=== PATIENT | male | born 1955 | race American Indian/Alaskan Native ===

== ENCOUNTER 2018-03-26 11:12 | Outpatient (REF) | payer MEDICAID, SELFPAY ==
[2018-03-26 11:34] LABS: Abs Immature Grans 0.06 k/cumm (0.0-0.09); Absolute Basophil Count 0.04 k/cumm (0.0-0.2); Absolute Eosinophil Count 0.28 k/cumm (0.0-0.7); Absolute Lymphocyte Count 4.02 k/cumm (1.2-3.4); Absolute Monocyte Count 0.78 k/cumm (0.11-0.7); Absolute Neutrophil Count 3.79 k/cumm (1.2-6.7); Basophils % 0.4; Eosinophils % 3.1; HCT 37.8 % (40.0-50.0); HGB 12.5 g/dL (13.5-17.5); Immature Grans % 0.7; Lymphocytes % 44.8; Mean Corp. HGB Concentration 33.1 g/dL (32.0-36.0); Mean Corpuscular Hemoglobin 31.5 pg (27.0-33.0); Mean Corpuscular Volume 95.2 fL (80-95); Mean Platelet Volume 9.9 fL (8.0-11.0); Monocytes % 8.7; Neutrophils % 42.3; Platelet Count 225 x1000/uL (130-400); RBC 3.97 m/cumm (4.50-6.00); RBC Distribution Width 14.5 % (11.8-14.1); White Blood Cell Count 8.97 k/cumm (4.4-10.8)
[2018-03-26 12:01] LABS: ALT 29 U/L (12-78); AST 29 U/L (15-37); Albumin 2.6 g/dL (3.4-5.0); Alkaline Phosphatase 73 U/L (46-116); Anion Gap 4.7 mmol/L (3-11); BUN 12 mg/dL (7-18); Bilirubin, Total 0.3 mg/dL (0.2-1.0); CO2 29.3 mmol/L (21.0-32.0); CREATININE 0.73 mg/dL (0.70-1.30); Calcium 8.2 mg/dL (8.5-10.1); Chloride 101 mmol/L (98-107); Glucose 120 mg/dL (70-100); Potassium 4.3 mmol/L (3.5-5.1); Sodium 135 mmol/L (136-145); TSH (W/Ref FT4) 0.01 uIU/mL (0.358-3.74); Total Protein 5.4 g/dL (6.4-8.2); Uric Acid 6.3 mg/dL (3.5-7.2)
[2018-03-26 12:19] LABS: FREE T4 1.05 ng/dL (0.76-1.46)
== END 2018-03-26 11:13 ==
LOC: LBN 11:12
PROVIDERS: PCP Family Medicine; Visit Provider Family Medicine
DX: I10 Essential (primary) hypertension (principal); R53.83 Other fatigue; R63.5 Abnormal weight gain; E66.9 Obesity, unspecified
CPT/HCPCS: 80053; 83036; 84439; 84443; 84550; 85025

== ENCOUNTER 2018-06-09 12:10 | Outpatient (REF) | payer MEDICAID, SELFPAY | END 2018-06-09 12:30 | LOC: LBN 12:10 | PROVIDERS: PCP Family Medicine; Visit Provider Family Medicine | DX: R25.2 Cramp and spasm (principal); M79.601 Pain in right arm; M79.602 Pain in left arm; M79.604 Pain in right leg; M79.605 Pain in left leg | CPT/HCPCS: 82550; 85652 ==

== ENCOUNTER 2018-09-04 08:07 | Outpatient (REF) | payer MEDICAID, SELFPAY | END 2018-09-04 08:27 | LOC: LBN 08:07 | PROVIDERS: PCP Family Medicine; Visit Provider Family Medicine | DX: R19.7 Diarrhea, unspecified (principal) | CPT/HCPCS: 87505; 87177; 87230 ==

== ENCOUNTER 2018-09-16 16:21 | Outpatient (REF) | payer MEDICAID, SELFPAY ==
[2018-09-18 11:10] LABS: Campylobacter PCR SEE COMMENTS; Salmonella PCR SEE COMMENTS; Shiga Toxin PCR SEE COMMENTS; Shigella/Enteroinvasive Ecoli SEE COMMENTS
== END 2018-09-16 16:41 ==
LOC: LBN 16:21
PROVIDERS: PCP Family Medicine; Visit Provider Family Medicine
DX: R19.7 Diarrhea, unspecified (principal)
CPT/HCPCS: 87329; 87505; 87324

== ENCOUNTER 2018-10-22 15:28 | Outpatient (REF) | payer MEDICAID, SELFPAY | END 2018-10-22 15:48 | LOC: LBN 15:28 | PROVIDERS: PCP Family Medicine; Visit Provider Emergency Medicine | DX: L08.9 Local infection of the skin and subcutaneous tissue, unspecified (principal) | CPT/HCPCS: 87077; 87070; 87186; 87205 ==

== ENCOUNTER 2018-10-31 11:37 | Inpatient (IN) | payer MEDICAID, SELFPAY ==
[2018-10-31] VITALS (150 sets, daily range): BP systolic 48–167; BP diastolic 31–118; PULSE 88–173; RESP 9–41; TEMP 36.8–37.6; O2SAT 83–99
--- NOTE | 2018-10-31 12:09 | ED.GENADUL_ITS ---
Discharge Plan Disposition Patient Disposition: 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 for constipation times 5 days and decreased urine output and decreased p.o. intake for the past 2 days. Unable to obtain IV access. Patient verbally and physically aggressive, attempting to punch and hit staff. 2 mg of IM Ativan ordered. 1320 -- still unable to obtain access. Pt was briefly sedated and attempted to place IV twice but unsuccessful and now pt threatening to hurt me if I continue to attempt IV. Still unable to obtain labs. Heart rate 130s. Systolic blood pressure 100s. Patient will need an IV for fluids and need to obtain labs. We will give Haldol IM and reattempt. 1740 --significant delay in obtaining results due to inability to obtain IV for several hours. Anesthesia called and able to obtain IV and chest. Unable to obtain labs at that time so laboratory was able to. Patient was able to urinate and have a bowel movement while here. Labs and imaging reviewed. Normal white blood cell count. Sodium 132. Glucose 281. Normal bicarb. Urinalysis negative for infection. Chest x-ray notes increased gas in the left lower lobe, may be atelectasis or pneumonia. Due to persistent tachycardia as well as decreased p.o. intake for the past few days, will treat for pneumonia. Abdominal x-ray negative. Will give another 500 cc IV fluids and reassess. 1830 --temp 99.6. Attempted to give patient Tylenol but he is refusing. He is snoring and arousable but refusing to take Tylenol. Heart rate still 120s. His tachycardia may be due to pneumonia in conjunction with dehydration but he has not responded to 2 L of IV fluids and heart rate still in the 120s. At this point in time, we will plan for admission for observation, fluids and IV antibiotics. 1845 -- Discussed with hospitalist - accepts patient for admission. Medical Records Medical records reviewed: Yes I reviewed the patient's medical records. Imaging Data Radiologic Study: Radiologist's impression: XR Chest, 1 View EXAM DATE/TIME: 10/31/2018 12:44 PM FINDINGS: Increased density in the lateral left lower lobe. Differential diagnosis includes atelectasis, pneumonia, as well as other lesions including neoplasm. Followup imaging assessment is recommended. There is a rounded density in the right lung apex, new since the prior study. No renee pulmonary consolidation is seen. No pneumothorax is identified. The heart is within normal limits of size given this AP technique. IMPRESSION: 1. Increased density in the left lateral lower lobe, indeterminate. Differential diagnosis includes atelectasis, pneumonia, as well as neoplasm. Followup imaging is recommended as clinically indicated. 2. Small nodular density in the right lung apex. Followup imaging is suggested. XR Abdomen, 1 View EXAM DATE/TIME: 10/31/2018 12:45 PM FINDINGS: Gastrointestinal tract: Air and fecal matter is present within the colon extending from cecum to the rectum. There are multiple loops of air-filled, nondistended, small bowel in the mid abdomen. No radiographic evidence of obstruction is seen. Bones/joints: There are degenerative changes within the lumbar spine. IMPRESSION: No bowel obstruction identified. Lab Data Lab results reviewed: Yes I reviewed the patient's lab results. Laboratory Tests Range/Units 10/31/18 10/31/18 10/31/18 14:25 16:25 16:25 WBC (4.4-10.8) k/cumm 7.69 RBC (4.50-6.00) m/cumm 4.33 L Hgb (13.5-17.5) g/dL 13.6 Hct (40.0-50.0) % 41.1 MCV (80-95) fL 94.9 MCH (27.0-33.0) pg 31.4 MCHC (32.0-36.0) g/dL 33.1 RDW (11.8-14.1) % 15.9 H Plt Count (130-400) x1000/uL 230 MPV (8.0-11.0) fL 9.0 Immature Gran % 0.0 Neutrophils % 76.0 Band Neutrophils % % 0.0 Lymphocytes % 7.0 Atypical Lymphs % 9 Monocytes % 7.0 Eosinophils % 0.0 Basophils % 1.0 Absolute Neutrophils (1.2-6.7) k/cumm 5.84 Absolute Lymphocytes (1.2-3.4) k/cumm 1.23 Absolute Monocytes (0.11-0.7) k/cumm 0.54 Absolute Eosinophils (0.0-0.7) k/cumm 0.00 Absolute Basophils (0.0-0.2) k/cumm 0.08 Differential Comment Manual differential RBC Morphology See below Polychromasia Present Sodium (136-145) mmol/L 132 L Potassium (3.5-5.1) mmol/L 4.7 Chloride (98-107) mmol/L 95 L Carbon Dioxide (21.0-32.0) mmol/L 25.3 Anion Gap (3-11) mmol/L 11.7 H BUN (7-18) mg/dL 15 Creatinine (0.70-1.30) mg/dL 1.76 H Estimated GFR/1.73 m2 (mL/min/1.73m2) 39.56 Glucose (70-100) mg/dL 281 H Calcium (8.5-10.1) mg/dL 8.7 Total Bilirubin (0.2-1.0) mg/dL 1.0 AST (15-37) U/L 44 H ALT (12-78) U/L 37 Alkaline Phosphatase (46-116) U/L 64 Total Protein (6.4-8.2) g/dL 6.0 L Albumin (3.4-5.0) g/dL 2.5 L Urine Color (Yellow) Brown Urine Clarity Clear Urine pH (5-8) 5.0 Ur Specific [employer] (1.005-1.025) 1.025 Urine Protein (Negative) mg/dL Trace H Urine Ketones (Negative) mg/dL Trace H Urine Blood (Negative) Negative Urine Nitrite (Negative) Negative Urine Bilirubin (Negative) Moderate H Urine Urobilinogen (Up TO 0.2) EU/dL 1.0 H Ur Leukocyte Esterase (Negative) Negative Urine RBC (0-2) Negative Urine WBC (0-5) HPF Negative Ur Epithelial Cells (Negative) HPF Few Urine Crystals (Negative) HPF Few amorphous Urine Bacteria (Negative) HPF Few Urine Casts (Negative) LPF Negative Urine Mucus (Negative) Trace Ur Culture Indicated? No Urine Glucose (Negative) mg/dL Negative ECG Data Attestation: I personally reviewed and interpreted this ECG (s) as follows: Interpretation: Rate of 131, sinus, no acute ST elevation or depression. QTc 466. QRS 100. HPI General Mode of arrival: ambulatory . Date/Time Provider Initiated Documentation: 10/31/18 12:05 . Limitations to Documentation: no limitations . Information obtained by: patient . HPI Narrative: Patient is a 62-year-old male with a history of morbid obesity, brain cancer, lung cancer, GERD, gout, hy pothyroidism, and panhypopituitary is him who presents from the [facility] for constipation for 5 days, decreased p.o. intake and urinary output for the past 2 days. Patient states he has not felt well for several months and has not been eating much for the past few days. It is difficult to obtain a full history as patient is unclear about why he does not feel well. He is also verbally and physically aggressive and yelling throughout exam. Related Data Home Medications Medication Instructions Recorded Confirmed allopurinol 100 mg PO DAILY 04/07/17 10/31/18 aspirin 81 mg PO DAILY 04/07/17 10/31/18 [id number] [Certa 1 tab PO DAILY 04/07/17 10/31/18 Plus Tablet] trazodone 25 mg PO BID 04/07/17 10/31/18 tramadol 50 mg PO BID #90 tab-cap 11/20/17 10/31/18 acetaminophen [Acetaminophen Extra 1,000 mg PO TID 10/31/18 10/31/18 Strength] cholecalciferol (vitamin D3) 1,000 unit PO DAILY 10/31/18 10/31/18 [Vitamin D3] desmopressin 0.1 mg PO .QEVE 10/31/18 10/31/18 diphenoxylate-atropine [Lomotil] 1 tab PO TID 10/31/18 10/31/18 hydrocortisone 20 mg PO BID 10/31/18 10/31/18 levothyroxine 175 mcg PO DAILY 10/31/18 10/31/18 lisinopril 2.5 mg PO DAILY 10/31/18 10/31/18 metoprolol succinate 25 mg PO DAILY 10/31/18 10/31/18 pantoprazole 20 mg PO DAILY 10/31/18 10/31/18 potassium, sodium phosphates 1 packet PO BID 10/31/18 10/31/18 [Phos-NaK] trazodone 100 mg PO QHS 10/31/18 10/31/18 Allergies Allergy/AdvReac Type Severity Reaction Status Date / Time Influenza Virus Vaccines AdvReac Unknown Unverified 10/31/18 11:58 NSAIDS (Non-Steroidal AdvReac Unknown Unverified 10/31/18 11:58 Anti-Inflamma risedronate sodium AdvReac Unknown Unverified 10/31/18 11:58 rosuvastatin AdvReac Unknown Unverified 10/31/18 11:58 Mpqkvjb-Uey-Rsa Reductase AdvReac Unknown Unverified 10/31/18 11:58 Inhibitor General Stated Complaint: GenMedical BANDAR: 2 Review of Systems Review of Systems All systems reviewed & are unremarkable except as noted in HPI and below Constitutional Reports as per HPI, Denies chills, Reports fatigue, Denies fever(s), Reports malaise and Reports poor appetite Eyes Denies blurry vision ENT Denies dizziness, Denies sore throat and Denies throat swelling Cardiovascular Denies chest pain and Denies dyspnea Respiratory Denies cough and Denies dyspnea Gastrointestinal Denies abdominal pain, Reports constipation, Denies diarrhea and Denies vomiting Genitourinary Denies hematuria, Reports oliguria and Denies dysuria Musculoskeletal Denies back pain and Denies numbness Integumentary/Breasts Denies lesions and Denies rash Neurologic Denies dizziness, Denies focal weakness and Denies numbness Endocrine Reports fatigue Allergic/Immunologic Denies throat swelling [facility] Medical History Morbid obesity (Acute) Panhypopituitarism (Acute) Brain cancer (Chronic) GERD (gastroesophageal reflux disease) (Chronic) Lung cancer (Chronic) Surgical History History of craniotomy (Acute) Social History Smoking/Tobacco Use Status: Former Tobacco Use Alcohol Intake: former Substance use type: does not use Details: per pt I Drank like a fish Do you feel safe in your relationship?: Yes Additional Social history: pt at the [facility] Exam Const General: uncooperative HENMT Head: normal to inspection Ears: external ears normal Mouth: mucous membranes dry Eyes General: appearance normal, both eyes and all related structures Pupils: PERRL EOM: EOM intact bilaterally Neck Neck: normal visual inspection and No submandibular swelling Lymphatic: no lymphadenopathy noted Chest Chest: normal inspection of the chest and no tenderness Resp Effort & Inspection: normal respiratory effort and able to speak in complete sentences Auscultation: clear to auscultation bilaterally Cardio Rate: regular rate Rhythm: regular rhythm GI Inspection: normal to inspection and obesity Palpation: soft, not firm, not rigid and nontender Auscultation: normal bowel sounds Male General Exam: Yes normal external exam Skin Other: Scaling dry skin throughout. Healing dry wound to right anterior leg. No signs of acute infection Neuro General: alert, awake and oriented x3 Cognition: normal cognition Speech: speech normal Motor: muscle tone normal throughout Sensory Exam: no sensory deficits noted Extrem General: normal to inspection, full ROM and edema (Nonpitting, indurated, bilateral lower extremities) Psych Appearance: grossly normal Mental Status: mental status grossly normal Speech and Movement: speech and movement normal Affect: normal affect Course Vital Signs Temperature 99.5 F 10/31/18 11:40 Pulse 127 H 10/31/18 11:40 Respiratory Rate 21 10/31/18 11:40 Blood Pressure 100/46 L 10/31/18 11:40 Pulse Oximetry 97 10/31/18 11:40 Temperature 99.5 F 10/31/18 11:40 Temperature Source Oral 10/31/18 11:40 Pulse 127 H 10/31/18 11:40 Respiratory Rate 21 10/31/18 11:40 Respiratory Effort Non-Labored 10/31/18 11:48 Blood Pressure 100/46 L 10/31/18 11:40 Blood Pressure Position Supine 10/31/18 11:40 Pulse Oximetry 97 10/31/18 11:40 Oxygen Delivery Method Room Air 10/31/18 11:40 Oxygen Flow Rate 0 10/31/18 11:40 Pain Level 10 10/31/18 11:40
--- NOTE | 2018-10-31 12:42 | DI.RAD_ITS ---
SYMPTOM/DIAGNOSIS: DECREASED PO INTAKE, WEAKNESS, ? PNEUMONIA, CONSTIPATION,? SMALL BOWEL OBSTRUCTION AP CHEST: Comparison is made with 04/10/17. The study is limited due to poor inspiration and patient positioning. The cardiac silhouette appears within normal limits given the AP technique. Pulmonary vasculature is within normal limits. There do appear to be increased lung opacity in the left lung base. This may represent atelectasis or pneumonia. Mass cannot be entirely excluded. There is a nodular density in the lateral aspect of the right upper lobe. This was not apparent on the prior examination. IMPRESSION: 1. Limited examination due to patient positioning and body habitus. 2. Left basilar opacity. Differential considerations include atelectasis or pneumonia. Neoplasm cannot be entirely excluded. 3. Small nodular density in the right upper lobe. A follow up CT scan of the chest should be considered for further evaluation. FPA: Multiple images were obtained. The bowel gas pattern is nonspecific without evidence of obstruction. Degenerative changes are seen in the spine. IMPRESSION: No evidence of bowel obstruction.
[2018-10-31] MEDS: LORazepam 2 MG/ML VIAL IM (12:46)
[2018-10-31] MEDS: Haloperidol 5 MG/ML VIAL IM (13:40)
[2018-10-31 14:50] LABS: Bilirubin Moderate (Negative); Blood Negative (Negative); Clarity Clear; Glucose Negative (Negative); Ketones Trace mg/dL (Negative); Leukocyte Esterase Negative (Negative); Nitrite Negative (Negative); Specific Gravity 1.025 (1.005-1.025)
[2018-10-31 14:51] LABS: Bacteria Few HPF (Negative); C & S Indicated? No; Casts Negative LPF (Negative); Crystals Few Amorphous HPF (Negative); Epithelial Cells Few HPF (Negative); Mucus Trace (Negative); RBC Negative (0-2); WBC Negative HPF (0-5)
[2018-10-31] MEDS: Midazolam/Ketamine/Ondansetron (3/25/2MG) 1 TAB 1 EACH SL (15:00)
[2018-10-31] MEDS: Normal Saline 1,000 ML 1000 ML IV (16:00)
[2018-10-31 16:35] LABS: Abs Immature Grans 0.15 k/cumm (0.0-0.09); Absolute Monocyte Count 0.54 k/cumm (0.11-0.7); HCT 41.1 % (40.0-50.0); HGB 13.6 g/dL (13.5-17.5); Mean Corp. HGB Concentration 33.1 g/dL (32.0-36.0); Mean Corpuscular Hemoglobin 31.4 pg (27.0-33.0); Mean Corpuscular Volume 94.9 fL (80-95); Platelet Count 230 x1000/uL (130-400); RBC 4.33 m/cumm (4.50-6.00); RBC Distribution Width 15.9 % (11.8-14.1); White Blood Cell Count 7.69 k/cumm (4.4-10.8)
[2018-10-31 16:46] LABS: Absolute Basophil Count 0.08 k/cumm (0.0-0.2); Absolute Lymphocyte Count 1.23 k/cumm (1.2-3.4); Absolute Neutrophil Count 5.84 k/cumm (1.2-6.7); Atypical Lymphocytes % 9; Diff Comment Manual Differential; Polychromasia Present
[2018-10-31 16:49] LABS: ALT 37 U/L (12-78); AST 44 U/L (15-37); Albumin 2.5 g/dL (3.4-5.0); Alkaline Phosphatase 64 U/L (46-116); Anion Gap 11.7 mmol/L (3-11); BUN 15 mg/dL (7-18); CO2 25.3 mmol/L (21.0-32.0); CREATININE 1.76 mg/dL (0.70-1.30); Calcium 8.7 mg/dL (8.5-10.1); Chloride 95 mmol/L (98-107); Estimated GFR 39.56 (mL/min/1.73m2); Glucose 281 mg/dL (70-100); Potassium 4.7 mmol/L (3.5-5.1); Sodium 132 mmol/L (136-145)
--- NOTE | 2018-10-31 17:41 | DI.VRAD_ITS ---
EXAM: XR Chest, 1 View EXAM DATE/TIME: 10/31/2018 12:44 PM CLINICAL HISTORY: 62 years old, male; Signs and symptoms; Other: Decreased po intake, weakness, R/O pneumonia TECHNIQUE: Imaging protocol: XR of the chest, 1 view. COMPARISON: CR PORTABLE CHEST ONE VIEW 04/10/2017 12:59 PM FINDINGS: Increased density in the lateral left lower lobe. Differential diagnosis includes atelectasis, pneumonia, as well as other lesions including neoplasm. Followup imaging assessment is recommended. There is a rounded density in the right lung apex, new since the prior study. No renee pulmonary consolidation is seen. No pneumothorax is identified. The heart is within normal limits of size given this AP technique. IMPRESSION: 1. Increased density in the left lateral lower lobe, indeterminate. Differential diagnosis includes atelectasis, pneumonia, as well as neoplasm. Followup imaging is recommended as clinically indicated. 2. Small nodular density in the right lung apex. Followup imaging is suggested. Dictated and Authenticated by: Darrell Coleman MD. Ordering:BRANNON Justin MD
--- NOTE | 2018-10-31 17:43 | DI.VRAD_ITS ---
EXAM: XR Abdomen, 1 View EXAM DATE/TIME: 10/31/2018 12:45 PM CLINICAL HISTORY: 62 years old, male; Signs and symptoms; Other: Constipation, R/O air fluid levels, sbo TECHNIQUE: Imaging protocol: Frontal supine view of the abdomen/pelvis. COMPARISON: US RENAL ULTRASOUND(P) 04/08/2017 3:25 PM FINDINGS: Gastrointestinal tract: Air and fecal matter is present within the colon extending from cecum to the rectum. There are multiple loops of air-filled, nondistended, small bowel in the mid abdomen. No radiographic evidence of obstruction is seen. Bones/joints: There are degenerative changes within the lumbar spine. IMPRESSION: No bowel obstruction identified. Dictated and Authenticated by: Darrell Coleman MD. Ordering:BRANNON Justin MD
[2018-10-31] MEDS: Normal Saline 500 ML 1000 ML IV ×2 (17:45→18:13)
[2018-10-31] MEDS: cefTRIAXone 1 GM/50 ML BAG IVPB (18:02)
[2018-10-31] MEDS: DOXYCYCLINE 100 MG in Normal Saline 100 ML IVPB (18:34)
--- NOTE | 2018-10-31 19:19 | W.PM.HP.N ---
Date of service: 10/31/18 Time of Service: 19:19 Assessment and Plan (1) HCAP (healthcare-associated pneumonia): Start date: 10/31/18 Current visit: Yes Status: Acute This is a 62-year-old gentleman who is morbidly obese and appears that he does not ambulate at the local nursing facility. He presented with altered mental status and has a left lower lobe pneumonia which will be treated as a healthcare associated pneumonia. This may be causing some of his obtundation and change mental status recently. He does not have a high fever but is tachycardic and is being IV fluid resuscitated. His creatinine was slightly up compared to his baseline. He also has had poor intake recently. He is a DNR/DNI this will be respected. We will treat him with his CPAP at night which is his usual treatment for obstructive sleep apnea. His magnesium is low and we will give him a gram of magnesium IV. 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 Continue supplements otherwise. His free T4 slightly elevated and will decrease his daily dose of Synthroid. His TSH is low but this is expected with his panhypopituitarism. (3) Constipation: Start date: 10/31/18 Current visit: Yes Status: Acute Obstipation without obstruction therefore the patient will be treated with IV hydration because of his increased creatinine from last baseline and oral cathartics will be used as the patient allows. (4) Lung cancer: Current visit: Yes Status: Chronic Patient is a DNR/DNI and there is a mass over the right upper lobe by chest x-ray with this not being pursued during this hospital stay. If this is advancing may contribute to his respiratory symptoms. Consider CT scan with patient may not fit in the CT scanner locally secondary to his weight being over 350 pounds. He is a DNR/DNI. History of Present Illness Chief Complaint: Constipation with altered mental status and decreased intake and output Narrative: This is a 62-year-old gentleman who had a craniotomy for brain tumor 1988 with resulting panhypopituitarism, on supplements for adrenal insufficiency and hypothyroidism as well as diabetes insipidus. He also has a history of lung cancer the chest x-ray in the ED revealing a nodule in the right upper lobe. He presented with a 5-day history of constipation with decreased intake and output for the last couple of days. There are no other reported symptoms and the patient was very combative in the ER prolonging his stay because of delayed lab evaluation and IV access for IV fluid resuscitation. Patient was tachycardic at this did respond to fluid resuscitation. Chest x-ray did reveal also possible left lower lobe infiltrate which would be healthcare associated pneumonia. He was started on vancomycin and Zosyn. He was admitted with telemetry because of his tachycardia and was less combative and very sedated at the time I saw him with no ability to give further history. Nurses in the ICU also had no further history given by the patient. He has not been combative since brought to the floor. Review of Systems Review of Systems Review of systems obtained in the ER, patient was not able to give further review of systems to this interviewer. All systems reviewed & are unremarkable except as noted in HPI and below Constitutional Reports as per HPI, Denies chills, Reports fatigue, Denies fever(s), Reports malaise and Reports poor appetite Eyes Denies blurry vision ENT Denies dizziness, Denies sore throat and Denies throat swelling Cardiovascular Denies chest pain and Denies dyspnea Respiratory Denies cough and Denies dyspnea Gastrointestinal Denies abdominal pain, Reports constipation, Denies diarrhea and Denies vomiting Genitourinary Denies hematuria, Reports oliguria and Denies dysuria Musculoskeletal Denies back pain and Denies numbness Integumentary/Breasts Denies lesions and Denies rash Neurologic Denies dizziness, Denies focal weakness and Denies numbness Endocrine Reports fatigue Allergic/Immunologic Denies throat swelling [facility] Medical History Morbid obesity (Acute) Panhypopituitarism (Acute) Brain cancer (Chronic) GERD (gastroesophageal reflux disease) (Chronic) Lung cancer (Chronic) Surgical History History of craniotomy (Acute) Social History Smoking/Tobacco Use Status: Former Tobacco Use Alcohol Intake: former Substance use type: does not use Details: per pt I Drank like a fish Do you feel safe in your relationship?: Yes Additional Social history: pt at the [facility] Medications Medication Instructions Recorded Confirmed Type allopurinol 100 mg PO DAILY 04/07/17 10/31/18 History aspirin 81 mg PO DAILY 04/07/17 10/31/18 History [id number] [Certa 1 tab PO DAILY 04/07/17 10/31/18 History Plus Tablet] trazodone 25 mg PO BID 04/07/17 10/31/18 History tramadol 50 mg PO BID #90 tab-cap 11/20/17 10/31/18 History acetaminophen [Acetaminophen Extra 1,000 mg PO TID 10/31/18 10/31/18 History Strength] cholecalciferol (vitamin D3) 1,000 unit PO DAILY 10/31/18 10/31/18 History [Vitamin D3] desmopressin 0.1 mg PO .QEVE 10/31/18 10/31/18 History diphenoxylate-atropine [Lomotil] 1 tab PO TID 10/31/18 10/31/18 History hydrocortisone 20 mg PO BID 10/31/18 10/31/18 History levothyroxine 175 mcg PO DAILY 10/31/18 10/31/18 History lisinopril 2.5 mg PO DAILY 10/31/18 10/31/18 History metoprolol succinate 25 mg PO DAILY 10/31/18 10/31/18 History pantoprazole 20 mg PO DAILY 10/31/18 10/31/18 History potassium, sodium phosphates 1 packet PO BID 10/31/18 10/31/18 History [Phos-NaK] trazodone 100 mg PO QHS 10/31/18 10/31/18 History Allergies Allergy/AdvReac Type Severity Reaction Status Date / Time Influenza Virus Vaccines AdvReac Unknown Unverified 10/31/18 11:58 NSAIDS (Non-Steroidal AdvReac Unknown Unverified 10/31/18 11:58 Anti-Inflamma risedronate sodium AdvReac Unknown Unverified 10/31/18 11:58 rosuvastatin AdvReac Unknown Unverified 10/31/18 11:58 Gjtzufx-Xxg-Izx Reductase AdvReac Unknown Unverified 10/31/18 11:58 Inhibitor Exam Narrative Exam Narrative: General: Patient is morbidly obese and obtunded at the time I examined him with no verbal response to questions. He did not open his eyes but was responsive to painful stimuli. He appears comfortable with his head elevated at 45 degrees and legs also elevated because of edema. HEENT: Normocephalic, eyes when opened manually looking no had conjugate movement with pupils equal and reactive to light symmetrically, sclera anicteric and cornea with dense arcus senilis bilaterally. Oropharynx with moist pink mucosa. Neck: Shortened with no palpable masses and supple. Lungs: Poor aeration diffusely but no focalizing rales or rhonchi and no increased expiratory phase or expiratory wheeze. Patient breathing comfortably. Heart: Tachycardic rate with regular rhythm and distant heart sounds with no appreciable murmur gallop. Chest: Breast enlarged and symmetric with no palpable masses. No tenderness to palpation over the sternum. Abdomen: Morbidly obese contour with large pannus, soft and nontender to palpation with bowel sounds positive in all quadrants. No palpable hepatomegaly but exam made more difficult with his obesity. Genitalia and rectal exam: Deferred with patient and adult diaper. Extremities: Without clubbing or cyanosis and gross edema over lower extremities which is nonpitting with scaly, atrophic erythematous patch over the right more than left atkinson with some pigment change. Capillary refill is fair. Thickened opaque nails with feet having slight extension at rest. Erythematous, blanching patches of the right sole appearing to be residuals of a hemangioma. Skin: Pale, warm and dry with diffuse scaliness and intertriginous linear skin breakdown over his skin folds. Neuro: When patient is awake no focalizing motor deficits reported by nurses, cranial nerves II through XII grossly intact as testing allowed. No Babinski's. Psych: Obtunded and normal snoring during the exam with altered mental status. Results Imaging Imaging Studies: XR Chest, 1 View EXAM DATE/TIME: 10/31/2018 12:44 PM CLINICAL HISTORY: 62 years old, male; Signs and symptoms; Other: Decreased po intake, weakness, R/O pneumonia TECHNIQUE: Imaging protocol: XR of the chest, 1 view. COMPARISON: CR PORTABLE CHEST ONE VIEW 04/10/2017 12:59 PM FINDINGS: Increased density in the lateral left lower lobe. Differential diagnosis includes atelectasis, pneumonia, as well as other lesions including neoplasm. Followup imaging assessment is recommended. There is a rounded density in the right lung apex, new since the prior study. No renee pulmonary consolidation is seen. No pneumothorax is identified. The heart is within normal limits of size given this AP technique. IMPRESSION: 1. Increased density in the left lateral lower lobe, indeterminate. Differential diagnosis includes atelectasis, pneumonia, as well as neoplasm. Followup imaging is recommended as clinically indicated. 2. Small nodular density in the right lung apex. Followup imaging is suggested. Dictated and Authenticated by: Darrell Coleman MD. XR Abdomen, 1 View EXAM DATE/TIME: 10/31/2018 12:45 PM CLINICAL HISTORY: 62 years old, male; Signs and symptoms; Other: Constipation, R/O air fluid levels, sbo TECHNIQUE: Imaging protocol: Frontal supine view of the abdomen/pelvis. COMPARISON: US RENAL ULTRASOUND(P) 04/08/2017 3:25 PM FINDINGS: Gastrointestinal tract: Air and fecal matter is present within the colon extending from cecum to the rectum. There are multiple loops of air-filled, nondistended, small bowel in the mid abdomen. No radiographic evidence of obstruction is seen. Bones/joints: There are degenerative changes within the lumbar spine. IMPRESSION: No bowel obstruction identified. Dictated and Authenticated by: Darrell Coleman MD. Labs : 10/31/18 16:25 10/31/18 16:25 Laboratory Results - last 24 hr 10/31/18 10/31/18 10/31/18 14:25 16:25 16:25 WBC 7.69 RBC 4.33 L Hgb 13.6 Hct 41.1 MCV 94.9 MCH 31.4 MCHC 33.1 RDW 15.9 H Plt Count 230 MPV 9.0 Immature Gran % 0.0 Neutrophils % 76.0 Band Neutrophils % 0.0 Lymphocytes % 7.0 Atypical Lymphs % 9 Monocytes % 7.0 Eosinophils % 0.0 Basophils % 1.0 Absolute Neutrophils 5.84 Absolute Lymphocytes 1.23 Absolute Monocytes 0.54 Absolute Eosinophils 0.00 Absolute Basophils 0.08 Differential Comment Manual differential RBC Morphology See below Polychromasia Present Sodium 132 L Potassium 4.7 Chloride 95 L Carbon Dioxide 25.3 Anion Gap 11.7 H BUN 15 Creatinine 1.76 H Estimated GFR/1.73 m2 39.56 Glucose 281 H Calcium 8.7 Total Bilirubin 1.0 AST 44 H ALT 37 Alkaline Phosphatase 64 Total Protein 6.0 L Albumin 2.5 L Urine Color Brown Urine Clarity Clear Urine pH 5.0 Ur Specific [place] 1.025 Urine Protein Trace H Urine Ketones Trace H Urine Blood Negative Urine Nitrite Negative Urine Bilirubin Moderate H Urine Urobilinogen 1.0 H Ur Leukocyte Esterase Negative Urine RBC Negative Urine WBC Negative Ur Epithelial Cells Few Urine Crystals Few amorphous Urine Bacteria Few Urine Casts Negative Urine Mucus Trace Ur Culture Indicated? No Urine Glucose Negative Last Vital Signs Temp 37.6 C 10/31/18 18:08 Pulse 127 H 10/31/18 18:46 Resp 14 10/31/18 18:50 BP 111/66 10/31/18 18:46 Pulse Ox 96 10/31/18 18:50
[2018-10-31] MEDS: VANCOMYCIN 1,250 MG in Normal Saline 250 ML 166.6666 MG IVPB (19:45)
[2018-10-31] MEDS: Normal Saline 1,000 ML 150 ML IV (19:45)
[2018-10-31] MEDS: Metoprolol 12.5 MG TAB PO (21:54)
[2018-10-31] MEDS: traZODone 50 MG TAB 100 MG PO (21:54)
[2018-10-31] MEDS: traMADol 50 MG TAB PO (21:55)
[2018-10-31] MEDS: Normal Saline Flush 10 ML SYR IVP (21:57)
[2018-10-31] MEDS: Heparin 5,000 UNITS/ML VIAL 5000 UNITS SC (21:57)
[2018-10-31] MEDS: Hydrocortisone SOD SUC. 100 MG VIAL IVP (21:57)
[2018-10-31 22:48] LABS: Magnesium 1.6 mg/dL (1.8-2.4); TSH (W/Ref FT4) 0.01 uIU/mL (0.358-3.74)
[2018-10-31 23:18] LABS: FREE T4 1.75 ng/dL (0.76-1.46)
[2018-11-01] VITALS (48 sets, daily range): BP systolic 97–196; BP diastolic 53–139; PULSE 99–148; RESP 9–113; TEMP 36.5–37.3; O2SAT 86–98
[2018-11-01] MEDS: Desmopressin 0.2 MG TAB 0.1 MG PO (00:09)
[2018-11-01] MEDS: MAGNESIUM SULFATE 1 GM/100 ML BAG IVPB (00:13)
[2018-11-01] MEDS: PIPERACILLIN/TAZO 3.375 GM in Normal Saline 50 ML IVPB ×5 (01:39→23:11)
[2018-11-01] MEDS: LORazepam 2 MG/ML VIAL IVP (03:01)
[2018-11-01] MEDS: Normal Saline 1,000 ML 150 ML IV ×3 (03:56→20:13)
[2018-11-01] MEDS: Haloperidol 5 MG/ML VIAL IM (04:30)
[2018-11-01] MEDS: Levothyroxine 25 MCG TAB PO (05:11)
[2018-11-01] MEDS: Hydrocortisone SOD SUC. 100 MG VIAL IVP (05:11)
[2018-11-01] MEDS: Levothyroxine 100 MCG TAB PO (05:11)
[2018-11-01] MEDS: Heparin 5,000 UNITS/ML VIAL 5000 UNITS SC ×3 (05:13→22:11)
[2018-11-01 06:46] LABS: ALT 35 U/L (12-78); AST 45 U/L (15-37); Albumin 2.2 g/dL (3.4-5.0); Alkaline Phosphatase 55 U/L (46-116); Anion Gap 8.7 mmol/L (3-11); BUN 15 mg/dL (7-18); Bilirubin, Total 0.7 mg/dL (0.2-1.0); CO2 23.3 mmol/L (21.0-32.0); CREATININE 1.18 mg/dL (0.70-1.30); Calcium 8.1 mg/dL (8.5-10.1); Chloride 99 mmol/L (98-107); Glucose 320 mg/dL (70-100); Sodium 131 mmol/L (136-145); Total Protein 5.4 g/dL (6.4-8.2)
[2018-11-01 07:24] LABS: HCT 37.9 % (40.0-50.0); HGB 12.6 g/dL (13.5-17.5); Mean Corp. HGB Concentration 33.2 g/dL (32.0-36.0); Mean Corpuscular Hemoglobin 31.3 pg (27.0-33.0); Mean Corpuscular Volume 94.3 fL (80-95); RBC 4.02 m/cumm (4.50-6.00); RBC Distribution Width 15.9 % (11.8-14.1); White Blood Cell Count 7.39 k/cumm (4.4-10.8)
--- NOTE | 2018-11-01 09:38 | PDOC.CMIN ---
- If Service Date Differs Date of service: 11/01/18 Time of Service: 09:38 Care Management Initial Assess REASON FOR HOSPITALIZATION:: HCAP PAST MEDICAL HISTORY/PAST SURGICAL HISTORY:: Medical & Surgical: H/O of brain tumor status post craniotomy in 1988, Hypothroidism, Gout, GERD, Chronic Pain, A Flutter, Panhypopituritarism, H/O of obstructive sleep apnea but no recent records of any CPAP, H/O of vision loss, not sure specifics, H/O of lung nodule, H/O Hyponatremia PREVIOUS FUNCTIONAL STATUS/SOCIAL/FAMILY SUPPORTS:: Prakash lives at the [facility] and has for the last three years. Per his daughters he does not ambulate and stays in bed most of the time. CM attempted contact with the [facility] to confirm baseline awaiting a return call. Prakash has three daughters that live [place], [place]. He worked in [employer] for years and raised his three girls on their own. CURRENT FUNCTIONAL STATUS:: Sammies eyes are closed when CM is in the room. He acknowledges CM and states he would like referrals to other facilities closer to his children. He also states he is okay to return to the [facility] if no other facility is identified. CM met with both his daughters whom are concerend that he has not been doing well at the [facility]. They report that he has gained weight since being at the [facility] and feel this is related to oral steroids. CM contacted the [facility] and reviewed Prakash's care and they report he refuses to work with PT. They did obtain a wheelchair for him and a bariatric bed to assist with mobilization. Per report he often refuses to get out of bed or particpate in any activities. Per nursing at the [facility] he can get aggitated however does not lash out and can be redirected. Prakash does make his own decisions he does not have a DPOA. ADVANCE DIRECTIVES:: None on file at [facility] Pt is unable to complete today due to mentation. Has patient been provided with information about the portal?: No Did the patient sign up for the portal?: No CODE STATUS:: DNR/DNI INSURANCE COVERAGE / FINANCIAL ISSUES:: Medicaid CURRENT HOME/COMMUNITY SERVICES/EQUIPMENT:: Lives at the [facility], he has a wheelchair, and bariatric bed at the facility. PRIMARY CARE PHYSICIAN:: POTENTIAL DISCHARGE NEEDS:: Return to the [facility] when medically ready and follow up with . PATIENT/FAMILY EDUCATION NEEDS:: Discharge education, limitations and follow up plan of care. Discharge instructions will be shared with receiving facility. Patient will need ambulance transfer to the [facility]. ANTICIPATED BARRIERS TO DISCHARGE:: Family would like transfer to facility closer to their home. CM contacted facilities in the [facility] there are currently no beds available. TRANSPORTATION:: Via ambulance at time of discharge to be coordinated by [facility]. PLAN:: Prakash is currently receiving care in the ICU including IV antibiotics and steroids. He is having an EEG today. Plan will be for Prakash to return to the [facility] when he is medically ready. CM contact [facility] there is currently not a nursing home bed available. CM to continue to provide support to Prakash and his family discharge planning and disposition. CM provided Prakash and his daughters with contact information for the local obrustan.
[2018-11-01 09:39] LABS: BE 0.7 mmol/L (-3-3); HCO3 26 mmol/L (22-28); pCO2 44 mmHg (34-47); pH 7.37 (7.35-7.45); pO2 71 mmHg (83-108); sO2 96 % (94-98); tCO2 24 mmol/L (22-29)
[2018-11-01 09:42] LABS: Site Right Radial
[2018-11-01] MEDS: Pantoprazole 40 MG VIAL IVP (09:57)
[2018-11-01] MEDS: Normal Saline Flush 10 ML SYR IVP ×2 (09:57→16:10)
[2018-11-01 11:04] LABS: Creatine Kinase 289 U/L (39-308); Magnesium 1.8 mg/dL (1.8-2.4)
[2018-11-01 11:09] LABS: Hemoglobin A1C 7.2 % (4.5-6.2)
--- NOTE | 2018-11-01 11:18 | PGE_ITS ---
Date of Service Date of service: 11/01/18 Time of Service: 08:20 Assessment and Plan (1) HCAP (healthcare-associated pneumonia): Current visit: Yes Status: Acute I am not entirely certain this is a straight forward HCAP. It could be aspiration pneumonia. Speech therapy consulted. 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 Taper stress dose steroids. Continue desmopressin (3) Toxic metabolic encephalopathy: Current visit: Yes Status: Acute Possibly due to PNA - however, seizures need to be ruled out. As below. (4) History of brain tumor: Current visit: Yes Status: Acute Patient is a high risk for seizures due to his history of craniotomy, which could result in his altered mental status postictally. EEG ordered. Presently, not on anticonvulsant therapy. Consider Neurology consult. (5) Hyperglycemia: Current visit: Yes Status: Acute Check A1c. Cover with SSI. (6) Morbid obesity with BMI of 70 and over, adult: Current visit: Yes Status: Acute Patient is getting a specialized bed. I am reading in the custodial not es that the patient was not willing to decrease his food intake. PT/OT consult. (7) Obesity hypoventilation syndrome: Current visit: Yes Status: Chronic ABG done this morning demonstrates only mild CO2 retention. Unfortunately, I do not think that Mr Rowland would tolerate BiPAP. If hypoxic, will use nasal O2. He is DNR/DNi. (8) DOUG (obstructive sleep apnea): Current visit: Yes Status: Chronic As above (9) Discharge planning issues: Current visit: Yes Status: Acute Palliative care consulted. DNR/DNI Planned to return back to the [facility] once medically stable (10) DVT prophylaxis: Current visit: Yes Status: Acute Sc heparin Subjective Interval history since last seen: Mr Rowland has been mostly somnolent during my exam with him. He does wake up when I ask him questions, but falls right back asleep. Evidently, overnight he has been pulling on IV's and chewed off his O2 sat probe. He states he is not in pain. Denies shortness of breath. I am unable to get any other answers out of him. His BP did improve (100/57 this am). Exam Narrative Exam Narrative: General: very obese male, lethargic, arousable to voice, appears comfortable in bed HEENT: EOMI, MMM Heart: RRR, tachycardic, no murmurs Lungs: Diminished breath sounds B GI: abdomen is soft, nontender, nondistended Extremities: BLE's with plaque lesions (?psoriasis); R foot with erythematous discoloration on plantar surface. Edema BLE's Objective Objective Clinical Data: Abnormal lab results 10/31/18 10/31/18 10/31/18 Range/Units 14:25 16:25 16:25 RBC 4.33 L (4.50-6.00) m/cumm Hgb (13.5-17.5) g/dL Hct (40.0-50.0) % RDW 15.9 H (11.8-14.1) % pO2 (83-108) mmHg Sodium 132 L (136-145) mmol/L Chloride 95 L (98-107) mmol/L Anion Gap 11.7 H (3-11) mmol/L Creatinine 1.76 H (0.70-1.30) mg/dL Glucose 281 H (70-100) mg/dL Calcium (8.5-10.1) mg/dL Magnesium (1.8-2.4) mg/dL AST 44 H (15-37) U/L Total Protein 6.0 L (6.4-8.2) g/dL Albumin 2.5 L (3.4-5.0) g/dL TSH (0.358-3.74) uIU/mL Free T4 (0.76-1.46) ng/dL Urine Protein Trace H (Negative) mg/dL Urine Ketones Trace H (Negative) mg/dL Urine Bilirubin Moderate H (Negative) Urine Urobilinogen 1.0 H (Up TO 0.2) EU/dL 10/31/18 11/01/18 11/01/18 Range/Units 16:25 06:00 06:00 RBC 4.02 L (4.50-6.00) m/cumm Hgb 12.6 L (13.5-17.5) g/dL Hct 37.9 L (40.0-50.0) % RDW 15.9 H (11.8-14.1) % pO2 (83-108) mmHg Sodium 131 L (136-145) mmol/L Chloride (98-107) mmol/L Anion Gap (3-11) mmol/L Creatinine (0.70-1.30) mg/dL Glucose 320 H (70-100) mg/dL Calcium 8.1 L (8.5-10.1) mg/dL Magnesium 1.6 L (1.8-2.4) mg/dL AST 45 H (15-37) U/L Total Protein 5.4 L (6.4-8.2) g/dL Albumin 2.2 L (3.4-5.0) g/dL TSH 0.01 L (0.358-3.74) uIU/mL Free T4 1.75 H (0.76-1.46) ng/dL Urine Protein (Negative) mg/dL Urine Ketones (Negative) mg/dL Urine Bilirubin (Negative) Urine Urobilinogen (Up TO 0.2) EU/dL 11/01/18 Range/Units 09:33 RBC (4.50-6.00) m/cumm Hgb (13.5-17.5) g/dL Hct (40.0-50.0) % RDW (11.8-14.1) % pO2 71 L (83-108) mmHg Sodium (136-145) mmol/L Chloride (98-107) mmol/L Anion Gap (3-11) mmol/L Creatinine (0.70-1.30) mg/dL Glucose (70-100) mg/dL Calcium (8.5-10.1) mg/dL Magnesium (1.8-2.4) mg/dL AST (15-37) U/L Total Protein (6.4-8.2) g/dL Albumin (3.4-5.0) g/dL TSH (0.358-3.74) uIU/mL Free T4 (0.76-1.46) ng/dL Urine Protein (Negative) mg/dL Urine Ketones (Negative) mg/dL Urine Bilirubin (Negative) Urine Urobilinogen (Up TO 0.2) EU/dL Vital Signs Temperature 37.3 C 11/01/18 08:24 Temperature Source Temporal Artery Scan 11/01/18 08:24 Pulse 118 H 11/01/18 08:32 Pulse 116 H 11/01/18 10:00 Respiratory Rate 10 L 11/01/18 10:00 Respiratory Effort 11/01/18 00:05 Respiratory Depth Shallow 11/01/18 00:05 Respiratory Pattern Normal 11/01/18 00:05 Blood Pressure 124/55 L 11/01/18 08:32 Blood Pressure Mean 73 11/01/18 08:32 Blood Pressure Position Supine 10/31/18 21:00 Pulse Oximetry 93 L 11/01/18 10:00 Oxygen Delivery Method Nasal Cannula 11/01/18 08:24 Oxygen Flow Rate 2 11/01/18 08:24 Pain Level 0 11/01/18 08:24 Comment 11/01/18 08:24 Intake & Output 10/31/18 10/31/18 11/01/18 11:59 23:59 11:59 Intake Total 2402.5 / 2402.5 2157.5 / 2157.5 Output Total 200 / 200 600 / 600 Balance 2202.5 / 2202.5 1557.5 / 1557.5 Weight 204.6 kg 204.6 kg 210.7 kg Intake: IV 2402.5 / 2402.5 2137.5 / 2137.5 Oral 20 / 20 Output: Urine 200 / 200 600 / 600 Other: Urine Color Light Yassine Urine Appearance Clear Urine Odor Strong Comment Patient arrived from [facility] to [facility] Patient is confused, unable to give history or answer questions. Patient is confused, unable to give history or answer questions. #16 Fr shen cath placed in sterile fashion ,w/o incident,no bleeding or trauma. 400cc dark yassine urine out after placement of catheter. Voiding Methods Indwelling Catheter Laboratory Results WBC 7.39 k/cumm (4.4-10.8) 11/01/18 06:00 RBC 4.02 m/cumm (4.50-6.00) L 11/01/18 06:00 Hgb 12.6 g/dL (13.5-17.5) L 11/01/18 06:00 Hct 37.9 % (40.0-50.0) L 11/01/18 06:00 MCV 94.3 fL (80-95) 11/01/18 06:00 MCH 31.3 pg (27.0-33.0) 11/01/18 06:00 MCHC 33.2 g/dL (32.0-36.0) 11/01/18 06:00 RDW 15.9 % (11.8-14.1) H 11/01/18 06:00 Plt Count x1000/uL (130-400) 11/01/18 06:00 MPV 10.0 fL (8.0-11.0) 11/01/18 06:00 Immature Gran % 0.0 10/31/18 16:25 Neutrophils % 76.0 10/31/18 16:25 Band Neutrophils % 0.0 % 10/31/18 16:25 Lymphocytes % 7.0 10/31/18 16:25 Atypical Lymphs % 9 10/31/18 16:25 Monocytes % 7.0 10/31/18 16:25 Eosinophils % 0.0 10/31/18 16:25 Basophils % 1.0 10/31/18 16:25 Absolute Neutrophils 5.84 k/cumm (1.2-6.7) 10/31/18 16:25 Absolute Lymphocytes 1.23 k/cumm (1.2-3.4) 10/31/18 16:25 Absolute Monocytes 0.54 k/cumm (0.11-0.7) 10/31/18 16:25 Absolute Eosinophils 0.00 k/cumm (0.0-0.7) 10/31/18 16:25 Absolute Basophils 0.08 k/cumm (0.0-0.2) 10/31/18 16:25 Differential Comment Manual differential 10/31/18 16:25 RBC Morphology See below 10/31/18 16:25 Polychromasia Present 10/31/18 16:25 Sample Site Right radial 11/01/18 09:33 pCO2 44 mmHg (34-47) 11/01/18 09:33 pO2 71 mmHg (83-108) L 11/01/18 09:33 O2 Saturation 96 % (94-98) 11/01/18 09:33 ABG pH 7.37 (7.35-7.45) 11/01/18 09:33 ABG HCO3 26 mmol/L (22-28) 11/01/18 09:33 ABG Total CO2 24 mmol/L (22-29) 11/01/18 09:33 ABG Base Excess 0.7 mmol/L (-3-3) 11/01/18 09:33 Oxygen Liter Flow 2 nc L 11/01/18 09:33 Sodium 131 mmol/L (136-145) L 11/01/18 06:00 Potassium 5.0 mmol/L (3.5-5.1) 11/01/18 06:00 Chloride 99 mmol/L (98-107) 11/01/18 06:00 Carbon Dioxide 23.3 mmol/L (21.0-32.0) 11/01/18 06:00 Anion Gap 8.7 mmol/L (3-11) 11/01/18 06:00 BUN 15 mg/dL (7-18) 11/01/18 06:00 Creatinine 1.18 mg/dL (0.70-1.30) D 11/01/18 06:00 Estimated GFR/1.73 m2 >= 60.00 (mL/min/1.73m2) 11/01/18 06:00 Glucose 320 mg/dL (70-100) H 11/01/18 06:00 Calcium 8.1 mg/dL (8.5-10.1) L 11/01/18 06:00 Magnesium 1.6 mg/dL (1.8-2.4) L 10/31/18 16:25 Total Bilirubin 0.7 mg/dL (0.2-1.0) 11/01/18 06:00 AST 45 U/L (15-37) H 11/01/18 06:00 ALT 35 U/L (12-78) 11/01/18 06:00 Alkaline Phosphatase 55 U/L (46-116) 11/01/18 06:00 Total Protein 5.4 g/dL (6.4-8.2) L 11/01/18 06:00 Albumin 2.2 g/dL (3.4-5.0) L 11/01/18 06:00 TSH 0.01 uIU/mL (0.358-3.74) L 10/31/18 16:25 Free T4 1.75 ng/dL (0.76-1.46) H 10/31/18 16:25 Urine Color Brown (Yellow) 10/31/18 14:25 Urine Clarity Clear 10/31/18 14:25 Urine pH 5.0 (5-8) 10/31/18 14:25 Ur Specific Urich 1.025 (1.005-1.025) 10/31/18 14:25 Urine Protein Trace mg/dL (Negative) H 10/31/18 14:25 Urine Ketones Trace mg/dL (Negative) H 10/31/18 14:25 Urine Blood Negative (Negative) 10/31/18 14:25 Urine Nitrite Negative (Negative) 10/31/18 14:25 Urine Bilirubin Moderate (Negative) H 10/31/18 14:25 Urine Urobilinogen 1.0 EU/dL (Up TO 0.2) H 10/31/18 14:25 Ur Leukocyte Esterase Negative (Negative) 10/31/18 14:25 Urine RBC Negative (0-2) 10/31/18 14:25 Urine WBC Negative HPF (0-5) 10/31/18 14:25 Ur Epithelial Cells Few HPF (Negative) 10/31/18 14:25 Urine Crystals Few amorphous HPF (Negative) 10/31/18 14:25 Urine Bacteria Few HPF (Negative) 10/31/18 14:25 Urine Casts Negative LPF (Negative) 10/31/18 14:25 Urine Mucus Trace (Negative) 10/31/18 14:25 Ur Culture Indicated? No 10/31/18 14:25 Urine Glucose Negative mg/dL (Negative) 10/31/18 14:25
--- NOTE | 2018-11-01 12:06 | PDOC.EEG ---
EEG: [facility] Department of Neurology INPATIENT EEG REPORT Date of Recording: Interpreting Physician: Dr. Kasey Patricio Reason for study: Mr. Rowland is a 62 year-old man with a history of craniotomy/panhypopituitarisim and lung cancer who was admitted with altered mental status and pneumonia. Current Medications: Active Medications Generic Name Dose Route Start Last Admin Trade Name Freq PRN Reason Stop Dose Admin Acetaminophen 1,000 mg 11/01/18 09:53 Tylenol PO Q6H PRN PRN Al Hydrox/Mg Hydrox/Simethicone 30 ml 10/31/18 19:09 Mylanta Liquid PO Q2H PRN PRN Albuterol Sulfate 2.5 mg 10/31/18 19:09 Proventil Updraft UPD Q2H PRN PRN Allopurinol 100 mg 11/01/18 08:30 Zyloprim PO DAILY GEOVANNY Aspirin 81 mg 11/01/18 08:30 PO DAILY GEOVANNY Cholecalciferol 1,000 units 11/01/18 08:30 Vitamin D PO DAILY GEOVANNY Desmopressin Acetate 0.1 mg 10/31/18 22:00 11/01/18 00:09 PO 0.1 mg HS GEOVANNY Administration Dextrose 0 gm 11/01/18 09:48 Insta-Glucose PO DIRECTED PRN Dextrose/Water 0 gm 11/01/18 09:48 IVP DIRECTED PRN Dimethicone/Zinc Oxide 0 gm 10/31/18 19:09 Alexy Protect Cream TP PRN PRN Docusate Sodium 100 mg 10/31/18 19:09 Colace PO TID PRN PRN Heparin Sodium (Porcine) 5,000 units 10/31/18 22:00 11/01/18 05:13 SC 5,000 units Q8H GEOVANNY Administration Hydrocortisone 50 mg 11/01/18 14:00 Solu-Cortef IVP Q8H GEOVANNY Sodium Chloride 1,000 mls @ 150 mls/hr 10/31/18 19:15 11/01/18 10:42 Saline 1000ml Bag IV 150 mls/hr INFUSION GEOVANNY Administration Piperacillin Sod/Tazobactam 50 mls @ 100 mls/hr 11/01/18 00:00 11/01/18 06:22 Sod 3.375 gm/ Sodium Chloride IVPB Infused Q6H GEOVANNY Infusion Vancomycin/Sodium Chloride 1.5 gm in 250 mls @ 166.667 mls/hr 11/01/18 12:00 Vancocin Injection IVPB Q12H [facility] Protocol IV Miscellaneous Supplies 1 each 10/31/18 12:45 IV DIRECTED [facility] Insulin Aspart 0 units 11/01/18 11:30 Novolog Flexpen SC AC & HS [facility] Protocol Iron/Minerals/Multivitamins 1 tab 11/01/18 08:30 Theragran-M PO DAILY [facility] Levothyroxine Sodium 150 mcg 11/02/18 06:00 Levothroid PO 0600 [facility] Magnesium Hydroxide 30 ml 10/31/18 19:09 Milk Of Magnesia PO DAILY PRN PRN Metoprolol Tartrate 12.5 mg 10/31/18 20:00 10/31/18 21:54 Lopressor PO 12.5 mg BID [facility] Administration Miscellaneous Medication Confirm 10/31/18 14:56 10/31/18 15:00 Mko Melt Administered 1 tab Dose Administration 1 each SL .DM PRN Nystatin 60 gm 11/01/18 14:00 Mycostatin Powder TP TID [facility] Pantoprazole Sodium 40 mg 11/01/18 08:00 11/01/18 09:57 Protonix Injection IVP 40 mg Q24H [facility] Administration Phosphorus 250 mg 11/01/18 08:30 Phospha 250 Neutral Tablet PO BID [facility] Polyethylene Glycol 17 gm 10/31/18 19:09 Miralax PO DAILY PRN PRN Constipation Sodium Chloride 0 ml 10/31/18 12:42 11/01/18 09:57 Saline Flush 10 Ml Syringe IVP 20 ml PRN PRN Administration Tramadol HCl 50 mg 10/31/18 20:00 10/31/18 21:55 Ultram PO 50 mg BID [facility] Administration Trazodone HCl 100 mg 10/31/18 22:00 10/31/18 21:54 Desyrel PO 100 mg HS [facility] Administration Trazodone HCl 25 mg 11/01/18 08:30 Desyrel PO 0830,1600 [facility] allopurinol 100 mg PO DAILY 04/07/17 aspirin 81 mg PO DAILY 04/07/17 [id number] [Certa Plus Tablet] 1 tab PO DAILY 04/07/17 trazodone 25 mg PO BID 04/07/17 tramadol 50 mg PO BID #90 tab-cap 11/20/17 acetaminophen [Acetaminophen Extra Strength] 1,000 mg PO TID 10/31/18 cholecalciferol (vitamin D3) [Vitamin D3] 1,000 unit PO DAILY 10/31/18 desmopressin 0.1 mg PO .QEVE 10/31/18 diphenoxylate-atropine [Lomotil] 1 tab PO TID 10/31/18 hydrocortisone 20 mg PO BID 10/31/18 levothyroxine 175 mcg PO DAILY 10/31/18 lisinopril 2.5 mg PO DAILY 10/31/18 metoprolol succinate 25 mg PO DAILY 10/31/18 pantoprazole 20 mg PO DAILY 10/31/18 potassium, sodium phosphates [Phos-NaK] 1 packet PO BID 10/31/18 trazodone 100 mg PO QHS 10/31/18 METHODS: A 21 channel digitized electroencephalogram was performed in the [facility] Med/Surg Floor or ICU. The 10/20 international system of electrode placement was used and bipolar and referential electrode montages were recorded. In addition to EEG the patient was monitored for EKG and lateral/vertical eye movements. Activation procedures of photic stimulation and hyperventilation were performed if applicable. Video was used during activation procedures and during events where applicable. The duration of the recording was 30 minutes. DESCRIPTION OF EEG: This recording was significantly limited by technical difficulties including patient intolerance and very high impedances with significant artifact. When activity was seen, was consistent with a low to moderate amplitude, polymorphic severe delta slowing without any change to stimulus. There was no discernible awake or sleep activity. There was no posterior background rhythm. There was significant more artifact in the left temporal lobe which may be secondary to his previous craniotomy, but I do not know which side that occurred on. Activating Procedures: Photic stimulation was performed which produced no posterior driving response. Hyperventilation was not performed. EKG: EKG revealed normal sinus rhythm. INTERPRETATION: This EEG was very limited due to technical issues. There appears to be generalized slowing, but a definitive interpretation cannot be make. PRIOR EEG: none CLINICAL CORRELATION: Technically limited study. The background slowing is suggestive of a moderate to severe diffuse cerebral encephalopathy of broad differential including toxic-metabolic etiology. No focal regions of cerebral dysfunction or epileptiform activity was present. Clinical correlation is advised. Kasey Patricio MD
--- NOTE | 2018-11-01 12:12 | PDOC.EEG_ITS ---
EEG: [facility] Department of Neurology INPATIENT EEG REPORT Date of Recording: Interpreting Physician: Dr. Kasey Patricio Reason for study: Mr. Rowland is a 62 year-old man with a history of craniotomy/panhypopituitarisim and lung cancer who was admitted with altered mental status and pneumonia. Current Medications: Active Medications Generic Name Dose Route Start Last Admin Trade Name Freq PRN Reason Stop Dose Admin Acetaminophen 1,000 mg 11/01/18 09:53 Tylenol PO Q6H PRN PRN Al Hydrox/Mg Hydrox/Simethicone 30 ml 10/31/18 19:09 Mylanta Liquid PO Q2H PRN PRN Albuterol Sulfate 2.5 mg 10/31/18 19:09 Proventil Updraft UPD Q2H PRN PRN Allopurinol 100 mg 11/01/18 08:30 Zyloprim PO DAILY GEOVANNY Aspirin 81 mg 11/01/18 08:30 PO DAILY GEOVANNY Cholecalciferol 1,000 units 11/01/18 08:30 Vitamin D PO DAILY GEOVANNY Desmopressin Acetate 0.1 mg 10/31/18 22:00 11/01/18 00:09 PO 0.1 mg HS GEOVANNY Administration Dextrose 0 gm 11/01/18 09:48 Insta-Glucose PO DIRECTED PRN Dextrose/Water 0 gm 11/01/18 09:48 IVP DIRECTED PRN Dimethicone/Zinc Oxide 0 gm 10/31/18 19:09 Alexy Protect Cream TP PRN PRN Docusate Sodium 100 mg 10/31/18 19:09 Colace PO TID PRN PRN Heparin Sodium (Porcine) 5,000 units 10/31/18 22:00 11/01/18 05:13 SC 5,000 units Q8H GEOVANNY Administration Hydrocortisone 50 mg 11/01/18 14:00 Solu-Cortef IVP Q8H GEOVANNY Sodium Chloride 1,000 mls @ 150 mls/hr 10/31/18 19:15 11/01/18 10:42 Saline 1000ml Bag IV 150 mls/hr INFUSION GEOVANNY Administration Piperacillin Sod/Tazobactam 50 mls @ 100 mls/hr 11/01/18 00:00 11/01/18 06:22 Sod 3.375 gm/ Sodium Chloride IVPB Infused Q6H [facility] Infusion Vancomycin/Sodium Chloride 1.5 gm in 250 mls @ 166.667 mls/hr 11/01/18 12:00 Vancocin Injection IVPB Q12H [facility] Protocol IV Miscellaneous Supplies 1 each 10/31/18 12:45 IV DIRECTED [facility] Insulin Aspart 0 units 11/01/18 11:30 Novolog Flexpen SC AC & HS [facility] Protocol Iron/Minerals/Multivitamins 1 tab 11/01/18 08:30 Theragran-M PO DAILY [facility] Levothyroxine Sodium 150 mcg 11/02/18 06:00 Levothroid PO 0600 [facility] Magnesium Hydroxide 30 ml 10/31/18 19:09 Milk Of Magnesia PO DAILY PRN PRN Metoprolol Tartrate 12.5 mg 10/31/18 20:00 10/31/18 21:54 Lopressor PO 12.5 mg BID [facility] Administration Miscellaneous Medication Confirm 10/31/18 14:56 10/31/18 15:00 Mko Melt Administered 1 tab Dose Administration 1 each SL .DM PRN Nystatin 60 gm 11/01/18 14:00 Mycostatin Powder TP TID [facility] Pantoprazole Sodium 40 mg 11/01/18 08:00 11/01/18 09:57 Protonix Injection IVP 40 mg Q24H [facility] Administration Phosphorus 250 mg 11/01/18 08:30 Phospha 250 Neutral Tablet PO BID [facility] Polyethylene Glycol 17 gm 10/31/18 19:09 Miralax PO DAILY PRN PRN Constipation Sodium Chloride 0 ml 10/31/18 12:42 11/01/18 09:57 Saline Flush 10 Ml Syringe IVP 20 ml PRN PRN Administration Tramadol HCl 50 mg 10/31/18 20:00 10/31/18 21:55 Ultram PO 50 mg BID [facility] Administration Trazodone HCl 100 mg 10/31/18 22:00 10/31/18 21:54 Desyrel PO 100 mg HS [facility] Administration Trazodone HCl 25 mg 11/01/18 08:30 Desyrel PO 0830,1600 [facility] allopurinol 100 mg PO DAILY 04/07/17 aspirin 81 mg PO DAILY 04/07/17 [id number] [Certa Plus Tablet] 1 tab PO DAILY 04/07/17 trazodone 25 mg PO BID 04/07/17 tramadol 50 mg PO BID #90 tab-cap 11/20/17 acetaminophen [Acetaminophen Extra Strength] 1,000 mg PO TID 10/31/18 cholecalciferol (vitamin D3) [Vitamin D3] 1,000 unit PO DAILY 10/31/18 desmopressin 0.1 mg PO .QEVE 10/31/18 diphenoxylate-atropine [Lomotil] 1 tab PO TID 10/31/18 hydrocortisone 20 mg PO BID 10/31/18 levothyroxine 175 mcg PO DAILY 10/31/18 lisinopril 2.5 mg PO DAILY 10/31/18 metoprolol succinate 25 mg PO DAILY 10/31/18 pantoprazole 20 mg PO DAILY 10/31/18 potassium, sodium phosphates [Phos-NaK] 1 packet PO BID 10/31/18 trazodone 100 mg PO QHS 10/31/18 METHODS: A 21 channel digitized electroencephalogram was performed in the [facility] Med/Surg Floor or ICU. The 10/20 international system of electrode placement was used and bipolar and referential electrode montages were recorded. In addition to EEG the patient was monitored for EKG and lateral/vertical eye movements. Activation procedures of photic stimulation and hyperventilation were performed if applicable. Video was used during activation procedures and during events where applicable. The duration of the recording was 30 minutes. DESCRIPTION OF EEG: This recording was significantly limited by technical difficulties including patient intolerance and very high impedances with significant artifact. When activity was seen, was consistent with a low to moderate amplitude, polymorphic severe delta slowing without any change to stimulus. There was no discernible awake or sleep activity. There was no posterior background rhythm. There was significant more artifact in the left temporal lobe which may be secondary to his previous craniotomy, but I do not know which side that occurred on. Activating Procedures: Photic stimulation was performed which produced no posterior driving response. Hyperventilation was not performed. EKG: EKG revealed normal sinus rhythm. INTERPRETATION: This EEG was very limited due to technical issues. There appears to be generalized slowing, but a definitive interpretation cannot be make. PRIOR EEG: none CLINICAL CORRELATION: Technically limited study. The background slowing is suggestive of a moderate to severe diffuse cerebral encephalopathy of broad differential including toxic- metabolic etiology. No focal regions of cerebral dysfunction or epileptiform activity was present. Clinical correlation is advised. Kasey Patricio MD
--- NOTE | 2018-11-01 12:17 | INITIAL_ITS ---
- If Service Date Differs Date of service: 11/01/18 Time of Service: 09:38 Care Management Initial Assess REASON FOR HOSPITALIZATION:: HCAP PAST MEDICAL HISTORY/PAST SURGICAL HISTORY:: Medical & Surgical: H/O of brain tumor status post craniotomy in 1988, Hypothroidism, Gout, GERD, Chronic Pain, A Flutter, Panhypopituritarism, H/O of obstructive sleep apnea but no recent records of any CPAP, H/O of vision loss, not sure specifics, H/O of lung nodule, H/O Hyponatremia PREVIOUS FUNCTIONAL STATUS/SOCIAL/FAMILY SUPPORTS:: Prakash [place] [facility] and has for the last three years. Per his daughters he does not ambulate and stays i n bed most of the time. CM attempted contact with the [facility] [place] to confirm baseline awaiting a return call. Prakash has three daughters that live [place], [place]. He worked in [employer] for years and raised his three girls on their own. CURRENT FUNCTIONAL STATUS:: Sammies eyes are closed when CM is in the room. He acknowledges CM and states he would like referrals to other facilities closer to his children. He also states he is okay to return to the [facility] [place] if no other facility is identified. CM met with both his daughters whom are concerend that he has not been doing well at the [facility] [place]. They report that he has gained weight since being [place] the [facility] [place] and feel this is related to oral steroids. CM contacted the [facility] [place] and reviewed Prakash's care and they report he refuses to work with PT. They did obtain a wheelchair for him and a bariatric bed to assist with mobilization. Per report he often refuses to get out of bed or particpate in any activities. Per nursing at the [facility] [place] he can get aggitated however does not lash out and can be redirected. Prakash does make his own decisions he does not have a DPOA. ADVANCE DIRECTIVES:: None on file at [facility] Pt is unable to complete today due to mentation. Has patient been provided with information about the portal?: No Did the patient sign up for the portal?: No CODE STATUS:: DNR/DNI INSURANCE COVERAGE / FINANCIAL ISSUES:: Medicaid CURRENT HOME/COMMUNITY SERVICES/EQUIPMENT:: Lives at the [facility], he has a wheelchair, and bariatric bed at the facility. PRIMARY CARE PHYSICIAN:: POTENTIAL DISCHARGE NEEDS:: Return to the [facility] [place] when medically ready and follow up with . PATIENT/FAMILY EDUCATION NEEDS:: Discharge education, limitations and follow up plan of care. Discharge instructions will be shared with receiving facility. Patient will need ambulance transfer to the [facility] [place]. ANTICIPATED BARRIERS TO DISCHARGE:: Family would like transfer to facility closer to their home. CM contacted facilities in the [facility] there are currently no beds available. TRANSPORTATION:: Via ambulance at time of discharge to be coordinated by [facility]. PLAN:: Prakash is currently receiving care in the ICU including IV antibiotics and steroids. He is having an EEG today. Plan will be for Prakash to return to the [facility] when he is medically ready. CM contact [facility] there is currently not a lobsterman bed available. CM to continue to provide support to Prakash and his family discharge planning and disposition. CM provided [facility]rak[facility] and his daughters [facility]
--- NOTE | 2018-11-01 12:17 | W.SPEECHNOTE ---
Date of service: 11/01/18 Time of Service: 12:05 Speech Therapy Visit Note Note: Attempted to do a swallow evaluation as ordered by Dr. Ang today. Patient was alternately somnolent and wakeful. When wakeful, he made very brief direct eye contact on request only once. He showed perseverative pulling with both hands on his pulse oxymetry tubing despite cueing to stop. He was unable to follow basic 1-step directions or answer orientation questions, but instead appeared to make off-topic utterances. He was unable to participate in a swallow evaluation due to AMS. With this lack of alertness/awareness/self-monitoring, it is felt that he should be n.p.o. at this time. Will check with nursing tomorrow to see what his mental status/alertness is like. Once he shows sustained alertness, the swallow evaluation can be reattempted.
--- NOTE | 2018-11-01 12:31 | STVN_ITS ---
Date of service: 11/01/18 Time of Service: 12:05 Speech Therapy Visit Note Note: Attempted to do a swallow evaluation as ordered by Dr. Ang today. Patient was alternately somnolent and wakeful. When wakeful, he made very brief direct eye contact on request only once. He showed perseverative pulling with both hands on his pulse oxymetry tubing despite cueing to stop. He was unable to follow basic 1-step directions or answer orientation questions, but instead appeared to make off-topic utterances. He was unable to participate in a swallow evaluation due to AMS. With this lack of alertness/awareness/self- monitoring, it is felt that he should be n.p.o. at this time. Will check with nursing tomorrow to see what his mental status/alertness is like. Once he shows sustained alertness, the swallow evaluation can be reattempted.
--- NOTE | 2018-11-01 13:15 | PHARADMIT ---
Addendum entered by Marcelle Driscoll 11/09/18 15:48: Pharmacy Note Subjective at baseline per morning report Objective VS-okay Na-135 mag-1.6 Assessment pantoprazole changed from IV to PO, IV APAP discontinued, PO K+ replacement given Plan waiting for [facility] to accept pt [facility] (unable to accept him back until per CM) Addendum entered by Marcelle Driscoll 11/08/18 15:09: Pharmacy Note Subjective at baseline per morning report Objective BP-157/98 other VS okay K+3.6 mag-1.5 Assessment K+ and mag replacement given furosemide dose given Plan waiting for [facility] to accept pt [facility] (unable to accept him back until per CM) Addendum entered by Maria Alejandra Blancas 11/07/18 13:24: plan to meet with daughters and the [facility] and may return there tomorrow Addendum entered by Jose Miguel Weeks III 11/05/18 11:49: Pharmacy Note Subjective Toxic metabolic encephalopathy with behavioral disturbances, inappropriate.History of brain cancer. Has Panhyopituitarism, Diabetes, Morbid obesity MRSA-positive: continue Vancomycin, Zosn for HCAP Objective BP-153/54 HR-87 K+3.3 Mag-1.8 H&H,Plts-OK BG- 190, Wgt-215.3 kg Assessment Vancomycin trough 11/06 @9am Steroid taper, DVT proph with Hepain SC, on Aspart & Lantus Plan MD notes improved behavior but not at baseline. To return to [facility] when back to baseline. Addendum entered by Jose Miguel Weeks III 11/05/18 11:45: Pharmacy Note Subjective MRSA-positive- continue Vancomycin Objective BP-153/54 HR-87 K+3.3 Mag-1.8 H&H,Plts-OK Wgt-215.3 kg Assessment Plan Addendum entered by Jose Miguel Weeks III 11/03/18 14:47: Pharmacy Note Subjective MD concerned for aspiration pneumonia yesterday Objective BP-157/11 HR-95 Lytes-OK SCr-0.86 H&H,WBC,Plts-OK Wgt-incorrect Assessment Vancomycin trough 21.9, frequency increased to 16hours, restarted at 1800. Zosyn continues. Lopressor increased to 25mg po BID Plan Continue PT & OT No new MD note yet today. Original Note: Admission Pharmacy Clinical Review Code Status DNR/DNI Current Weight 210.7 kg Renally Cleared and Narrow Therapeutic Index Meds Crcl ~112.7 mL/min using adjusted body weight (77.7 using LBW) current meds okay QTc Value / Action Taken QTc 466 has trazodone ordered BP Control, Fever BP 124/55 afebrile Electrolytes reviewed Na 131 DVT Prophylaxis heparin Opiate Usage / Scheduled Bowel Regimen Ordered tramadol/prn Plt/SCr for Heparin / Enoxaparin plt 230 SCr 1.18 INR for Warfarin n/a H/H stable, WBC/Bands h/h 12.6/37.9 WBC 7.39 Antibiotic appropriateness vanco and zosyn to cover for HCAP Cultures and Sensitivities MRSA and blood cultures pending Surgical ABX d/c within 24 hr n/a DM control / Insulin Dosing BG 320 sliding scale aspart ordered Heart Failure (Check EF%) (TRISTEN's, B-Block, Diuretics) metoprolol IV to PO Switch n/a Home Meds Reviewed -multiple forms of vitamin D increase risk of adverse/toxic effects -lisinopril may enhance the potential for allergic or hypersensitivity reactions to allopurinol, monitor following initiation -separate admin of multivitamin from levothyroxine and potassium/sodium phosphate -multiple [employer] depressants: tramadol, trazodone, diphenoxylate and atropine Home Meds Not Ordered diphenoxylate/atropine, lisinopril Comments change pantoprazole to po once pt available to take po meds due to drug shortage
[2018-11-01] MEDS: Insulin Aspart 300 UNITS/3 ML PEN SC ×3 (13:58→22:33)
[2018-11-01] MEDS: Hydrocortisone SOD SUC. 100 MG VIAL 50 MG IVP ×2 (14:02→22:08)
[2018-11-01] MEDS: Nystatin POWDER 60 GM JAR TP ×2 (14:20→21:18)
[2018-11-01] MEDS: ACETAMINOPHEN 1,000 MG/100 ML BTL 400 MG IVPB (17:36)
--- NOTE | 2018-11-01 17:43 | PT.INNT ---
PT Notes Physical therapy evaluation has been withheld today per conversations with ICU nurses who state that patient has been lethargic and not alert. Will attempt to see patient again tomorrow and will pursue initial evaluation as appropriate. Thank you very much for this referral. Bianca Sepulveda, PT, DPT, CLT
--- NOTE | 2018-11-01 18:22 | NUR.NOTE ---
Patient's daughter, Marti Abebe called checking on her father. Marti reports that her dad has not been out of his bed for about one year now. She states that he will normally call her regularly and carry on a conversation with her such as asking about her kids. She states that he is forgetful and he repeats himself but he will have normal conversations with people. She states that her dad has been depressed lately and that her and her sisters just want him to get better.
[2018-11-01] MEDS: Haloperidol 5 MG/ML VIAL 3 MG IM/IV (20:46)
[2018-11-01] MEDS: LORazepam 2 MG/ML VIAL 1 MG IVP ×2 (20:54→22:32)
[2018-11-01] MEDS: Haloperidol 5 MG/ML VIAL 2 MG IM/IV (22:30)
[2018-11-01] MEDS: Metoprolol 5 MG/5 ML VIAL IVP (22:43)
[2018-11-02] VITALS (41 sets, daily range): BP systolic 99–200; BP diastolic 44–151; PULSE 88–211; RESP 0–27; TEMP 37.2; O2SAT 88–98
[2018-11-02] MEDS: ACETAMINOPHEN 1,000 MG/100 ML BTL 400 MG IVPB (00:14)
[2018-11-02] MEDS: Haloperidol 5 MG/ML VIAL IM (03:38)
[2018-11-02] MEDS: Metoprolol 5 MG/5 ML VIAL IVP ×2 (03:57→10:06)
[2018-11-02] MEDS: Normal Saline 1,000 ML 150 ML IV (04:50)
[2018-11-02] MEDS: PIPERACILLIN/TAZO 3.375 GM in Normal Saline 50 ML IVPB ×4 (05:17→23:31)
[2018-11-02] MEDS: Hydrocortisone SOD SUC. 100 MG VIAL 50 MG IVP ×2 (05:26→19:37)
[2018-11-02] MEDS: Heparin 5,000 UNITS/ML VIAL 5000 UNITS SC ×3 (05:28→21:14)
[2018-11-02] MEDS: Insulin Aspart 300 UNITS/3 ML PEN SC ×4 (06:30→21:20)
[2018-11-02 06:36] LABS: Abs Immature Grans 0.04 k/cumm (0.0-0.09); Absolute Basophil Count 0.01 k/cumm (0.0-0.2); Absolute Eosinophil Count 0.01 k/cumm (0.0-0.7); Absolute Lymphocyte Count 1.57 k/cumm (1.2-3.4); Absolute Monocyte Count 0.53 k/cumm (0.11-0.7); Absolute Neutrophil Count 4.96 k/cumm (1.2-6.7); Basophils % 0.1; Eosinophils % 0.1; HCT 36.1 % (40.0-50.0); HGB 11.6 g/dL (13.5-17.5); Immature Grans % 0.6; Lymphocytes % 22.1; Mean Corp. HGB Concentration 32.1 g/dL (32.0-36.0); Mean Corpuscular Hemoglobin 31.6 pg (27.0-33.0); Mean Corpuscular Volume 98.4 fL (80-95); Mean Platelet Volume 8.9 fL (8.0-11.0); Monocytes % 7.4; Neutrophils % 69.7; Platelet Count 229 x1000/uL (130-400); RBC 3.67 m/cumm (4.50-6.00); RBC Distribution Width 16.2 % (11.8-14.1); White Blood Cell Count 7.12 k/cumm (4.4-10.8)
[2018-11-02 06:43] LABS: BUN 13 mg/dL (7-18); CREATININE 0.96 mg/dL (0.70-1.30); Chloride 102 mmol/L (98-107); Glucose 315 mg/dL (70-100); Magnesium 1.8 mg/dL (1.8-2.4); Potassium 4.5 mmol/L (3.5-5.1); Sodium 135 mmol/L (136-145)
[2018-11-02] MEDS: Normal Saline Flush 10 ML SYR IVP ×2 (07:36→19:36)
[2018-11-02] MEDS: Pantoprazole 40 MG VIAL IVP (07:36)
[2018-11-02] MEDS: Nystatin POWDER 60 GM JAR TP ×3 (08:45→21:08)
[2018-11-02] MEDS: traMADol 50 MG TAB PO ×2 (09:53→19:37)
[2018-11-02] MEDS: Aspirin 81 MG CHEW PO (09:54)
[2018-11-02] MEDS: Multivitamin w/Minerals TAB 1 TAB PO (09:54)
[2018-11-02] MEDS: Allopurinol 100 MG TAB PO (09:56)
[2018-11-02] MEDS: traZODone 50 MG TAB 25 MG PO ×2 (10:02→16:41)
[2018-11-02] MEDS: Insulin Glargine 300 UNITS/3 ML PEN 10 UNITS SC (10:03)
--- NOTE | 2018-11-02 10:17 | W.SPEECHEVAL ---
Date of service: 11/02/18 Time of Service: 09:00 Speech Therapy Evaluation Note: REFERRING PROVIDER: Dr. Ang BACKGROUND This is a 62 year old right-handed male who was transferred from [facility] to the ED on10/31/18 with a 5-day h/o constipation, decreased intake/output and now AMS. A CXR of that date showed a left basilar opacity, possibly indicating atelectasis or pneumonia, as well as a small RUL nodular density. He was admitted for tx of HCAP and toxic metabolic encephalopathy. A swallow evaluation was requested to assess for aspiration risk. PMH: brain and lung CA, GERD, obstructive sleep apnea, morbid obesity, panhypopituitarism, diabetes insipidus, h/o tobacco use. This is a second attempt at the swallow evaluation. The initial attempt yesterday was unsuccessful secondary to decreased alertness. OBJECTIVE Nursing reports: - T: 36.3 - O2 sat: 91% on RA - No lung sounds this morning. - Patient (pt) is on ABX. - Pt has had nothing by mouth this morning. The pt is more awake/alert than yesterday. He makes delayed direct eye contact and verbally responds to most, but not all, questions. Most, but not all, utterances are relevant. He follows basic 1-step contextual directions inconsistently. His behavior is petulant at times and he becomes emotionally labial at one point during the visit. He is A&O x 1 (person). He shows some confusion during the first part of the visit but this seems to improve as the visit goes on. Oral Sensorimotor Exam The pt is unable to participate in some of this exam due to decreased following of directions, however, the following is noted. He is partially edentulous in all 4 quadrants, with his remaining teeth severely broken down. He denies any dental discomfort. Smile is symmetrical. No lingual deviation on protrusion in a setting of limited excursion. Lingual lateralization is WNL bilaterally (B) as are lingual rapid alternating movements. Volitional cough is mildly-moderately decreased. Estimated speech intelligibility to this unfamiliar listener in a setting of mild background noise is 70% due to imprecise consonants production. Swallowing - Honey-thick liquid: Good bolus control; mildly delayed posterior oral transit (POT); no renee signs/symptoms (s/s) of aspiration/penetration (A/P); oral clearance 100%; no oral escape. These results are true for single swallows by tsp & cup. - [place]-thick liquid: Decreased bolus control & POT; renee s/s A/P; oral clearance 90% increasing to 100%; no oral escape. These results are true for a single swallow by cup. - Puree food: Good bolus control & linguopalatal bolus compression; POT WNL; no renee s/s A/P; oral clearance 100%; no oral escape. - Crushed pills in puree: Results are the same as for Puree food. The pt is not allowed to self-feed during this visit because I am not confident in his decision-making and self-monitoring skills for bolus size and feeding rate at this time. INTERPRETATION The pt shows a moderate oropharyngeal dysphagia in a setting of significant partial edentulousness, compromised mental status and generalized weakness. RECOMMENDATIONS 1. Change to p.o. status with: - Honey-thick liquids - Puree diet - Pills either crushed in puree or dissolved in Honey-thick liquid 2. Biotene Antibacterial Mouthwash (15mls) before each meal. Green star pt's menu. 3. Aided feeding 4. Small sips/bites 5. No straws 6. Speech therapy to monitor pt's toleration of above p.o. consistencies. Thank you for referring this pt.
--- NOTE | 2018-11-02 10:38 | PDOC.CMPRO ---
Care Management Progress Note S-I'm in the [facility]. O-Met with Prakash today. He was very sleepy and difficult to arouse, but when he did, he said he was at the [facility]. He then dozed off again. He does have a COLST on file, which he completed with Dr Pacheco last year at the [facility]. He does not have a DPOA/HC agent. His daughters were apparently here yesterday and spoke with Reyna. They want him closer to them, but there are no beds in [facility] currently, so he will return to the [facility] when medically appropriate, and family can pursue other options from there. A-62 yo man admitted with L HCAP. P-Prakash will return to the [facility] as per MD via ambulance when medically stable.
--- NOTE | 2018-11-02 10:44 | PGE_ITS ---
Date of Service Date of service: 11/02/18 Time of Service: 10:32 Assessment and Plan (1) HCAP (healthcare-associated pneumonia): Current visit: No Status: Acute I am not entirely certain this is a straight forward HCAP. It could be aspiration pneumonia. Seems to be clinically improving. O2 requirements are 2 L today on face mask. Blood cultures are pending. Swallow eval to be reattempted this morning. Continue empiric vancomycin and zosyn. Hypotension in the initial setting was likely a component of acute on chronic adrenal insufficiency. (2) Adrenal insufficiency: Current visit: Yes Status: Acute As above - tapering stress dose steroids. Hypotention on presentation was due to this. (3) Panhypopituitarism: Current visit: No Status: Chronic Continue synthroid @ 150 mcg PO daily. Taper stress dose steroids. Continue desmopressin (4) Toxic metabolic encephalopathy: Current visit: No Status: Acute With behavioral disturbance. Possibly due to PNA - EEG was of poor quality (patient would not cooperate). He is at a high risk of seizures. At this time, no tonic clonic events have been witnessed. I feel he would benefit from a repeat EEG once his mental status is better. May benefit from addition of seroquel if agitation returns. (5) History of brain tumor: Current visit: No Status: Acute Patient is a high risk for seizures due to his history of craniotomy, which could result in his altered mental status postictally. As above. (6) Hyperglycemia: Current visit: No Status: Acute Does have diabetes per A1C (7.2). Continue SSI. Add long acting insulin. Reviewing the records from the [facility], it does appear that interventions were attempted to switch the patient's dietary habits, but he was not interested. Once allowed to have a diet, will ensure that it is carb consistent. I am not certain how useful nutrition/diabetic education consults would be in his case with this mental status - will consider at a later date. (7) Morbid obesity with BMI of 70 and over, adult: Current visit: No Status: Acute Providing a specialized bed. Patient not interested in weight loss, per outpatient notes. (8) Obesity hypoventilation syndrome: Current visit: No Status: Chronic patient is unlikely to be compliant with BiPAP. No evidence of CO2 retention - ok to use supplemental O2 via face mask or cannula. He is DNR/DNi. He will have outpatient palliative care consult (9) DOUG (obstructive sleep apnea): Current visit: No Status: Chronic As above (10) Constipation: Current visit: Yes Status: Acute Provide a bowel regimen (11) Discharge planning issues: Current visit: No Status: Acute Palliative care as outpatient DNR/DNI Planned to return back to the [facility] once medically stable (12) DVT prophylaxis: Current visit: No Status: Acute Sc heparin Subjective Interval history since last seen: Mr Rowland required several doses of haldol and ativan overnight for agitation. He is awake this morning. He can answer his name and states he is not in pain, but jumps every time someone touches his R foot. He does not answer my other questions (such as re breathing, etc). He was thirsty and was awaiting a swallowing eval. Nursing reported that the patient had been constipated for 6 days. Exam Narrative Exam Narrative: General: very obese male, still somnolent but much more arousable today, A&Ox1, following commands, appears comfortable in bed HEENT: EOMI, MMM Heart: RRR, tachycardic, no murmurs Lungs: Diminished breath sounds B GI: abdomen is soft, nontender, nondistended Extremities: BLE's with plaque lesions (?psoriasis); B feet with soft cushioning. I have a hard time palpating his pulses. 2+ edema BLE's Objective Objective Clinical Data: Abnormal lab results 11/01/18 11/01/18 11/02/18 Range/Units 06:00 06:00 06:20 RBC (4.50-6.00) m/cumm Hgb (13.5-17.5) g/dL Hct (40.0-50.0) % MCV (80-95) fL RDW (11.8-14.1) % Sodium 131 L 135 L (136-145) mmol/L Glucose 320 H 315 H (70-100) mg/dL Hemoglobin A1c 7.2 H (4.5-6.2) % Calcium 8.1 L 8.0 L (8.5-10.1) mg/dL AST 45 H (15-37) U/L Total Protein 5.4 L (6.4-8.2) g/dL Albumin 2.2 L (3.4-5.0) g/dL 11/02/18 Range/Units 06:20 RBC 3.67 L (4.50-6.00) m/cumm Hgb 11.6 L (13.5-17.5) g/dL Hct 36.1 L (40.0-50.0) % MCV 98.4 H (80-95) fL RDW 16.2 H (11.8-14.1) % Sodium (136-145) mmol/L Glucose (70-100) mg/dL Hemoglobin A1c (4.5-6.2) % Calcium (8.5-10.1) mg/dL AST (15-37) U/L Total Protein (6.4-8.2) g/dL Albumin (3.4-5.0) g/dL Vital Signs Temperature 37.2 C 11/02/18 00:14 Temperature Source Temporal Artery Scan 11/01/18 17:00 Pulse 110 H 11/02/18 10:06 Pulse Rhythm Regular 11/02/18 00:05 Pulse 109 H 11/02/18 10:02 Respiratory Rate 13 11/02/18 10:02 Respiratory Effort 11/02/18 07:55 Respiratory Depth Shallow 11/02/18 07:55 Respiratory Pattern Apnea 11/01/18 17:58 Blood Pressure 161/72 H 11/02/18 10:06 Blood Pressure Mean 95 11/02/18 10:02 Blood Pressure Position Supine 10/31/18 21:00 Pulse Oximetry 92 L 11/02/18 10:02 Oxygen Delivery Method Room Air 11/02/18 09:03 Oxygen Flow Rate 0 11/02/18 09:03 Pain Level 0 11/01/18 08:24 Comment 11/01/18 08:24 Intake & Output 11/01/18 11/01/18 11/02/18 11:59 23:59 11:59 Intake Total 2157.5 / 3557.5 1400 / 3557.5 1400 / 1400 Output Total 600 / 1300 700 / 1300 1280 / 1280 Balance 1557.5 / 2257.5 700 / 2257.5 120 / 120 Weight 210.7 kg 210.7 kg Intake: IV 2137.5 / 3537.5 1400 / 3537.5 1400 / 1400 Oral 20 / 20 0 / 20 Output: Urine 600 / 1300 700 / 1300 1280 / 1280 Other: Urine Color Light Yassine Dark Yassine Light Yassine Urine Appearance Clear Clear Clear Urine Odor Strong Strong Strong Comment Patient is confused, unable to give history or answer questions. #16 Fr shen cath placed in sterile fashion ,w/o incident,no bleeding or trauma. 400cc dark yassine urine out after placement of catheter. Voiding Methods Indwelling Catheter Indwelling Catheter Indwelling Catheter Laboratory Results WBC 7.12 k/cumm (4.4-10.8) 11/02/18 06:20 RBC 3.67 m/cumm (4.50-6.00) L 11/02/18 06:20 Hgb 11.6 g/dL (13.5-17.5) L 11/02/18 06:20 Hct 36.1 % (40.0-50.0) L 11/02/18 06:20 MCV 98.4 fL (80-95) H 11/02/18 06:20 MCH 31.6 pg (27.0-33.0) 11/02/18 06:20 MCHC 32.1 g/dL (32.0-36.0) 11/02/18 06:20 RDW 16.2 % (11.8-14.1) H 11/02/18 06:20 Plt Count 229 x1000/uL (130-400) 11/02/18 06:20 MPV 8.9 fL (8.0-11.0) 11/02/18 06:20 Immature Gran % 0.6 11/02/18 06:20 Neutrophils % 69.7 11/02/18 06:20 Band Neutrophils % 0.0 % 10/31/18 16:25 Lymphocytes % 22.1 11/02/18 06:20 Atypical Lymphs % 9 10/31/18 16:25 Monocytes % 7.4 11/02/18 06:20 Eosinophils % 0.1 11/02/18 06:20 Basophils % 0.1 11/02/18 06:20 Absolute Neutrophils 4.96 k/cumm (1.2-6.7) 11/02/18 06:20 Absolute Lymphocytes 1.57 k/cumm (1.2-3.4) 11/02/18 06:20 Absolute Monocytes 0.53 k/cumm (0.11-0.7) 11/02/18 06:20 Absolute Eosinophils 0.01 k/cumm (0.0-0.7) 11/02/18 06:20 Absolute Basophils 0.01 k/cumm (0.0-0.2) 11/02/18 06:20 Differential Comment Manual differential 10/31/18 16:25 RBC Morphology See below 10/31/18 16:25 Polychromasia Present 10/31/18 16:25 Sample Site Right radial 11/01/18 09:33 pCO2 44 mmHg (34-47) 11/01/18 09:33 pO2 71 mmHg (83-108) L 11/01/18 09:33 O2 Saturation 96 % (94-98) 11/01/18 09:33 ABG pH 7.37 (7.35-7.45) 11/01/18 09:33 ABG HCO3 26 mmol/L (22-28) 11/01/18 09:33 ABG Total CO2 24 mmol/L (22-29) 11/01/18 09:33 ABG Base Excess 0.7 mmol/L (-3-3) 11/01/18 09:33 Oxygen Liter Flow 2 nc L 11/01/18 09:33 Sodium 135 mmol/L (136-145) L 11/02/18 06:20 Potassium 4.5 mmol/L (3.5-5.1) 11/02/18 06:20 Chloride 102 mmol/L (98-107) 11/02/18 06:20 Carbon Dioxide 27.0 mmol/L (21.0-32.0) 11/02/18 06:20 Anion Gap 6.0 mmol/L (3-11) 11/02/18 06:20 BUN 13 mg/dL (7-18) 11/02/18 06:20 Creatinine 0.96 mg/dL (0.70-1.30) 11/02/18 06:20 Estimated GFR/1.73 m2 >= 60.00 (mL/min/1.73m2) 11/02/18 06:20 Glucose 315 mg/dL (70-100) H 11/02/18 06:20 Hemoglobin A1c 7.2 % (4.5-6.2) H 11/01/18 06:00 Calcium 8.0 mg/dL (8.5-10.1) L 11/02/18 06:20 Magnesium 1.8 mg/dL (1.8-2.4) 11/02/18 06:20 Total Bilirubin 0.7 mg/dL (0.2-1.0) 11/01/18 06:00 AST 45 U/L (15-37) H 11/01/18 06:00 ALT 35 U/L (12-78) 11/01/18 06:00 Alkaline Phosphatase 55 U/L (46-116) 11/01/18 06:00 Creatine Kinase 289 U/L (39-308) 11/01/18 06:00 Total Protein 5.4 g/dL (6.4-8.2) L 11/01/18 06:00 Albumin 2.2 g/dL (3.4-5.0) L 11/01/18 06:00 TSH 0.01 uIU/mL (0.358-3.74) L 10/31/18 16:25 Free T4 1.75 ng/dL (0.76-1.46) H 10/31/18 16:25 Urine Color Brown (Yellow) 10/31/18 14:25 Urine Clarity Clear 10/31/18 14:25 Urine pH 5.0 (5-8) 10/31/18 14:25 Ur Specific [place] 1.025 (1.005-1.025) 10/31/18 14:25 Urine Protein Trace mg/dL (Negative) H 10/31/18 14:25 Urine Ketones Trace mg/dL (Negative) H 10/31/18 14:25 Urine Blood Negative (Negative) 10/31/18 14:25 Urine Nitrite Negative (Negative) 10/31/18 14:25 Urine Bilirubin Moderate (Negative) H 10/31/18 14:25 Urine Urobilinogen 1.0 EU/dL (Up TO 0.2) H 10/31/18 14:25 Ur Leukocyte Esterase Negative (Negative) 10/31/18 14:25 Urine RBC Negative (0-2) 10/31/18 14:25 Urine WBC Negative HPF (0-5) 10/31/18 14:25 Ur Epithelial Cells Few HPF (Negative) 10/31/18 14:25 Urine Crystals Few amorphous HPF (Negative) 10/31/18 14:25 Urine Bacteria Few HPF (Negative) 10/31/18 14:25 Urine Casts Negative LPF (Negative) 10/31/18 14:25 Urine Mucus Trace (Negative) 10/31/18 14:25 Ur Culture Indicated? No 10/31/18 14:25 Urine Glucose Negative mg/dL (Negative) 10/31/18 14:25
[2018-11-02] MEDS: Biotene Mouthwash 237 ML BTL 15 ML MM ×2 (11:30→16:40)
[2018-11-02] MEDS: Milk of Magnesia 30 ML CUP PO ×2 (11:51→12:26)
--- NOTE | 2018-11-02 12:12 | CMPROGNOTE_ITS ---
Care Management Progress Note S-I'm in the [facility]. O-Met with Prakash today. He was very sleepy and difficult to arouse, but when he did, he said he was at the [facility]. He then dozed off again. He does have a COLST on file, which he completed with Dr Pacheco last year at the [facility]. He does not have a DPOA/HC agent. His daughters were apparently here yesterday and spoke with Reyna. They want him closer to them, but there are no beds in [facility] currently, so he will return to the [facility] when medically appropriate, and family can pursue other options from there. A-62 yo man admitted with L HCAP. P-Prakash will return to the [facility] as per MD via ambulance when medically stable.
[2018-11-02] MEDS: Senna TAB 1 TAB PO ×2 (12:25→19:37)
--- NOTE | 2018-11-02 13:48 | DI.RAD_ITS ---
SYMPTOMS/DIAGNOSIS: S/P PICC LINE INSERTION PORTABLE CHEST X-RAY: Comparison is with the prior examinations. There has been interval placement of a right PICC line. The tip of the catheter is in good position in the superior vena cava. The heart and lungs appear stable compared to the prior examination. IMPRESSION: Interval placement of the right PICC line. The tip of the catheter is in good position in the superior vena cava.
--- NOTE | 2018-11-02 14:19 | OTIE_ITS ---
Occupational Therapy Notes Inpatient Occupational Therapy Evaluation Date: 11/02/18 Referring Doctor:Kandice Ang MD OT Orders: Eval and Treat Precautions: Fall, Contact PATIENT PROFILE/ADMITTING DIAGNOSIS: Pt is a 62 year old male who was admitted through the ER from [facility] for penumonia, dehydration, tachycardia, morbid obesity. He has a hx of a brain tumor post craniotomy in 1980. Past Medical History: Medical History Morbid obesity (Acute) Panhypopituitarism (Acute) Brain cancer (Chronic) GERD (gastroesophageal reflux disease) (Chronic) Lung cancer (Chronic) Surgical History History of craniotomy (Acute) Social History/Home Situation: Pt was currently at [facility] per pts EMR. Pt told OT he lives with Jasson Pappasrandyroderick who saw pt in the ER per pts EMR. Pt reports that he needs help with dressing and bathing. He was a poor historian but also reported that he is able to go to the bathroom (I) but they wont let him. When OT asks pt who he replies, no, I want a drink, get me a drink. Equipment owned/DME: Pt resided at [facility] with all DME needs. SUBJECTIVE: Pt was lying in bed when OT arrived. He made good eye contact. He had delayed response interaction and was able to respond to simple commands. OBJECTIVE: General Observation: BP (L) UE, telemetry, O2 monitor, morbid obese male. Mental Status: Alert to name. Pain: no c/o pain. ROM: RUE AROM WFL L UE Pt was unable to perform AROM, PROM he was able to achieve 130* shoulder flexion, Full elbow and full hand. STRENGTH: RUE 4/5 throughout globally with mod vc as to what OT was performing. LUE Unable to test shoulder and elbow, dental assisting instructor was strong. FUNCTIONAL MOBILITY/ADLS: Transfers- bed mobility max (A)x4 for moving up in bed. Functionally pt was able to reach face (R) hand, cross midline with increased vc, pt did not respond when touching opposite shoulder. BALANCE: Unable to test as pt was in bed fully supported with slight sway to (L) side requiring (A) for bed mobility. SPECIAL TESTS: Daily Activity Limitations Standardized Measure [facility] AM -PAC ?6 clicks? Daily Activity Inpatient Short Form: Raw score: 8 INFORMED CONSENT/EDUCATION: Pt instructed in purpose of OT Consult and plan of care. ASSESSMENT: Patient is a 62-year-old male referred to occupational therapy services with diagnosis of pneumonia, dehydration, tachycardia, morbid obesity, hx of brain tumor post craniotomy 1980. Patient presents with clinical signs and symptoms consistent with dx, as demonstrated by the following impairment level findings: decreased (L) UE ROM, decreased functional mobility, bed mobility requiring max (A) x4, decreased functional activity tolerance, decreased ability and use of (B) hands, confused and poor historian at this time, OT is unsure as to whether this is pts baseline, decreased strength (L) UE, decreased dental assisting instructor strength (R) UE. Impairments are contributing to the following functional limitations: Inability to sit on side of bed, morbid obesity, unable to perform functional mobility without max (A), decreased functional hand use, inability to wash face (I) at this time, decreased functional activity tolerance, unable to perform ADLs at baseline level of function. Patient is assessed as a high 54619 complexity based on the following: History: See Above Examination: See Above Presentation: Evolving Decision Making: High complexity based on evaluation and examination GOALS Goals x1 week 1. Transfers mod (A) bed mobility 2. Dressing Sitting in bed (I) with UE/mod (A) LE 3. Bathing Sitting in bed (I) face, UE and abdomen, mod (A) LE 4. Toileting with urinal (I) 5. Eating (I) 6. Sitting in bed (I) with brushing hair. PLAN OF CARE/TREATMENT PLAN: 1x/day, 5 days/ week x 1week Initiate Occupational Therapy Services for bathing, dressing, grooming, toileting, eating, transfer training. DISCHARGE RECOMMENDATIONS Based on pts current level of function OT recommends that pt go to SNF, preference of pt would be to not return to [facility]. TREATMENT TIME/MINUTES/CODES 35928, 20 minutes (09:00) MAYE Antunez/[facility]
--- NOTE | 2018-11-02 15:34 | WOUNDCARE ---
Wound Care Report 11/02/18 1300- Pt is a 62 year old male/female seen for pneumonia. Chart reviewed, including H&P, recent labs, and vital signs, and other providers? reports. Labs pertinent to wound healing: WBC 7.12, glucose 315, albumin 2.2, TSH 0.01 Wound Assessment Findings Right lower extremity irregularly defined wound measuring 8 cm x 5 cm x less than 0.1 cm. [place] skin around periphery. scattered open areas measuring less than 0.3 cm. which have dried serous drainage. areas of adherent drainage measuring about 10 percent of wound bed. Pt also has reddish/ purplish blancheable discolorations on bottom of r foot 10 cm x 7 cm, 1 cm x 1.3 cm and 3.4 x 5.5 cm all areas with a depth of less than 0.1 cm. Pt states they have been there since I was born. Also has areas of redness on the posterior side of the right lower leg, just above ankle measuring 1.5 cm x 2.3 cm, 1.5 cm x 2.1 cm, 1.4 cm x 3 cm, 1 cm x 1.2 cm, all areas with depth less than 0.1 cm. Wound Edges undefined, attatched edges Surrounding tissue [place] periphery , scant serous and sanguinous drainage. Odor none Indicators of infection present? No increased pain at the site. Redness/ pink is present bilat shins in approximately the same place. There is a wbc of 7.12 on 11/02. Patients Mobility status pt bed bound at this time Nutritional Status- nutrition consult recommended Continence- Pt has Kimball catheter in place Circulatory status Pt has faint pedal pules bilat, but has 3 plus pitting edema bilat feet Pain Pt has no pain at site at this time Medications altering healing Repositioning schedule Pt should be repositioned q 2 Referrals Recommend Podiatry Consult for bilat feet Recommendations: r anterior lower leg- Cleanse area with wound cleanser, pat dry, apply mepilex with border, change q 3 days and PRN. Recommend follow up with podiatry for bilat feet, including toenails. Monitor areas on r posterior lower leg, notify MD with any significant changes. Thank you for the consult.
--- NOTE | 2018-11-02 16:52 | PT.INIE ---
Date of service: 11/02/18 Time of Service: 10:36 PT Notes Inpatient Physical Therapy Evaluation Date: 11/02/2018 Referring Doctor: Kandice Ang MD PT Orders: PT CONSULT: Eval and treat Precautions: Fall. Contact precautions. Droplet precautions. Non-ambulatory. Morbidly obese. Patient Profile/Admitting Diagnosis: Referral for conservative management of this 62-year-old male was received yesterday 11/01/2018 but due to poor level of alertness and lethargy, therapy evaluation was deferred. Another physical therapy evaluation was reattempted today for this morbidly obese patient who was initially sent to the ED from the [facility] on 10/31/2018 with chief complaints of constipation, decrease intake/output, and altered mental status. Patient was diagnosed with Healthcare-Associated pneumonia with infiltrates found on the left lower lobe, Panhypopituitarism, Constipation, and Right upper lobe mass previously diagnosed with Lung CA. A physical therapy referral was made to assess for safe bed mobility techniques and for appropriate mobilization program in order to maximize mobility performance while preventing further functional decline. PMHX: Medical History Morbid obesity (Acute) Panhypopituitarism (Acute) Brain cancer (Chronic) GERD (gastroesophageal reflux disease) (Chronic) Lung cancer (Chronic) Surgical History History of craniotomy (Chronic) Social History/Home Situation: [facility] and has been non-ambulatory and bed-bound. Per case management note review, patient has not been fully compliant withphysical therapy and occupational therapy services at the SNF. Current Functional Limitations: Morbidly obese patient requiring total assistance for all bed mobility skills and transfers. Subjective: For this initial evaluation, patient responded appropriately to most of the questions and instructions given by this PT. He demanded that he be given a drink as he was very thirsty. He states that nothing is hurting when asked how he is doing pain-de leon. Objective: General Observation: Patient is seen lying in bariatric bed with telemetry on. Oxygen nasal cannula on. IV in the right UE. Swelling noted to BUE/LE. Mental Status: Alert, responses mostly appropriate. No agitation noted except for a time when he demanded for a drink as he was thirsty. He is able to follow one-step instructions when repeated 2-3 times, considerable tactile cueing provided. Pain: 0/10 ROM: Right Upper Extremity: Patient is able to raise right upper extremity to about 90-95 degrees to reach for his overhead trapeze without undue discomfort. He is able to grab onto the trapeze and grasp with good effort. Able to functionally open hand on command. Left Upper Extremity: Patient is able to elevate left upper extremity with assistance of this PT to grab onto overhead trapeze, was able to grasp but was unable to sustain the grasp due to discomfort and fatigue. Right Lower Extremity: Patient is able to slide whole extremity sideways outward 5 times to about 10 degrees but was unable to bring it to adduct at the hip. Patient is unable to bend at the hip nor at the knee due to limp girth and fatigue. Left Lower Extremity: Patient was unable to do hip abduction nor hip and knee flexion but was able to push against this PTs hand downward with minimal resistance provided on sole of the left foot. Strength: Right Upper Extremity: Shoulder flexors 3-/5. shoulder abductors 3-/5. Elbow flexors 3-/5. Elbow extensors 2-/5. Toll Ticket Clerk strong and functional. Left Upper Extremity: Shoulder flexors 2-/5. Shoulder abductors 2-/5. Elbow flexors 3-/5. Elbow extensors 2-/5. Toll Ticket Clerk weak but functionai. Right Lower Extremity: Hip flexors 1/5. Knee flexors 1/5. Hip abductors 2-/5. Ankle plantar flexors 2-/5. Left Lower Extremity: Hip flexors 1/5. Knee flexors 1/5. Hip abductors 1/5. Ankle plantar flexors 2-/5. Sensation: Intact as to pain on both LE. Bed Mobility/Transfers: Rolling independent Supine to sit dependent Sit to supine dependent Sit to stand unable to test Stand to sit unable to test Bed to chair unable to test Chair to bed unable to test Gait: Non-ambulatory. Balance: Static Sitting: Unable to test Dynamic Sitting: Unable to test Static Standing: Unable to test Dynamic Standing: Unable to test Special Tests: Mobility Limitations Standardized Measure [facility]-PAC 6 clicks Basic Mobility Inpatient Short Form: Raw Score: 0 CMS Score: 100% deficit Informed Consent/Education: Patient instructed in purpose of PT consult and plan of care. Assessment: Patient is a 62 year old male referred to physical therapy services with the diagnosis healthcare acquired pneumonia, and hypopituitarism, constipation, Lung CA,. Patient presents with clinical signs and symptoms consistent with current/admitting diagnoses that have resulted to mobility limitations, generalized weakness, and lack of motor control as demonstrated by the following impairment level findings: 1. Decreased strength to B UE/LE major muscle groups 2. Impaired balance 3. Impaired activity tolerance 4. Limitation of joint range of motion in BUE/LE Impairments are contributing to the following functional limitations: 1. Dependent bed mobility skills 2. Dependent transfers 3. Increase completion time for bed mobility task performance 5. Increased fall risk Patient is assessed as a High 15455 complexity based on the following: History: 62-year-old male with diagnosis of healthcare acquired pneumonia, hypopituitary syndrome, constipation, and lung cancer with past medical history as indicated above Examination: Underlying impairments and functional limitations have resulted to an AMPAC score of 0 signifying 100% deficit and the CMS score Presentation: Evolving Decision Makin moderate complexity Goals: Goals X1 week 1. Moderate assist for rolling in either sides using bed rails 2. Patient will be able to partially lift head and both shoulders up with B UE pulling from overhead trapeze 3. Patient will be able to tolerate sitting on recliner/wheelchair for up to 2 hours 4. Patient will demonstrate ability to follow bed level exercises with minimal cueing from PT Plan of Care/Treatment Plan: 1-2x/day, 7 days/week x 1 week. Plan of care has been reviewed with the CRUDE OIL DRIVER providing the service under Physical Therapy direction. Initiate Physical Therapy intervention for strengthening, bed mobility, transfers, gait, stairs, balance training, use of assistive device. DISCHARGE RECOMMENDATIONS: Patient will benefit from returning to group home facility once medically stable with previous services in place. TREATMENT CODE/TIME: 46996 26 minutes beginning at 10:36 AM. Thank you for this referral. Bianca Sepulveda, PT, DPT, CLT [facility]
--- NOTE | 2018-11-02 17:02 | IN_ITS ---
Date of service: 11/02/18 Time of Service: 10:36 PT Notes Inpatient Physical Therapy Evaluation Date: 11/02/2018 Referring Doctor: Kandice Ang MD PT Orders: PT CONSULT: Eval and treat Precautions: Fall. Contact precautions. Droplet precautions. Non-ambulatory. Morbidly obese. Patient Profile/Admitting Diagnosis: Referral for conservative management of this 62-year-old male was received yesterday 11/01/2018 but due to poor level of alertness and lethargy, therapy evaluation was deferred. Another physical therapy evaluation was reattempted today for this morbidly obese patient who was initially sent to the ED from the [facility] on 10/31/2018 with chief complaints of constipation, decrease intake/output, and altered mental status. Patient was diagnosed with Healthcare-Associated pneumonia with infiltrates found on the left lower lobe, Panhypopituitarism, Constipation, and Right upper lobe mass previously diagnosed with Lung CA. A physical therapy referral was made to assess for safe bed mobility techniques and for appropriate mobilization program in order to maximize mobility performance while preventing further functional decline. PMHX: Medical History Morbid obesity (Acute) Panhypopituitarism (Acute) Brain cancer (Chronic) GERD (gastroesophageal reflux disease) (Chronic) Lung cancer (Chronic) Surgical History History of craniotomy (Chronic) Social History/Home Situation: Patient has been a resident of the [facility] for the past 2 years and has been non-ambulatory and bed-bound. Per case management note review, patient has not been fully compliant withphysical therapy and occupational therapy services at the SNF. Current Functional Limitations: Morbidly obese patient requiring total assistance for all bed mobility skills and transfers. Subjective: For this initial evaluation, patient responded appropriately to most of the questions and instructions given by this PT. He demanded that he be given a drink as he was very thirsty. He states that nothing is hurting when asked how he is doing pain-de leon. Objective: General Observation: Patient is seen lying in bariatric bed with telemetry on. Oxygen nasal cannula on. IV in the right UE. Swelling noted to BUE/LE. Mental Status: Alert, responses mostly appropriate. No agitation noted except for a time when he demanded for a drink as he was thirsty. He is able to follow one-step instructions when repeated 2-3 times, considerable tactile cueing provided. Pain: 0/10 ROM: Right Upper Extremity: Patient is able to raise right upper extremity to about 90-95 degrees to reach for his overhead trapeze without undue discomfort. He is able to grab onto the trapeze and grasp with good effort. Able to functionally open hand on command. Left Upper Extremity: Patient is able to elevate left upper extremity with assistance of this PT to grab onto overhead trapeze, was able to grasp but was unable to sustain the grasp due to discomfort and fatigue. Right Lower Extremity: Patient is able to slide whole extremity sideways outward 5 times to about 10 degrees but was unable to bring it to adduct at the hip. Patient is unable to bend at the hip nor at the knee due to limp girth and fatigue. Left Lower Extremity: Patient was unable to do hip abduction nor hip and knee flexion but was able to push against this PTs hand downward with minimal resistance provided on sole of the left foot. Strength: Right Upper Extremity: Shoulder flexors 3-/5. shoulder abductors 3-/5. Elbow flexors 3-/5. Elbow extensors 2-/5. Document Control Supervisor strong and functional. Left Upper Extremity: Shoulder flexors 2-/5. Shoulder abductors 2-/5. Elbow flexors 3-/5. Elbow extensors 2-/5. Document Control Supervisor weak but functionai. Right Lower Extremity: Hip flexors 1/5. Knee flexors 1/5. Hip abductors 2-/5. Ankle plantar flexors 2-/5. Left Lower Extremity: Hip flexors 1/5. Knee flexors 1/5. Hip abductors 1/5. Ankle plantar flexors 2-/5. Sensation: Intact as to pain on both LE. Bed Mobility/Transfers: Rolling independent Supine to sit dependent Sit to supine dependent Sit to stand unable to test Stand to sit unable to test Bed to chair unable to test Chair to bed unable to test Gait: Non-ambulatory. Balance: Static Sitting: Unable to test Dynamic Sitting: Unable to test Static Standing: Unable to test Dynamic Standing: Unable to test Special Tests: Mobility Limitations Standardized Measure [facility]-PAC 6 clicks Basic Mobility Inpatient Short Form: Raw Score: 0 CMS Score: 100% deficit Informed Consent/Education: Patient instructed in purpose of PT consult and plan of care. Assessment: Patient is a 62 year old male referred to physical therapy services with the diagnosis healthcare acquired pneumonia, and hypopituitarism, constipation, Lung CA,. Patient presents with clinical signs and symptoms consistent with current/admitting diagnoses that have resulted to mobility limitations, generalized weakness, and lack of motor control as demonstrated by the following impairment level findings: 1. Decreased strength to B UE/LE major muscle groups 2. Impaired balance 3. Impaired activity tolerance 4. Limitation of joint range of motion in BUE/LE Impairments are contributing to the following functional limitations: 1. Dependent bed mobility skills 2. Dependent transfers 3. Increase completion time for bed mobility task performance 5. Increased fall risk Patient is assessed as a High 68040 complexity based on the following: History: 62-year-old male with diagnosis of healthcare acquired pneumonia, hypopituitary syndrome, constipation, and lung cancer with past medical history as indicated above Examination: Underlying impairments and functional limitations have resulted to an AMPAC score of 0 signifying 100% deficit and the CMS score Presentation: Evolving Decision Makin moderate complexity Goals: Goals X1 week 1. Moderate assist for rolling in either sides using bed rails 2. Patient will be able to partially lift head and both shoulders up with B UE pulling from overhead trapeze 3. Patient will be able to tolerate sitting on recliner/wheelchair for up to 2 hours 4. Patient will demonstrate ability to follow bed level exercises with minimal cueing from PT Plan of Care/Treatment Plan: 1-2x/day, 7 days/week x 1 week. Plan of care has been reviewed with the FINAL CLEANER providing the service under Physical Therapy direction. Initiate Physical Therapy intervention for strengthening, bed mobility, transfers, gait, stairs, balance training, use of assistive device. DISCHARGE RECOMMENDATIONS: Patient will benefit from returning to longterm facility once medically stable with previous services in place. TREATMENT CODE/TIME: 33955 26 minutes beginning at 10:36 AM. Thank you for this referral. Bianca Sepulveda, PT, DPT, CLT [facility]
--- NOTE | 2018-11-02 17:50 | PTTR_ITS ---
Date of service: 11/02/18 Time of Service: 15:20 PT Notes Inpatient Physical Therapy Treatment Note [facility] Date: 11/02/2018 Precautions: Fall. Contact precautions. Droplet precautions. Non-ambulatory. Morbidly obese. Subjective: Patient continues to be able to responded appropriately to most of the questions and instructions given by this PT. He he can demanded that he be given a drink as he was very thirsty. Objective: General Observation: Patient is seen lying in bariatric bed with telemetry on. Oxygen nasal cannula on. IV in the right UE. Swelling noted to BUE/LE. Mental Status: Alert, responses mostly appropriate. No agitation noted except for a time when he demanded for a drink as he was thirsty. He is able to follow one-step instructions when repeated 2-3 times, considerable tactile cueing provided. Pain: Patient groaned in pain when this PT attempted to move his right lower extremity Bed Mobility/Transfers: Rolling dependent Supine to sit dependent Sit to supine dependent Sit to stand unable to test Stand to sit unable to test Bed to chair unable to test Chair to bed unable to test Gait: Non-ambulatory. THERA EX: Patient was able to reach overhead trapeze twice with with right upper extremity but required assistance with left upper extremity. He was able to hold on to grab bar but was only able to sustain hold for about 15 seconds. Patient tolerated gravity eliminated hip abduction on the right x5 and was able to push against this PT's hand downwards 5 times with manual contact on the left sole of his foot. Assessment: Patient will continue to require skilled PT services in order to maximize bed mobility skills, prevent further functional decline, and to allow for patient/caregiver training for bed level exercises in order to minimize deleterious effects of prolonged immobilization and pneumonia. Plan of Care/Treatment Plan: 1-2x/day, 7 days/week x 1 week. Plan of care has been reviewed with the FINANCIAL REPORTING ANALYST providing the service under Physical Therapy direction. Initiate Physical Therapy intervention for strengthening, bed mobility, transfers, gait, stairs, balance training, use of assistive device. TREATMENT CODE/TIME: 20942 15 minutes beginning at 15:20 p.m. Bianca Sepulveda, Pt, DPT CLT
[2018-11-02] MEDS: Metoprolol 12.5 MG TAB PO ×2 (19:38→21:08)
--- NOTE | 2018-11-02 20:23 | W.PALLCONSUL ---
Date of service: 11/02/18 Time of Service: 18:24 History of Present Illness Chief Complaint: Mental status changes, end-of-life discussion. 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 He has been a resident at the [facility] for several years. He has gained a considerable amount of weight over these years. He declines/refuses to get out of bed, exercise, or curb his appetite. At times while at the [facility], it is been difficult to care for him due to his attitude. Last week he became increasingly uncomfortable. I had seen him on 2 occasions. He states that his right lower abdomen was tender. He has stopped eating and drinking. He refused his medication. Due to his askew hypo-pituitary exam he needed his medications to live. He was convinced to go to the emergency room. He was found to have pneumonia and was treated. He also had an EEG which showed encephalopathy. There was concern about adrenal insufficiency given his hypo-pituitary exam. He is also diabetic. Over the last 24 hours he has been doing better. He still requires some Haldol due to confusion and combativeness. He continues with hallucinations with cigarettes and alcohol. I was asked to discuss goals of care and help with the management of his behavioral problems Consults Consult date: 11/02/18 Requesting physician: Kandice Ang Assessment and Plan (1) Constipation: Current visit: Yes Status: Acute He has had a bowel movement today for the first time and for 5 days (2) Adrenal insufficiency: Current visit: Yes Status: Acute He is on replacement for adrenal insufficiency. 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 Baseline he has been a difficult patient at the [facility]. He is agreeable to most interventions. He is not interested in lifestyle management of some of his problems etc. I see that he has been receiving some Haldol and Ativan. I would appreciate it if he is not started on any antipsychotic that would be expected to continue at the [facility]. It is likely that I would take him off once he returned to the [facility] and I would rather not start it. For agitation may want to try adding Lexapro 10 mg daily as well as trazodone 25 mg 3 times daily. Doing this scheduled may help to better help. To be more even throughout the day. Diabetes?A1c was 7.2. Continue supportive care regarding his diabetes. CODE STATUS he was very clear with me when he was in his right mind that he is a DNR/DNI He continues to have hallucinations and often talked about the woman in the room with the cigarettes. I look forward to prakash returning to his home at the [facility]. I do know that the social and political studies professor at the [facility] is looking to help him to transfer back to [place] so he will be closer to his daughters This document was created by [employer] recognition and may contain grammatical and translation errors. Review of Systems Review of Systems Prakash is unable to give me a review of systems. He is lying in bed. He does not remember me from the [facility]. He keeps talking about the woman with a cigarette in the corner. There is clearly no woman with a cigarette in the corner. I am unable to obtain a review of systems at this time [facility] Medical History Morbid obesity (Acute) Panhypopituitarism (Acute) Brain cancer (Chronic) GERD (gastroesophageal reflux disease) (Chronic) Lung cancer (Chronic) Surgical History History of craniotomy (Acute) Social History Smoking/Tobacco Use Status: Former Tobacco Use Alcohol Intake: former Substance use type: does not use Details: per pt I Drank like a fish Do you feel safe in your relationship?: Yes Additional Social history: pt at the [facility] Exam Narrative Exam Narrative: Prakash is lying in bed. He is polite and kind to me but clearly does not know who I am. Const General: cooperative and disheveled Nutritional Appearance: obese Eyes Pupils: PERRL Neck Lymphatic: no lymphadenopathy noted Resp Effort & Inspection: abnormal respiratory pattern Auscultation: abnormal I/E ratio Percussion: dullness Cardio Rhythm: regular rhythm and other (Difficult to auscultate due to his size) GI Palpation: soft General: deferred Skin Other: Multiple ecchymosis from blood draws etc. Psych Appearance: disheveled (he had thrown off all of his blankets and was naked. A nurse covered him ) Mental Status: other Speech and Movement: agitated and delayed speech Mood: anxious mood, dysthymic mood, labile mood and other Affect: labile affect and anxious affect Attitude: other Thought Process: confabulating Thought Content: hallucinations Insight: poor Judgment: poor Results Last Vital Signs Temp 99.0 F 11/02/18 00:14 Pulse 100 H 11/02/18 18:01 Resp 14 11/02/18 18:01 BP 100/81 11/02/18 18:01 Pulse Ox 95 11/02/18 18:01 Labs : 11/02/18 06:20 11/02/18 06:20 Laboratory Results - last 24 hr 11/02/18 11/02/18 06:20 06:20 WBC 7.12 RBC 3.67 L Hgb 11.6 L Hct 36.1 L MCV 98.4 H MCH 31.6 MCHC 32.1 RDW 16.2 H Plt Count 229 MPV 8.9 Immature Gran % 0.6 Neutrophils % 69.7 Lymphocytes % 22.1 Monocytes % 7.4 Eosinophils % 0.1 Basophils % 0.1 Absolute Neutrophils 4.96 Absolute Lymphocytes 1.57 Absolute Monocytes 0.53 Absolute Eosinophils 0.01 Absolute Basophils 0.01 Sodium 135 L Potassium 4.5 Chloride 102 Carbon Dioxide 27.0 Anion Gap 6.0 BUN 13 Creatinine 0.96 Estimated GFR/1.73 m2 >= 60.00 Glucose 315 H Calcium 8.0 L Magnesium 1.8 Laboratory Tests 10/31/18 11/01/18 11/02/18 16:25 06:00 06:20 Hgb Glucose 315 H Hemoglobin A1c 7.2 H Free T4 1.75 H 11/02/18 06:20 Hgb 11.6 L Glucose Hemoglobin A1c Free T4 INTERPRETATION The pt shows a moderate oropharyngeal dysphagia in a setting of significant partial edentulousness, compromised mental status and generalized weakness. RECOMMENDATIONS 1. Change to p.o. status with: - Honey-thick liquids - Puree diet - Pills either crushed in puree or dissolved in Honey-thick liquid 2. Biotene Antibacterial Mouthwash (15mls) before each meal. Green star pt's menu. 3. Aided feeding 4. Small sips/bites 5. No straws 6. Speech therapy to monitor pt's toleration of above p.o. consistencies. Thank you for referring this pt.
--- NOTE | 2018-11-02 20:32 | PCNE_ITS ---
Date of service: 11/02/18 Time of Service: 18:24 History of Present Illness Chief Complaint: Mental status changes, end-of-life discussion. 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 He has been a resident at the [facility] for several years. He has gained a considerable amount of weight over these years. He decli cesia/refuses to get out of bed, exercise, or curb his appetite. At times while at the [facility], it is been difficult to care for him due to his attitude. Last week he became increasingly uncomfortable. I had seen him on 2 occasions. He states that his right lower abdomen was tender. He has stopped eating and drinking. He refused his medication. Due to his askew hypo-pituitary exam he needed his medications to live. He was convinced to go to the emergency room. He was found to have pneumonia and was treated. He also had an EEG which showed encephalopathy. There was concern about adrenal insufficiency given his hypo- pituitary exam. He is also diabetic. Over the last 24 hours he has been doing better. He still requires some Haldol due to confusion and combativeness. He continues with hallucinations with cigarettes and alcohol. I was asked to discuss goals of care and help with the management of his behavioral problems Consults Consult date: 11/02/18 Requesting physician: Kandice Ang Assessment and Plan (1) Constipation: Current visit: Yes Status: Acute He has had a bowel movement today for the first time and for 5 days (2) Adrenal insufficiency: Current visit: Yes Status: Acute He is on replacement for adrenal insufficiency. 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 Baseline he has been a difficult patient at the [facility]. He is agreeable to most interventions. He is not interested in lifestyle management of some of his problems etc. I see that he has been receiving some Haldol and Ativan. I would appreciate it if he is not started on any antipsychotic that would be expected to continue at the [facility]. It is likely that I would take him off once he returned to the [facility] and I would rather not start it. For agitation may want to try adding Lexapro 10 mg daily as well as trazodone 25 mg 3 times daily. Doing this scheduled may help to better help. To be more even throughout the day. Diabetes?A1c was 7.2. Continue supportive care regarding his diabetes. CODE STATUS he was very clear with me when he was in his right mind that he is a DNR/DNI He continues to have hallucinations and often talked about the woman in the room with the cigarettes. I look forward to prakash returning to his home at the [facility]. I do know that the social media director at the [facility] is looking to help him to transfer back to [place] so he will be closer to his daughters This document was created by [employer] and may contain grammatical and translation errors. Review of Systems Review of Systems Prakash is unable to give me a review of systems. He is lying in bed. He does not remember me from the [facility]. He keeps talking about the woman with a cigarette in the corner. There is clearly no woman with a cigarette in the corner. I am unable to obtain a review of systems at this time [facility] Medical History Morbid obesity (Acute) Panhypopituitarism (Acute) Brain cancer (Chronic) GERD (gastroesophageal reflux disease) (Chronic) Lung cancer (Chronic) Surgical History History of craniotomy (Acute) Social History Smoking/Tobacco Use Status: Former Tobacco Use Alcohol Intake: former Substance use type: does not use Details: per pt I Drank like a fish Do you feel safe in your relationship?: Yes Additional [facility] Exam Narrative Exam Narrative: Prakash is lying in bed. He is polite and kind to me but clearly does not know who I am. Const General: cooperative and disheveled Nutritional Appearance: obese Eyes Pupils: PERRL Neck Lymphatic: no lymphadenopathy noted Resp Effort & Inspection: abnormal respiratory pattern Auscultation: abnormal I/E ratio Percussion: dullness Cardio Rhythm: regular rhythm and other (Difficult to auscultate due to his size) GI Palpation: soft General: deferred Skin Other: Multiple ecchymosis from blood draws etc. Psych Appearance: disheveled (he had thrown off all of his blankets and was naked. A nurse covered him ) Mental Status: other Speech and Movement: agitated and delayed speech Mood: anxious mood, dysthymic mood, labile mood and other Affect: labile affect and anxious affect Attitude: other Thought Process: confabulating Thought Content: hallucinations Insight: poor Judgment: poor Results Last Vital Signs Temp 99.0 F 11/02/18 00:14 Pulse 100 H 11/02/18 18:01 Resp 14 11/02/18 18:01 BP 100/81 11/02/18 18:01 Pulse Ox 95 11/02/18 18:01 Labs : 11/02/18 06:20 11/02/18 06:20 Laboratory Results - last 24 hr 11/02/18 11/02/18 06:20 06:20 WBC 7.12 RBC 3.67 L Hgb 11.6 L Hct 36.1 L MCV 98.4 H MCH 31.6 MCHC 32.1 RDW 16.2 H Plt Count 229 MPV 8.9 Immature Gran % 0.6 Neutrophils % 69.7 Lymphocytes % 22.1 Monocytes % 7.4 Eosinophils % 0.1 Basophils % 0.1 Absolute Neutrophils 4.96 Absolute Lymphocytes 1.57 Absolute Monocytes 0.53 Absolute Eosinophils 0.01 Absolute Basophils 0.01 Sodium 135 L Potassium 4.5 Chloride 102 Carbon Dioxide 27.0 Anion Gap 6.0 BUN 13 Creatinine 0.96 Estimated GFR/1.73 m2 >= 60.00 Glucose 315 H Calcium 8.0 L Magnesium 1.8 Laboratory Tests 10/31/18 11/01/18 11/02/18 16:25 06:00 06:20 Hgb Glucose 315 H Hemoglobin A1c 7.2 H Free T4 1.75 H 11/02/18 06:20 Hgb 11.6 L Glucose Hemoglobin A1c Free T4 INTERPRETATION The pt shows a moderate oropharyngeal dysphagia in a setting of significant partial edentulousness, compromised mental status and generalized weakness. RECOMMENDATIONS 1. Change to p.o. status with: - Honey-thick liquids - Puree diet - Pills either crushed in puree or dissolved in Honey-thick liquid 2. Biotene Antibacterial Mouthwash (15mls) before each meal. Green star pt's menu. 3. Aided feeding 4. Small sips/bites 5. No straws 6. Speech therapy to monitor pt's toleration of above p.o. consistencies. Thank you for referring this pt.
[2018-11-02] MEDS: traZODone 50 MG TAB 100 MG PO (21:14)
[2018-11-02] MEDS: Desmopressin 0.2 MG TAB 0.1 MG PO (21:14)
[2018-11-03] VITALS (23 sets, daily range): BP systolic 126–185; BP diastolic 56–104; PULSE 89–200; RESP 12–21; TEMP 36.2–36.5; O2SAT 88–97
[2018-11-03] MEDS: Normal Saline Flush 10 ML SYR IVP ×5 (00:47→20:33)
[2018-11-03] MEDS: PIPERACILLIN/TAZO 3.375 GM in Normal Saline 50 ML IVPB ×3 (05:49→17:38)
[2018-11-03] MEDS: Heparin 5,000 UNITS/ML VIAL 5000 UNITS SC ×3 (05:52→22:25)
[2018-11-03] MEDS: Levothyroxine 150 MCG TAB PO (05:52)
[2018-11-03 06:56] LABS: Abs Immature Grans 0.04 k/cumm (0.0-0.09); Absolute Basophil Count 0.02 k/cumm (0.0-0.2); Absolute Eosinophil Count 0.12 k/cumm (0.0-0.7); Absolute Lymphocyte Count 2.52 k/cumm (1.2-3.4); Absolute Monocyte Count 0.69 k/cumm (0.11-0.7); Absolute Neutrophil Count 4.79 k/cumm (1.2-6.7); Basophils % 0.2; Eosinophils % 1.5; HCT 37.3 % (40.0-50.0); HGB 11.9 g/dL (13.5-17.5); Immature Grans % 0.5; Lymphocytes % 30.8; Mean Corp. HGB Concentration 31.9 g/dL (32.0-36.0); Mean Corpuscular Hemoglobin 31.5 pg (27.0-33.0); Mean Corpuscular Volume 98.7 fL (80-95); Mean Platelet Volume 9.1 fL (8.0-11.0); Monocytes % 8.4; Neutrophils % 58.6; Platelet Count 247 x1000/uL (130-400); RBC 3.78 m/cumm (4.50-6.00); RBC Distribution Width 16.2 % (11.8-14.1); White Blood Cell Count 8.18 k/cumm (4.4-10.8)
[2018-11-03 07:11] LABS: Anion Gap 8.9 mmol/L (3-11); BUN 10 mg/dL (7-18); CO2 27.1 mmol/L (21.0-32.0); CREATININE 0.86 mg/dL (0.70-1.30); Calcium 8.3 mg/dL (8.5-10.1); Chloride 104 mmol/L (98-107); Glucose 249 mg/dL (70-100); Magnesium 1.9 mg/dL (1.8-2.4); Potassium 3.8 mmol/L (3.5-5.1); Sodium 140 mmol/L (136-145)
[2018-11-03] MEDS: Insulin Aspart 300 UNITS/3 ML PEN SC ×7 (07:55→22:27)
[2018-11-03 08:07] LABS: NT-proBNP 4898 pg/mL; Troponin I 0.04 ng/mL (0.00-0.06)
[2018-11-03] MEDS: Biotene Mouthwash 237 ML BTL 15 ML MM ×3 (08:16→17:26)
--- NOTE | 2018-11-03 08:59 | PDOC.CMPRO ---
Care Management Progress Note S/O: Prakash continues to require medication adjustments to manage his hallucinations and behavioral disturbance, CM spoke with his social insurance adviser at the [facility], Reyna Sinha who reported she is actively working on transferring him to a SNF closer to his family without success. He was seen by Dr. Pacheco last evening who provided medication recommendations as she reports antipsychotics will not be utilized after he returns to the [facility]. CM met with Prakash's daughter, Janet at length to review options for advocating including Reyna Cruz at [facility], [facility] CM, [facility] home coordinators and agreed to follow up with the Reyna Sinha again to review recommendations. Janet shared concerns about her father's ongoing physical and mental decline since moving away from his family and reports a 180 lb weight increase in the last two years. CM provided patient/family education and supportive listening. CM faxed updated clinicals to the [facility] for review and will continue to follow his hospital course. No change to discharge plan. A: 62 year old male admitted to [facility] 10/31/18 for LLL HCAP P: Prakash will return to his residence at the [facility] when ready per MD, he will transport via EMS.
--- NOTE | 2018-11-03 09:02 | CMPROGNOTE_ITS ---
Care Management Progress Note S/O: Prakash continues to require medication adjustments to manage his hallucinations and behavioral disturbance, CM spoke with his nursing home social worker at the [facility], Reyna Sinha who reported she is actively working on transferring him to a SNF closer to his family without success. He was seen by Dr. Pacheco last evening who provided medication recommendations as she reports antipsychotics will not be utilized after he returns to the [facility]. CM met with Prakash's daughter, Janet at length to review options for advocating including Reyna Ricardo at [facility], [facility] CM, [facility] home coordinators and agreed to follow up with the Reyna Sawyermauromadeline again to review recommendations. Janet shared concerns about her father's ongoing physical and mental decline since moving away from his family and reports a 180 lb weight increase in the last two years. CM provided patient/family education and supportive listening. CM faxed updated clinicals to the [facility] for review and will continue to follow his hospital course. No change to discharge plan. A: 62 year old male admitted to [facility] 10/31/18 for LLL HCAP P: Prakash will return to his residence at the [facility] when ready per MD, he will transport via EMS.
[2018-11-03] MEDS: traMADol 50 MG TAB PO ×2 (09:15→20:34)
[2018-11-03] MEDS: Hydrocortisone SOD SUC. 100 MG VIAL 50 MG IVP (09:15)
[2018-11-03] MEDS: Pantoprazole 40 MG VIAL IVP (09:16)
[2018-11-03] MEDS: Aspirin 81 MG CHEW PO (09:16)
[2018-11-03] MEDS: Docusate Sodium 100 MG CAP PO ×3 (09:16→20:34)
[2018-11-03] MEDS: Allopurinol 100 MG TAB PO (09:16)
[2018-11-03] MEDS: Nystatin POWDER 60 GM JAR TP ×3 (09:17→20:35)
[2018-11-03] MEDS: Insulin Glargine 300 UNITS/3 ML PEN 20 UNITS SC (09:17)
[2018-11-03] MEDS: Multivitamin w/Minerals TAB 1 TAB PO (09:17)
[2018-11-03] MEDS: Metoprolol 12.5 MG TAB 25 MG PO ×2 (09:17→20:35)
[2018-11-03] MEDS: Senna TAB 1 TAB PO ×2 (09:18→20:35)
[2018-11-03] MEDS: traZODone 50 MG TAB 25 MG PO ×2 (09:18→15:45)
--- NOTE | 2018-11-03 11:19 | DI.RAD_ITS ---
SYMPTOMS/DIAGNOSIS: F/U PNEUMONIA PORTABLE AP CHEST: Comparison 10/31/18. The cardiac silhouette appears stable. There has been improved visualization of the left lung base suggesting improving infiltrate. The right lung remains stable and clear. No gross effusions or pneumothoraces are identified. There is a right PICC line in good position. The tip is seen in the superior vena cava. IMPRESSION: There does appear to be some improvement in the appearance of the left basilar infiltrate.
--- NOTE | 2018-11-03 11:26 | OT.INTREAT ---
Date of service: 11/03/18 Time of Service: 10:40 Occupational Therapy Notes Occupational Therapy Inpatient Treatment Note Date: 11/03/18 PRECAUTIONS: Fall, Contact SUBJECTIVE: Pt was lying in bed getting washed up with nursing (A) x3. He was agreeable to OT session and states that he wants a drink. OBJECTIVE: PAIN:Pt did not complain of pain during OT session. FUNCTIONAL MOBILITY - bed mobility pt is able to (A) however he requires max (A) for movement in the bed. GROOMING: Sitting in bed, with max (A) set up pt was able to (I) brush his teeth with min vc. TOILETING: [place] ASSESSMENT/PLAN: Pt was receptive to performing brushing teeth. He requires max (A) set up due to mobility deficits. Pt was able to perform brushing teeth with ideal technique. OT will continue to work with pt to progress (I) in ADLs. TREATMENT CODES/TIME: [id number], 25 minutes (10:40) Saar Maldonado OTR/[facility]
--- NOTE | 2018-11-03 11:31 | OTTR_ITS ---
Date of service: 11/03/18 Time of Service: 10:40 Occupational Therapy Notes Occupational Therapy Inpatient Treatment Note Date: 11/03/18 PRECAUTIONS: Fall, Contact SUBJECTIVE: Pt was lying in bed getting washed up with nursing (A) x3. He was agreeable to OT session and states that he wants a drink. OBJECTIVE: PAIN:Pt did not complain of pain during OT session. FUNCTIONAL MOBILITY - bed mobility pt is able to (A) however he requires max (A) for movement in the bed. GROOMING: Sitting in bed, with max (A) set up pt was able to (I) brush his teeth with min vc. TOILETING: [place] ASSESSMENT/PLAN: Pt was receptive to performing brushing teeth. He requires max (A) set up due to mobility deficits. Pt was able to perform brushing teeth with ideal technique. OT will continue to work with pt to progress (I) in ADLs. TREATMENT CODES/TIME: [id number], 25 minutes (10:40) Sara Maldonado OTR/[facility]
--- NOTE | 2018-11-03 12:25 | MERGE_ITS ---
*[facility]* *[facility]* [address] [place] [address] Date of study: 11/03/2018 Transthoracic Echocardiography M-mode, complete 2D, complete spectral Doppler, and color Doppler *STUDY CONCLUSIONS* Summary: 1. Left ventricle: The cavity size was normal. Wall thickness was normal. Systolic function was normal. The estimated ejection fraction was 60-65%. Wall motion was normal; there were no regional wall motion abnormalities. 2. Right ventricle: The cavity size was markedly dilated. Wall thickness was normal. Systolic function was normal. Minor axis dimension, ED (basilar, A4C): 5.8cm. 3. Right atrium: The atrium was severely dilated. Area ES (A4C): 27.1cm^2. 4. Pulmonary arteries: Pulmonary systolic pressure was increased, in the range of 55mm Hg to 60mm Hg. *PATIENT PRESENTATION* Height: 165.1cm ((65in) ) S/D Pressure: 126 / 104 Weight: 272.6kg ((599.7lb) ) BSA: 3.75m^2 Test start time: 12:30 PM. Test stop time: 01:30 PM. CONSULTING Tram Pacheco PERFORMING Unknown PERFORMING [facility] PALEONTOLOGICAL HELPER RT Valentino (R)(CT), RUST ORDERING Kandice Ang REFERRING Kandice Ang *PROCEDURE DATA* Procedure information: The patient was identified by two identifiers. This study was interpreted by [facility]. Pertinent images and digital data are archived for permanent storage and are available for subsequent review. Comparison was made to the study of 04/08/2017. Study status: Routine. Transthoracic echocardiography. M-mode, complete 2D, complete spectral Doppler, and color Doppler. A Transthoracic Echocardiogram was performed. Scanning was performed from the parasternal, apical, subcostal, and suprasternal notch acoustic windows. Images were obtained using an [id number]. cardiac ultrasound machine. Image quality was fair. Study completion: The patient tolerated the procedure well. There were no complications. History: PMH: SVT nSVt assess EF. *CARDIAC ANATOMY* Left ventricle: The cavity size was normal. Wall thickness was normal. Systolic function was normal. The estimated ejection fraction was 60-65%. Wall motion was normal; there were no regional wall motion abnormalities. Aortic valve: Trileaflet; normal thickness leaflets. Mobility was not restricted. Doppler: Transvalvular velocity was within the normal range. There was no stenosis. There was no significant regurgitation. VTI ratio of LVOT to aortic valve: 0.56. Valve area (VTI): 1.9cm^2. Indexed valve area (VTI): 0.5cm^2/m^2. Peak velocity ratio of LVOT to aortic valve: 0.56. Valve area (Vmax): 1.9cm^2. Indexed valve area (Vmax): 0.5cm^2/m^2. Mean velocity ratio of LVOT to aortic valve: 0.66. Valve area (Vmean): 2.2cm^2. Indexed valve area (Vmean): 0.6cm^2/m^2. Mean gradient (S): 8.9mm Hg. Peak gradient (S): 17.3mm Hg. Aorta: Aortic root: The aortic root was normal in size. Mitral valve: Structurally normal valve. Mobility was not restricted. Doppler: Transvalvular velocity was within the normal range. There was no evidence for stenosis. There was no significant regurgitation. Valve area by pressure half-time: 5.5cm^2. Indexed valve area by pressure half-time: 1.5cm^2/m^2. Peak gradient (D): 7mm Hg. Left atrium: The atrium was normal in size. Right ventricle: The cavity size was markedly dilated. Wall thickness was normal. Systolic function was normal. Pulmonic valve: Doppler: Transvalvular velocity was within the normal range. There was no evidence for stenosis. There was no significant regurgitation. Tricuspid valve: Structurally normal valve. Doppler: Transvalvular velocity was within the normal range. There was no evidence for stenosis. There was no significant regurgitation. Pulmonary artery: Pulmonary systolic pressure was increased, in the range of 55mm Hg to 60mm Hg. Right atrium: The atrium was severely dilated. Pericardium: There was no pericardial effusion. Systemic veins: Inferior vena cava: Well visualized. The vessel was patent and normal in size. The respirophasic diameter changes were blunted (less than 50%). Baseline ECG: Tachycardia. Measurements Left ventricle Value 04/08/2017 Reference LV ID, ED, PLAX 5.1 cm 5.5 3.5 - 6.0 LV ID, ES, PLAX 3.5 cm 3.8 2.1 - 4.0 LV PW thickness, ED, PLAX 1.4 cm LV end-diastolic volume, 88 ml 1-p A2C LV ejection fraction, 1-p 56 % A2C LV end-diastolic volume, 53 ml 64 1-p A4C LV ejection fraction, 1-p 55 % 59 A4C LV e', lateral 0.146 m/sec LV E/e', lateral 9 Ventricular septum Value 04/08/2017 Reference IVS thickness, ED, PLAX 1.1 cm 1.1 LVOT Value 04/08/2017 Reference LVOT ID, A-P 2.1 cm 2.1 LVOT area 3.4 cm^2 3.5 LVOT peak velocity, S 1.17 m/sec 1.1 LVOT mean velocity, S 0.92 m/sec LVOT VTI, S 21.1 cm 23.0 LVOT peak gradient, S 5.5 mm Hg LVOT mean gradient, S 3.6 mm Hg 2 Stroke volume (SV), LVOT 71 ml 80 DP Stroke index (SV/bsa), 19 ml/m^2 LVOT DP Aortic valve Value 04/08/2017 Reference Aortic valve peak 2.1 m/sec velocity, S Aortic valve mean 1.4 m/sec velocity, S Aortic valve VTI, S 38.0 cm Aortic mean gradient, S 8.9 mm Hg 7.6 Aortic peak gradient, S 17.3 mm Hg 13 VTI ratio, LVOT/AV 0.56 Aortic valve area, VTI 1.9 cm^2 2.8 Velocity ratio, peak, 0.56 0.83 LVOT/AV Aortic valve area, peak 1.9 cm^2 2.1 velocity Velocity ratio, mean, 0.66 LVOT/AV Aortic valve area, mean 2.2 cm^2 velocity Aortic valve area/bsa, 0.6 cm^2/m^2 mean velocity Aorta Value 04/08/2017 Reference Aortic root ID, ED 2.9 cm 3.0 Left atrium Value 04/08/2017 Reference LA ID, A-P, ES 4.6 cm LA ID/bsa, A-P 1.2 cm/m^2 <=2.2 LA area, ES, A4C (H) 28.1 cm^2 19.7 8.8 - 23.4 LA area, ES, A2C 32 cm^2 LA volume/bsa, ES, 1-p A4C 34 ml/m^2 26 LA volume, ES, 2-p 116 ml LA volume/bsa, ES, 2-p 31 ml/m^2 LA/aortic root ratio 1.59 1.22 Mitral valve Value 04/08/2017 Reference Mitral E-wave peak 1.32 m/sec 0.8 velocity Mitral A-wave peak 1.04 m/sec 0.74 velocity Mitral deceleration time (L) 137 ms 150 - 230 Mitral pressure half-time 40 ms 63 Mitral peak gradient, D 7 mm Hg 2.5 Mitral E/A ratio, peak 1.27 1.07 Mitral valve area, PHT, DP 5.5 cm^2 3.5 Tricuspid valve Value 04/08/2017 Reference Tricuspid regurg peak 3.5 m/sec 3 velocity Tricuspid peak RV-RA 49.1 mm Hg 36 gradient Right atrium Value 04/08/2017 Reference RA area, ES, A4C (H) 27.1 cm^2 16.6 8.3 - 19.5 Right ventricle Value 04/08/2017 Reference RV ID, minor axis, ED, A4C 5.8 cm base Legend: (L) and (H) nia values outside specified reference range. I have personally reviewed the images and have reviewed and edited the reported findings. Electronically signed by Andi Rios 11/03/2018 15:12
[2018-11-03 14:14] LABS: Vancomycin, Trough 21.9 ug/mL (10.0-20.0)
--- NOTE | 2018-11-03 15:25 | PT.INTREAT ---
Date of service: 11/03/18 Time of Service: 15:25 PT Notes Inpatient Physical Therapy Treatment Note [facility] Date: 11/03/18 PRECAUTIONS: Morbid obesity, contact SUBJECTIVE: Prakash is agreeable to participating in PT in the morning. In the afternoon, patient is unwilling to participate in exercises, however is willing to perform bed mobility in order to be cleaned up. OBJECTIVE: Patient appears to be intermittently confused, and is easily agitated. PAIN: Patient complained of sensitivity all over. BED MOBILITY/TRANSFERS Rolling L/R: Max A with automatic bed-roll assist and moderate patient participation to L/R, including reaching and opposite direction and pulling with upper extremities Supine-sit: Unable Sit-supine: Unable Sit-stand: Unable Stand-sit: Unable GAIT: Patient is unable as he is non-ambulatory THEREX: Patient completed several lower extremity strengthening exercises, as well as several upper extremity strengthening exercises, as per flow sheet. Patient requires consistent cueing, both verbal and tactile, for exercise completion and participation. ASSESSMENT: Patient tolerated session with increased participation with bed mobility, although continues to require Max A for rolling to L/R. Patient would benefit from continued global strengthening for improved bed mobility and strength. PLAN: Continue with PTs POC TREATMENT CODE/TIME: Session 1: 15 minutes; [id number] Session 2: 30 minutes; [id number] x2
--- NOTE | 2018-11-03 16:09 | PGE_ITS ---
Date of Service Date of service: 11/03/18 Time of Service: 11:00 Assessment and Plan (1) HCAP (healthcare-associated pneumonia): Current visit: No Status: Acute HCAP vs aspiration pneumonia. Improved clinically and CXR. O2 requirements are now RA to 1L. Blood cultures with NGTD. Passed swallow eval for a modified diet. Continue empiric vancomycin and zosyn. S/p PICC - could theoretically finish his abx at the nursing facility if they were able to accomodate his abx. Hypotension in the initial setting was likely a component of acute on chronic adrenal insufficiency. (2) Nonsustained paroxysmal supraventricular tachycardia: Current visit: Yes Status: Acute In setting of likely fluid overload overload. BB increased overnight. Diuresing. (3) Adrenal insufficiency: Current visit: No Status: Acute As above - tapering stress dose steroids. Hypotention on presentation was due to this. (4) Acute diastolic CHF (congestive heart failure): Current visit: Yes Status: Acute IV diuresis; monitor I/O's and daily weights. (5) Pulmonary hypertension: Current visit: Yes Status: Acute I have no doubt that Mr Rowland has DOUG and OHS, which could be responsible for a component of this, but he is quite fluid overloaded at this time. Will need follow up as outpatient. Monitor volume status - at this time, diurese. 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 Taper stress dose steroids. Continue desmopressin - does have a lot of thirst. (7) Toxic metabolic encephalopathy: Current visit: No Status: Acute With behavioral disturbance. Improved significantly. Patient's daughter is inquiring about patient's capacity to make decisions. She requests a psychiatry consult. Encephalopathy was likely due to PNA - but seizures could not be ruled out. EEG was of poor quality (patient would not cooperate). He is at a high risk of seizures. At this time, no tonic clonic events have been witnessed. I feel he would benefit from a repeat EEG once his mental status is better. (8) History of brain tumor: Current visit: No Status: Acute Patient is a high risk for seizures due to his history of craniotomy, which could result in his altered mental status postictally. As above. (9) Hyperglycemia: Current visit: No Status: Acute Does have diabetes per A1C (7.2). Continue SSI. Increase long acting insulin. Continue carb consistent diet. I am not certain how useful nutrition/diabetic education consults would be in his case with this mental status - will consider at a later date. (10) Morbid obesity with BMI of 70 and over, adult: Current visit: No Status: Acute Providing a specialized bed. Patient not interested in weight loss, per outpatient notes. (11) Obesity hypoventilation syndrome: Current visit: No Status: Chronic patient is unlikely to be compliant with BiPAP. No evidence of CO2 retention - ok to use supplemental O2 via face mask or cannula. He is DNR/DNi. He will have outpatient palliative care consult (12) DOUG (obstructive sleep apnea): Current visit: No Status: Chronic As above (13) Constipation: Current visit: No Status: Acute Provide a bowel regimen. Did have a BM yesterday. (14) Discharge planning issues: Current visit: No Status: Acute Palliative care as outpatient DNR/DNI Planned to return back to the [facility] once medically stable (15) DVT prophylaxis: Current visit: No Status: Acute Sc heparin Subjective Interval history since last seen: Mr Rowland states he is feeling better today. He can't quite tell me what feels better. Per nursing, he has been a lot more appropriate and following commands. He has been yelling out a lot for liquids. He denies dizziness, chest pain, complains of a little shortness of breath, denies nausea/vomiting. 2 episodes of SVT (one lasting 1 min, 1 lasting 30 seconds). Exam Narrative Exam Narrative: General: very obese male, A&Ox1, very alert, recognizes his daughter, able to carry out a conversation HEENT: EOMI, MMM Heart: RRR, tachycardic, no murmurs Lungs: Diminished breath sounds B GI: abdomen is soft, nontender, nondistended Extremities: BLE's with plaque lesions (?psoriasis); B feet with soft cushioning. I have a hard time palpating his pulses. 2+ edema BLE's Objective Objective Clinical Data: Abnormal lab results 11/03/18 11/03/18 11/03/18 Range/Units 06:15 06:15 13:35 RBC 3.78 L (4.50-6.00) m/cumm Hgb 11.9 L (13.5-17.5) g/dL Hct 37.3 L (40.0-50.0) % MCV 98.7 H (80-95) fL MCHC 31.9 L (32.0-36.0) g/dL RDW 16.2 H (11.8-14.1) % Glucose 249 H (70-100) mg/dL Calcium 8.3 L (8.5-10.1) mg/dL NT-Pro-B Natriuret Pep 4898 H ( - 299) pg/mL Vancomycin Trough 21.9 H* (10.0-20.0) ug/mL Vital Signs Temperature 36.5 C 11/03/18 14:30 Temperature Source Temporal Artery Scan 11/03/18 14:30 Pulse 108 H 11/03/18 15:15 Pulse Rhythm Regular 11/03/18 14:30 Pulse 108 H 11/03/18 09:00 Respiratory Rate 19 11/03/18 14:30 Respiratory Effort 11/03/18 14:30 Respiratory Depth Normal 11/03/18 14:30 Respiratory Pattern Normal 11/03/18 14:30 Blood Pressure 185/89 H 11/03/18 14:30 Blood Pressure Mean 109 11/03/18 07:40 Blood Pressure Position Supine 10/31/18 21:00 Pulse Oximetry 93 L 11/03/18 14:30 Oxygen Delivery Method Room Air 11/03/18 14:30 Oxygen Flow Rate 0 11/03/18 14:30 Pain Level 0 11/03/18 14:30 Comment 11/03/18 07:35 Intake & Output 11/02/18 11/03/18 11/03/18 23:59 11:59 23:59 Intake Total 2670 / 4070 2440 / 3360 920 / 3360 Output Total 1750 / 3030 550 / 1300 750 / 1300 Balance 920 / 1040 1890 / 2060 170 / 2060 Intake: IV 1350 / 2750 360 / 440 80 / 440 Oral 1320 / 1320 2080 / 2920 840 / 2920 Output: Urine 1750 / 3030 550 / 1300 750 / 1300 Other: Urine Color Yellow Dark Miranda Dark Miranda Urine Appearance Clear Clear Clear Comment Bag not emptied at this time Stool Occult Blood Negative Negative Negative Stool Size Large Large Large Stool Characteristics Brown Brown Brown Laboratory Results WBC 8.18 k/cumm (4.4-10.8) 11/03/18 06:15 RBC 3.78 m/cumm (4.50-6.00) L 11/03/18 06:15 Hgb 11.9 g/dL (13.5-17.5) L 11/03/18 06:15 Hct 37.3 % (40.0-50.0) L 11/03/18 06:15 MCV 98.7 fL (80-95) H 11/03/18 06:15 MCH 31.5 pg (27.0-33.0) 11/03/18 06:15 MCHC 31.9 g/dL (32.0-36.0) L 11/03/18 06:15 RDW 16.2 % (11.8-14.1) H 11/03/18 06:15 Plt Count 247 x1000/uL (130-400) 11/03/18 06:15 MPV 9.1 fL (8.0-11.0) 11/03/18 06:15 Immature Gran % 0.5 11/03/18 06:15 Neutrophils % 58.6 11/03/18 06:15 Band Neutrophils % 0.0 % 10/31/18 16:25 Lymphocytes % 30.8 11/03/18 06:15 Atypical Lymphs % 9 10/31/18 16:25 Monocytes % 8.4 11/03/18 06:15 Eosinophils % 1.5 11/03/18 06:15 Basophils % 0.2 11/03/18 06:15 Absolute Neutrophils 4.79 k/cumm (1.2-6.7) 11/03/18 06:15 Absolute Lymphocytes 2.52 k/cumm (1.2-3.4) 11/03/18 06:15 Absolute Monocytes 0.69 k/cumm (0.11-0.7) 11/03/18 06:15 Absolute Eosinophils 0.12 k/cumm (0.0-0.7) 11/03/18 06:15 Absolute Basophils 0.02 k/cumm (0.0-0.2) 11/03/18 06:15 Differential Comment Manual differential 10/31/18 16:25 RBC Morphology See below 10/31/18 16:25 Polychromasia Present 10/31/18 16:25 Sample Site Right radial 11/01/18 09:33 pCO2 44 mmHg (34-47) 11/01/18 09:33 pO2 71 mmHg (83-108) L 11/01/18 09:33 O2 Saturation 96 % (94-98) 11/01/18 09:33 ABG pH 7.37 (7.35-7.45) 11/01/18 09:33 ABG HCO3 26 mmol/L (22-28) 11/01/18 09:33 ABG Total CO2 24 mmol/L (22-29) 11/01/18 09:33 ABG Base Excess 0.7 mmol/L (-3-3) 11/01/18 09:33 Oxygen Liter Flow 2 nc L 11/01/18 09:33 Sodium 140 mmol/L (136-145) 11/03/18 06:15 Potassium 3.8 mmol/L (3.5-5.1) 11/03/18 06:15 Chloride 104 mmol/L (98-107) 11/03/18 06:15 Carbon Dioxide 27.1 mmol/L (21.0-32.0) 11/03/18 06:15 Anion Gap 8.9 mmol/L (3-11) 11/03/18 06:15 BUN 10 mg/dL (7-18) 11/03/18 06:15 Creatinine 0.86 mg/dL (0.70-1.30) 11/03/18 06:15 Estimated GFR/1.73 m2 >= 60.00 (mL/min/1.73m2) 11/03/18 06:15 Glucose 249 mg/dL (70-100) H 11/03/18 06:15 Hemoglobin A1c 7.2 % (4.5-6.2) H 11/01/18 06:00 Calcium 8.3 mg/dL (8.5-10.1) L 11/03/18 06:15 Magnesium 1.9 mg/dL (1.8-2.4) 11/03/18 06:15 Total Bilirubin 0.7 mg/dL (0.2-1.0) 11/01/18 06:00 AST 45 U/L (15-37) H 11/01/18 06:00 ALT 35 U/L (12-78) 11/01/18 06:00 Alkaline Phosphatase 55 U/L (46-116) 11/01/18 06:00 Creatine Kinase 289 U/L (39-308) 11/01/18 06:00 Troponin I 0.04 ng/mL (0.00-0.06) 11/03/18 06:15 NT-Pro-B Natriuret Pep 4898 pg/mL (-299) H 11/03/18 06:15 Total Protein 5.4 g/dL (6.4-8.2) L 11/01/18 06:00 Albumin 2.2 g/dL (3.4-5.0) L 11/01/18 06:00 TSH 0.01 uIU/mL (0.358-3.74) L 10/31/18 16:25 Free T4 1.75 ng/dL (0.76-1.46) H 10/31/18 16:25 Urine Color Brown (Yellow) 10/31/18 14:25 Urine Clarity Clear 10/31/18 14:25 Urine pH 5.0 (5-8) 10/31/18 14:25 Ur Specific [place] 1.025 (1.005-1.025) 10/31/18 14:25 Urine Protein Trace mg/dL (Negative) H 10/31/18 14:25 Urine Ketones Trace mg/dL (Negative) H 10/31/18 14:25 Urine Blood Negative (Negative) 10/31/18 14:25 Urine Nitrite Negative (Negative) 10/31/18 14:25 Urine Bilirubin Moderate (Negative) H 10/31/18 14:25 Urine Urobilinogen 1.0 EU/dL (Up TO 0.2) H 10/31/18 14:25 Ur Leukocyte Esterase Negative (Negative) 10/31/18 14:25 Urine RBC Negative (0-2) 10/31/18 14:25 Urine WBC Negative HPF (0-5) 10/31/18 14:25 Ur Epithelial Cells Few HPF (Negative) 10/31/18 14:25 Urine Crystals Few amorphous HPF (Negative) 10/31/18 14:25 Urine Bacteria Few HPF (Negative) 10/31/18 14:25 Urine Casts Negative LPF (Negative) 10/31/18 14:25 Urine Mucus Trace (Negative) 10/31/18 14:25 Ur Culture Indicated? No 10/31/18 14:25 Urine Glucose Negative mg/dL (Negative) 10/31/18 14:25 Vancomycin Trough 21.9 ug/mL (10.0-20.0) H* 11/03/18 13:35 CXR: There does appear to be some improvement in the appearance of the left basilar infiltrate. Echo: 1. Left ventricle: The cavity size was normal. Wall thickness was normal. Systolic function was normal. The estimated ejection fraction was 60-65%. Wall motion was normal; there were no regional wall motion abnormalities. 2. Right ventricle: The cavity size was markedly dilated. Wall thickness was normal. Systolic function was normal. Minor axis dimension, ED (basilar, A4C): 5.8cm. 3. Right atrium: The atrium was severely dilated. Area ES (A4C): 27.1cm^2. 4. Pulmonary arteries: Pulmonary systolic pressure was increased, in the range of 55mm Hg to 60mm Hg.
[2018-11-03] MEDS: Furosemide 20 MG/2 ML VIAL IVP (16:20)
[2018-11-03] MEDS: Normal Saline 500 ML 30 ML IV (18:34)
[2018-11-03] MEDS: Hydrocortisone SOD SUC. 100 MG VIAL 25 MG IVP (20:34)
[2018-11-03] MEDS: traZODone 50 MG TAB 100 MG PO (22:25)
[2018-11-03] MEDS: Desmopressin 0.2 MG TAB 0.1 MG PO (22:25)
[2018-11-04] VITALS (51 sets, daily range): BP systolic 142–193; BP diastolic 70–112; PULSE 69–97; RESP 9–23; TEMP 36.3–36.7; O2SAT 88–97
[2018-11-04] MEDS: PIPERACILLIN/TAZO 3.375 GM in Normal Saline 50 ML IVPB ×5 (00:13→23:44)
[2018-11-04] MEDS: Heparin 5,000 UNITS/ML VIAL 5000 UNITS SC ×3 (06:37→21:12)
[2018-11-04] MEDS: Levothyroxine 150 MCG TAB PO (06:39)
[2018-11-04 07:26] LABS: Anion Gap 7.1 mmol/L (3-11); BUN 9 mg/dL (7-18); CO2 30.9 mmol/L (21.0-32.0); CREATININE 0.84 mg/dL (0.70-1.30); Calcium 8.5 mg/dL (8.5-10.1); Chloride 103 mmol/L (98-107); Glucose 138 mg/dL (70-100); Magnesium 1.6 mg/dL (1.8-2.4); Potassium 3.2 mmol/L (3.5-5.1); Sodium 141 mmol/L (136-145)
[2018-11-04] MEDS: Normal Saline Flush 10 ML SYR IVP ×5 (07:47→23:45)
[2018-11-04] MEDS: Pantoprazole 40 MG VIAL IVP (07:48)
[2018-11-04] MEDS: Hydrocortisone SOD SUC. 100 MG VIAL 25 MG IVP ×2 (07:48→20:03)
[2018-11-04] MEDS: Furosemide 20 MG/2 ML VIAL IVP ×2 (07:48→16:12)
[2018-11-04] MEDS: Allopurinol 100 MG TAB PO (08:09)
[2018-11-04] MEDS: Docusate Sodium 100 MG CAP PO ×3 (08:09→20:03)
[2018-11-04 08:11] LABS: Abs Immature Grans 0.04 k/cumm (0.0-0.09); Absolute Basophil Count 0.02 k/cumm (0.0-0.2); Absolute Eosinophil Count 0.34 k/cumm (0.0-0.7); Absolute Lymphocyte Count 3.14 k/cumm (1.2-3.4); Absolute Monocyte Count 0.62 k/cumm (0.11-0.7); Absolute Neutrophil Count 3.53 k/cumm (1.2-6.7); Basophils % 0.3; Eosinophils % 4.4; HCT 35.5 % (40.0-50.0); HGB 11.3 g/dL (13.5-17.5); Immature Grans % 0.5; Lymphocytes % 40.8; Mean Corp. HGB Concentration 31.8 g/dL (32.0-36.0); Mean Corpuscular Hemoglobin 31.2 pg (27.0-33.0); Mean Corpuscular Volume 98.1 fL (80-95); Monocytes % 8.1; Neutrophils % 45.9; Platelet Count 206 x1000/uL (130-400); RBC 3.62 m/cumm (4.50-6.00); RBC Distribution Width 16.1 % (11.8-14.1); White Blood Cell Count 7.69 k/cumm (4.4-10.8)
[2018-11-04] MEDS: traZODone 50 MG TAB 25 MG PO ×2 (08:18→16:12)
[2018-11-04] MEDS: Metoprolol 12.5 MG TAB 25 MG PO ×3 (08:18→20:03)
[2018-11-04] MEDS: Aspirin 81 MG CHEW PO (08:19)
[2018-11-04] MEDS: Multivitamin w/Minerals TAB 1 TAB PO (08:19)
[2018-11-04] MEDS: Senna TAB 1 TAB PO ×2 (08:19→20:03)
[2018-11-04] MEDS: traMADol 50 MG TAB PO ×2 (08:20→20:03)
[2018-11-04] MEDS: Nystatin POWDER 60 GM JAR TP ×3 (08:20→20:04)
[2018-11-04] MEDS: Biotene Mouthwash 237 ML BTL 15 ML MM ×3 (08:20→17:20)
--- NOTE | 2018-11-04 09:11 | PDOC.CMPRO ---
Care Management Progress Note S/O: Prakash continues to require medication adjustments to manage his hallucinations and behavioral disturbance, CM spoke with his forensic social worker at the [facility], Reyna Sinha to provide overview of family meeting discussion yesterday and to provide contact information for [place] [facility]; Karyna Oropeza in hopes of supporting out of area AFC placement for Prakash. Reyna reported speaking with Janet yesterday, as well and validated ongoing plan for working towards transferring Prakash closer to his family. CM faxed updated clinicals to the [facility] for review and will continue to follow his hospital course. No change to discharge plan. A: 62 year old male admitted to [facility] 10/31/18 for LLL HCAP P: Prakash will return to his residence at the [facility] when ready per MD, he will transport via EMS
--- NOTE | 2018-11-04 09:41 | W.SPEECHPG ---
Date of service: 11/04/18 Time of Service: 07:30 Speech Therpy Note Note: SUBJECTIVE Patient (pt) is fully awake, verbal, making immediate good direct eye contact. OBJECTIVE Nursing reports: - T:36.7 - O2 sat: 96% on RA - LS: diminished bilaterally (B) in the presence of ABX - Good use of swish and spit protocol with Biotene Antibacterial Mouthwash prior to this mornings breakfast. - Meal intake for 11/03/18: 100% for all 3 meals Swallowing - Honey-thick liquid: Good bolus control & posterior oral transit (POT); no renee signs/symptoms (s/s) of aspiration/penetration (A/P); oral clearance 100%; no oral escape. Results are true for single swallows by cup. - Trial [place]-thick liquid: Results are the same as for Honey-thick liquid. - Puree food: Good bolus control & linguopalatal bolus compression; POT WNL; no renee s/s A/P; oral clearance 100%; no oral escape. - Trial Mechanically Altered food: Good bolus control, mastication quality & POT; no renee s/s A/P; oral clearance 100%; no oral escape. - Trial Dysphagia Advanced food: Decreased mastication quality despite increased mastication time; pt expectorated bolus on my request. - Trial whole pill in puree food: Good bolus control, linguopalatal bolus compression & POT; no renee s/s A/P; oral clearance 100%; no oral escape. ASSESSMENTY Pt shows improved alertness/participation/self-awareness which is resulting in improved tolerance of more advanced p.o. consistencies as above. Doubt that pt will be able to safely tolerate a diet advancement to Dysphagia Advanced due to limited dentition. Advancement to Thin liquids and whole pills with a liquid wash may be possible. PLAN 1. Change to: [place]-thick liquids, a Mechanically Altered diet with pureed meats; whole pills in puree. 2. Continue speech therapy plan of care.
--- NOTE | 2018-11-04 10:45 | OT.INTREAT ---
Date of service: 11/04/18 Time of Service: 09:40 Occupational Therapy Notes Occupational Therapy Inpatient Treatment Note Date: 11/04/18 PRECAUTIONS: Contact Precautions SUBJECTIVE: Pt was lying in bed when OT arrived. OT was present in the room with nursing x3. OBJECTIVE: PAIN:c/o pain due to skin breakdown under excess skin FUNCTIONAL MOBILITY Rolling L/R: Mod (A)x3 BATHING: Lying in bed max (A) x3 as pt denies washing his own face or abdomen. He requires max vc for hand placement and tactile touch for bed mobility. TOILETING: [place] ASSESSMENT/PLAN: Pt functionally has ROM to be able to wash face (I), (B) UE and abdomen. He was aggressive during todays session stating that he was going to punch someone. Yelling loudly and pretending to punch staff and then laughing. Pt was not willing to perform ADLs by himself or attempt at this time. He requires multiple vc for use of (B) UE as well as talking him down from his aggressive behavior. OT did discuss with pt his baseline which he reports that he is able to wash himself. He then yells that he wants everyone to get the hell out of his room. His mood alters multiple times throughout session towards different staff members throughout session and his emotional temperament is not consistent throughout. TREATMENT CODES/TIME: [id number], 30 minutes (09:40) MAYE Antunez[facility]
[2018-11-04] MEDS: Normal Saline 500 ML 10 ML IV (12:03)
[2018-11-04] MEDS: MAGNESIUM SULFATE 2 GM/50 ML BAG IVPB (12:03)
[2018-11-04] MEDS: Potassium Chloride 20 MEQ TABCR 40 MEQ PO (12:04)
[2018-11-04] MEDS: Insulin Aspart 300 UNITS/3 ML PEN SC ×5 (12:09→21:13)
--- NOTE | 2018-11-04 13:56 | CHAPLAIN ---
I introduced myself to Prakash and explained my role. Prakash was pleasant adn engaged in a conversation telling me about his daughters who live in [facility]. Prakash said he was interested in knowing real estate sales associate is available here and he may request a visit at some point.
--- NOTE | 2018-11-04 15:48 | PT.INTREAT ---
Date of service: 11/04/18 Time of Service: 15:49 PT Notes Inpatient Physical Therapy Treatment Note [facility] Date: 11/04/18 PRECAUTIONS: Morbid obesity, contact SUBJECTIVE: Prakash states physical therapy better not come in here, because I'm not doing that today. With some encouragement, patient is agreeable to participating in PT. OBJECTIVE: Patient appears to be intermittently confused, and is easily agitated. PAIN: Patient complained of sensitivity all over. BED MOBILITY/TRANSFERS Rolling L/R: Refused Supine-sit: Unable Sit-supine: Unable Sit-stand: Unable Stand-sit: Unable GAIT: Patient is unable as he is non-ambulatory THEREX: Patient completed several lower extremity strengthening exercises, as well as several upper extremity strengthening exercises, as per flow sheet. Patient was able to tolerate a slight progression in her ther ex program today, modifications made to repetitions are noted on flow sheet. Patient continues to require verbal cueing for exercise completion and participation. ASSESSMENT: Patient tolerated a progression in her ther ex program today. Patient would benefit from continued global strengthening for improved bed mobility and strength. PLAN: Continue with PTs POC TREATMENT CODE/TIME: Session 1: 20 minutes; [id number] Session 2: 25 minutes; [id number] x2
[2018-11-04] MEDS: Normal Saline 500 ML IV (18:00)
--- NOTE | 2018-11-04 19:26 | PGE_ITS ---
Date of Service Date of service: 11/04/18 Time of Service: 08:00 Assessment and Plan (1) HCAP (healthcare-associated pneumonia): Current visit: No Status: Acute HCAP vs aspiration pneumonia. Improved clinically and CXR. O2 requirements are now RA to 1L. Blood cultures with NGTD. MRSA screen is positive, so I am obligated to keep the patient on vancomycin and zosyn (now Day 4). I feel the patient needs to stay on abx until his mental status normalizes. Passed swallow eval for a modified diet. S/p PICC Hypotension in the initial setting was likely a component of acute on chronic adrenal insufficiency. (2) Nonsustained paroxysmal supraventricular tachycardia: Current visit: Yes Status: Acute In setting of likely fluid overload overload. No recurrences. BB are being uptitrated. Diuresing. (3) Adrenal insufficiency: Current visit: No Status: Acute As above - tapering stress dose steroids. Hypotention on presentation was due to this. (4) Acute diastolic CHF (congestive heart failure): Current visit: Yes Status: Acute IV diuresis; monitor I/O's and daily weights. (5) Pulmonary hypertension: Current visit: Yes Status: Acute I have no doubt that Mr Rowland has DOUG and OHS, which could be responsible for a component of this, but he is quite fluid overloaded at this time. Continue diuresis. 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 Taper stress dose steroids. Continue desmopressin - does have a lot of thirst - will speak with endocrine. (7) Toxic metabolic encephalopathy: Current visit: No Status: Acute With behavioral disturbance. Improved significantly, but not yet at baseline Patient's daughter is inquiring about patient's capacity to make decisions. She requests a psychiatry consult. This was placed for 11/08 as the patient is likely to be at his neurologic baseline by then and the capacity eval may have the most value/weight. Encephalopathy was likely due to PNA - but seizures could not be ruled out. EEG was of poor quality (patient would not cooperate). He is at a high risk of seizures. At this time, no tonic clonic events have been witnessed. I feel he would benefit from a repeat EEG once his mental status is at baseline and he can be cooperative. (8) History of brain tumor: Current visit: No Status: Acute Patient is a high risk for seizures due to his history of craniotomy, which could result in his altered mental status postictally. As above. (9) Hyperglycemia: Current visit: No Status: Acute Does have diabetes per A1C (7.2). Continue SSI. Decrease lantus. Continue carb consistent diet. I am not certain how useful nutrition/diabetic education consults would be in his case with this mental status - will consider at a later date. (10) Morbid obesity with BMI of 70 and over, adult: Current visit: No Status: Acute Providing a specialized bed. Patient not interested in weight loss, per outpatient notes. (11) Obesity hypoventilation syndrome: Current visit: No Status: Chronic patient is unlikely to be compliant with BiPAP. No evidence of CO2 retention - ok to use supplemental O2 via face mask or cannula. He is DNR/DNi. He will have outpatient palliative care consult (12) DOUG (obstructive sleep apnea): Current visit: No Status: Chronic As above (13) Constipation: Current visit: No Status: Acute Provide a bowel regimen. s/p BM on this admission. (14) Discharge planning issues: Current visit: No Status: Acute Palliative care as outpatient DNR/DNI Planned [place] [facility] once medically stable (15) DVT prophylaxis: Current visit: No Status: Acute Sc heparin Subjective Interval history since last seen: The patient is more alert and cooperative today. He is A&Ox2, demanding. Per custodial, his baseline is A&Ox3. He denies dizziness, chest pain, shortness of breath, nausea, vomiting. Exam Narrative Exam Narrative: General: very obese male, A&Ox2, able to have a more fluent conversation, pays attention better. HEENT: EOMI, MMM Heart: RRR, tachycardic, no murmurs Lungs: Diminished breath sounds B GI: abdomen is soft, nontender, nondistended Extremities: BLE's with plaque lesions (?psoriasis); B feet with soft cushioning. I have a hard time palpating his pulses. 2+ edema BLE's Objective Objective Clinical Data: Abnormal lab results 11/04/18 11/04/18 Range/Units 06:35 07:50 RBC 3.62 L (4.50-6.00) m/cumm Hgb 11.3 L (13.5-17.5) g/dL Hct 35.5 L (40.0-50.0) % MCV 98.1 H (80-95) fL MCHC 31.8 L (32.0-36.0) g/dL RDW 16.1 H (11.8-14.1) % Potassium 3.2 L (3.5-5.1) mmol/L Glucose 138 H D (70-100) mg/dL Magnesium 1.6 L (1.8-2.4) mg/dL Vital Signs Temperature 36.7 C 11/04/18 03:34 Temperature Source Temporal Artery Scan 11/04/18 03:34 Pulse 88 11/04/18 18:10 Pulse Rhythm Regular 11/04/18 15:40 Pulse 89 11/04/18 18:10 Respiratory Rate 17 11/04/18 18:10 Respiratory Effort 11/04/18 15:40 Respiratory Depth Shallow 11/04/18 15:40 Respiratory Pattern Normal 11/04/18 15:40 Blood Pressure 158/79 H 11/04/18 18:10 Blood Pressure Mean 98 11/04/18 18:10 Blood Pressure Position Supine 10/31/18 21:00 Pulse Oximetry 92 L 11/04/18 12:30 Oxygen Delivery Method Room Air 11/04/18 12:30 Oxygen Flow Rate 0 11/04/18 12:30 Pain Level 0 11/04/18 08:20 Comment 11/03/18 07:35 Intake & Output 11/03/18 11/04/18 11/04/18 23:59 11:59 23:59 Intake Total 1986.333 / 4426.333 1898 / 4350.674 2452.674 / 4350.674 Output Total 4500 / 5050 2800 / 6970 4170 / 6970 Balance -2513.667 / -623.667 -902 / -2619.326 -1717.326 / -2619.326 Intake: IV 426.333 / 786.333 130 / 345.674 215.674 / 345.674 Oral 1560 / 3640 1768 / 4005 2237 / 4005 Output: Urine 4500 / 5050 2800 / 6970 4170 / 6970 Other: Urine Color Pale Pale Pale Yellow Urine Appearance Clear Clear Clear Stool Occult Blood Negative Negative Negative Stool Size Large Small Moderate Stool Characteristics Soft Liquid Brown Brown Laboratory Results WBC 7.69 k/cumm (4.4-10.8) 11/04/18 07:50 RBC 3.62 m/cumm (4.50-6.00) L 11/04/18 07:50 Hgb 11.3 g/dL (13.5-17.5) L 11/04/18 07:50 Hct 35.5 % (40.0-50.0) L 11/04/18 07:50 MCV 98.1 fL (80-95) H 11/04/18 07:50 MCH 31.2 pg (27.0-33.0) 11/04/18 07:50 MCHC 31.8 g/dL (32.0-36.0) L 11/04/18 07:50 RDW 16.1 % (11.8-14.1) H 11/04/18 07:50 Plt Count 206 x1000/uL (130-400) 11/04/18 07:50 MPV 9.0 fL (8.0-11.0) 11/04/18 07:50 Immature Gran % 0.5 11/04/18 07:50 Neutrophils % 45.9 11/04/18 07:50 Band Neutrophils % 0.0 % 10/31/18 16:25 Lymphocytes % 40.8 11/04/18 07:50 Atypical Lymphs % 9 10/31/18 16:25 Monocytes % 8.1 11/04/18 07:50 Eosinophils % 4.4 11/04/18 07:50 Basophils % 0.3 11/04/18 07:50 Absolute Neutrophils 3.53 k/cumm (1.2-6.7) 11/04/18 07:50 Absolute Lymphocytes 3.14 k/cumm (1.2-3.4) 11/04/18 07:50 Absolute Monocytes 0.62 k/cumm (0.11-0.7) 11/04/18 07:50 Absolute Eosinophils 0.34 k/cumm (0.0-0.7) 11/04/18 07:50 Absolute Basophils 0.02 k/cumm (0.0-0.2) 11/04/18 07:50 Differential Comment Manual differential 10/31/18 16:25 RBC Morphology See below 10/31/18 16:25 Polychromasia Present 10/31/18 16:25 Sample Site Right radial 11/01/18 09:33 pCO2 44 mmHg (34-47) 11/01/18 09:33 pO2 71 mmHg (83-108) L 11/01/18 09:33 O2 Saturation 96 % (94-98) 11/01/18 09:33 ABG pH 7.37 (7.35-7.45) 11/01/18 09:33 ABG HCO3 26 mmol/L (22-28) 11/01/18 09:33 ABG Total CO2 24 mmol/L (22-29) 11/01/18 09:33 ABG Base Excess 0.7 mmol/L (-3-3) 11/01/18 09:33 Oxygen Liter Flow 2 nc L 11/01/18 09:33 Sodium 141 mmol/L (136-145) 11/04/18 06:35 Potassium 3.2 mmol/L (3.5-5.1) L 11/04/18 06:35 Chloride 103 mmol/L (98-107) 11/04/18 06:35 Carbon Dioxide 30.9 mmol/L (21.0-32.0) 11/04/18 06:35 Anion Gap 7.1 mmol/L (3-11) 11/04/18 06:35 BUN 9 mg/dL (7-18) 11/04/18 06:35 Creatinine 0.84 mg/dL (0.70-1.30) 11/04/18 06:35 Estimated GFR/1.73 m2 >= 60.00 (mL/min/1.73m2) 11/04/18 06:35 Glucose 138 mg/dL (70-100) H D 11/04/18 06:35 Hemoglobin A1c 7.2 % (4.5-6.2) H 11/01/18 06:00 Calcium 8.5 mg/dL (8.5-10.1) 11/04/18 06:35 Magnesium 1.6 mg/dL (1.8-2.4) L 11/04/18 06:35 Total Bilirubin 0.7 mg/dL (0.2-1.0) 11/01/18 06:00 AST 45 U/L (15-37) H 11/01/18 06:00 ALT 35 U/L (12-78) 11/01/18 06:00 Alkaline Phosphatase 55 U/L (46-116) 11/01/18 06:00 Creatine Kinase 289 U/L (39-308) 11/01/18 06:00 Troponin I 0.04 ng/mL (0.00-0.06) 11/03/18 06:15 NT-Pro-B Natriuret Pep 4898 pg/mL (-299) H 11/03/18 06:15 Total Protein 5.4 g/dL (6.4-8.2) L 11/01/18 06:00 Albumin 2.2 g/dL (3.4-5.0) L 11/01/18 06:00 TSH 0.01 uIU/mL (0.358-3.74) L 10/31/18 16:25 Free T4 1.75 ng/dL (0.76-1.46) H 10/31/18 16:25 Urine Color Brown (Yellow) 10/31/18 14:25 Urine Clarity Clear 10/31/18 14:25 Urine pH 5.0 (5-8) 10/31/18 14:25 Ur Specific [place] 1.025 (1.005-1.025) 10/31/18 14:25 Urine Protein Trace mg/dL (Negative) H 10/31/18 14:25 Urine Ketones Trace mg/dL (Negative) H 10/31/18 14:25 Urine Blood Negative (Negative) 10/31/18 14:25 Urine Nitrite Negative (Negative) 10/31/18 14:25 Urine Bilirubin Moderate (Negative) H 10/31/18 14:25 Urine Urobilinogen 1.0 EU/dL (Up TO 0.2) H 10/31/18 14:25 Ur Leukocyte Esterase Negative (Negative) 10/31/18 14:25 Urine RBC Negative (0-2) 10/31/18 14:25 Urine WBC Negative HPF (0-5) 10/31/18 14:25 Ur Epithelial Cells Few HPF (Negative) 10/31/18 14:25 Urine Crystals Few amorphous HPF (Negative) 10/31/18 14:25 Urine Bacteria Few HPF (Negative) 10/31/18 14:25 Urine Casts Negative LPF (Negative) 10/31/18 14:25 Urine Mucus Trace (Negative) 10/31/18 14:25 Ur Culture Indicated? No 10/31/18 14:25 Urine Glucose Negative mg/dL (Negative) 10/31/18 14:25 Vancomycin Trough 21.9 ug/mL (10.0-20.0) H* 11/03/18 13:35
[2018-11-04] MEDS: traZODone 50 MG TAB 100 MG PO (21:12)
[2018-11-04] MEDS: Desmopressin 0.2 MG TAB 0.1 MG PO (21:12)
[2018-11-04] MEDS: Insulin Glargine 300 UNITS/3 ML PEN 10 UNITS SC (21:15)
[2018-11-05] VITALS (18 sets, daily range): BP systolic 74–157; BP diastolic 53–79; PULSE 75–125; RESP 9–24; TEMP 36.3–36.7; O2SAT 87–96
[2018-11-05] MEDS: Normal Saline Flush 10 ML SYR IVP ×2 (02:05→08:48)
[2018-11-05] MEDS: Metoprolol 12.5 MG TAB 25 MG PO ×4 (02:05→19:25)
[2018-11-05] MEDS: Heparin 5,000 UNITS/ML VIAL 5000 UNITS SC ×3 (05:35→21:58)
[2018-11-05] MEDS: Levothyroxine 150 MCG TAB PO (05:35)
[2018-11-05] MEDS: PIPERACILLIN/TAZO 3.375 GM in Normal Saline 50 ML IVPB ×3 (05:35→17:33)
[2018-11-05 07:00] LABS: Abs Immature Grans 0.04 k/cumm (0.0-0.09); Absolute Basophil Count 0.01 k/cumm (0.0-0.2); Absolute Eosinophil Count 0.12 k/cumm (0.0-0.7); Absolute Lymphocyte Count 2.37 k/cumm (1.2-3.4); Absolute Monocyte Count 0.48 k/cumm (0.11-0.7); Basophils % 0.2; Eosinophils % 1.9; HCT 36.8 % (40.0-50.0); Immature Grans % 0.6; Lymphocytes % 37.5; Mean Corp. HGB Concentration 32.6 g/dL (32.0-36.0); Mean Corpuscular Hemoglobin 31.5 pg (27.0-33.0); Mean Corpuscular Volume 96.6 fL (80-95); Mean Platelet Volume 9.3 fL (8.0-11.0); Monocytes % 7.6; Neutrophils % 52.2; Platelet Count 216 x1000/uL (130-400); RBC 3.81 m/cumm (4.50-6.00); White Blood Cell Count 6.32 k/cumm (4.4-10.8)
[2018-11-05 07:05] LABS: Anion Gap 7.7 mmol/L (3-11); BUN 8 mg/dL (7-18); CO2 29.3 mmol/L (21.0-32.0); Calcium 8.1 mg/dL (8.5-10.1); Chloride 100 mmol/L (98-107); Glucose 190 mg/dL (70-100); Magnesium 1.8 mg/dL (1.8-2.4); Potassium 3.3 mmol/L (3.5-5.1); Sodium 137 mmol/L (136-145)
[2018-11-05] MEDS: Hydrocortisone SOD SUC. 100 MG VIAL 25 MG IVP (08:47)
[2018-11-05] MEDS: Multivitamin w/Minerals TAB 1 TAB PO (08:48)
[2018-11-05] MEDS: Pantoprazole 40 MG VIAL IVP (08:48)
[2018-11-05] MEDS: Senna TAB 1 TAB PO (08:49)
[2018-11-05] MEDS: Allopurinol 100 MG TAB PO (08:49)
[2018-11-05] MEDS: Aspirin 81 MG CHEW PO (08:49)
[2018-11-05] MEDS: traZODone 50 MG TAB 25 MG PO ×2 (08:49→17:33)
[2018-11-05] MEDS: traMADol 50 MG TAB PO ×2 (08:49→19:25)
[2018-11-05] MEDS: Docusate Sodium 100 MG CAP PO (08:51)
[2018-11-05] MEDS: Insulin Aspart 300 UNITS/3 ML PEN SC ×4 (08:59→18:06)
[2018-11-05] MEDS: Biotene Mouthwash 237 ML BTL 15 ML MM ×3 (09:00→17:42)
[2018-11-05] MEDS: Nystatin POWDER 60 GM JAR TP ×3 (09:02→19:38)
[2018-11-05] MEDS: Potassium Chloride 20 MEQ TABCR 40 MEQ PO ×2 (12:14→12:33)
--- NOTE | 2018-11-05 13:22 | W.SPEECHPG ---
Date of service: 11/05/18 Time of Service: 12:45 Speech Therpy Note Note: SUBJECTIVE Patient (pt) is consistently awake and fully alert. He is quite conversant. He complains about multiple things and makes statements that I know to be false (e.g., nurses laugh while dumping whole packets of thickener into his drinks). OBJECTIVE Nursing reports: - T: 36.7 - O2 sat: 96% on RA - No lung sounds heard on auscultation - Pt continues to be on ABX - Pt has shown: - willingness to swish & spit Biotene mouthwash prior to meals. - toleration of whole pills in puree, [place]-thick liquids and Mechanically Altered diet with pureed meats Pt trialed on Thin liquids. He shows good bolus control & posterior oral transit; no renee signs/symptoms of aspiration/penetration; oral clearance 100%; no oral escape. These results are true for both single and consecutive swallows by both cup and straw. Unable to assess whole pills with a liquid wash since he is not due for any p.o. meds. ASSESSMENT Pt is now alert enough to safely tolerate Thin liquids. It is felt that he will be able to tolerate whole pills with a liquid wash as well. He is not appropriate for a diet consistency advancement due to significant partial edentulousness. PLAN 1. Change to Thin liquids. 2. Change to whole pills with a liquid wash. 3. d/c speech therapy at this time.
--- NOTE | 2018-11-05 14:43 | PT.INTREAT ---
Date of service: 11/05/18 Time of Service: 14:45 PT Notes Inpatient Physical Therapy Treatment Note [facility] Date: 11/05/18 PRECAUTIONS: Morbid obesity, contact SUBJECTIVE: With some encouragement, patient is agreeable to participating in PT in the afternoon. OBJECTIVE: Patient appears to be intermittently confused, and is easily agitated, although is easily redirected. PAIN:No c/o pain BED MOBILITY/TRANSFERS Rolling L/R: Max A x3 with automatic bed-roll assist and moderate patient participation with cueing for technique Supine-sit: Unable Sit-supine: Unable Sit-stand: Unable Stand-sit: Unable GAIT: Patient is unable as he is non-ambulatory THEREX: Patient completed pull-up exercise with trapeze, as per flow sheet. Patient continues to require verbal cueing for exercise completion and participation. ASSESSMENT: Patient would benefit from continued global strengthening for improved bed mobility and strength. PLAN: Continue with PTs POC TREATMENT CODE/TIME: Session 1: 30 minutes; [id number] x2
--- NOTE | 2018-11-05 14:49 | PTTR_ITS ---
Date of service: 11/05/18 Time of Service: 14:45 PT Notes Inpatient Physical Therapy Treatment Note [facility] Date: 11/05/18 PRECAUTIONS: Morbid obesity, contact SUBJECTIVE: With some encouragement, patient is agreeable to participating in PT in the afternoon. OBJECTIVE: Patient appears to be intermittently confused, and is easily agitated, although is easily redirected. PAIN:No c/o pain BED MOBILITY/TRANSFERS Rolling L/R: Max A x3 with automatic bed-roll assist and moderate patient par ticipation with cueing for technique Supine-sit: Unable Sit-supine: Unable Sit-stand: Unable Stand-sit: Unable GAIT: Patient is unable as he is non-ambulatory THEREX: Patient completed pull-up exercise with trapeze, as per flow sheet. Patient continues to require verbal cueing for exercise completion and participation. ASSESSMENT: Patient would benefit from continued global strengthening for improved bed mobility and strength. PLAN: Continue with PTs POC TREATMENT CODE/TIME: Session 1: 30 minutes; [id number] x2
--- NOTE | 2018-11-05 15:10 | PT.INNT ---
Date of service: 11/05/18 Time of Service: 09:00 PT Notes 11/05/18 Patient refused PT services x2 this morning. Will attempt to resume PT services this afternoon.
--- NOTE | 2018-11-05 15:17 | PDOC.CMPRO ---
Care Management Progress Note S/O: Prakash is bed bound, and appeared comfortable when CM met with him. He discussed his family and wishes to move closer to home. He made good eye contact and was friendly in interaction. He met with speech who cleared him from further ST but recommended he not advance consistency further than thin liquids due to significant partial edentulousness. CM spoke with Dr. Ang regarding ongoing inpatient stay; Dr. Ang reported Prakash had not returned to his mental status baseline and would require capacity eval with Dr. Pond (who she reports is agreeable to consult) on Thursday. Prakash also requires completion of round of IV ABX for MRSA per MD; anticipate at least two more days. No change to discharge plan. A: 62 year old male admitted to [facility] 10/31/18 for LLL HCAP P: Prakash will return to his residence at the [facility] when ready per MD, anticipate he will discharge on 11/08/18 after capacity evaluation with Psychiatry and further IV ABX per MD. Prakash will transport via EMS; likely [place]; dependent on availability.
--- NOTE | 2018-11-05 16:04 | PGE_ITS ---
Date of Service Date of service: 11/05/18 Time of Service: 16:02 Assessment and Plan (1) HCAP (healthcare-associated pneumonia): Current visit: No Status: Acute HCAP vs aspiration pneumonia. Improved clinically and CXR. O2 requirements are now RA - 2 L (hypoxia at night likely due to DOUG). Blood cultures with NGTD. MRSA screen is positive. Finished 5 days of vanco/zosyn - but as the mental status is still not at baseline, I feel he could use 2 more days of abx. Passed swallow eval for a modified diet. Pulled out PICC. Hypotension in the initial setting was likely a component of acute on chronic adrenal insufficiency. (2) Nonsustained paroxysmal supraventricular tachycardia: Current visit: Yes Status: Acute In setting of likely fluid overload overload. No recurrences. BB are being uptitrated. Diuresing. (3) Adrenal insufficiency: Current visit: No Status: Acute As above - tapering stress dose steroids. Hypotension on presentation was due to this. (4) Acute diastolic CHF (congestive heart failure): Current visit: Yes Status: Acute IV diuresis; monitor I/O's and daily weights. Given the fact that the patient has Diabetes Insipidus, I spoke with endocrinology at [facility] about the balance of desmopressin vs lasix. At this time, because the patient is clinically fluid overloaded, he does continue to require IV lasix. We were advised to monitor sodium carefully for rising - because that would indicate potential need to adjust desmopressin doses. (5) Pulmonary hypertension: Current visit: Yes Status: Acute I have no doubt that Mr Rowland has DOUG and OHS, which could be responsible for a component of this, but he is quite fluid overloaded at this time. Continue diuresis. 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 Taper stress dose steroids. Continue desmopressin (7) Toxic metabolic encephalopathy: Current visit: No Status: Acute With behavioral disturbance. Improved significantly, but not yet at baseline Patient's daughter is inquiring about patient's capacity to make decisions. Psychiatry consult for capacity is to happen on 11/08 as the patient is likely to be at his neurologic baseline by then and the capacity eval may have the most va lue/weight. Encephalopathy is likely due to PNA - but seizures could not be ruled out. EEG was of poor quality (patient would not cooperate). He is at a high risk of seizures. At this time, no tonic clonic events have been witnessed. I feel he would benefit from a repeat EEG once his mental status is at baseline and he can be cooperative. (8) History of brain tumor: Current visit: No Status: Acute Patient is a high risk for seizures due to his history of craniotomy, which could result in his altered mental status postictally. As above. (9) Hyperglycemia: Current visit: No Status: Acute Does have diabetes per A1C (7.2). Continue SSI. Decrease lantus. Continue carb consistent diet. I am not certain how useful nutrition/diabetic education consults would be in his case with this mental status - will consider at a later date. (10) Morbid obesity with BMI of 70 and over, adult: Current visit: No Status: Acute Providing a specialized bed. Patient not interested in weight loss, per outpatient notes. (11) Obesity hypoventilation syndrome: Current visit: No Status: Chronic patient is unlikely to be compliant with BiPAP. No evidence of CO2 retention - ok to use supplemental O2 via face mask or cannula. He is DNR/DNI He will have outpatient palliative care consult (12) DOUG (obstructive sleep apnea): Current visit: No Status: Chronic As above (13) Constipation: Current visit: No Status: Acute Provide a bowel regimen. s/p BM on this admission. (14) Discharge planning issues: Current visit: No Status: Acute Palliative care as outpatient DNR/DNI Planned to return back to the [facility] once medically stable - hopefully on Thursday - after the capacity evaluation by psychiatry (15) DVT prophylaxis: Current visit: No Status: Acute Sc heparin Subjective Interval history since last seen: Mr Rowland states he is feeling better today. He denies dizziness, chest pain, shortness of breath, n/v. No arrhythmic events on tele. RA O2 sat was 86-87% while asleep, required 2L. During the day, not required O2. Pulled out his PICC today. Has been very demanding with nursing and asking for a lot of fluids to drink, all the time. Exam Narrative Exam Narrative: General: very obese male, A&Ox2, more alert than yesterday, even. Screaming out and cursing at the nurses. HEENT: EOMI, MMM Heart: RRR, no murmurs Lungs: Diminished breath sounds B GI: abdomen is soft, nontender, nondistended Extremities: BLE's with plaque lesions (?psoriasis); I have a hard time palpating his pulses. 2+ edema BLE's Objective Objective Clinical Data: Abnormal lab results 11/05/18 11/05/18 Range/Units 06:29 06:29 RBC 3.81 L (4.50-6.00) m/cumm Hgb 12.0 L (13.5-17.5) g/dL Hct 36.8 L (40.0-50.0) % MCV 96.6 H (80-95) fL RDW 16.0 H (11.8-14.1) % Potassium 3.3 L (3.5-5.1) mmol/L Glucose 190 H (70-100) mg/dL Calcium 8.1 L (8.5-10.1) mg/dL Vital Signs Temperature 36.3 C L 11/05/18 15:23 Temperature Source Temporal Artery Scan 11/05/18 15:23 Pulse 75 11/05/18 15:01 Pulse Rhythm Regular 11/05/18 08:00 Pulse 79 11/05/18 07:00 Respiratory Rate 14 11/05/18 07:00 Respiratory Effort 11/05/18 08:00 Respiratory Depth Normal 11/05/18 08:00 Respiratory Pattern Normal 11/05/18 08:00 Blood Pressure 157/79 H 11/05/18 15:01 Blood Pressure Mean 57 11/05/18 12:02 Blood Pressure Position Supine 10/31/18 21:00 Pulse Oximetry 96 11/05/18 03:48 Oxygen Delivery Method Room Air 11/05/18 08:00 Oxygen Flow Rate 0 11/05/18 08:00 Pain Level 0 11/04/18 19:49 Comment 11/03/18 07:35 Intake & Output 11/04/18 11/05/18 11/05/18 23:59 11:59 23:59 Intake Total 2812.674 / 4960.674 1100 / 1150 50 / 1150 Output Total 5070 / 7870 850 / 850 Balance -2257.326 / -2909.326 250 / 300 50 / 300 Weight 215.3 kg Intake: IV 215.674 / 595.674 350 / 400 50 / 400 Oral 2597 / 4365 750 / 750 Output: Urine 5070 / 7870 850 / 850 Other: Urine Color Pale Light Miranda Urine Appearance Clear Clear Stool Occult Blood Negative Stool Size Moderate Small Stool Characteristics Brown Soft Laboratory Results WBC 6.32 k/cumm (4.4-10.8) 11/05/18 06:29 RBC 3.81 m/cumm (4.50-6.00) L 11/05/18 06:29 Hgb 12.0 g/dL (13.5-17.5) L 11/05/18 06:29 Hct 36.8 % (40.0-50.0) L 11/05/18 06:29 MCV 96.6 fL (80-95) H 11/05/18 06:29 MCH 31.5 pg (27.0-33.0) 11/05/18 06:29 MCHC 32.6 g/dL (32.0-36.0) 11/05/18 06:29 RDW 16.0 % (11.8-14.1) H 11/05/18 06:29 Plt Count 216 x1000/uL (130-400) 11/05/18 06:29 MPV 9.3 fL (8.0-11.0) 11/05/18 06:29 Immature Gran % 0.6 11/05/18 06:29 Neutrophils % 52.2 11/05/18 06:29 Band Neutrophils % 0.0 % 10/31/18 16:25 Lymphocytes % 37.5 11/05/18 06:29 Atypical Lymphs % 9 10/31/18 16:25 Monocytes % 7.6 11/05/18 06:29 Eosinophils % 1.9 11/05/18 06:29 Basophils % 0.2 11/05/18 06:29 Absolute Neutrophils 3.30 k/cumm (1.2-6.7) 11/05/18 06:29 Absolute Lymphocytes 2.37 k/cumm (1.2-3.4) 11/05/18 06:29 Absolute Monocytes 0.48 k/cumm (0.11-0.7) 11/05/18 06:29 Absolute Eosinophils 0.12 k/cumm (0.0-0.7) 11/05/18 06:29 Absolute Basophils 0.01 k/cumm (0.0-0.2) 11/05/18 06:29 Differential Comment Manual differential 10/31/18 16:25 RBC Morphology See below 10/31/18 16:25 Polychromasia Present 10/31/18 16:25 Sample Site Right radial 11/01/18 09:33 pCO2 44 mmHg (34-47) 11/01/18 09:33 pO2 71 mmHg (83-108) L 11/01/18 09:33 O2 Saturation 96 % (94-98) 11/01/18 09:33 ABG pH 7.37 (7.35-7.45) 11/01/18 09:33 ABG HCO3 26 mmol/L (22-28) 11/01/18 09:33 ABG Total CO2 24 mmol/L (22-29) 11/01/18 09:33 ABG Base Excess 0.7 mmol/L (-3-3) 11/01/18 09:33 Oxygen Liter Flow 2 nc L 11/01/18 09:33 Sodium 137 mmol/L (136-145) 11/05/18 06:29 Potassium 3.3 mmol/L (3.5-5.1) L 11/05/18 06:29 Chloride 100 mmol/L (98-107) 11/05/18 06:29 Carbon Dioxide 29.3 mmol/L (21.0-32.0) 11/05/18 06:29 Anion Gap 7.7 mmol/L (3-11) 11/05/18 06:29 BUN 8 mg/dL (7-18) 11/05/18 06:29 Creatinine 0.80 mg/dL (0.70-1.30) 11/05/18 06:29 Estimated GFR/1.73 m2 >= 60.00 (mL/min/1.73m2) 11/05/18 06:29 Glucose 190 mg/dL (70-100) H 11/05/18 06:29 Hemoglobin A1c 7.2 % (4.5-6.2) H 11/01/18 06:00 Calcium 8.1 mg/dL (8.5-10.1) L 11/05/18 06:29 Magnesium 1.8 mg/dL (1.8-2.4) 11/05/18 06:29 Total Bilirubin 0.7 mg/dL (0.2-1.0) 11/01/18 06:00 AST 45 U/L (15-37) H 11/01/18 06:00 ALT 35 U/L (12-78) 11/01/18 06:00 Alkaline Phosphatase 55 U/L (46-116) 11/01/18 06:00 Creatine Kinase 289 U/L (39-308) 11/01/18 06:00 Troponin I 0.04 ng/mL (0.00-0.06) 11/03/18 06:15 NT-Pro-B Natriuret Pep 4898 pg/mL (-299) H 11/03/18 06:15 Total Protein 5.4 g/dL (6.4-8.2) L 11/01/18 06:00 Albumin 2.2 g/dL (3.4-5.0) L 11/01/18 06:00 TSH 0.01 uIU/mL (0.358-3.74) L 10/31/18 16:25 Free T4 1.75 ng/dL (0.76-1.46) H 10/31/18 16:25 Urine Color Brown (Yellow) 10/31/18 14:25 Urine Clarity Clear 10/31/18 14:25 Urine pH 5.0 (5-8) 10/31/18 14:25 Ur Specific [place] 1.025 (1.005-1.025) 10/31/18 14:25 Urine Protein Trace mg/dL (Negative) H 10/31/18 14:25 Urine Ketones Trace mg/dL (Negative) H 10/31/18 14:25 Urine Blood Negative (Negative) 10/31/18 14:25 Urine Nitrite Negative (Negative) 10/31/18 14:25 Urine Bilirubin Moderate (Negative) H 10/31/18 14:25 Urine Urobilinogen 1.0 EU/dL (Up TO 0.2) H 10/31/18 14:25 Ur Leukocyte Esterase Negative (Negative) 10/31/18 14:25 Urine RBC Negative (0-2) 10/31/18 14:25 Urine WBC Negative HPF (0-5) 10/31/18 14:25 Ur Epithelial Cells Few HPF (Negative) 10/31/18 14:25 Urine Crystals Few amorphous HPF (Negative) 10/31/18 14:25 Urine Bacteria Few HPF (Negative) 10/31/18 14:25 Urine Casts Negative LPF (Negative) 10/31/18 14:25 Urine Mucus Trace (Negative) 10/31/18 14:25 Ur Culture Indicated? No 10/31/18 14:25 Urine Glucose Negative mg/dL (Negative) 10/31/18 14:25 Vancomycin Trough 21.9 ug/mL (10.0-20.0) H* 11/03/18 13:35
[2018-11-05] MEDS: Furosemide 20 MG/2 ML VIAL IVP (17:33)
--- NOTE | 2018-11-05 18:26 | CMPROGNOTE_ITS ---
Care Management Progress Note S/O: Prakash is bed bound, and appeared comfortable when CM met with him. He discussed his family and wishes to move closer to home. He made good eye contact and was friendly in interaction. He met with speech who cleared him from further ST but recommended he not advance consistency further than thin liquids due to significant partial edentulousness. CM spoke with Dr. Ang regarding ongoing inpatient stay; Dr. Ang reported Prakash had not returned to his mental status baseline and would require capacity eval with Dr. Pond (who she reports is agreeable to consult) on Thursday. Prakash also requires completion of round of IV ABX for MRSA per MD; anticipate at least two more days. No change to discharge plan. A: 62 year old male admitted to [facility] 10/31/18 for LLL HCAP P: Prakash will return to his residence at the [facility] when ready per MD, anticipate he will discharge on 11/08/18 after capacity evaluation with Psychiatry and further IV ABX per MD. Prakash will transport via EMS; likely [facility]; dependent on availability.
[2018-11-05] MEDS: traZODone 50 MG TAB 100 MG PO (21:57)
[2018-11-05] MEDS: Desmopressin 0.2 MG TAB 0.1 MG PO (21:58)
[2018-11-06] MEDS: Metoprolol 12.5 MG TAB 25 MG PO ×2 (01:00→08:59)
[2018-11-06] MEDS: cefTRIAXone 1 GM VIAL IM (01:01)
[2018-11-06 04:42] VITALS: BP 183/76; PULSE 79
[2018-11-06] MEDS: Levothyroxine 150 MCG TAB PO (05:27)
[2018-11-06] MEDS: Heparin 5,000 UNITS/ML VIAL 5000 UNITS SC ×3 (05:28→22:05)
[2018-11-06 06:45] LABS: Anion Gap 12.2 mmol/L (3-11); BUN 6 mg/dL (7-18); CO2 26.8 mmol/L (21.0-32.0); CREATININE 0.86 mg/dL (0.70-1.30); Calcium 8.5 mg/dL (8.5-10.1); Chloride 106 mmol/L (98-107); Glucose 124 mg/dL (70-100); Magnesium 1.7 mg/dL (1.8-2.4); Potassium 3.7 mmol/L (3.5-5.1); Sodium 145 mmol/L (136-145)
--- NOTE | 2018-11-06 06:54 | NUR.NOTE ---
Patient has been particularly unruly this morning. Has told me I've got a body bag for you, come in here so I can slap you, Wait til ten o'clock when all my friends show up, they'll have your ass torn up. He has called me a bitch, slut whore and he is continually screaming profanity, threats and total nonsense noises. At one point during cleaning him up he was particularly rude to Lisy Zarate RN, afterwards he asked me to apologize to her and thank her for helping clean him. Nursing Note:
--- NOTE | 2018-11-06 07:08 | NUR.NOTE ---
Pt got ahold of a temporal thermometer that was being kept in the room due to his precaution status and started banging it against his bed side table.I went in to the room and got it away from him. It appears very loose and perhaps broken now. Nursing Note:
[2018-11-06] MEDS: Biotene Mouthwash 237 ML BTL 15 ML MM ×3 (08:54→17:20)
[2018-11-06] MEDS: Allopurinol 100 MG TAB PO (08:57)
[2018-11-06] MEDS: Aspirin 81 MG CHEW PO (08:58)
[2018-11-06] MEDS: traMADol 50 MG TAB PO ×2 (08:58→20:50)
[2018-11-06] MEDS: Senna TAB 1 TAB PO (08:58)
[2018-11-06] MEDS: traZODone 50 MG TAB 25 MG PO ×2 (08:58→15:19)
[2018-11-06] MEDS: Multivitamin w/Minerals TAB 1 TAB PO (08:58)
[2018-11-06] MEDS: Hydrocortisone 10 MG TAB 20 MG PO ×2 (08:59→20:50)
[2018-11-06] MEDS: Insulin Aspart 300 UNITS/3 ML PEN SC ×5 (09:00→17:19)
[2018-11-06] MEDS: Furosemide 40 MG TAB PO (09:02)
[2018-11-06] MEDS: Nystatin POWDER 60 GM JAR TP ×3 (09:13→20:30)
[2018-11-06 11:26] VITALS: BP 161/97; PULSE 83
[2018-11-06] MEDS: POTASSIUM CHLORIDE 20 MEQ, POTASSIUM CHLORIDE 10 MEQ 30 MEQ PO (11:48)
[2018-11-06] MEDS: Magnesium Oxide 400 MG TAB PO (11:48)
--- NOTE | 2018-11-06 11:51 | PT.INTREAT ---
Date of service: 11/06/18 Time of Service: 11:00 PT Notes Inpatient Physical Therapy Treatment Note [facility] Date: 11/06/18 SUBJECTIVE: Prakash states that he would do a few ex, but wants a fransisco rom for every rep he performs. OBJECTIVE: [] BED MOBILITY/TRANSFERS Rolling L/R: ref THEREX: performed a global strengthening routine of U/LE. See flowsheet for details. ASSESSMENT: tolerated session well. He seemed to be in a good mood and was willing to participate in PT this am, until he got thirsty. at that point he was done. PLAN: will continue to progress his overall strength and bed mobility following PT POC. Nsg would like him to try sit ups at next visit. TREATMENT CODE/TIME: 20 min. TAx1.
[2018-11-06 13:18] VITALS: BP 170/84; PULSE 75
--- NOTE | 2018-11-06 13:19 | PGE_ITS ---
Date of Service Date of service: 11/06/18 Time of Service: 13:12 Assessment and Plan (1) HCAP (healthcare-associated pneumonia): Current visit: No Status: Acute S/p 5 day course of antibiotic therapy with Vancomycin and Pip-Tazo, and clinicaly appearing improved. Current nocturnal hypoxia likely related to untreated DOUG. As patient has pulled out his PICC line and 2 peripheral lines, and appears improved will discontinue antibiotic therapy after completion of a 5 day course. 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 Currently with treatment for Adrenal Insufficiency, DI, and Hypothyroidism. Continue Hydrocortisone at home dose, reduced dose Levothyroxine given profoundly low TSH, as well as Desmopressin. Of note, patient is volume overloaded, currently being diuresed with close monitoring of sodium. (3) DOUG (obstructive sleep apnea): Current visit: Yes Status: Chronic With concurrent dilated RV and RA, with PHTN by ECHO. Not utilizing BiPAP with evidence of both CO2 retention as well as nocturnal hypoxia. Continue Supplemental O2 as needed. (4) Altered mental status: Current visit: Yes Status: Acute Reported intermittent agitation and behavioral disturbances, reported improved but not yet at baseline. Patient with potential baseline issues, worsened acutely in the setting of acute illness and hospitalization. EEG limited due to patient cooperation, with evidence of moderate to severe diffuse encephalopathy, without epileptiform activity - overall clinical picture is atypical for seizure activity. If this is acute delirium may take weeks to resolve. Very unlikely that Mr. Rowland will be at baseline mental status in 2 days to undergo an appropriate capacity evaluation. Plan is for discharge back to [facility] when medically stable, with appropriate follow-up testing as outpatient. (5) Diabetes mellitus: Current visit: Yes Status: Chronic Diagnosis of DM based on HgA1C of 7.2%. Blood sugars now 90-100's with tapering of stress dosed steroids. Discontinue Glargine and continue on sliding scale coverage. (6) Constipation: Current visit: Yes Status: Acute Near daily bowel movements since hospitalization. (7) DVT prophylaxis: Current visit: No Status: Acute Heparin SC. Also on PPI therapy for GI Prophylaxis. (8) Advance directive on file: Current visit: Yes Status: Acute DNR/DNI. Subjective Interval history since last seen: 62 year old man with a prior history of Panhypopituitarism, admitted from [facility] Emergency Department on 10/31 with a diagnosis of Pneumonia and Altered Mental Status. Mr. Rowland has a history of a Brain Tumor, s/p resection in the , with subsequent development of panhypopituitarism - Currently with Adrenal Insufficiency, Hypothyroidism, and Diabetes Insipidus. He suffers from morbid obesity, DOUG, PHTN, and Obesity Hypoventilation syndrome. He also suffers from constipation. Mr. Rowland is a resident of the [facility], and was sent to the ED with reported constipation and decreased oral intake. He was noted to be combative, with tachycardia and evidence of pneumonia by CXR. He was however afebrile and without a leukocytosis. Following admission Mr. Rowland has been maintained on Vancomycin and Pip-Tazo, with improvement in his symptoms overall, but with continued combative behavior and confusion. In review of Dr. Pacheco's note from earlier this hospitalization it appears that the patient has a history of baseline agitation and difficulty with his management. Overnight he has remained agitated, but this morning appears vastly improved. No other events reported. Remains afebrile. Exam Narrative Exam Narrative: General: Patient appears comfortable, Awake and alert, oriented to person only, NAD. Morbidly obese. Neck: Supple CV: Regular, nontachycardic, S1S2. Distant heart sounds. Pulmonary: Clear to auscultation bilaterally, no crackles, wheezing, or rhonchi on exam limited by body habitus Abdomen: + Bowel Sounds, soft, nontender, nondistended but obese in contour Vascular: B/l nonpitting lower extremity edema Objective Objective Clinical Data: Abnormal lab results 11/06/18 Range/Units 05:50 Anion Gap 12.2 H (3-11) mmol/L BUN 6 L (7-18) mg/dL Glucose 124 H (70-100) mg/dL Magnesium 1.7 L (1.8-2.4) mg/dL Vital Signs Temperature 36.3 C L 11/05/18 15:23 Temperature Source Temporal Artery Scan 11/05/18 15:23 Pulse 79 11/06/18 04:42 Pulse Rhythm Regular 11/06/18 09:00 Pulse 79 11/05/18 07:00 Respiratory Rate 14 11/05/18 07:00 Respiratory Effort 11/06/18 09:00 Respiratory Depth Normal 11/06/18 09:00 Respiratory Pattern Normal 11/06/18 09:00 Blood Pressure 183/76 H 11/06/18 04:42 Blood Pressure Mean 101 11/06/18 04:42 Blood Pressure Position Supine 10/31/18 21:00 Pulse Oximetry 96 11/05/18 03:48 Oxygen Delivery Method Room Air 11/05/18 08:00 Oxygen Flow Rate 0 11/05/18 08:00 Pain Level 0 11/04/18 19:49 Comment 11/03/18 07:35 Intake & Output 11/05/18 11/06/18 11/06/18 23:59 11:59 23:59 Intake Total 959.683 / 2059.683 1350 / 1350 Output Total 7900 / 8750 7100 / 8700 1600 / 8700 Balance -6940.317 / -6690.317 -5750 / -7350 -1600 / -7350 Intake: IV 219.683 / 569.683 Oral 740 / 1490 1350 / 1350 Output: Urine 7900 / 8750 7100 / 8700 1600 / 8700 Other: Urine Color Pale Pale Pale Yellow Yellow Yellow Urine Appearance Clear Clear Clear Urine Odor None Comment Pt had good response to lasix given by previous RN around 1730. Urine starting to turn more yellow now than the previous pale color of earlier in the night. Stool Occult Blood Negative Negative Stool Size Moderate Large Stool Characteristics Soft Soft Brown Voiding Methods Indwelling Catheter Indwelling Catheter Laboratory Results WBC 6.32 k/cumm (4.4-10.8) 11/05/18 06:29 RBC 3.81 m/cumm (4.50-6.00) L 11/05/18 06:29 Hgb 12.0 g/dL (13.5-17.5) L 11/05/18 06:29 Hct 36.8 % (40.0-50.0) L 11/05/18 06:29 MCV 96.6 fL (80-95) H 11/05/18 06:29 MCH 31.5 pg (27.0-33.0) 11/05/18 06:29 MCHC 32.6 g/dL (32.0-36.0) 11/05/18 06:29 RDW 16.0 % (11.8-14.1) H 11/05/18 06:29 Plt Count 216 x1000/uL (130-400) 11/05/18 06:29 MPV 9.3 fL (8.0-11.0) 11/05/18 06:29 Immature Gran % 0.6 11/05/18 06:29 Neutrophils % 52.2 11/05/18 06:29 Band Neutrophils % 0.0 % 10/31/18 16:25 Lymphocytes % 37.5 11/05/18 06:29 Atypical Lymphs % 9 10/31/18 16:25 Monocytes % 7.6 11/05/18 06:29 Eosinophils % 1.9 11/05/18 06:29 Basophils % 0.2 11/05/18 06:29 Absolute Neutrophils 3.30 k/cumm (1.2-6.7) 11/05/18 06:29 Absolute Lymphocytes 2.37 k/cumm (1.2-3.4) 11/05/18 06:29 Absolute Monocytes 0.48 k/cumm (0.11-0.7) 11/05/18 06:29 Absolute Eosinophils 0.12 k/cumm (0.0-0.7) 11/05/18 06:29 Absolute Basophils 0.01 k/cumm (0.0-0.2) 11/05/18 06:29 Differential Comment Manual differential 10/31/18 16:25 RBC Morphology See below 10/31/18 16:25 Polychromasia Present 10/31/18 16:25 Sample Site Right radial 11/01/18 09:33 pCO2 44 mmHg (34-47) 11/01/18 09:33 pO2 71 mmHg (83-108) L 11/01/18 09:33 O2 Saturation 96 % (94-98) 11/01/18 09:33 ABG pH 7.37 (7.35-7.45) 11/01/18 09:33 ABG HCO3 26 mmol/L (22-28) 11/01/18 09:33 ABG Total CO2 24 mmol/L (22-29) 11/01/18 09:33 ABG Base Excess 0.7 mmol/L (-3-3) 11/01/18 09:33 Oxygen Liter Flow 2 nc L 11/01/18 09:33 Sodium 145 mmol/L (136-145) 11/06/18 05:50 Potassium 3.7 mmol/L (3.5-5.1) 11/06/18 05:50 Chloride 106 mmol/L (98-107) 11/06/18 05:50 Carbon Dioxide 26.8 mmol/L (21.0-32.0) 11/06/18 05:50 Anion Gap 12.2 mmol/L (3-11) H 11/06/18 05:50 BUN 6 mg/dL (7-18) L 11/06/18 05:50 Creatinine 0.86 mg/dL (0.70-1.30) 11/06/18 05:50 Estimated GFR/1.73 m2 >= 60.00 (mL/min/1.73m2) 11/06/18 05:50 Glucose 124 mg/dL (70-100) H 11/06/18 05:50 Hemoglobin A1c 7.2 % (4.5-6.2) H 11/01/18 06:00 Calcium 8.5 mg/dL (8.5-10.1) 11/06/18 05:50 Magnesium 1.7 mg/dL (1.8-2.4) L 11/06/18 05:50 Total Bilirubin 0.7 mg/dL (0.2-1.0) 11/01/18 06:00 AST 45 U/L (15-37) H 11/01/18 06:00 ALT 35 U/L (12-78) 11/01/18 06:00 Alkaline Phosphatase 55 U/L (46-116) 11/01/18 06:00 Creatine Kinase 289 U/L (39-308) 11/01/18 06:00 Troponin I 0.04 ng/mL (0.00-0.06) 11/03/18 06:15 NT-Pro-B Natriuret Pep 4898 pg/mL (-299) H 11/03/18 06:15 Total Protein 5.4 g/dL (6.4-8.2) L 11/01/18 06:00 Albumin 2.2 g/dL (3.4-5.0) L 11/01/18 06:00 TSH 0.01 uIU/mL (0.358-3.74) L 10/31/18 16:25 Free T4 1.75 ng/dL (0.76-1.46) H 10/31/18 16:25 Urine Color Brown (Yellow) 10/31/18 14:25 Urine Clarity Clear 10/31/18 14:25 Urine pH 5.0 (5-8) 10/31/18 14:25 Ur Specific [place] 1.025 (1.005-1.025) 10/31/18 14:25 Urine Protein Trace mg/dL (Negative) H 10/31/18 14:25 Urine Ketones Trace mg/dL (Negative) H 10/31/18 14:25 Urine Blood Negative (Negative) 10/31/18 14:25 Urine Nitrite Negative (Negative) 10/31/18 14:25 Urine Bilirubin Moderate (Negative) H 10/31/18 14:25 Urine Urobilinogen 1.0 EU/dL (Up TO 0.2) H 10/31/18 14:25 Ur Leukocyte Esterase Negative (Negative) 10/31/18 14:25 Urine RBC Negative (0-2) 10/31/18 14:25 Urine WBC Negative HPF (0-5) 10/31/18 14:25 Ur Epithelial Cells Few HPF (Negative) 10/31/18 14:25 Urine Crystals Few amorphous HPF (Negative) 10/31/18 14:25 Urine Bacteria Few HPF (Negative) 10/31/18 14:25 Urine Casts Negative LPF (Negative) 10/31/18 14:25 Urine Mucus Trace (Negative) 10/31/18 14:25 Ur Culture Indicated? No 10/31/18 14:25 Urine Glucose Negative mg/dL (Negative) 10/31/18 14:25 Vancomycin Trough 21.9 ug/mL (10.0-20.0) H* 11/03/18 13:35
[2018-11-06] MEDS: Metoprolol 25 MG TAB PO (15:48)
--- NOTE | 2018-11-06 18:59 | PDOC.CMPRO ---
Care Management Progress Note S/O: Prakash is bed bound, and appeared comfortable when CM met with him. Remains in ICU as M/S patient. A: 62 year old male admitted to [facility] 10/31/18 for LLL HCAP P: Prakash will return to his residence at the [facility] when ready per MD, anticipate he will discharge on 11/08/18 after capacity evaluation with Psychiatry and further IV ABX per MD. Prakash will transport via EMS; likely [facility]; dependent on availability.
[2018-11-06] MEDS: Melatonin 3 MG TAB 6 MG PO (22:04)
[2018-11-06] MEDS: traZODone 50 MG TAB 100 MG PO (22:04)
[2018-11-06] MEDS: Desmopressin 0.2 MG TAB 0.1 MG PO (22:05)
[2018-11-07] VITALS (7 sets, daily range): BP systolic 126–167; BP diastolic 52–110; PULSE 85–90; RESP 20; TEMP 36.9; O2SAT 92–98
[2018-11-07] MEDS: Levothyroxine 150 MCG TAB PO (06:48)
[2018-11-07] MEDS: Heparin 5,000 UNITS/ML VIAL 5000 UNITS SC ×3 (06:48→21:39)
[2018-11-07] MEDS: Lisinopril 5 MG TAB 2.5 MG PO (08:37)
[2018-11-07] MEDS: traZODone 50 MG TAB 25 MG PO ×2 (08:37→17:00)
[2018-11-07] MEDS: Multivitamin w/Minerals TAB 1 TAB PO (08:37)
[2018-11-07] MEDS: Aspirin 81 MG CHEW PO (08:37)
[2018-11-07] MEDS: Hydrocortisone 10 MG TAB 20 MG PO ×2 (08:37→20:03)
[2018-11-07] MEDS: Metoprolol CR 25 MG TABCR PO (08:38)
[2018-11-07] MEDS: traMADol 50 MG TAB PO ×2 (08:38→20:07)
[2018-11-07] MEDS: Allopurinol 100 MG TAB PO (08:38)
[2018-11-07] MEDS: Insulin Aspart 300 UNITS/3 ML PEN SC ×5 (08:40→17:05)
[2018-11-07] MEDS: Biotene Mouthwash 237 ML BTL 15 ML MM ×3 (08:41→17:21)
[2018-11-07] MEDS: Nystatin POWDER 60 GM JAR TP ×3 (08:52→20:04)
--- NOTE | 2018-11-07 11:11 | PT.INTREAT ---
Date of service: 11/07/18 Time of Service: 10:35 PT Notes Inpatient Physical Therapy Treatment Note [facility] Date: 11/07/18 SUBJECTIVE: Pt c/o not sleeping last night. He would like to be left alone. OBJECTIVE: [] THEREX: performed a limited ther ex routine of LE, see flowsheet for specific ex details. Held on UE ex due to being prepped for blood draw (warm clothes and warm blankets.) ASSESSMENT: very little participation this am. No motivation, regardless how much encouragement was given to him. PLAN: will continue to work on his global strength and functional mobility. TREATMENT CODE/TIME: 10 min TAx1.
[2018-11-07 11:51] LABS: Abs Immature Grans 0.07 k/cumm (0.0-0.09); Absolute Basophil Count 0.05 k/cumm (0.0-0.2); Absolute Eosinophil Count 0.58 k/cumm (0.0-0.7); Absolute Lymphocyte Count 3.51 k/cumm (1.2-3.4); Absolute Monocyte Count 0.75 k/cumm (0.11-0.7); Absolute Neutrophil Count 4.25 k/cumm (1.2-6.7); Basophils % 0.5; Eosinophils % 6.3; HCT 36.9 % (40.0-50.0); HGB 11.8 g/dL (13.5-17.5); Immature Grans % 0.8; Lymphocytes % 38.1; Mean Corpuscular Hemoglobin 31.7 pg (27.0-33.0); Mean Corpuscular Volume 99.2 fL (80-95); Mean Platelet Volume 9.4 fL (8.0-11.0); Monocytes % 8.1; Neutrophils % 46.2; Platelet Count 271 x1000/uL (130-400); RBC 3.72 m/cumm (4.50-6.00); RBC Distribution Width 16.6 % (11.8-14.1); White Blood Cell Count 9.21 k/cumm (4.4-10.8)
[2018-11-07 12:02] LABS: BUN 5 mg/dL (7-18); CREATININE 0.91 mg/dL (0.70-1.30); Calcium 8.5 mg/dL (8.5-10.1); Chloride 107 mmol/L (98-107); Glucose 158 mg/dL (70-100); Magnesium 1.6 mg/dL (1.8-2.4); Potassium 3.2 mmol/L (3.5-5.1); Sodium 146 mmol/L (136-145)
--- NOTE | 2018-11-07 13:24 | PDOC.CMPRO ---
Care Management Progress Note S/O: Prakash was ling in bed and continuously calling out for the nurse to bring him things to eat and drink. His daughter Terri and the grandchildren were in to visit earlier. The family would like him to be placed in a facility closer to [place] where most of them live so visiting would be easier. This information will be communicated to the SS department at the [facility] so they can act on it when he returns home tomorrow. A: 62 year old male admitted to [facility] 10/31/18 for LLL HCAP. Treatment in the acute setting has been completed and he is ready to return to the [facility]. P: Prakash will return to the [facility] and resume services there in the morning. Will require ambulance transport. Call to confirm transportation.
--- NOTE | 2018-11-07 13:37 | PGE_ITS ---
Date of Service Date of service: 11/07/18 Time of Service: 13:29 Assessment and Plan (1) HCAP (healthcare-associated pneumonia): Current visit: No Status: Acute S/p 5 day course of antibiotic therapy with Vancomycin and Pip-Tazo, and clinicaly appearing improved. Current nocturnal hypoxia likely related to untreated DOUG. As patient has pulled out his PICC line and 2 peripheral lines, and appears improved will discontinue antibiotic therapy after completion of a 5 day course. Remains afebrile and without a leukocytosis. 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 Currently with treatment for Adrenal Insufficiency, DI, and Hypothyroidism. Continue Hydrocortisone at home dose, reduced dose Levothyroxine given profoundly low TSH, as well as Desmopressin. Of note, patient is volume overlo aded, currently with attempts at diuresis with close monitoring of sodium - as Na level is mildly elevated and increasing will hold Furosemide today, continue with home dose of Desmopressin, and monitor weight. (3) DOUG (obstructive sleep apnea): Current visit: Yes Status: Chronic With concurrent dilated RV and RA, with PHTN by ECHO. Not utilizing BiPAP with evidence of both CO2 retention as well as nocturnal hypoxia. Continue Supplemental O2 as needed. (4) Altered mental status: Current visit: Yes Status: Acute Reported intermittent agitation and behavioral disturbances. Patient with evidence of baseline behavioral issues, worsened acutely in the setting of acute illness and hospitalization. EEG limited due to patient cooperation, with evidence of moderate to severe diffuse encephalopathy, without epileptiform activity - overall clinical picture is atypical for seizure activity. If this is acute delirium may take weeks to resolve. Per discussion with [facility] it appears that patient's behavior is at baseline. (5) Diabetes mellitus: Current visit: Yes Status: Chronic Diagnosis of DM based on HgA1C of 7.2%. Blood sugars now 90-100's with tapering of stress dosed steroids. Discontinue Glargine and continue on sliding scale coverage. (6) Constipation: Current visit: Yes Status: Acute Near daily bowel movements since hospitalization. (7) DVT prophylaxis: Current visit: No Status: Acute Heparin SC. Also on PPI therapy for GI Prophylaxis. (8) Advance directive on file: Current visit: Yes Status: Acute DNR/DNI. Subjective Interval history since last seen: 62 year old man with a prior history of Panhypopituitarism, admitted from [facility] Emergency Department on 10/31 with a diagnosis of Pneumonia and Altered Mental Status. Mr. Rowland has a history of a Brain Tumor, s/p resection in the , with subsequent development of panhypopituitarism - Currently with Adrenal Insufficiency, Hypothyroidism, and Diabetes Insipidus. He suffers from morbid obesity, DOUG, PHTN, and Obesity Hypoventilation syndrome. He also suffers from constipation. Mr. Rowland is a resident of the [facility], and was sent to the ED with reported constipation and decreased oral intake. He was noted to be combative, with tachycardia and evidence of pneumonia by CXR. He was however afebrile and without a leukocytosis. Following admission Mr. Rowland has been maintained on Vancomycin and Pip-Tazo, with improvement in his symptoms overall, but with continued combative behavior and confusion. In review of Dr. Pacheco's note from earlier this hospitalization it appears that the patient has a history of baseline agitation and difficulty with his management. 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 No overnight events reported. No other events reported. Remains afebrile. Exam Narrative Exam Narrative: General: Patient appears comfortable, Awake and alert, oriented to person only, NAD. Morbidly obese. Neck: Supple CV: Regular, nontachycardic, S1S2. Distant heart sounds. Pulmonary: Clear to auscultation bilaterally, no crackles, wheezing, or rhonchi on exam limited by body habitus Abdomen: + Bowel Sounds, soft, nontender, nondistended but obese in contour Vascular: B/l nonpitting lower extremity edema Objective Objective Clinical Data: Abnormal lab results 11/07/18 11/07/18 Range/Units 11:35 11:35 RBC 3.72 L (4.50-6.00) m/cumm Hgb 11.8 L (13.5-17.5) g/dL Hct 36.9 L (40.0-50.0) % MCV 99.2 H (80-95) fL RDW 16.6 H (11.8-14.1) % Absolute Lymphocytes 3.51 H (1.2-3.4) k/cumm Absolute Monocytes 0.75 H (0.11-0.7) k/cumm Sodium 146 H (136-145) mmol/L Potassium 3.2 L (3.5-5.1) mmol/L BUN 5 L (7-18) mg/dL Glucose 158 H (70-100) mg/dL Magnesium 1.6 L (1.8-2.4) mg/dL Vital Signs Temperature 36.3 C L 11/05/18 15:23 Temperature Source Temporal Artery Scan 11/05/18 15:23 Pulse 89 11/07/18 06:49 Pulse Rhythm Regular 11/06/18 09:00 Pulse 79 11/05/18 07:00 Respiratory Rate 14 11/05/18 07:00 Respiratory Effort Non-Labored 11/07/18 09:54 Respiratory Depth Normal 11/07/18 09:54 Respiratory Pattern Normal 11/07/18 09:54 Blood Pressure 167/80 H 11/07/18 06:49 Blood Pressure Mean 100 11/07/18 06:49 Blood Pressure Position Supine 10/31/18 21:00 Pulse Oximetry 96 11/05/18 03:48 Oxygen Delivery Method Room Air 11/05/18 08:00 Oxygen Flow Rate 0 11/05/18 08:00 Pain Level 0 11/04/18 19:49 Comment 11/03/18 07:35 Intake & Output 11/06/18 11/07/18 11/07/18 23:59 11:59 23:59 Intake Total 3000 / 4350 2720 / 2720 Output Total 6500 / 35287 4375 / 4375 Balance -3500 / -9250 -1655 / -1655 Intake: Oral 3000 / 4350 2720 / 2720 Output: Urine 6500 / 30242 4375 / 4375 Other: Urine Color Yellow Yellow Urine Appearance Clear Clear Stool Occult Blood Negative Stool Size Small Small Stool Characteristics Soft Formed Liquid Voiding Methods Indwelling Catheter Laboratory Results WBC 9.21 k/cumm (4.4-10.8) 11/07/18 11:35 RBC 3.72 m/cumm (4.50-6.00) L 11/07/18 11:35 Hgb 11.8 g/dL (13.5-17.5) L 11/07/18 11:35 Hct 36.9 % (40.0-50.0) L 11/07/18 11:35 MCV 99.2 fL (80-95) H 11/07/18 11:35 MCH 31.7 pg (27.0-33.0) 11/07/18 11:35 MCHC 32.0 g/dL (32.0-36.0) 11/07/18 11:35 RDW 16.6 % (11.8-14.1) H 11/07/18 11:35 Plt Count 271 x1000/uL (130-400) 11/07/18 11:35 MPV 9.4 fL (8.0-11.0) 11/07/18 11:35 Immature Gran % 0.8 11/07/18 11:35 Neutrophils % 46.2 11/07/18 11:35 Band Neutrophils % 0.0 % 10/31/18 16:25 Lymphocytes % 38.1 11/07/18 11:35 Atypical Lymphs % 9 10/31/18 16:25 Monocytes % 8.1 11/07/18 11:35 Eosinophils % 6.3 11/07/18 11:35 Basophils % 0.5 11/07/18 11:35 Absolute Neutrophils 4.25 k/cumm (1.2-6.7) 11/07/18 11:35 Absolute Lymphocytes 3.51 k/cumm (1.2-3.4) H 11/07/18 11:35 Absolute Monocytes 0.75 k/cumm (0.11-0.7) H 11/07/18 11:35 Absolute Eosinophils 0.58 k/cumm (0.0-0.7) 11/07/18 11:35 Absolute Basophils 0.05 k/cumm (0.0-0.2) 11/07/18 11:35 Differential Comment Manual differential 10/31/18 16:25 RBC Morphology See below 10/31/18 16:25 Polychromasia Present 10/31/18 16:25 APTT Cancelled 11/06/18 23:00 Sample Site Right radial 11/01/18 09:33 pCO2 44 mmHg (34-47) 11/01/18 09:33 pO2 71 mmHg (83-108) L 11/01/18 09:33 O2 Saturation 96 % (94-98) 11/01/18 09:33 ABG pH 7.37 (7.35-7.45) 11/01/18 09:33 ABG HCO3 26 mmol/L (22-28) 11/01/18 09:33 ABG Total CO2 24 mmol/L (22-29) 11/01/18 09:33 ABG Base Excess 0.7 mmol/L (-3-3) 11/01/18 09:33 Oxygen Liter Flow 2 nc L 11/01/18 09:33 Sodium 146 mmol/L (136-145) H 11/07/18 11:35 Potassium 3.2 mmol/L (3.5-5.1) L 11/07/18 11:35 Chloride 107 mmol/L (98-107) 11/07/18 11:35 Carbon Dioxide 32.0 mmol/L (21.0-32.0) 11/07/18 11:35 Anion Gap 7.0 mmol/L (3-11) 11/07/18 11:35 BUN 5 mg/dL (7-18) L 11/07/18 11:35 Creatinine 0.91 mg/dL (0.70-1.30) 11/07/18 11:35 Estimated GFR/1.73 m2 >= 60.00 (mL/min/1.73m2) 11/07/18 11:35 Glucose 158 mg/dL (70-100) H 11/07/18 11:35 Hemoglobin A1c 7.2 % (4.5-6.2) H 11/01/18 06:00 Calcium 8.5 mg/dL (8.5-10.1) 11/07/18 11:35 Magnesium 1.6 mg/dL (1.8-2.4) L 11/07/18 11:35 Total Bilirubin 0.7 mg/dL (0.2-1.0) 11/01/18 06:00 AST 45 U/L (15-37) H 11/01/18 06:00 ALT 35 U/L (12-78) 11/01/18 06:00 Alkaline Phosphatase 55 U/L (46-116) 11/01/18 06:00 Creatine Kinase 289 U/L (39-308) 11/01/18 06:00 Troponin I 0.04 ng/mL (0.00-0.06) 11/03/18 06:15 NT-Pro-B Natriuret Pep 4898 pg/mL (-299) H 11/03/18 06:15 Total Protein 5.4 g/dL (6.4-8.2) L 11/01/18 06:00 Albumin 2.2 g/dL (3.4-5.0) L 11/01/18 06:00 TSH 0.01 uIU/mL (0.358-3.74) L 10/31/18 16:25 Free T4 1.75 ng/dL (0.76-1.46) H 10/31/18 16:25 Urine Color Brown (Yellow) 10/31/18 14:25 Urine Clarity Clear 10/31/18 14:25 Urine pH 5.0 (5-8) 10/31/18 14:25 Ur Specific [place] 1.025 (1.005-1.025) 10/31/18 14:25 Urine Protein Trace mg/dL (Negative) H 10/31/18 14:25 Urine Ketones Trace mg/dL (Negative) H 10/31/18 14:25 Urine Blood Negative (Negative) 10/31/18 14:25 Urine Nitrite Negative (Negative) 10/31/18 14:25 Urine Bilirubin Moderate (Negative) H 10/31/18 14:25 Urine Urobilinogen 1.0 EU/dL (Up TO 0.2) H 10/31/18 14:25 Ur Leukocyte Esterase Negative (Negative) 10/31/18 14:25 Urine RBC Negative (0-2) 10/31/18 14:25 Urine WBC Negative HPF (0-5) 10/31/18 14:25 Ur Epithelial Cells Few HPF (Negative) 10/31/18 14:25 Urine Crystals Few amorphous HPF (Negative) 10/31/18 14:25 Urine Bacteria Few HPF (Negative) 10/31/18 14:25 Urine Casts Negative LPF (Negative) 10/31/18 14:25 Urine Mucus Trace (Negative) 10/31/18 14:25 Ur Culture Indicated? No 10/31/18 14:25 Urine Glucose Negative mg/dL (Negative) 10/31/18 14:25 Vancomycin Trough 21.9 ug/mL (10.0-20.0) H* 11/03/18 13:35
--- NOTE | 2018-11-07 14:42 | CMPROGNOTE_ITS ---
Care Management Progress Note S/O: Prakash was ling in bed and continuously calling out for the nurse to bring him things to eat and drink. His daughter Terri and the grandchildren were in to visit earlier. The family would like him to be placed in a facility closer to [place] where most of them live so visiting would be easier. This information will be communicated to the SS department at the [facility] so they can act on it when he returns home tomorrow. A: 62 year old male admitted to [facility] 10/31/18 for LLL HCAP. Treatment in the acute setting has been completed and he is ready to return to the [facility]. P: Prakash will return to the [facility] and resume services there in the morning. Will require ambulance transport. Call to confirm transportation.
[2018-11-07] MEDS: Potassium Chloride 20 MEQ TABCR 40 MEQ PO ×2 (16:22→20:06)
[2018-11-07] MEDS: Magnesium Oxide 400 MG TAB 800 MG PO ×2 (16:22→20:04)
[2018-11-07] MEDS: traZODone 50 MG TAB 100 MG PO (21:37)
[2018-11-07] MEDS: Desmopressin 0.2 MG TAB 0.1 MG PO (21:38)
[2018-11-07] MEDS: Melatonin 3 MG TAB 6 MG PO (21:38)
[2018-11-08] VITALS (8 sets, daily range): BP systolic 149–157; BP diastolic 75–98; PULSE 69–90; RESP 22; TEMP 36.6; O2SAT 90–98
[2018-11-08] MEDS: Levothyroxine 150 MCG TAB PO (06:28)
[2018-11-08] MEDS: Heparin 5,000 UNITS/ML VIAL 5000 UNITS SC ×3 (06:29→22:23)
--- NOTE | 2018-11-08 07:57 | PDOC.CMDIS ---
LACE Index Scoring Tool - Questions: Length of Stay (in days): 7 - 13 Acuity (Admit via E.D.?): Yes Comorbidities: Any Tumor E.D. Visits: 1 - Answers: Total Score: 11 Risk of Readmission: High Risk Care Management Discharge Reason for Hospitalization: HCAP Discharge Plan: Prakash will return to his residence at the [facility] when ready per MD. He will transport via EMS coordinated by this publicity writer. Patient/Family Education Needs: Review discharge instructions, omar Ask Me Three. Services Needed at Discharge: [facility] ([facility], return. )
[2018-11-08] MEDS: Biotene Mouthwash 237 ML BTL 15 ML MM ×3 (08:10→17:50)
[2018-11-08] MEDS: Insulin Aspart 300 UNITS/3 ML PEN SC ×3 (08:12→18:23)
[2018-11-08] MEDS: Nystatin POWDER 60 GM JAR TP ×3 (08:12→22:21)
[2018-11-08] MEDS: traMADol 50 MG TAB PO ×2 (08:20→22:20)
[2018-11-08] MEDS: Aspirin 81 MG CHEW PO (08:20)
[2018-11-08] MEDS: traZODone 50 MG TAB 25 MG PO ×2 (08:20→18:22)
[2018-11-08] MEDS: Allopurinol 100 MG TAB PO (08:20)
[2018-11-08] MEDS: Hydrocortisone 10 MG TAB 20 MG PO ×2 (08:20→22:19)
[2018-11-08] MEDS: Multivitamin w/Minerals TAB 1 TAB PO (08:20)
[2018-11-08] MEDS: Metoprolol CR 25 MG TABCR PO (08:21)
[2018-11-08] MEDS: Lisinopril 5 MG TAB 2.5 MG PO (08:21)
--- NOTE | 2018-11-08 09:28 | PDOC.CMPRO ---
Care Management Progress Note S/O: Per MD, Prakash has returned to his functional baseline. Nina of the [facility] called to report the facility is unable to accept Prakash back until . KIRSTIE spoke with [facility] [employer] who advised the plan should be for Prakash to remain at [facility] until the [facility] is able to accept him back. KIRSTIE spoke with Dr. Guzman who was agreeable to this plan and reported he would determine level of care and patient location. CM will continue to follow. A: 62 year old male admitted to [facility] 10/31/18 for LLL HCAP. P: Prakash will return to the [facility] when able. He will transport via EMS coordinated by this advertising copy writer.
[2018-11-08 09:45] LABS: Absolute Basophil Count 0.04 k/cumm (0.0-0.2); Absolute Eosinophil Count 0.53 k/cumm (0.0-0.7); Absolute Monocyte Count 0.69 k/cumm (0.11-0.7); Absolute Neutrophil Count 3.79 k/cumm (1.2-6.7); Basophils % 0.4; Eosinophils % 5.3; HGB 11.9 g/dL (13.5-17.5); Lymphocytes % 48.2; Mean Corp. HGB Concentration 31.3 g/dL (32.0-36.0); Mean Corpuscular Hemoglobin 31.2 pg (27.0-33.0); Mean Corpuscular Volume 99.7 fL (80-95); Mean Platelet Volume 9.2 fL (8.0-11.0); Monocytes % 6.9; Neutrophils % 38.2; Platelet Count 298 x1000/uL (130-400); RBC 3.81 m/cumm (4.50-6.00); RBC Distribution Width 16.3 % (11.8-14.1); White Blood Cell Count 9.95 k/cumm (4.4-10.8)
--- NOTE | 2018-11-08 09:45 | CMPROGNOTE_ITS ---
Care Management Progress Note S/O: Per MD, Prakash has returned to his functional baseline. Nina of the [facility] called to report the facility is unable to accept Prakash back until . KIRSTIE spoke with [facility] [employer] who advised the plan should be for Prakash to remain at [facility] until the [facility] is able to accept him back. KIRSTIE spoke with Dr. Guzman who was agreeable to this plan and reported he would determine level of care and patient location. CM will continue to follow. A: 62 year old male admitted to [facility] 10/31/18 for LLL HCAP. P: Prakash will return to the [facility] when able. He will transport via EMS coordinated by this senior writer.
[2018-11-08 10:09] LABS: Anion Gap 9.3 mmol/L (3-11); BUN 5 mg/dL (7-18); CO2 27.7 mmol/L (21.0-32.0); Calcium 8.2 mg/dL (8.5-10.1); Chloride 103 mmol/L (98-107); Glucose 158 mg/dL (70-100); Magnesium 1.5 mg/dL (1.8-2.4); Potassium 3.6 mmol/L (3.5-5.1); Sodium 140 mmol/L (136-145)
--- NOTE | 2018-11-08 11:39 | PGE_ITS ---
Date of Service Date of service: 11/08/18 Time of Service: 11:35 Assessment and Plan (1) HCAP (healthcare-associated pneumonia): Current visit: No Status: Acute S/p 5 day course of antibiotic therapy with Vancomycin and Pip-Tazo, and clinicaly appearing improved. Current nocturnal hypoxia likely related to untreated DOUG. As patient pulled out his PICC line and 2 peripheral lines, and appeared improved discontinued antibiotic therapy after completion of a 5 day course. Remains afebrile and without a leukocytosis. 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 Currently with treatment for Adrenal Insufficiency, DI, and Hypothyroidism. Continue Hydrocortisone at home dose, reduced dose Levothyroxine given profoundly low TSH, as well as Desmopressin. Of note, patient is volume overloaded, currently with attempts at diuresis with close monitoring of sodium - as Na level has normalized will attempt a dose of Furosemide today. Continue with home dose of Desmopressin, and monitor weight. (3) DOUG (obstructive sleep apnea): Current visit: Yes Status: Chronic With concurrent dilated RV and RA, with PHTN by ECHO. Not utilizing BiPAP with evidence of both CO2 retention as well as nocturnal hypoxia. Continue Supplemental O2 as needed. (4) Altered mental status: Current visit: Yes Status: Acute Reported intermittent agitation and behavioral disturbances. Patient with evidence of baseline behavioral issues, worsened acutely in the setting of acute illness and hospitalization, but now appears at baseline. EEG limited due to patient cooperation, with evidence of moderate to severe diffuse encephalopathy, without epileptiform activity - overall clinical picture is atypical for seizure activity. If this is acute delirium may take weeks to resolve. Per discussion with [facility] it appears that patient's behavior is at baseline. (5) Diabetes mellitus: Current visit: Yes Status: Chronic Diagnosis of DM based on HgA1C of 7.2%. Blood sugars now 90-100's with tapering of stress dosed steroids. Discontinued Glargine. Will continue on sliding scale coverage. (6) Constipation: Current visit: Yes Status: Acute Near daily bowel movements since hospitalization. (7) DVT prophylaxis: Current visit: No Status: Acute Heparin SC. Also on PPI therapy for GI Prophylaxis. (8) Advance directive on file: Current visit: Yes Status: Acute DNR/DNI. Subjective Interval history since last seen: 62 year old man with a prior history of Panhypopituitarism, admitted from [facility] Emergency Department on 10/31 with a diagnosis of Pneumonia and Altered Mental Status. Mr. Rowland has a history of a Brain Tumor, s/p resection in the , with subsequent development of panhypopituitarism - Currently with Adrenal Insufficiency, Hypothyroidism, and Diabetes Insipidus. He suffers from morbid obesity, DOUG, PHTN, and Obesity Hypoventilation syndrome. He also suffers from constipation. Mr. Rowland is a resident of the [facility], and was sent to the ED with reported constipation and decreased oral intake. He was noted to be combative, with tachycardia and evidence of pneumonia by CXR. He was however afebrile and without a leukocytosis. Following admission Mr. Rowland has been maintained on Vancomycin and Pip-Tazo, with improvement in his symptoms overall, but with continued combative behavior and confusion. In review of Dr. Pacheco's note from earlier this hospitalization it appears that the patient has a history of baseline agitation and difficulty with his management. His daughter reports overall slight confusion and combative behavior that dates [facility] In discussion with [facility] it appears that the patient's behavior is a chronic finding. Continues to have nocturnal hypoxia, likely on the basis of untreated DOUG. Remains afebrile. Exam Narrative Exam Narrative: General: Patient appears comfortable, Awake and alert, oriented to person only, NAD. Morbidly obese. Neck: Supple CV: Regular, nontachycardic, S1S2. Distant heart sounds. Pulmonary: Clear to auscultation bilaterally, no crackles, wheezing, or rhonchi on exam limited by body habitus Abdomen: + Bowel Sounds, soft, nontender, nondistended but obese in contour Vascular: B/l nonpitting lower extremity edema Objective Objective Clinical Data: Abnormal lab results 11/07/18 11/07/18 11/08/18 Range/Units 11:35 11:35 09:30 RBC 3.72 L (4.50-6.00) m/cumm Hgb 11.8 L (13.5-17.5) g/dL Hct 36.9 L (40.0-50.0) % MCV 99.2 H (80-95) fL MCHC (32.0-36.0) g/dL RDW 16.6 H (11.8-14.1) % Absolute Lymphocytes 3.51 H (1.2-3.4) k/cumm Absolute Monocytes 0.75 H (0.11-0.7) k/cumm Sodium 146 H (136-145) mmol/L Potassium 3.2 L (3.5-5.1) mmol/L BUN 5 L 5 L (7-18) mg/dL Glucose 158 H 158 H (70-100) mg/dL Calcium 8.2 L (8.5-10.1) mg/dL Magnesium 1.6 L 1.5 L (1.8-2.4) mg/dL 11/08/18 Range/Units 09:30 RBC 3.81 L (4.50-6.00) m/cumm Hgb 11.9 L (13.5-17.5) g/dL Hct 38.0 L (40.0-50.0) % MCV 99.7 H (80-95) fL MCHC 31.3 L (32.0-36.0) g/dL RDW 16.3 H (11.8-14.1) % Absolute Lymphocytes 4.80 H (1.2-3.4) k/cumm Absolute Monocytes (0.11-0.7) k/cumm Sodium (136-145) mmol/L Potassium (3.5-5.1) mmol/L BUN (7-18) mg/dL Glucose (70-100) mg/dL Calcium (8.5-10.1) mg/dL Magnesium (1.8-2.4) mg/dL Vital Signs Temperature 36.6 C 11/08/18 02:30 Temperature Source Tympanic 11/08/18 02:30 Pulse 88 11/08/18 02:30 Pulse Rhythm Regular 11/06/18 09:00 Pulse 79 11/05/18 07:00 Respiratory Rate 22 11/08/18 02:30 Respiratory Effort Short of Breath 11/08/18 08:28 Respiratory Depth Normal 11/08/18 08:28 Respiratory Pattern Normal 11/08/18 08:28 Blood Pressure 153/82 H 11/08/18 02:30 Blood Pressure Mean 78 11/07/18 17:53 Blood Pressure Position Supine 10/31/18 21:00 Pulse Oximetry 90 L 11/08/18 03:10 Oxygen Delivery Method Room Air 11/08/18 02:30 Oxygen Flow Rate 0 11/08/18 02:30 Pain Level 0 11/08/18 02:30 Comment 11/08/18 02:30 Intake & Output 11/07/18 11/07/18 11/08/18 11:59 23:59 11:59 Intake Total 2720 / 3200 480 / 3200 300 / 300 Output Total 4375 / 8275 3900 / 8275 2099 / 2100 Balance -1655 / -5075 -3420 / -5075 -1800 / -1800 Intake: Oral 2720 / 3200 480 / 3200 300 / 300 Output: Urine 4375 / 8275 3900 / 8275 2099 / 2099 Other: Urine Color Yellow Yellow Yellow Straw Straw Urine Appearance Clear Clear Clear Stool Occult Blood Negative Negative Stool Size Small Small Stool Characteristics Formed Formed Liquid Liquid Laboratory Results WBC 9.95 k/cumm (4.4-10.8) 11/08/18 09:30 RBC 3.81 m/cumm (4.50-6.00) L 11/08/18 09:30 Hgb 11.9 g/dL (13.5-17.5) L 11/08/18 09:30 Hct 38.0 % (40.0-50.0) L 11/08/18 09:30 MCV 99.7 fL (80-95) H 11/08/18 09:30 MCH 31.2 pg (27.0-33.0) 11/08/18 09:30 MCHC 31.3 g/dL (32.0-36.0) L 11/08/18 09:30 RDW 16.3 % (11.8-14.1) H 11/08/18 09:30 Plt Count 298 x1000/uL (130-400) 11/08/18 09:30 MPV 9.2 fL (8.0-11.0) 11/08/18 09:30 Immature Gran % 1.0 11/08/18 09:30 Neutrophils % 38.2 11/08/18 09:30 Band Neutrophils % 0.0 % 10/31/18 16:25 Lymphocytes % 48.2 11/08/18 09:30 Atypical Lymphs % 9 10/31/18 16:25 Monocytes % 6.9 11/08/18 09:30 Eosinophils % 5.3 11/08/18 09:30 Basophils % 0.4 11/08/18 09:30 Absolute Neutrophils 3.79 k/cumm (1.2-6.7) 11/08/18 09:30 Absolute Lymphocytes 4.80 k/cumm (1.2-3.4) H 11/08/18 09:30 Absolute Monocytes 0.69 k/cumm (0.11-0.7) 11/08/18 09:30 Absolute Eosinophils 0.53 k/cumm (0.0-0.7) 11/08/18 09:30 Absolute Basophils 0.04 k/cumm (0.0-0.2) 11/08/18 09:30 Differential Comment Manual differential 10/31/18 16:25 RBC Morphology See below 10/31/18 16:25 Polychromasia Present 10/31/18 16:25 APTT Cancelled 11/06/18 23:00 Sample Site Right radial 11/01/18 09:33 pCO2 44 mmHg (34-47) 11/01/18 09:33 pO2 71 mmHg (83-108) L 11/01/18 09:33 O2 Saturation 96 % (94-98) 11/01/18 09:33 ABG pH 7.37 (7.35-7.45) 11/01/18 09:33 ABG HCO3 26 mmol/L (22-28) 11/01/18 09:33 ABG Total CO2 24 mmol/L (22-29) 11/01/18 09:33 ABG Base Excess 0.7 mmol/L (-3-3) 11/01/18 09:33 Oxygen Liter Flow 2 nc L 11/01/18 09:33 Sodium 140 mmol/L (136-145) 11/08/18 09:30 Potassium 3.6 mmol/L (3.5-5.1) 11/08/18 09:30 Chloride 103 mmol/L (98-107) 11/08/18 09:30 Carbon Dioxide 27.7 mmol/L (21.0-32.0) 11/08/18 09:30 Anion Gap 9.3 mmol/L (3-11) 11/08/18 09:30 BUN 5 mg/dL (7-18) L 11/08/18 09:30 Creatinine 0.90 mg/dL (0.70-1.30) 11/08/18 09:30 Estimated GFR/1.73 m2 >= 60.00 (mL/min/1.73m2) 11/08/18 09:30 Glucose 158 mg/dL (70-100) H 11/08/18 09:30 Hemoglobin A1c 7.2 % (4.5-6.2) H 11/01/18 06:00 Calcium 8.2 mg/dL (8.5-10.1) L 11/08/18 09:30 Magnesium 1.5 mg/dL (1.8-2.4) L 11/08/18 09:30 Total Bilirubin 0.7 mg/dL (0.2-1.0) 11/01/18 06:00 AST 45 U/L (15-37) H 11/01/18 06:00 ALT 35 U/L (12-78) 11/01/18 06:00 Alkaline Phosphatase 55 U/L (46-116) 11/01/18 06:00 Creatine Kinase 289 U/L (39-308) 11/01/18 06:00 Troponin I 0.04 ng/mL (0.00-0.06) 11/03/18 06:15 NT-Pro-B Natriuret Pep 4898 pg/mL (-299) H 11/03/18 06:15 Total Protein 5.4 g/dL (6.4-8.2) L 11/01/18 06:00 Albumin 2.2 g/dL (3.4-5.0) L 11/01/18 06:00 TSH 0.01 uIU/mL (0.358-3.74) L 10/31/18 16:25 Free T4 1.75 ng/dL (0.76-1.46) H 10/31/18 16:25 Urine Color Brown (Yellow) 10/31/18 14:25 Urine Clarity Clear 10/31/18 14:25 Urine pH 5.0 (5-8) 10/31/18 14:25 Ur Specific [place] 1.025 (1.005-1.025) 10/31/18 14:25 Urine Protein Trace mg/dL (Negative) H 10/31/18 14:25 Urine Ketones Trace mg/dL (Negative) H 10/31/18 14:25 Urine Blood Negative (Negative) 10/31/18 14:25 Urine Nitrite Negative (Negative) 10/31/18 14:25 Urine Bilirubin Moderate (Negative) H 10/31/18 14:25 Urine Urobilinogen 1.0 EU/dL (Up TO 0.2) H 10/31/18 14:25 Ur Leukocyte Esterase Negative (Negative) 10/31/18 14:25 Urine RBC Negative (0-2) 10/31/18 14:25 Urine WBC Negative HPF (0-5) 10/31/18 14:25 Ur Epithelial Cells Few HPF (Negative) 10/31/18 14:25 Urine Crystals Few amorphous HPF (Negative) 10/31/18 14:25 Urine Bacteria Few HPF (Negative) 10/31/18 14:25 Urine Casts Negative LPF (Negative) 10/31/18 14:25 Urine Mucus Trace (Negative) 10/31/18 14:25 Ur Culture Indicated? No 10/31/18 14:25 Urine Glucose Negative mg/dL (Negative) 10/31/18 14:25 Vancomycin Trough 21.9 ug/mL (10.0-20.0) H* 11/03/18 13:35
[2018-11-08] MEDS: Potassium Chloride 20 MEQ TABCR 40 MEQ PO (13:03)
[2018-11-08] MEDS: Magnesium Oxide 400 MG TAB 800 MG PO (13:03)
[2018-11-08] MEDS: Furosemide 40 MG TAB PO (13:05)
[2018-11-08] MEDS: Potassium Chloride 20 MEQ TABCR PO (18:25)
[2018-11-08] MEDS: Melatonin 3 MG TAB 6 MG PO (22:19)
[2018-11-08] MEDS: Magnesium Oxide 400 MG TAB PO (22:19)
[2018-11-08] MEDS: traZODone 50 MG TAB 100 MG PO (22:20)
[2018-11-08] MEDS: Desmopressin 0.2 MG TAB 0.1 MG PO (22:21)
--- NOTE | 2018-11-09 00:24 | NUR.NOTE ---
Nursing Note: At 22:40 hrs. pt transferred from ICU to 227 on barriatic bed. AO x 2. , easily irritated, became verbally aggressive even in small details but at the end of firmed approached, pt will apologize and say thank you and please. Verbalized of being comfortable on bed. 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 Denied of pain until this time.
[2018-11-09 00:59] VITALS: BP 158/76; PULSE 84; RESP 20; TEMP 37; O2SAT 95
[2018-11-09] MEDS: Levothyroxine 150 MCG TAB PO (06:12)
[2018-11-09] MEDS: Heparin 5,000 UNITS/ML VIAL 5000 UNITS SC ×3 (06:13→21:26)
[2018-11-09 07:30] VITALS: BP 153/85; PULSE 77; RESP 20; TEMP 37.1; O2SAT 98
--- NOTE | 2018-11-09 09:06 | PDOC.CMPRO ---
Care Management Progress Note S/O: Prakash continues to be closely monitored and requires consistent behavioral support as well. continues to follow and provide [place]'s daily clinical updates. A: 62 year old male admitted to [facility] 10/31/18 for LLL HCAP. P: Prakash will return to the [facility] when able. He will transport via EMS coordinated by this literary writer.
--- NOTE | 2018-11-09 09:11 | CMPROGNOTE_ITS ---
Care Management Progress Note S/O: Prakash continues to be closely monitored and requires consistent behavioral support as well. continues to follow and provide [place]'s daily clinical updates. A: 62 year old male admitted to [facility] 10/31/18 for LLL HCAP. P: Prakash will return to the [facility] when able. He will transport via EMS coordinated by this comic writer.
[2018-11-09] MEDS: Insulin Aspart 300 UNITS/3 ML PEN SC ×4 (09:26→16:55)
[2018-11-09] MEDS: Nystatin POWDER 60 GM JAR TP (09:27)
[2018-11-09] MEDS: Biotene Mouthwash 237 ML BTL 15 ML MM ×3 (09:27→16:04)
[2018-11-09] MEDS: traMADol 50 MG TAB PO ×2 (09:28→19:22)
[2018-11-09] MEDS: Multivitamin w/Minerals TAB 1 TAB PO (09:28)
[2018-11-09] MEDS: traZODone 50 MG TAB 25 MG PO ×2 (09:28→16:03)
[2018-11-09] MEDS: Lisinopril 5 MG TAB 2.5 MG PO (09:28)
[2018-11-09] MEDS: Docusate Sodium 100 MG CAP PO (09:29)
[2018-11-09] MEDS: Metoprolol CR 25 MG TABCR PO (09:29)
[2018-11-09] MEDS: Aspirin 81 MG CHEW PO (09:29)
[2018-11-09] MEDS: Hydrocortisone 10 MG TAB 20 MG PO ×2 (09:29→19:22)
[2018-11-09] MEDS: Magnesium Oxide 400 MG TAB PO ×2 (09:29→19:21)
[2018-11-09] MEDS: Allopurinol 100 MG TAB PO (09:30)
[2018-11-09] MEDS: Senna TAB 1 TAB PO (09:30)
[2018-11-09 10:35] LABS: Abs Immature Grans 0.17 k/cumm (0.0-0.09); Absolute Basophil Count 0.07 k/cumm (0.0-0.2); Absolute Eosinophil Count 0.49 k/cumm (0.0-0.7); Absolute Lymphocyte Count 4.96 k/cumm (1.2-3.4); Absolute Monocyte Count 0.78 k/cumm (0.11-0.7); Absolute Neutrophil Count 3.43 k/cumm (1.2-6.7); Basophils % 0.7; Eosinophils % 4.9; HCT 38.6 % (40.0-50.0); HGB 12.5 g/dL (13.5-17.5); Immature Grans % 1.7; Lymphocytes % 50.1; Mean Corp. HGB Concentration 32.4 g/dL (32.0-36.0); Mean Corpuscular Hemoglobin 31.8 pg (27.0-33.0); Mean Corpuscular Volume 98.2 fL (80-95); Monocytes % 7.9; Neutrophils % 34.7; Platelet Count 320 x1000/uL (130-400); RBC 3.93 m/cumm (4.50-6.00)
[2018-11-09 10:41] LABS: Anion Gap 6.6 mmol/L (3-11); BUN 5 mg/dL (7-18); CO2 30.4 mmol/L (21.0-32.0); CREATININE 0.83 mg/dL (0.70-1.30); Calcium 8.5 mg/dL (8.5-10.1); Chloride 98 mmol/L (98-107); Glucose 128 mg/dL (70-100); Magnesium 1.6 mg/dL (1.8-2.4); Potassium 3.7 mmol/L (3.5-5.1); Sodium 135 mmol/L (136-145)
[2018-11-09 11:10] VITALS: BP 124/73; PULSE 78; RESP 19; TEMP 36.6; O2SAT 96
[2018-11-09 13:17] VITALS: O2SAT 96
[2018-11-09 15:25] VITALS: BP 134/77; PULSE 73; RESP 20; TEMP 37.2; O2SAT 92
--- NOTE | 2018-11-09 17:47 | NUR.NOTE ---
Nursing Note: Beginning of the shift, patient was in good mood, pleasant and polite. When the selling underwriter gave 1700 meds, Biotene mouth wash offered and asked him first if I can put in his mouth which I did but he moves so there was a little spilled on the sides of his mouth and made him mad, verbally aggressive;screaming and kicked me out of the room and requesting to see the doctor. Approached by other RN and able to administered Insulin. At 1745 hrs., asked staff to get something for headache, Tylenol offered by veterans employment representative but refused. Unable to redirect patient.
--- NOTE | 2018-11-09 18:08 | W.PM.PROGNOT ---
Date of Service Date of service: 11/09/18 Time of Service: 18:08 Assessment and Plan (1) HCAP (healthcare-associated pneumonia): Current visit: No Status: Acute S/p 5 day course of antibiotic therapy with Vancomycin and Pip-Tazo, and clinicaly appearing improved. Current nocturnal hypoxia likely related to untreated DOUG. As patient pulled out his PICC line and 2 peripheral lines, and appeared improved discontinued antibiotic therapy after completion of a 5 day course. Remains afebrile and without a leukocytosis. 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 Currently with treatment for Adrenal Insufficiency, DI, and Hypothyroidism. Continue Hydrocortisone at home dose, reduced dose Levothyroxine given profoundly low TSH, as well as Desmopressin. Of note, patient is volume overloaded, currently with attempts at diuresis with close monitoring of sodium. Continue with home dose of Desmopressin, and monitor weight. (3) DOUG (obstructive sleep apnea): Current visit: Yes Status: Chronic With concurrent dilated RV and RA, with PHTN by ECHO. Not utilizing BiPAP with evidence of both CO2 retention as well as nocturnal hypoxia. Continue Supplemental O2 as needed. (4) Altered mental status: Current visit: Yes Status: Acute Reported intermittent agitation and behavioral disturbances. Patient with evidence of baseline behavioral issues, worsened acutely in the setting of acute illness and hospitalization, but now appears at baseline. EEG limited due to patient cooperation, with evidence of moderate to severe diffuse encephalopathy, without epileptiform activity - overall clinical picture is atypical for seizure activity. Per discussion with [facility] it appears that patient's behavior is at baseline. Mental status appears improved. (5) Diabetes mellitus: Current visit: Yes Status: Chronic Diagnosis of DM based on HgA1C of 7.2%. Blood sugars now 90-100's with tapering of stress dosed steroids. Discontinued Glargine. Will continue on sliding scale coverage. (6) Constipation: Current visit: Yes Status: Acute Near daily bowel movements since hospitalization. (7) DVT prophylaxis: Current visit: No Status: Acute Heparin SC. Also on PPI therapy for GI Prophylaxis. (8) Advance directive on file: Current visit: Yes Status: Acute DNR/DNI. Subjective Interval history since last seen: 62 year old man with a prior history of Panhypopituitarism, admitted from [facility] Emergency Department on 10/31 with a diagnosis of Pneumonia and Altered Mental Status. Mr. Rowland has a history of a Brain Tumor, s/p resection in the , with subsequent development of panhypopituitarism - Currently with Adrenal Insufficiency, Hypothyroidism, and Diabetes Insipidus. He suffers from morbid obesity, DOUG, PHTN, and Obesity Hypoventilation syndrome. He also suffers from constipation. Mr. Rowland is a resident of the [facility], and was sent to the ED with reported constipation and decreased oral intake. He was noted to be combative, with tachycardia and evidence of pneumonia by CXR. He was however afebrile and without a leukocytosis. Following admission Mr. Rowland has been maintained on Vancomycin and Pip-Tazo, with improvement in his symptoms overall, but with continued combative behavior and confusion. In review of Dr. Pacheco's note from earlier this hospitalization it appears that the patient has a history of baseline agitation and difficulty with his management. His daughter reports overall slight confusion and combative behavior that dates back to [facility]. In discussion with [facility] it appears that the patient's behavior is a chronic finding. Continues to have nocturnal hypoxia, likely on the basis of untreated DOUG. Remains afebrile. Due to lack of bed availability patient's transfer back to the nursing facility is currently on hold. Exam Narrative Exam Narrative: General: Patient appears comfortable, Awake and alert, oriented to person only, NAD. Morbidly obese. Neck: Supple CV: Regular, nontachycardic, S1S2. Distant heart sounds. Pulmonary: Clear to auscultation bilaterally, no crackles, wheezing, or rhonchi on exam limited by body habitus Abdomen: + Bowel Sounds, soft, nontender, nondistended but obese in contour Vascular: B/l nonpitting lower extremity edema Objective Objective Clinical Data: Abnormal lab results 11/09/18 11/09/18 Range/Units 10:30 10:30 RBC 3.93 L (4.50-6.00) m/cumm Hgb 12.5 L (13.5-17.5) g/dL Hct 38.6 L (40.0-50.0) % MCV 98.2 H (80-95) fL RDW 16.0 H (11.8-14.1) % Absolute Lymphocytes 4.96 H (1.2-3.4) k/cumm Absolute Monocytes 0.78 H (0.11-0.7) k/cumm Sodium 135 L (136-145) mmol/L BUN 5 L (7-18) mg/dL Glucose 128 H (70-100) mg/dL Magnesium 1.6 L (1.8-2.4) mg/dL Vital Signs Temperature 37.2 C 11/09/18 15:25 Temperature Source Tympanic 11/09/18 15:25 Pulse 73 11/09/18 15:25 Pulse Rhythm Regular 11/09/18 16:00 Pulse 79 11/05/18 07:00 Respiratory Rate 20 11/09/18 15:25 Respiratory Effort 11/09/18 16:00 Respiratory Depth Normal 11/09/18 16:00 Respiratory Pattern Normal 11/09/18 16:00 Blood Pressure 134/77 11/09/18 15:25 Blood Pressure Mean 97 11/08/18 18:33 Blood Pressure Position Supine 10/31/18 21:00 Pulse Oximetry 92 L 11/09/18 15:25 Oxygen Delivery Method Room Air 11/09/18 15:25 Oxygen Flow Rate 0 11/09/18 15:25 Pain Level 9 11/09/18 09:28 Comment 11/08/18 02:30 Intake & Output 11/08/18 11/09/18 11/09/18 23:59 11:59 23:59 Intake Total 790 / 1090 480 / 960 480 / 960 Output Total 6300 / 8400 2475 / 4875 2400 / 4875 Balance -5510 / -7310 -1994 / -3914 -1919 / -3914 Intake: Oral 790 / 1090 480 / 960 480 / 960 Output: Urine 6300 / 8400 2475 / 4875 2400 / 4875 Other: Urine Color Pale Pale Pale Yellow Yellow Yellow Urine Appearance Clear Clear Clear Stool Size Moderate Large Stool Characteristics Liquid Soft Laboratory Results WBC 9.90 k/cumm (4.4-10.8) 11/09/18 10:30 RBC 3.93 m/cumm (4.50-6.00) L 11/09/18 10:30 Hgb 12.5 g/dL (13.5-17.5) L 11/09/18 10:30 Hct 38.6 % (40.0-50.0) L 11/09/18 10:30 MCV 98.2 fL (80-95) H 11/09/18 10:30 MCH 31.8 pg (27.0-33.0) 11/09/18 10:30 MCHC 32.4 g/dL (32.0-36.0) 11/09/18 10:30 RDW 16.0 % (11.8-14.1) H 11/09/18 10:30 Plt Count 320 x1000/uL (130-400) 11/09/18 10:30 MPV 9.0 fL (8.0-11.0) 11/09/18 10:30 Immature Gran % 1.7 11/09/18 10:30 Neutrophils % 34.7 11/09/18 10:30 Band Neutrophils % 0.0 % 10/31/18 16:25 Lymphocytes % 50.1 11/09/18 10:30 Atypical Lymphs % 9 10/31/18 16:25 Monocytes % 7.9 11/09/18 10:30 Eosinophils % 4.9 11/09/18 10:30 Basophils % 0.7 11/09/18 10:30 Absolute Neutrophils 3.43 k/cumm (1.2-6.7) 11/09/18 10:30 Absolute Lymphocytes 4.96 k/cumm (1.2-3.4) H 11/09/18 10:30 Absolute Monocytes 0.78 k/cumm (0.11-0.7) H 11/09/18 10:30 Absolute Eosinophils 0.49 k/cumm (0.0-0.7) 11/09/18 10:30 Absolute Basophils 0.07 k/cumm (0.0-0.2) 11/09/18 10:30 Differential Comment Manual differential 10/31/18 16:25 RBC Morphology See below 10/31/18 16:25 Polychromasia Present 10/31/18 16:25 APTT Cancelled 11/06/18 23:00 Sample Site Right radial 11/01/18 09:33 pCO2 44 mmHg (34-47) 11/01/18 09:33 pO2 71 mmHg (83-108) L 11/01/18 09:33 O2 Saturation 96 % (94-98) 11/01/18 09:33 ABG pH 7.37 (7.35-7.45) 11/01/18 09:33 ABG HCO3 26 mmol/L (22-28) 11/01/18 09:33 ABG Total CO2 24 mmol/L (22-29) 11/01/18 09:33 ABG Base Excess 0.7 mmol/L (-3-3) 11/01/18 09:33 Oxygen Liter Flow 2 nc L 11/01/18 09:33 Sodium 135 mmol/L (136-145) L 11/09/18 10:30 Potassium 3.7 mmol/L (3.5-5.1) 11/09/18 10:30 Chloride 98 mmol/L (98-107) 11/09/18 10:30 Carbon Dioxide 30.4 mmol/L (21.0-32.0) 11/09/18 10:30 Anion Gap 6.6 mmol/L (3-11) 11/09/18 10:30 BUN 5 mg/dL (7-18) L 11/09/18 10:30 Creatinine 0.83 mg/dL (0.70-1.30) 11/09/18 10:30 Estimated GFR/1.73 m2 >= 60.00 (mL/min/1.73m2) 11/09/18 10:30 Glucose 128 mg/dL (70-100) H 11/09/18 10:30 Hemoglobin A1c 7.2 % (4.5-6.2) H 11/01/18 06:00 Calcium 8.5 mg/dL (8.5-10.1) 11/09/18 10:30 Magnesium 1.6 mg/dL (1.8-2.4) L 11/09/18 10:30 Total Bilirubin 0.7 mg/dL (0.2-1.0) 11/01/18 06:00 AST 45 U/L (15-37) H 11/01/18 06:00 ALT 35 U/L (12-78) 11/01/18 06:00 Alkaline Phosphatase 55 U/L (46-116) 11/01/18 06:00 Creatine Kinase 289 U/L (39-308) 11/01/18 06:00 Troponin I 0.04 ng/mL (0.00-0.06) 11/03/18 06:15 NT-Pro-B Natriuret Pep 4898 pg/mL (-299) H 11/03/18 06:15 Total Protein 5.4 g/dL (6.4-8.2) L 11/01/18 06:00 Albumin 2.2 g/dL (3.4-5.0) L 11/01/18 06:00 TSH 0.01 uIU/mL (0.358-3.74) L 10/31/18 16:25 Free T4 1.75 ng/dL (0.76-1.46) H 10/31/18 16:25 Urine Color Brown (Yellow) 10/31/18 14:25 Urine Clarity Clear 10/31/18 14:25 Urine pH 5.0 (5-8) 10/31/18 14:25 Ur Specific [place] 1.025 (1.005-1.025) 10/31/18 14:25 Urine Protein Trace mg/dL (Negative) H 10/31/18 14:25 Urine Ketones Trace mg/dL (Negative) H 10/31/18 14:25 Urine Blood Negative (Negative) 10/31/18 14:25 Urine Nitrite Negative (Negative) 10/31/18 14:25 Urine Bilirubin Moderate (Negative) H 10/31/18 14:25 Urine Urobilinogen 1.0 EU/dL (Up TO 0.2) H 10/31/18 14:25 Ur Leukocyte Esterase Negative (Negative) 10/31/18 14:25 Urine RBC Negative (0-2) 10/31/18 14:25 Urine WBC Negative HPF (0-5) 10/31/18 14:25 Ur Epithelial Cells Few HPF (Negative) 10/31/18 14:25 Urine Crystals Few amorphous HPF (Negative) 10/31/18 14:25 Urine Bacteria Few HPF (Negative) 10/31/18 14:25 Urine Casts Negative LPF (Negative) 10/31/18 14:25 Urine Mucus Trace (Negative) 10/31/18 14:25 Ur Culture Indicated? No 10/31/18 14:25 Urine Glucose Negative mg/dL (Negative) 10/31/18 14:25 Vancomycin Trough 21.9 ug/mL (10.0-20.0) H* 11/03/18 13:35
[2018-11-09 19:20] VITALS: BP 146/87; PULSE 79; RESP 20; TEMP 36.9; O2SAT 94
[2018-11-09] MEDS: traZODone 50 MG TAB 100 MG PO (21:21)
[2018-11-09] MEDS: Melatonin 3 MG TAB 6 MG PO (21:21)
[2018-11-09] MEDS: Desmopressin 0.2 MG TAB 0.1 MG PO (21:22)
[2018-11-09] MEDS: Acetaminophen 500 MG TAB 1000 MG PO (22:37)
[2018-11-10] VITALS (8 sets, daily range): BP systolic 111–139; BP diastolic 68–75; PULSE 68–82; RESP 18–22; TEMP 36.2–37.2; O2SAT 90–97
[2018-11-10] MEDS: Levothyroxine 150 MCG TAB PO (06:59)
[2018-11-10] MEDS: Heparin 5,000 UNITS/ML VIAL 5000 UNITS SC ×3 (07:00→21:48)
[2018-11-10] MEDS: Allopurinol 100 MG TAB PO (08:46)
[2018-11-10] MEDS: Pantoprazole 40 MG TABCR PO (08:46)
[2018-11-10] MEDS: Docusate Sodium 100 MG CAP PO ×3 (08:46→19:53)
[2018-11-10] MEDS: Metoprolol CR 25 MG TABCR PO (08:46)
[2018-11-10] MEDS: Aspirin 81 MG CHEW PO (08:46)
[2018-11-10] MEDS: traMADol 50 MG TAB PO ×2 (08:47→19:15)
[2018-11-10] MEDS: Lisinopril 5 MG TAB 2.5 MG PO (08:47)
[2018-11-10] MEDS: Multivitamin w/Minerals TAB 1 TAB PO (08:47)
[2018-11-10] MEDS: Senna TAB 1 TAB PO ×2 (08:47→19:56)
[2018-11-10] MEDS: traZODone 50 MG TAB 25 MG PO ×2 (08:48→16:16)
[2018-11-10] MEDS: Biotene Mouthwash 237 ML BTL 15 ML MM ×2 (08:48→16:16)
[2018-11-10] MEDS: Magnesium Oxide 400 MG TAB PO ×3 (08:48→19:55)
[2018-11-10] MEDS: Hydrocortisone 10 MG TAB 20 MG PO ×2 (08:48→19:53)
[2018-11-10] MEDS: Insulin Aspart 300 UNITS/3 ML PEN SC ×4 (08:49→21:48)
--- NOTE | 2018-11-10 09:16 | PT.INDS ---
Date of service: 11/08/18 PT Notes Inpatient Physical Therapy Discharge Summary Dates: 11/02/2018 Dates of Service: 11/02/18 through 11/07/18 Referring Doctor: Kandice Ang MD PT Orders: PT CONSULT: Eval and treat Precautions: Fall. Contact precautions. Droplet precautions. Non-ambulatory. Morbidly obese. Patient Profile/Admitting Diagnosis: Referral for conservative management of this 62-year-old male was received yesterday 11/01/2018 but due to poor level of alertness and lethargy, therapy evaluation was deferred. Another physical therapy evaluation was reattempted today for this morbidly obese patient who was initially sent to the ED from the [facility] on 10/31/2018 with chief complaints of constipation, decrease intake/output, and altered mental status. Patient was diagnosed with Healthcare-Associated pneumonia with infiltrates found on the left lower lobe, Panhypopituitarism, Constipation, and Right upper lobe mass previously diagnosed with Lung CA. A physical therapy referral was made to assess for safe bed mobility techniques and for appropriate mobilization program in order to maximize mobility performance while preventing further functional decline. PMHX: Medical History Morbid obesity (Acute) Panhypopituitarism (Acute) Brain cancer (Chronic) GERD (gastroesophageal reflux disease) (Chronic) Lung cancer (Chronic) Surgical History History of craniotomy (Chronic) Social History/Home Situation: Patient has been a resident of the [facility] for the past 2 years and has been non-ambulatory and bed-bound. Per case management note review, patient has not been fully compliant withphysical therapy and occupational therapy services at the SNF. Current Functional Limitations: Morbidly obese patient requiring total assistance for all bed mobility skills and transfers. This is a clinical summary of skilled services provided on the duration of dates listed above. No charge was made in the completion of this documentation. Subjective: Patient continues to hope that he can walk again but has done a series of refusals to skilled PT services and has declined to participate in exercises and bed mobility training any further. Objective: General Observation: NT Mental Status: Alert, responses mostly appropriate. No agitation noted except for a time when he demanded for a drink as he was thirsty. He is able to follow one-step instructions when repeated 2-3 times, considerable tactile cueing provided. Pain: NT ROM: Right Upper Extremity: Patient is able to raise right upper extremity to about 90-95 degrees to reach for his overhead trapeze without undue discomfort. He is able to grab onto the trapeze and grasp with good effort. Able to functionally open hand on command. Left Upper Extremity: Patient is able to elevate left upper extremity with assistance of this PT to grab onto overhead trapeze, was able to grasp but was unable to sustain the grasp due to discomfort and fatigue. Right Lower Extremity: Patient is able to slide whole extremity sideways outward 5 times to about 10 degrees but was unable to bring it to adduct at the hip. Patient is unable to bend at the hip nor at the knee due to limp girth and fatigue. Left Lower Extremity: Patient was unable to do hip abduction nor hip and knee flexion but was able to push against this PTs hand downward with minimal resistance provided on sole of the left foot. Strength: Right Upper Extremity: Shoulder flexors 3-/5. shoulder abductors 3-/5. Elbow flexors 3-/5. Elbow extensors 2-/5. Design And Sales Consultant strong and functional. Left Upper Extremity: Shoulder flexors 2-/5. Shoulder abductors 2-/5. Elbow flexors 3-/5. Elbow extensors 2-/5. Design And Sales Consultant weak but functionai. Right Lower Extremity: Hip flexors 1/5. Knee flexors 1/5. Hip abductors 2-/5. Ankle plantar flexors 2-/5. Left Lower Extremity: Hip flexors 1/5. Knee flexors 1/5. Hip abductors 1/5. Ankle plantar flexors 2-/5. Sensation: Intact as to pain on both LE. Bed Mobility/Transfers: Rolling independent Supine to sit dependent Sit to supine dependent Sit to stand unable to test Stand to sit unable to test Bed to chair unable to test Chair to bed unable to test Gait: Non-ambulatory. Balance: Static Sitting: Unable to test Dynamic Sitting: Unable to test Static Standing: Unable to test Dynamic Standing: Unable to test Special Tests: Mobility Limitations Standardized Measure [facility] AM-PAC 6 clicks Basic Mobility Inpatient Short Form: Raw Score: 0 CMS Score: 100% deficit Assessment: Patient is a 62 year old male referred to physical therapy services with the diagnosis healthcare acquired pneumonia, and hypopituitarism, constipation, Lung CA.. He has refused to participate in bed level exercises and functional bed mobility training. Patient continues to present with clinical signs and symptoms consistent with current/admitting diagnoses that have resulted to mobility limitations, generalized weakness, and lack of motor control as demonstrated by the following impairment level findings: 1. Decreased strength to B UE/LE major muscle groups 2. Impaired balance 3. Impaired activity tolerance 4. Limitation of joint range of motion in BUE/LE Impairments are contributing to the following functional limitations: 1. Dependent bed mobility skills 2. Dependent transfers 3. Increase completion time for bed mobility task performance 5. Increased fall risk Goals: Goals X1 week 1. Moderate assist for rolling in either sides using bed rails NOT MET 2. Patient will be able to partially lift head and both shoulders up with B UE pulling from overhead trapeze NOT MET 3. Patient will be able to tolerate sitting on recliner/wheelchair for up to 2 hours NOT MET 4. Patient will demonstrate ability to follow bed level exercises with minimal cueing from PT NOT MET DISCHARGE RECOMMENDATIONS: [facility] once medically stable with previous services in place. TREATMENT CODE/TIME: N/A. Thank you for this referral. Bianca Sepulveda, PT, DPT, CLT [facility]
--- NOTE | 2018-11-10 09:24 | INDS_ITS ---
Date of service: 11/08/18 PT Notes Inpatient Physical Therapy Discharge Summary Dates: 11/02/2018 Dates of Service: 11/02/18 through 11/07/18 Referring Doctor: Kandice nAg MD PT Orders: PT CONSULT: Eval and treat Precautions: Fall. Contact precautions. Droplet precautions. Non-ambulatory. Morbidly obese. Patient Profile/Admitting Diagnosis: Referral for conservative management of this 62-year-old male was received yesterday 11/01/2018 but due to poor level of alertness and lethargy, therapy evaluation was deferred. Another physical therapy evaluation was reattempted today for this morbidly obese patient who was initially sent to the ED from the [facility] on 10/31/2018 with chief complaints of constipation, decrease intake/output, and altered mental status. Patient was diagnosed with Healthcare-Associated pneumonia with infiltrates found on the left lower lobe, Panhypopituitarism, Constipation, and Right upper lobe mass previously diagnosed with Lung CA. A physical therapy referral was made to assess for safe bed mobility techniques and for appropriate mobilization program in order to maximize mobility performance while preventing further functional decline. PMHX: Medical History Morbid obesity (Acute) Panhypopituitarism (Acute) Brain cancer (Chronic) GERD (gastroesophageal reflux disease) (Chronic) Lung cancer (Chronic) Surgical History History of craniotomy (Chronic) Social History/Home Situation: Patient has been a resident of the [facility] for the past 2 years and has been non-ambulatory and bed-bound. Per case management note review, patient has not been fully compliant withphysical therapy and occupational therapy services at the SNF. Current Functional Limitations: Morbidly obese patient requiring total assistance for all bed mobility skills and transfers. This is a clinical summary of skilled services provided on the duration of dates listed above. No charge was made in the completion of this documentation. Subjective: Patient continues to hope that he can walk again but has done a series of refusals to skilled PT services and has declined to participate in exercises and bed mobility training any further. Objective: General Observation: NT Mental Status: Alert, responses mostly appropriate. No agitation noted except for a time when he demanded for a drink as he was thirsty. He is able to follow one-step instructions when repeated 2-3 times, considerable tactile cueing provided. Pain: NT ROM: Right Upper Extremity: Patient is able to raise right upper extremity to about 90-95 degrees to reach for his overhead trapeze without undue discomfort. He is able to grab onto the trapeze and grasp with good effort. Able to functionally open hand on command. Left Upper Extremity: Patient is able to elevate left upper extremity with assistance of this PT to grab onto overhead trapeze, was able to grasp but was unable to sustain the grasp due to discomfort and fatigue. Right Lower Extremity: Patient is able to slide whole extremity sideways outward 5 times to about 10 degrees but was unable to bring it to adduct at the hip. Patient is unable to bend at the hip nor at the knee due to limp girth and fatigue. Left Lower Extremity: Patient was unable to do hip abduction nor hip and knee flexion but was able to push against this PTs hand downward with minimal resistance provided on sole of the left foot. Strength: Right Upper Extremity: Shoulder flexors 3-/5. shoulder abductors 3-/5. Elbow flexors 3-/5. Elbow extensors 2-/5. Tie Tamper strong and functional. Left Upper Extremity: Shoulder flexors 2-/5. Shoulder abductors 2-/5. Elbow flexors 3-/5. Elbow extensors 2-/5. Tie Tamper weak but functionai. Right Lower Extremity: Hip flexors 1/5. Knee flexors 1/5. Hip abductors 2-/5. Ankle plantar flexors 2-/5. Left Lower Extremity: Hip flexors 1/5. Knee flexors 1/5. Hip abductors 1/5. Ankle plantar flexors 2-/5. Sensation: Intact as to pain on both LE. Bed Mobility/Transfers: Rolling independent Supine to sit dependent Sit to supine dependent Sit to stand unable to test Stand to sit unable to test Bed to chair unable to test Chair to bed unable to test Gait: Non-ambulatory. Balance: Static Sitting: Unable to test Dynamic Sitting: Unable to test Static Standing: Unable to test Dynamic Standing: Unable to test Special Tests: Mobility Limitations Standardized Measure [facility] AM-PAC 6 clicks Basic Mobility Inpatient Short Form: Raw Score: 0 CMS Score: 100% deficit Assessment: Patient is a 62 year old male referred to physical therapy services with the diagnosis healthcare acquired pneumonia, and hypopituitarism, constipation, Lung CA.. He has refused to participate in bed level exercises and functional bed mobility training. Patient continues to present with clinical signs and symptoms consistent with current/admitting diagnoses that have resulted to mobility limitations, generalized weakness, and lack of motor cont rol as demonstrated by the following impairment level findings: 1. Decreased strength to B UE/LE major muscle groups 2. Impaired balance 3. Impaired activity tolerance 4. Limitation of joint range of motion in BUE/LE Impairments are contributing to the following functional limitations: 1. Dependent bed mobility skills 2. Dependent transfers 3. Increase completion time for bed mobility task performance 5. Increased fall risk Goals: Goals X1 week 1. Moderate assist for rolling in either sides using bed rails NOT MET 2. Patient will be able to partially lift head and both shoulders up with B UE pulling from overhead trapeze NOT MET 3. Patient will be able to tolerate sitting on recliner/wheelchair for up to 2 hours NOT MET 4. Patient will demonstrate ability to follow bed level exercises with minimal cueing from PT NOT MET DISCHARGE RECOMMENDATIONS: [facility] once medically stable with previous services in place. TREATMENT CODE/TIME: N/A. Thank you for this referral. Bianca Sepulveda, PT, DPT, CLT [facility]
--- NOTE | 2018-11-10 09:31 | PDOC.CMPRO ---
Care Management Progress Note S/O: Prakash continues to be closely monitored and requires consistent behavioral support as well. continues to follow and provide [place]'s daily clinical updates. CM spoke with Nina of Admission to coordinate discharge for tomorrow. CM spoke to Mohsen Galvan and to confirm time and transport. CM notified Dueñas; Cost Estimator as well. A: 62 year old male admitted to [facility] 10/31/18 for LLL HCAP. P: Prakash will return to the [facility] when ready per MD; tentative plan for 1100 tomorrow, 11/11/18 via EMS. He will transport via EMS coordinated by this com writer.
--- NOTE | 2018-11-10 09:37 | CMPROGNOTE_ITS ---
Care Management Progress Note S/O: Prakash continues to be closely monitored and requires consistent behavioral support as well. continues to follow and provide [place]'s daily clinical updates. CM spoke with Nina of Admission to coordinate discharge for tomorrow. CM spoke to Mohsen Galvan and to confirm time and transport. CM notified Dueñas; [employer] Back Tender as well. A: 62 year old male admitted to [facility] 10/31/18 for LLL HCAP. P: Prakash will return to the [facility] when ready per MD; tentative plan for 1100 tomorrow, 11/11/18 via EMS. He will transport via EMS coordinated by this life underwriter.
[2018-11-10 10:05] LABS: Abs Immature Grans 0.18 k/cumm (0.0-0.09); HCT 36.6 % (40.0-50.0); HGB 11.9 g/dL (13.5-17.5); Mean Corp. HGB Concentration 32.5 g/dL (32.0-36.0); Mean Corpuscular Hemoglobin 32.1 pg (27.0-33.0); Mean Corpuscular Volume 98.7 fL (80-95); Mean Platelet Volume 9.2 fL (8.0-11.0); Platelet Count 333 x1000/uL (130-400); RBC 3.71 m/cumm (4.50-6.00); RBC Distribution Width 16.2 % (11.8-14.1); White Blood Cell Count 8.53 k/cumm (4.4-10.8)
[2018-11-10 10:21] LABS: Anion Gap 5.9 mmol/L (3-11); BUN 9 mg/dL (7-18); CO2 30.1 mmol/L (21.0-32.0); Calcium 8.4 mg/dL (8.5-10.1); Chloride 99 mmol/L (98-107); Glucose 147 mg/dL (70-100); Magnesium 1.8 mg/dL (1.8-2.4); Potassium 3.6 mmol/L (3.5-5.1); Sodium 135 mmol/L (136-145)
[2018-11-10 10:55] LABS: Absolute Eosinophil Count 0.26 k/cumm (0.0-0.7); Absolute Lymphocyte Count 4.69 k/cumm (1.2-3.4); Absolute Monocyte Count 1.19 k/cumm (0.11-0.7)
[2018-11-10 10:56] LABS: Anisocytosis 1+; Diff Comment Manual Differential; Polychromasia Present
[2018-11-10] MEDS: Nystatin POWDER 60 GM JAR TP (12:07)
--- NOTE | 2018-11-10 12:50 | PGE_ITS ---
Date of Service Date of service: 11/10/18 Time of Service: 12:46 Assessment and Plan (1) HCAP (healthcare-associated pneumonia): Current visit: No Status: Acute S/p 5 day course of antibiotic therapy with Vancomycin and Pip-Tazo, and clinicaly appearing improved. Current nocturnal hypoxia likely related to untreated DOUG. As patient pulled out his PICC line and 2 peripheral lines, and appeared improved discontinued antibiotic therapy after completion of a 5 day course. Remains afebrile and without a leukocytosis. 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 Currently with treatment for Adrenal Insufficiency, DI, and Hypothyroidism. Continue Hydrocortisone at home dose, reduced dose Levothyroxine given profoundly low TSH, as well as Desmopressin. Of note, patient is volume overloaded, currently with attempts at diuresis with close monitoring of sodium. Continue with home dose of Desmopressin, and monitor weight. Will need repeat TSH in 4-6 weeks. (3) DOUG (obstructive sleep apnea): Current visit: Yes Status: Chronic With concurrent dilated RV and RA, with PHTN by ECHO. Not utilizing BiPAP with evidence of both CO2 retention as well as nocturnal hypoxia. Continue Supplemental O2 as needed. (4) Altered mental status: Current visit: Yes Status: Acute Reported intermittent agitation and behavioral disturbances. Patient with evidence of baseline behavioral issues, worsened acutely in the setting of acute illness and hospitalization, but now appears at baseline. EEG limited due to patient cooperation, with evidence of moderate to severe diffuse encephalopathy, without epileptiform activity - overall clinical picture is atypical for seizure activity. Per discussion with [facility] it appears that patient's behavior is at baseline. Mental status appears improved. (5) Diabetes mellitus: Current visit: Yes Status: Chronic Diagnosis of DM based on HgA1C of 7.2%. Blood sugars now 90-100's with tapering of stress dosed steroids. Discontinued Glargine. Will continue on sliding scale coverage. (6) Constipation: Current visit: Yes Status: Acute Near daily bowel movements since hospitalization. (7) DVT prophylaxis: Current visit: No Status: Acute Heparin SC. Also on PPI therapy for GI Prophylaxis. (8) Advance directive on file: Current visit: Yes Status: Acute DNR/DNI. Subjective Interval history since last seen: 62 year old man with a prior history of Panhypopituitarism, admitted from [facility] Emergency Department on 10/31 with a diagnosis of Pneumonia and Altered Mental Status. Mr. Rowland has a history of a Brain Tumor, s/p resection in the , with subsequent development of panhypopituitarism - Currently with Adrenal Insufficiency, Hypothyroidism, and Diabetes Insipidus. He suffers from morbid obesity, DOUG, PHTN, and Obesity Hypoventilation syndrome. He also suffers from constipation. Mr. Rowland is a resident of the [facility], and was sent to the ED with reported constipation and decreased oral intake. He was noted to be combative, with tachycardia and evidence of pneumonia by CXR. He was however afebrile and without a leukocytosis. Following admission Mr. Rowland has been maintained on Vancomycin and Pip-Tazo, with improvement in his symptoms overall, but with continued combative behavior and confusion. In review of Dr. Pacheco's note from earlier this hospitalization it appears that the patient has a history of baseline agitation and difficulty with his management. His daughter reports overall slight confusion and combative behavior that [facility]. In discussion with [facility] it appears that the patient's behavior is a chronic finding. Has had nocturnal hypoxia, likely on the basis of untreated DOUG. Remains afebrile. Due to lack of bed availability patient's transfer back to the nursing facility is currently on hold. His sodium remains minimally low this morning. He has no complaints. Exam Narrative Exam Narrative: General: Patient appears comfortable, Awake and alert, NAD. Morbidly obese. Objective Objective Clinical Data: Abnormal lab results 11/10/18 11/10/18 Range/Units 09:56 09:56 RBC 3.71 L (4.50-6.00) m/cumm Hgb 11.9 L (13.5-17.5) g/dL Hct 36.6 L (40.0-50.0) % MCV 98.7 H (80-95) fL RDW 16.2 H (11.8-14.1) % Absolute Lymphocytes 4.69 H (1.2-3.4) k/cumm Absolute Monocytes 1.19 H (0.11-0.7) k/cumm Sodium 135 L (136-145) mmol/L Glucose 147 H (70-100) mg/dL Calcium 8.4 L (8.5-10.1) mg/dL Vital Signs Temperature 37.0 C 11/10/18 07:35 Temperature Source Tympanic 11/10/18 07:35 Pulse 68 11/10/18 07:35 Pulse Rhythm Regular 11/10/18 08:15 Pulse 79 11/05/18 07:00 Respiratory Rate 18 11/10/18 07:35 Respiratory Effort 11/10/18 08:15 Respiratory Depth Normal 11/10/18 08:15 Respiratory Pattern Normal 11/10/18 08:15 Blood Pressure 134/75 11/10/18 07:35 Blood Pressure Mean 97 11/08/18 18:33 Blood Pressure Position Supine 10/31/18 21:00 Pulse Oximetry 97 11/10/18 07:35 Oxygen Delivery Method Room Air 11/10/18 07:35 Oxygen Flow Rate 0 11/10/18 07:35 Pain Level 9 11/10/18 08:47 Comment 11/10/18 03:26 Intake & Output 11/09/18 11/10/18 11/10/18 23:59 11:59 23:59 Intake Total 480 / 960 930 / 930 Output Total 4400 / 6875 300 / 300 Balance -3920 / -5915 630 / 630 Intake: Oral 480 / 960 930 / 930 Output: Urine 4400 / 6875 300 / 300 Other: Urine Color Pale Yellow Yellow Urine Appearance Clear Clear Laboratory Results WBC 8.53 k/cumm (4.4-10.8) 11/10/18 09:56 RBC 3.71 m/cumm (4.50-6.00) L 11/10/18 09:56 Hgb 11.9 g/dL (13.5-17.5) L 11/10/18 09:56 Hct 36.6 % (40.0-50.0) L 11/10/18 09:56 MCV 98.7 fL (80-95) H 11/10/18 09:56 MCH 32.1 pg (27.0-33.0) 11/10/18 09:56 MCHC 32.5 g/dL (32.0-36.0) 11/10/18 09:56 RDW 16.2 % (11.8-14.1) H 11/10/18 09:56 Plt Count 333 x1000/uL (130-400) 11/10/18 09:56 MPV 9.2 fL (8.0-11.0) 11/10/18 09:56 Immature Gran % See Differential 11/10/18 09:56 Neutrophils % 27.0 11/10/18 09:56 Band Neutrophils % 0.0 % 10/31/18 16:25 Lymphocytes % 55.0 11/10/18 09:56 Atypical Lymphs % 9 10/31/18 16:25 Monocytes % 14.0 11/10/18 09:56 Eosinophils % 3.0 11/10/18 09:56 Basophils % 0.0 11/10/18 09:56 Myelocytes % 1.0 % 11/10/18 09:56 Absolute Neutrophils 2.30 k/cumm (1.2-6.7) 11/10/18 09:56 Absolute Lymphocytes 4.69 k/cumm (1.2-3.4) H 11/10/18 09:56 Absolute Monocytes 1.19 k/cumm (0.11-0.7) H 11/10/18 09:56 Absolute Eosinophils 0.26 k/cumm (0.0-0.7) 11/10/18 09:56 Absolute Basophils 0.00 k/cumm (0.0-0.2) 11/10/18 09:56 Differential Comment Manual differential 11/10/18 09:56 RBC Morphology See below 11/10/18 09:56 Polychromasia Present 11/10/18 09:56 Anisocytosis 1+ 11/10/18 09:56 APTT Cancelled 11/06/18 23:00 Sample Site Right radial 11/01/18 09:33 pCO2 44 mmHg (34-47) 11/01/18 09:33 pO2 71 mmHg (83-108) L 11/01/18 09:33 O2 Saturation 96 % (94-98) 11/01/18 09:33 ABG pH 7.37 (7.35-7.45) 11/01/18 09:33 ABG HCO3 26 mmol/L (22-28) 11/01/18 09:33 ABG Total CO2 24 mmol/L (22-29) 11/01/18 09:33 ABG Base Excess 0.7 mmol/L (-3-3) 11/01/18 09:33 Oxygen Liter Flow 2 nc L 11/01/18 09:33 Sodium 135 mmol/L (136-145) L 11/10/18 09:56 Potassium 3.6 mmol/L (3.5-5.1) 11/10/18 09:56 Chloride 99 mmol/L (98-107) 11/10/18 09:56 Carbon Dioxide 30.1 mmol/L (21.0-32.0) 11/10/18 09:56 Anion Gap 5.9 mmol/L (3-11) 11/10/18 09:56 BUN 9 mg/dL (7-18) 11/10/18 09:56 Creatinine 1.00 mg/dL (0.70-1.30) 11/10/18 09:56 Estimated GFR/1.73 m2 >= 60.00 (mL/min/1.73m2) 11/10/18 09:56 Glucose 147 mg/dL (70-100) H 11/10/18 09:56 Hemoglobin A1c 7.2 % (4.5-6.2) H 11/01/18 06:00 Calcium 8.4 mg/dL (8.5-10.1) L 11/10/18 09:56 Magnesium 1.8 mg/dL (1.8-2.4) 11/10/18 09:56 Total Bilirubin 0.7 mg/dL (0.2-1.0) 11/01/18 06:00 AST 45 U/L (15-37) H 11/01/18 06:00 ALT 35 U/L (12-78) 11/01/18 06:00 Alkaline Phosphatase 55 U/L (46-116) 11/01/18 06:00 Creatine Kinase 289 U/L (39-308) 11/01/18 06:00 Troponin I 0.04 ng/mL (0.00-0.06) 11/03/18 06:15 NT-Pro-B Natriuret Pep 4898 pg/mL (-299) H 11/03/18 06:15 Total Protein 5.4 g/dL (6.4-8.2) L 11/01/18 06:00 Albumin 2.2 g/dL (3.4-5.0) L 11/01/18 06:00 TSH 0.01 uIU/mL (0.358-3.74) L 10/31/18 16:25 Free T4 1.75 ng/dL (0.76-1.46) H 10/31/18 16:25 Urine Color Brown (Yellow) 10/31/18 14:25 Urine Clarity Clear 10/31/18 14:25 Urine pH 5.0 (5-8) 10/31/18 14:25 Ur Specific [place] 1.025 (1.005-1.025) 10/31/18 14:25 Urine Protein Trace mg/dL (Negative) H 10/31/18 14:25 Urine Ketones Trace mg/dL (Negative) H 10/31/18 14:25 Urine Blood Negative (Negative) 10/31/18 14:25 Urine Nitrite Negative (Negative) 10/31/18 14:25 Urine Bilirubin Moderate (Negative) H 10/31/18 14:25 Urine Urobilinogen 1.0 EU/dL (Up TO 0.2) H 10/31/18 14:25 Ur Leukocyte Esterase Negative (Negative) 10/31/18 14:25 Urine RBC Negative (0-2) 10/31/18 14:25 Urine WBC Negative HPF (0-5) 10/31/18 14:25 Ur Epithelial Cells Few HPF (Negative) 10/31/18 14:25 Urine Crystals Few amorphous HPF (Negative) 10/31/18 14:25 Urine Bacteria Few HPF (Negative) 10/31/18 14:25 Urine Casts Negative LPF (Negative) 10/31/18 14:25 Urine Mucus Trace (Negative) 10/31/18 14:25 Ur Culture Indicated? No 10/31/18 14:25 Urine Glucose Negative mg/dL (Negative) 10/31/18 14:25 Vancomycin Trough 21.9 ug/mL (10.0-20.0) H* 11/03/18 13:35
[2018-11-10] MEDS: Potassium Chloride 20 MEQ TABCR 40 MEQ PO (13:29)
[2018-11-10] MEDS: Furosemide 40 MG TAB PO (13:29)
--- NOTE | 2018-11-10 15:27 | WOUNDCARE ---
Wound Care Report 11/10/18 Right leg 9 cm x 5 cm new pink skin with scant dried firmly adhered yellowish plaque. new epithelial tissue over previously open areas noted. Area cleansed with debrisoft, patted dry, mepilex applied to help protect the new epithelial tissue. Recommend follow up with podiatry as soon as possible for general nail and foot care. Area on bottom of right foot that are reddish which patient has stated have been there for a long time and the areas on the lower posterior right calf which were reddened remain unchanged. No changes to wound care recommendations at this time.
[2018-11-10] MEDS: Acetaminophen 500 MG TAB 1000 MG PO (19:15)
[2018-11-10] MEDS: Desmopressin 0.2 MG TAB 0.1 MG PO (21:49)
[2018-11-10] MEDS: Melatonin 3 MG TAB 6 MG PO (21:50)
[2018-11-10] MEDS: traZODone 50 MG TAB 100 MG PO (21:50)
[2018-11-11 01:40] VITALS: BP 128/72; PULSE 72; RESP 18; TEMP 36.9; O2SAT 96
[2018-11-11] MEDS: Heparin 5,000 UNITS/ML VIAL 5000 UNITS SC (06:08)
[2018-11-11] MEDS: Levothyroxine 150 MCG TAB PO (06:08)
[2018-11-11 07:46] VITALS: BP 120/80; TEMP 36.9
[2018-11-11 07:47] LABS: Anion Gap 5.3 mmol/L (3-11); BUN 11 mg/dL (7-18); CO2 28.7 mmol/L (21.0-32.0); CREATININE 0.84 mg/dL (0.70-1.30); Calcium 8.3 mg/dL (8.5-10.1); Chloride 100 mmol/L (98-107); Glucose 124 mg/dL (70-100); Magnesium 1.7 mg/dL (1.8-2.4); Potassium 4.5 mmol/L (3.5-5.1); Sodium 134 mmol/L (136-145)
[2018-11-11] MEDS: traMADol 50 MG TAB PO (07:56)
[2018-11-11 08:09] VITALS: BP 110/60; PULSE 74; RESP 20; TEMP 36.6; O2SAT 98
[2018-11-11] MEDS: Lisinopril 5 MG TAB 2.5 MG PO (08:15)
[2018-11-11] MEDS: Multivitamin w/Minerals TAB 1 TAB PO (08:15)
[2018-11-11] MEDS: traZODone 50 MG TAB 25 MG PO (08:15)
[2018-11-11] MEDS: Allopurinol 100 MG TAB PO (08:15)
[2018-11-11] MEDS: Metoprolol CR 25 MG TABCR PO (08:16)
[2018-11-11] MEDS: Senna TAB 1 TAB PO (08:16)
[2018-11-11] MEDS: Pantoprazole 40 MG TABCR PO (08:16)
[2018-11-11] MEDS: Hydrocortisone 10 MG TAB 20 MG PO (08:16)
[2018-11-11] MEDS: Aspirin 81 MG CHEW PO (08:16)
[2018-11-11] MEDS: Biotene Mouthwash 237 ML BTL 15 ML MM (08:17)
[2018-11-11] MEDS: Acetaminophen 500 MG TAB 1000 MG PO (08:17)
[2018-11-11] MEDS: Magnesium Oxide 400 MG TAB PO (08:17)
[2018-11-11] MEDS: Insulin Aspart 300 UNITS/3 ML PEN SC ×2 (09:06)
[2018-11-11] MEDS: Nystatin POWDER 60 GM JAR TP (09:21)
--- NOTE | 2018-11-11 10:22 | W.PM.DS.N ---
Date of service: 11/11/18 Time of Service: 10:22 DS: Diagnosis Discharge Diagnosis (1) HCAP (healthcare-associated pneumonia): Status: Acute (2) Panhypopituitarism: Status: Chronic (3) DOUG (obstructive sleep apnea): Status: Chronic (4) Altered mental status: Status: Acute Discharge Plan Disposition Patient Disposition: SNF (LEVEL 1) [facility] Condition: Stable Discharge Details Reason For Visit: L LOWER LOBE HCAP,PANHYPOPITUITARIASM,LUNG CANCER, Admit Date/Time: 10/31/18 19:09 Admit Provider: Jasson Cavazos Attending Provider: Jasson Cavazos Primary Care Provider: Tram Pacheco Hospital Course Hospital Course: CC: Altered Mental Status, Constipation, Decreased oral intake HPI: 62 year old man with a prior history of Panhypopituitarism, admitted from [facility] Emergency Department on 10/31 with a diagnosis of Pneumonia and Altered Mental Status. Mr. Rowland has a history of a Brain Tumor, s/p resection in the , with subsequent development of panhypopituitarism - Currently with Adrenal Insufficiency, Hypothyroidism, and Diabetes Insipidus. He suffers from morbid obesity, DOUG, PHTN, and Obesity Hypoventilation syndrome. He also suffers from constipation. Mr. Rowland is a resident of the [facility], and was sent to the ED with reported constipation and decreased oral intake. He was noted to be combative, with tachycardia and evidence of pneumonia by CXR. He was however afebrile and without a leukocytosis. Following admission Mr. Rowland was maintained on Vancomycin and Pip-Tazo, with improvement in his symptoms overall, but with continued combative behavior. His confusion has improved significantly. In review of Dr. Pacheco's note from earlier this hospitalization it appears that the patient has a history of baseline agitation and difficulty with his management. His daughter reports overall slight confusion and combative behavior that dates back to [facility] at the [facility]. In discussion with [facility] it appears that the patient's behavior is a chronic finding. He has had nocturnal hypoxia, likely on the basis of untreated DOUG. Patient remains afebrile, normotensive, and nontachycardic. He is not hypoxic while awake. His sodium remains mininimally low this morning. (1) HCAP (healthcare-associated pneumonia): S/p 5 day course of antibiotic therapy with Vancomycin and Pip-Tazo, and clinicaly appearing improved. Current nocturnal hypoxia likely related to untreated DOUG. As patient pulled out his PICC line and 2 peripheral lines, and appeared improved discontinued antibiotic therapy after completion of a 5 day course. Remains afebrile and without a leukocytosis. (2) Panhypopituitarism: Following remote resection of a brain tumor. Currently with treatment for Adrenal Insufficiency, DI, and Hypothyroidism. Continue Hydrocortisone at home dose, reduced dose Levothyroxine given profoundly low TSH, as well as Desmopressin. Of note, patient was volume overloaded following his initial hospitalization, and has undergone careful attempts at diuresis with close monitoring of his sodium level. Given his body habitus it's been hard to guage his overall fluid status, and very difficult to weigh on a daily basis. Currently his sodium is minimally low, but within his baseline. Plan will be to repeat a BMP in 3 days. Continue with home dose of Desmopressin. Will also need repeat TSH in 4-6 weeks due to dose adjustment made at time of admission. (3) DOUG (obstructive sleep apnea): With concurrent dilated RV and RA, with PHTN by ECHO. Not utilizing BiPAP with evidence of both CO2 retention as well as nocturnal hypoxia. Continue Supplemental O2 as needed. (4) Altered mental status: Reported intermittent agitation and behavioral disturbances. Patient with evidence of baseline behavioral issues, worsened acutely in the setting of acute illness and hospitalization, but now appears at baseline. EEG limited due to patient cooperation, with evidence of moderate to severe diffuse encephalopathy, without epileptiform activity - overall clinical picture is atypical for seizure activity. Per discussion with [facility] it appears that patient's behavior is at baseline. Mental status appears improved. (5) Diabetes mellitus: Diagnosis of DM based on HgA1C of 7.2%. Blood sugars now 90-100's with tapering of stress dosed steroids. Discontinued Glargine. Will continue on sliding scale coverage. (6) Constipation: Near daily bowel movements since hospitalization. (7) DVT prophylaxis: Was maintained on Heparin SC. Also on PPI therapy for GI Prophylaxis. (8) Advance directive on file: DNR/DNI. (9) Disposition: For discharge back to the [facility] today. Home Meds and New Rx's Prescriptions: New levothyroxine 150 mcg Tablet 150 mcg PO 0600 Qty: 1 RF: 0 melatonin 3 mg Tablet Extended Release 6 mg PO HS Qty: 1 RF: 0 Continued tramadol 50 MG tablet 50 mg PO BID Qty: 90 RF: 5 diphenoxylate-atropine [Lomotil] 2.5-0.025 mg Tablet 1 tab PO TID RF: 0 acetaminophen [Acetaminophen Extra Strength] 500 mg Tablet 1,000 mg PO TID RF: 0 pantoprazole 20 mg Tablet,Delayed Release (Dr/Ec) 20 mg PO DAILY RF: 0 trazodone 100 mg Tablet 100 mg PO QHS RF: 0 hydrocortisone 20 mg Tablet 20 mg PO BID RF: 0 lisinopril 2.5 mg Tablet 2.5 mg PO DAILY RF: 0 desmopressin 0.1 mg Tablet 0.1 mg PO .QEVE RF: 0 cholecalciferol (vitamin D3) [Vitamin D3] 1,000 unit Capsule 1,000 unit PO DAILY RF: 0 potassium, sodium phosphates [Phos-NaK] 280-160-250 mg Powder In Packet 1 packet PO BID RF: 0 metoprolol succinate 25 mg Cap,Sprinkle,Er 24hr Dose Pack 25 mg PO DAILY RF: 0 allopurinol 100 MG tablet 100 mg PO DAILY RF: 0 aspirin 81 MG tablet,chewable 81 mg PO DAILY RF: 0 Certa Plus 1 EACH tablet 1 tab PO DAILY RF: 0 trazodone 50 MG tablet 25 mg PO BID RF: 0 Discontinued levothyroxine 175 mcg Tablet 175 mcg PO DAILY RF: 0 Discharge Instructions Stand Alone Forms: Nursing Discharge Form Activity:: Activity as Tolerated Equipment/Supplies:: No Equipment Needed Diet:: Low Sodium Discharge Orders Discharge Orders: Discharge Order (Routine); Ordered 11/11/18 Ordered By: Franklin Guzman DS: Data Vitals/I&O Vitals and I&O: Vital Signs Temperature 36.6 C 11/11/18 08:09 Temperature Source Skin 11/11/18 08:09 Pulse 74 11/11/18 08:09 Pulse Rhythm Regular 11/11/18 01:40 Pulse 79 11/05/18 07:00 Respiratory Rate 20 11/11/18 08:09 Respiratory Effort 11/11/18 01:40 Respiratory Depth Normal 11/11/18 01:40 Respiratory Pattern Normal 11/11/18 01:40 Blood Pressure 110/60 11/11/18 08:09 Blood Pressure Mean 97 11/08/18 18:33 Blood Pressure Position Supine 10/31/18 21:00 Pulse Oximetry 98 11/11/18 08:09 Oxygen Delivery Method Room Air 11/11/18 08:09 Oxygen Flow Rate 0 11/11/18 08:09 Pain Level 9 11/11/18 08:17 Comment 11/11/18 07:46 Intake & Output 11/10/18 11/10/18 11/11/18 11:59 23:59 11:59 Intake Total 930 / 1350 420 / 1350 Output Total 300 / 3925 3625 / 3925 1600 / 1600 Balance 630 / -2575 -3205 / -2575 -1600 / -1600 Weight 245 kg Intake: IV 20 / Oral 930 / 1330 400 / 1330 Output: Urine 300 / 3925 3625 / 3925 1600 / 1600 Other: Urine Color Yellow Yellow Yellow Urine Appearance Clear Clear Clear Comment medium yassine Completed studies during hospitalization [Text1]: Exam(s) a RAD:XR abdomen flat plate a RAD:XR chest 1V in DI dept SYMPTOM/DIAGNOSIS: DECREASED PO INTAKE, WEAKNESS, ? PNEUMONIA, CONSTIPATION,? SMALL BOWEL OBSTRUCTION AP CHEST: Comparison is made with 04/10/17. The study is limited due to poor inspiration and patient positioning. The cardiac silhouette appears within normal limits given the AP technique. Pulmonary vasculature is within normal limits. There do appear to be increased lung opacity in the left lung base. This may represent atelectasis or pneumonia. Mass cannot be entirely excluded. There is a nodular density in the lateral aspect of the right upper lobe. This was not apparent on the prior examination. IMPRESSION: 1. Limited examination due to patient positioning and body habitus. 2. Left basilar opacity. Differential considerations include atelectasis or pneumonia. Neoplasm cannot be entirely excluded. 3. Small nodular density in the right upper lobe. A follow up CT scan of the chest should be considered for further evaluation. ------- Exam(s) a RAD:XR portable chest AP SYMPTOMS/DIAGNOSIS: S/P PICC LINE INSERTION PORTABLE CHEST X-RAY: Comparison is with the prior examinations. There has been interval placement of a right PICC line. The tip of the catheter is in good position in the superior vena cava. The heart and lungs appear stable compared to the prior examination. IMPRESSION: Interval placement of the right PICC line. The tip of the catheter is in good position in the superior vena cava. ------- Exam(s) a RAD:XR portable chest AP SYMPTOMS/DIAGNOSIS: F/U PNEUMONIA PORTABLE AP CHEST: Comparison 10/31/18. The cardiac silhouette appears stable. There has been improved visualization of the left lung base suggesting improving infiltrate. The right lung remains stable and clear. No gross effusions or pneumothoraces are identified. There is a right PICC line in good position. The tip is seen in the superior vena cava. IMPRESSION: There does appear to be some improvement in the appearance of the left basilar infiltrate. -------- Exam(s) a US:US echocardiogram *[facility]* *[facility]* [address] [place] [address] Date of study: 11/03/2018 Transthoracic Echocardiography M-mode, complete 2D, complete spectral Doppler, and color Doppler *STUDY CONCLUSIONS* Summary: 1. Left ventricle: The cavity size was normal. Wall thickness was normal. Systolic function was normal. The estimated ejection fraction was 60-65%. Wall motion was normal; there were no regional wall motion abnormalities. 2. Right ventricle: The cavity size was markedly dilated. Wall thickness was normal. Systolic function was normal. Minor axis dimension, ED (basilar, A4C): 5.8cm. 3. Right atrium: The atrium was severely dilated. Area ES (A4C): 27.1cm^2. 4. Pulmonary arteries: Pulmonary systolic pressure was increased, in the range of 55mm Hg to 60mm Hg. Labs on day of discharge: Labs from last 24 hours 11/11/18 11/10/18 07:05 09:56 WBC 8.53 RBC 3.71 L Hgb 11.9 L Hct 36.6 L MCV 98.7 H MCH 32.1 MCHC 32.5 RDW 16.2 H Plt Count 333 MPV 9.2 Immature Gran % See Differential Neutrophils % 27.0 Lymphocytes % 55.0 Monocytes % 14.0 Eosinophils % 3.0 Basophils % 0.0 Myelocytes % 1.0 Absolute Neutrophils 2.30 Absolute Lymphocytes 4.69 H Absolute Monocytes 1.19 H Absolute Eosinophils 0.26 Absolute Basophils 0.00 Differential Comment Manual differential RBC Morphology See below Polychromasia Present Anisocytosis 1+ Sodium 134 L Potassium 4.5 D Chloride 100 Carbon Dioxide 28.7 Anion Gap 5.3 BUN 11 Creatinine 0.84 Estimated GFR/1.73 m2 >= 60.00 Glucose 124 H Calcium 8.3 L Magnesium 1.7 L PFSH Medical History Nonsustained paroxysmal supraventricular tachycardia (Acute) Pulmonary hypertension (Chronic) Constipation (Acute) Adrenal insufficiency (Chronic) DOUG (obstructive sleep apnea) (Chronic) Obesity hypoventilation syndrome (Chronic) Morbid obesity with BMI of 70 and over, adult (Chronic) History of brain tumor (Chronic) Morbid obesity (Acute) Panhypopituitarism (Acute) Brain cancer (Chronic) GERD (gastroesophageal reflux disease) (Chronic) Lung cancer (Chronic) Surgical History History of craniotomy (Acute) Social History Smoking/Tobacco Use Status: Former Tobacco Use Alcohol Intake: former Substance use type: does not use Details: per pt I Drank like a fish Do you feel safe in your relationship?: Yes Additional Social history: pt at the [facility]
--- NOTE | 2018-11-11 10:35 | DSE_ITS ---
Date of service: 11/11/18 Time of Service: 10:22 DS: Diagnosis Discharge Diagnosis (1) HCAP (healthcare-associated pneumonia): Status: Acute (2) Panhypopituitarism: Status: Chronic (3) DOUG (obstructive sleep apnea): Status: Chronic (4) Altered mental status: Status: Acute Discharge Plan Disposition Patient Disposition: SNF (LEVEL 1) [facility] Condition: Stable Discharge Details Reason For Visit: L LOWER LOBE HCAP,PANHYPOPITUITARIASM,LUNG CANCER, Admit Date/Time: 10/31/18 19:09 Admit Provider: Jasson Cavazos Attending Provider: Jasson Cavazos Primary Care Provider: Tram Pacheco Hospital Course Hospital Course: CC: Altered Mental Status, Constipation, Decreased oral intake HPI: 62 year old man with a prior history of Panhypopituitarism, admitted from [facility] Emergency Department on 10/31 with a diagnosis of Pneumonia and Altered Mental Status. Mr. Rowland has a history of a Brain Tumor, s/p resection in the , with subsequent development of panhypopituitarism - Currently with Adrenal I nsufficiency, Hypothyroidism, and Diabetes Insipidus. He suffers from morbid obesity, DOUG, PHTN, and Obesity Hypoventilation syndrome. He also suffers from constipation. Mr. Rowland is a resident of the [facility], and was sent to the ED with reported constipation and decreased oral intake. He was noted to be combative, with tachycardia and evidence of pneumonia by CXR. He was however afebrile and without a leukocytosis. Following admission Mr. Rowland was maintained on Vancomycin and Pip-Tazo, with improvement in his symptoms overall, but with continued combative behavior. His confusion has improved significantly. In review of Dr. Pacheco's note from earlier this hospitalization it appears that the patient has a history of baseline agitation and difficulty with his management. His daughter reports overall slight confusion and combative behavior that dates back to his time at the [facility]. In discussion with [facility] it appears that the patient's behavior is a chronic finding. He has had nocturnal hypoxia, likely on the basis of untreated DOUG. Patient remains afebrile, normotensive, and nontachycardic. He is not hypoxic while awake. His sodium remains mininimally low this morning. (1) HCAP (healthcare-associated pneumonia): S/p 5 day course of antibiotic therapy with Vancomycin and Pip-Tazo, and clinicaly appearing improved. Current nocturnal hypoxia likely related to untreated DOUG. As patient pulled out his PICC line and 2 peripheral lines, and appeared improved discontinued antibiotic therapy after completion of a 5 day course. Remains afebrile and without a leukocytosis. (2) Panhypopituitarism: Following remote resection of a brain tumor. Currently with treatment for Adrenal Insufficiency, DI, and Hypothyroidism. Continue Hydrocortisone at home dose, reduced dose Levothyroxine given profoundly low TSH, as well as Desmopressin. Of note, patient was volume overloaded following his initial hospitalization, and has undergone careful attempts at diuresis with close monitoring of his sodium level. Given his body habitus it's been hard to guage his overall fluid status, and very difficult to weigh on a daily basis. Currently his sodium is minimally low, but within his baseline. Plan will be to repeat a BMP in 3 days. Continue with home dose of Desmopressin. Will also need repeat TSH in 4-6 weeks due to dose adjustment made at time of admission. (3) DOUG (obstructive sleep apnea): With concurrent dilated RV and RA, with PHTN by ECHO. Not utilizing BiPAP with evidence of both CO2 retention as well as nocturnal hypoxia. Continue Supplemental O2 as needed. (4) Altered mental status: Reported intermittent agitation and behavioral disturbances. Patient with evidence of baseline behavioral issues, worsened acutely in the s etting of acute illness and hospitalization, but now appears at baseline. EEG limited due to patient cooperation, with evidence of moderate to severe diffuse encephalopathy, without epileptiform activity - overall clinical picture is atypical for seizure activity. Per discussion with [facility] it appears that patient's behavior is at baseline. Mental status appears improved. (5) Diabetes mellitus: Diagnosis of DM based on HgA1C of 7.2%. Blood sugars now 90-100's with tapering of stress dosed steroids. Discontinued Glargine. Will continue on sliding scale coverage. (6) Constipation: Near daily bowel movements since hospitalization. (7) DVT prophylaxis: Was maintained on Heparin SC. Also on PPI therapy for GI Prophylaxis. (8) Advance directive on file: DNR/DNI. (9) Disposition: [facility]. Home Meds and New Rx's Prescriptions: New levothyroxine 150 mcg Tablet 150 mcg PO 0600 Qty: 1 RF: 0 melatonin 3 mg Tablet Extended Release 6 mg PO HS Qty: 1 RF: 0 Continued tramadol 50 MG tablet 50 mg PO BID Qty: 90 RF: 5 diphenoxylate-atropine [Lomotil] 2.5-0.025 mg Tablet 1 tab PO TID RF: 0 acetaminophen [Acetaminophen Extra Strength] 500 mg Tablet 1,000 mg PO TID RF: 0 pantoprazole 20 mg Tablet,Delayed Release (Dr/Ec) 20 mg PO DAILY RF: 0 trazodone 100 mg Tablet 100 mg PO QHS RF: 0 hydrocortisone 20 mg Tablet 20 mg PO BID RF: 0 lisinopril 2.5 mg Tablet 2.5 mg PO DAILY RF: 0 desmopressin 0.1 mg Tablet 0.1 mg PO .QEVE RF: 0 cholecalciferol (vitamin D3) [Vitamin D3] 1,000 unit Capsule 1,000 unit PO DAILY RF: 0 potassium, sodium phosphates [Phos-NaK] 280-160-250 mg Powder In Packet 1 packet PO BID RF: 0 metoprolol succinate 25 mg Cap,Sprinkle,Er 24hr Dose Pack 25 mg PO DAILY RF: 0 allopurinol 100 MG tablet 100 mg PO DAILY RF: 0 aspirin 81 MG tablet,chewable 81 mg PO DAILY RF: 0 Certa Plus 1 EACH tablet 1 tab PO DAILY RF: 0 trazodone 50 MG tablet 25 mg PO BID RF: 0 Discontinued levothyroxine 175 mcg Tablet 175 mcg PO DAILY RF: 0 Discharge Instructions Stand Alone Forms: Nursing Discharge Form Activity:: Activity as Tolerated Equipment/Supplies:: No Equipment Needed Diet:: Low Sodium Discharge Orders Discharge Orders: Discharge Order (Routine); Ordered 11/11/18 Ordered By: Franklin Guzman DS: Data Vitals/I&O Vitals and I&O: Vital Signs Temperature 36.6 C 11/11/18 08:09 Temperature Source Skin 11/11/18 08:09 Pulse 74 11/11/18 08:09 Pulse Rhythm Regular 11/11/18 01:40 Pulse 79 11/05/18 07:00 Respiratory Rate 20 11/11/18 08:09 Respiratory Effort 11/11/18 01:40 Respiratory Depth Normal 11/11/18 01:40 Respiratory Pattern Normal 11/11/18 01:40 Blood Pressure 110/60 11/11/18 08:09 Blood Pressure Mean 97 11/08/18 18:33 Blood Pressure Position Supine 10/31/18 21:00 Pulse Oximetry 98 11/11/18 08:09 Oxygen Delivery Method Room Air 11/11/18 08:09 Oxygen Flow Rate 0 11/11/18 08:09 Pain Level 9 11/11/18 08:17 Comment 11/11/18 07:46 Intake & Output 11/10/18 11/10/18 11/11/18 11:59 23:59 11:59 Intake Total 930 / 1350 420 / 1350 Output Total 300 / 3925 3625 / 3925 1600 / 1600 Balance 630 / -2575 -3205 / -2575 -1600 / -1600 Weight 245 kg Intake: IV 20 / 20 Oral 930 / 1330 400 / 1330 Output: Urine 300 / 3925 3625 / 3925 1600 / 1600 Other: Urine Color Yellow Yellow Yellow Urine Appearance Clear Clear Clear Comment medium yassine Completed studies during hospitalization [Text1]: Exam(s) a RAD:XR abdomen flat plate a RAD:XR chest 1V in DI dept SYMPTOM/DIAGNOSIS: DECREASED PO INTAKE, WEAKNESS, ? PNEUMONIA, CONSTIPATION,? S MALL BOWEL OBSTRUCTION AP CHEST: Comparison is made with 04/10/17. The study is limited due to poor inspiration and patient positioning. The cardiac silhouette appears within normal limits given the AP technique. Pulmonary vasculature is within normal limits. There do appear to be increased lung opacity in the left lung base. This may represent atelectasis or pneumonia. Mass cannot be entirely excluded. There is a nodular density in the lateral aspect of the right upper lobe. This was not apparent on the prior examination. IMPRESSION: 1. Limited examination due to patient positioning and body habitus. 2. Left basilar opacity. Differential considerations include atelectasis or pneumonia. Neoplasm cannot be entirely excluded. 3. Small nodular density in the right upper lobe. A follow up CT scan of the chest should be considered for further evaluation. ------- Exam(s) a RAD:XR portable chest AP SYMPTOMS/DIAGNOSIS: S/P PICC LINE INSERTION PORTABLE CHEST X-RAY: Comparison is with the prior examinations. There has been interval placement of a right PICC line. The tip of the catheter is in good position in the superior vena cava. The heart and lungs appear stable compared to the prior examination. IMPRESSION: Interval placement of the right PICC line. The tip of the catheter is in good position in the superior vena cava. ------- Exam(s) a RAD:XR portable chest AP SYMPTOMS/DIAGNOSIS: F/U PNEUMONIA PORTABLE AP CHEST: Comparison 10/31/18. The cardiac silhouette appears stable. There has been improved visualization of the left lung base suggesting improving infiltrate. The right lung remains stable and clear. No gross effusions or pneumothoraces are identified. There is a right PICC line in good position. The tip is seen in the superior vena cava. IMPRESSION: There does appear to be some improvement in the appearance of the left basilar infiltrate. -------- Exam(s) a US:US echocardiogram *[facility]* * Cardiology* [address] [place] [address] Date of study: 11/03/2018 Transthoracic Echocardiography M-mode, complete 2D, complete spectral Doppler, and color Doppler *STUDY CONCLUSIONS* Summary: 1. Left ventricle: The cavity size was normal. Wall thickness was normal. Systolic function was normal. The estimated ejection fraction was 60-65%. Wall motion was normal; there were no regional wall motion abnormalities. 2. Right ventricle: The cavity size was markedly dilated. Wall thickness was normal. Systolic function was normal. Minor axis dimension, ED (basilar, A4C): 5.8cm. 3. Right atrium: The atrium was severely dilated. Area ES (A4C): 27.1cm^2. 4. Pulmonary arteries: Pulmonary systolic pressure was increased, in the range of 55mm Hg to 60mm Hg. Labs on day of discharge: Labs from last 24 hours 11/11/18 11/10/18 07:05 09:56 WBC 8.53 RBC 3.71 L Hgb 11.9 L Hct 36.6 L MCV 98.7 H MCH 32.1 MCHC 32.5 RDW 16.2 H Plt Count 333 MPV 9.2 Immature Gran % See Differential Neutrophils % 27.0 Lymphocytes % 55.0 Monocytes % 14.0 Eosinophils % 3.0 Basophils % 0.0 Myelocytes % 1.0 Absolute Neutrophils 2.30 Absolute Lymphocytes 4.69 H Absolute Monocytes 1.19 H Absolute Eosinophils 0.26 Absolute Basophils 0.00 Differential Comment Manual differential RBC Morphology See below Polychromasia Present Anisocytosis 1+ Sodium 134 L Potassium 4.5 D Chloride 100 Carbon Dioxide 28.7 Anion Gap 5.3 BUN 11 Creatinine 0.84 Estimated GFR/1.73 m2 >= 60.00 Glucose 124 H Calcium 8.3 L Magnesium 1.7 L PFSH Medical History Nonsustained paroxysmal supraventricular tachycardia (Acute) Pulmonary hypertension (Chronic) Constipation (Acute) Adrenal insufficiency (Chronic) DOUG (obstructive sleep apnea) (Chronic) Obesity hypoventilation syndrome (Chronic) Morbid obesity with BMI of 70 and over, adult (Chronic) History of brain tumor (Chronic) Morbid obesity (Acute) Panhypopituitarism (Acute) Brain cancer (Chronic) GERD (gastroesophageal reflux disease) (Chronic) Lung cancer (Chronic) Surgical History History of craniotomy (Acute) Social History Smoking/Tobacco Use Status: Former Tobacco Use Alcohol Intake: former Substance use type: does not use Details: per pt I Drank like a fish Do you feel safe in your relationship?: Yes Additional Social history: pt at the [facility]
--- NOTE | 2018-11-11 15:18 | PDOC.CMDIS ---
LACE Index Scoring Tool - Questions: Length of Stay (in days): 7 - 13 Acuity (Admit via E.D.?): Yes Comorbidities: Any Tumor E.D. Visits: 1 - Answers: Total Score: 11 Risk of Readmission: High Risk Care Management Discharge Reason for Hospitalization: HCAP Discharge Plan: Prakash will return to the [facility][1] when ready per MD, he will transport via [facility] coordinated by this credit underwriter. Patient/Family Education Needs: Review discharge instructions, discuss Ask Me Three. Services Needed at Discharge: Alf Facility (Return Level 1 to the [facility][1] H&R), Transportation ([facility] )
--- NOTE | 2018-11-11 16:37 | CMDISCH_ITS ---
LACE Index Scoring Tool - Questions: Length of Stay (in days): 7 - 13 Acuity (Admit via E.D.?): Yes Comorbidities: Any Tumor E.D. Visits: 1 - Answers: Total Score: 11 Risk of Readmission: High Risk Care Management Discharge Reason for Hospitalization: HCAP Discharge Plan: Prakash will return to the [facility] when ready per MD, he will transport via [facility] coordinated by this process description writer. Patient/Family Education Needs: Review discharge instructions, discuss Ask Me Three. Services Needed at Discharge: Group Home Facility (Return Level 1 to the [facility] H&R), Transportation ([facility] )
--- NOTE | 2018-11-15 07:56 | OT.INDS ---
Date of service: 11/15/18 Time of Service: 07:56 Occupational Therapy Notes Occupational Therapy Inpatient Discharge Summary Date: 11/15/18 for 11/11/18 Dates of Service: 11/02/18-11/11/18 Referring Doctor:Kandice Ang MD OT Orders: Eval and Treat Precautions: Fall, Contact PATIENT PROFILE/ADMITTING DIAGNOSIS: Pt is a 62 year old male who was admitted through the ER from [facility] for penumonia, dehydration, tachycardia, morbid obesity. He has a hx of a brain tumor post craniotomy in 1980. Past Medical History: Medical History Morbid obesity (Acute) Panhypopituitarism (Acute) Brain cancer (Chronic) GERD (gastroesophageal reflux disease) (Chronic) Lung cancer (Chronic) Surgical History History of craniotomy (Acute) Social History/Home Situation: Pt was currently at [facility] per pts EMR. Pt told OT he lives with Jasson De Leon who saw pt in the ER per pts EMR. Pt reports that he needs help with dressing and bathing. He was a poor historian but also reported that he is able to go to the bathroom (I) but they wont let him. When OT asks pt who he replies, no, I want a drink, get me a drink. Equipment owned/DME: Pt resided at SNF with all DME needs. THIS DOCUMENT SERVES A SUMMARY OF CARE NO SKILLED OT SERVICES PROVIDED FOR THIS DOCUMENTATION SUBJECTIVE: NT OBJECTIVE: ROM: RUE AROM WFL L UE Pt was unable to perform AROM, PROM he was able to achieve 130* shoulder flexion, Full elbow and full hand. STRENGTH: RUE 4/5 throughout globally with mod vc as to what OT was performing. LUE Unable to test shoulder and elbow, iv rn was strong. FUNCTIONAL MOBILITY/ADLS: Transfers- bed mobility max (A)x4 for moving up in bed. Functionally able to reach face (R) hand, cross midline with increased vc BATHING: Lying in bed max (A) x3. He requires max vc for hand placement and tactile touch for bed mobility. TOILETING: [place] BALANCE: Unable to test as pt was in bed fully supported with slight sway to (L) side requiring (A) for bed mobility. ASSESSMENT: Patient is a 62-year-old male referred to occupational therapy services with diagnosis of pneumonia, dehydration, tachycardia, morbid obesity, hx of brain tumor post craniotomy 1980. Pt was seen for 3 skilled OT sessions, where he remained for the most part max (A) and aggressive behavior. Pt was discharged on 11/11/18 and is formally discharged from skilled OT services at this time. GOALS- (Not met) 1. Transfers mod (A) bed mobility 2. Dressing Sitting in bed (I) with UE/mod (A) LE 3. Bathing Sitting in bed (I) face, UE and abdomen, mod (A) LE 4. Toileting with urinal (I) 5. Eating (I) 6. Sitting in bed (I) with brushing hair. PLAN OF CARE/TREATMENT PLAN: Discharged from skilled OT services 11/11/18 DISCHARGE RECOMMENDATIONS Based on pts current level of function OT recommends that pt go to SNF, preference of pt would be to not return to [facility]. TREATMENT TIME/MINUTES/CODES N/A Sara Maldonado OTR/L [facility]
== END 2018-11-11 11:13 | disposition skilled nursing facility (03) | DRG 194 ==
LOC: ER 19:30 → ICU 20:56 → MS 11-11 10:35 → ICU 11-18 10:51
PROVIDERS: Internal Medicine; Admitting Provider Family Medicine; Emergency Provider Physician Assistant; PCP Family Medicine; Visit Provider Internal Medicine
DX: J18.9 Pneumonia, unspecified organism (principal); E23.2 Diabetes insipidus; E27.40 Unspecified adrenocortical insufficiency; E66.2 Morbid (severe) obesity with alveolar hypoventilation; Z68.45 Body mass index [BMI] 70 or greater, adult; E87.1 Hypo-osmolality and hyponatremia; Y95 Nosocomial condition; A49.02 Methicillin resistant Staphylococcus aureus infection, unspecified site; E89.3 Postprocedural hypopituitarism; E03.9 Hypothyroidism, unspecified; K59.00 Constipation, unspecified; R00.0 Tachycardia, unspecified; E11.65 Type 2 diabetes mellitus with hyperglycemia; T38.0X5A Adverse effect of glucocorticoids and synthetic analogues, initial encounter; E87.70 Fluid overload, unspecified; E83.42 Hypomagnesemia; G47.34 Idiopathic sleep related nonobstructive alveolar hypoventilation; R45.1 Restlessness and agitation; Z85.841 Personal history of malignant neoplasm of brain; Z74.01 Bed confinement status; Z87.891 Personal history of nicotine dependence; Z51.5 Encounter for palliative care
CPT/HCPCS: 36410; 36415; 36416; 36569; 36592; 80048; 80053; 82550; 82805; 85027; 87040; 87081; 92610; 93005; 95819; 96361; 96365; 96367; 96375; 97110; 97163; 97167; 97530; 97535; 99223; 99231; 99232; 99233; 99239; 99254; 99285; 36600; 71045; 74018; 80202; 81003; 81015; 83036; 83735; 83880; 84439; 84443; 84484; 85025; 85730; 92507; 93010; 93306; J0131; J0696; J1630; J1644; J1720; J1941; J2060; J2543; J3370; J3475; J3490

== ENCOUNTER 2019-05-19 11:21 | Outpatient (REF) | payer MEDICAID, SELFPAY ==
[2019-05-19 13:59] LABS: ALT 27 U/L (16-63); AST 42 U/L (15-37); Albumin 2.4 g/dL (3.4-5.0); Alkaline Phosphatase 61 U/L (46-116); Anion Gap 8.9 mmol/L (3-11); BUN 11 mg/dL (7-18); Bilirubin, Total 0.5 mg/dL (0.2-1.0); CO2 26.1 mmol/L (21.0-32.0); CREATININE 0.83 mg/dL (0.70-1.30); Calcium 7.2 mg/dL (8.5-10.1); Chloride 95 mmol/L (98-107); Glucose 97 mg/dL (70-100); Potassium 3.9 mmol/L (3.5-5.1); Sodium 130 mmol/L (136-145); TSH (W/Ref FT4) 0.02 uIU/mL (0.36-3.74); Total Protein 5.3 g/dL (6.4-8.2)
[2019-05-19 14:03] LABS: Hemoglobin A1C 5.3 % (4.5-6.2)
[2019-05-19 14:24] LABS: FREE T4 0.87 ng/dL (0.76-1.46)
== END 2019-05-19 11:41 ==
LOC: LBN 11:21
PROVIDERS: Visit Provider Nurse Practitioner Gerontology
DX: E03.9 Hypothyroidism, unspecified (principal); I10 Essential (primary) hypertension; E11.40 Type 2 diabetes mellitus with diabetic neuropathy, unspecified
CPT/HCPCS: 80053; 83036; 84439; 84443

== ENCOUNTER 2019-06-29 12:14 | Outpatient (REF) | payer MEDICAID, SELFPAY ==
[2019-06-29 14:51] LABS: Bilirubin Small (Negative); Blood Negative (Negative); Clarity Clear (Clear); Glucose Negative (Negative); Ketones Negative (Negative); Leukocyte Esterase Negative (Negative); Nitrite Negative (Negative); Specific Gravity >= 1.030 (1.005-1.025)
== END 2019-06-29 12:34 ==
LOC: LBN 12:14
PROVIDERS: PCP Family Medicine; Visit Provider Family Medicine
DX: R82.90 Unspecified abnormal findings in urine (principal)
CPT/HCPCS: 81003

== ENCOUNTER 2019-08-06 15:32 | Inpatient (IN) | payer MEDICAID, SELFPAY ==
[2019-08-06] VITALS (74 sets, daily range): BP systolic 51–199; BP diastolic 27–125; PULSE 66–218; RESP 10–33; TEMP 35.2–36.1; O2SAT 78–99
[2019-08-06] MEDS: Normal Saline 1,000 ML 1000 ML IV ×3 (16:04→19:54)
--- NOTE | 2019-08-06 16:04 | W.ED.GENAD ---
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 BP per the [facility] 92/54. Per EMS, patient complained of upper abdominal pain in route. Patient denies any acute complaints on arrival. He is normally A & O x3 at baseline. He is oriented x1, person at this time. Lungs clear. Abdomen tender right upper quadrant. He appears nontoxic. Patient is morbidly obese. Differential diagnosis includes pneumonia, UTI, electrolyte abnormality, dehydration, acute abdominal process, CVA, hormone deficiency. Will place an IV, bolus IV fluids, screening labs, lactate, cultures, urinalysis, CT head and CT chest abdomen pelvis. 1729 --unable to obtain CT chest abdomen and pelvis due to patient's body size. CT head negative. Patient vomited multiple times in CT which was green in color. He had multiple episodes of hypotension, as low as systolic blood pressure 60s. After return from CT, BP 108/75. Reassessment of abdomen soft and nontender. Will admit for hypotension, observation and serial abdominal exams. Bedside abdominal ultrasound limited due to body habitus. As there is no rigidity, guarding, tenderness, do not suspect an acute abdomen at this time. Pt is DNR/DNI. Suspect he would not desire or be appropriate for surgical intervention if indicated. 1899 --BP hypotensive again. 79/52. Patient sleeping. O2 sat mid to high 90s, suspect sleep apnea. Staff on floor does not feel comfortable with patient admitted to floor due to hypotension. Discussed with Dr. Cavazos and will admit to ICU. Recommends another dose of hydrocortisone. Will start 3rd L IV fluids and then follow with infusion at 125. 1944 --BP 123/96. Medical Records Medical records reviewed: Yes I reviewed the patient's medical records. Imaging Data Radiologic Study: Radiologist's impression: CT Head Without Contrast Exam date and time: 08/06/2019 5:09 PM Age: 63 years old Clinical indication: Other: Confusion, R/O acute disease TECHNIQUE: Imaging protocol: Computed tomography of the head without contrast. COMPARISON: CT HEAD WITHOUT CONTRAST 04/10/2017 1:23 PM FINDINGS: There is a left frontoparietal craniotomy. No intracranial hemorrhage.There are periventricular white matter lucencies compatible with chronic microvascular ischemic disease. The ventricles and sulci are prominent compatible with age-related involutional changes. No mass effect or midline shift. No fracture.The visualized paranasal sinuses and mastoid air cells are normally aerated bilaterally. IMPRESSION: No acute findings. Lab Data Lab results reviewed: Yes I reviewed the patient's lab results. Labs: 08/06/19 18:36 Nose MRSA Screen - Pending 08/06/19 16:45 Blood Blood Culture - Pending 08/06/19 16:13 Urine - Reflex from Ua Urine Culture - Pending 08/06/19 16:04 Nasopharynx Influenza Types A,B Antigen - Final 08/06/19 15:55 Blood Blood Culture - Pending Laboratory Tests Range/Units 08/06/19 08/06/19 08/06/19 15:55 15:55 15:55 WBC (4.4-10.8) k/cumm 3.61 L RBC (4.50-6.00) m/cumm 3.53 L Hgb (13.5-17.5) g/dL 11.8 L Hct (40.0-50.0) % 34.3 L MCV (80-95) fL 97.2 H MCH (27.0-33.0) pg 33.4 H MCHC (32.0-36.0) g/dL 34.4 RDW (11.8-14.1) % 17.6 H Plt Count (130-400) x1000/uL 402 H MPV (8.0-11.0) fL 8.5 Immature Gran % % 0.3 Neutrophils % 39.2 Lymphocytes % 49.6 Monocytes % 7.8 Eosinophils % 2.5 Basophils % 0.6 Absolute Neutrophils (1.2-6.7) k/cumm 1.42 Absolute Lymphocytes (1.2-3.4) k/cumm 1.79 Absolute Monocytes (0.11-0.7) k/cumm 0.28 Absolute Eosinophils (0.0-0.7) k/cumm 0.09 Absolute Basophils (0.0-0.2) k/cumm 0.02 PT (9.3-11.0) sec INR (0.9-1.1) APTT (21.0-31.4) sec Sodium (136-145) mmol/L 133 L Potassium (3.5-5.1) mmol/L 3.8 Chloride (98-107) mmol/L 96 L Carbon Dioxide (21.0-32.0) mmol/L 27.6 Anion Gap (3-11) mmol/L 9.4 BUN (7-18) mg/dL 21 H Creatinine (0.70-1.30) mg/dL 1.41 H Estimated GFR/1.73 m2 (mL/min/1.73m2) 50.93 Glucose (74-106) mg/dL 101 Lactate (0.6-1.4) mmol/L 1.4 Calcium (8.5-10.1) mg/dL 8.1 L Magnesium (1.8-2.4) mg/dL 1.4 L Total Bilirubin (0.2-1.0) mg/dL 0.8 AST (15-37) U/L 62 H ALT (16-63) U/L 29 Alkaline Phosphatase (46-116) U/L 112 Troponin I (<0.06) ng/Ml < 0.05 Total Protein (6.4-8.2) g/dL 5.3 L Albumin (3.4-5.0) g/dL 2.1 L TSH (0.36-3.74) uIU/mL Free T4 (0.76-1.46) ng/dL Urine Color (Yellow) Urine Clarity (Clear) Urine pH (5-8) Ur Specific [place] (1.005-1.025) Urine Protein (Negative) mg/dL Urine Ketones (Negative) mg/dL Urine Blood (Negative) Urine Nitrite (Negative) Urine Bilirubin (Negative) Urine Urobilinogen (Up TO 0.2) EU/dL Ur Leukocyte Esterase (Negative) Urine RBC (0-2) HPF Urine WBC (0-5) HPF Ur Epithelial Cells (Negative) HPF Urine Crystals (Negative) HPF Urine Bacteria (Negative) HPF Urine Mucus (Negative) Ur Culture Indicated? Urine Glucose (Negative) mg/dL Range/Units 08/06/19 08/06/19 08/06/19 15:55 15:55 16:13 WBC (4.4-10.8) k/cumm RBC (4.50-6.00) m/cumm Hgb (13.5-17.5) g/dL Hct (40.0-50.0) % MCV (80-95) fL MCH (27.0-33.0) pg MCHC (32.0-36.0) g/dL RDW (11.8-14.1) % Plt Count (130-400) x1000/uL MPV (8.0-11.0) fL Immature Gran % % Neutrophils % Lymphocytes % Monocytes % Eosinophils % Basophils % Absolute Neutrophils (1.2-6.7) k/cumm Absolute Lymphocytes (1.2-3.4) k/cumm Absolute Monocytes (0.11-0.7) k/cumm Absolute Eosinophils (0.0-0.7) k/cumm Absolute Basophils (0.0-0.2) k/cumm PT (9.3-11.0) sec 11.8 H INR (0.9-1.1) 1.2 H APTT (21.0-31.4) sec 25.3 Sodium (136-145) mmol/L Potassium (3.5-5.1) mmol/L Chloride (98-107) mmol/L Carbon Dioxide (21.0-32.0) mmol/L Anion Gap (3-11) mmol/L BUN (7-18) mg/dL Creatinine (0.70-1.30) mg/dL Estimated GFR/1.73 m2 (mL/min/1.73m2) Glucose (74-106) mg/dL Lactate (0.6-1.4) mmol/L Calcium (8.5-10.1) mg/dL Magnesium (1.8-2.4) mg/dL Total Bilirubin (0.2-1.0) mg/dL AST (15-37) U/L ALT (16-63) U/L Alkaline Phosphatase (46-116) U/L Troponin I (<0.06) ng/Ml Total Protein (6.4-8.2) g/dL Albumin (3.4-5.0) g/dL TSH (0.36-3.74) uIU/mL < 0.01 L Free T4 (0.76-1.46) ng/dL 1.45 Urine Color (Yellow) Miranda Urine Clarity (Clear) Cloudy Urine pH (5-8) 5.5 Ur Specific [place] (1.005-1.025) >= 1.030 H Urine Protein (Negative) mg/dL Negative Urine Ketones (Negative) mg/dL Negative Urine Blood (Negative) Negative Urine Nitrite (Negative) Negative Urine Bilirubin (Negative) Small H Urine Urobilinogen (Up TO 0.2) EU/dL 0.2 Ur Leukocyte Esterase (Negative) Small H Urine RBC (0-2) HPF 0-2 Urine WBC (0-5) HPF 10-20 H Ur Epithelial Cells (Negative) HPF Few Urine Crystals (Negative) HPF Many amorphous Urine Bacteria (Negative) HPF Packed Urine Mucus (Negative) Ur Culture Indicated? Yes Urine Glucose (Negative) mg/dL Negative HPI General Mode of arrival: ambulatory. Date/Time Provider Initiated Documentation: 08/06/19 16:17. Limitations to Documentation: no limitations. Information obtained by: patient. History of Present Illness 63 year old M presents to the emergency department with the chief complaint of Hypotension, confusion, abdominal pain, vomiting, Patient started experiencing this hour(s) (Today) and it has been constant. Patient notes nausea/vomiting; denies cough, diaphoresis, fever/chills, loss of appetite, shortness of breath, syncope and weakness. Patient did receive the following treatments prior to arrival, none Related Data Home Medications Medication Instructions Recorded Confirmed allopurinol 100 mg PO DAILY 04/07/17 08/06/19 aspirin 81 mg PO DAILY 04/07/17 08/06/19 trazodone 25 mg PO BID 04/07/17 08/06/19 tramadol 50 mg PO BID #90 tab-cap 11/20/17 08/06/19 acetaminophen [Acetaminophen Extra 1,000 mg PO TID 10/31/18 08/06/19 Strength] desmopressin 0.1 mg PO .QEVE 10/31/18 08/06/19 lisinopril 2.5 mg PO DAILY 10/31/18 08/06/19 metoprolol succinate 25 mg PO DAILY 10/31/18 08/06/19 potassium, sodium phosphates 1 packet PO BID 10/31/18 08/06/19 [Phos-NaK] azelastine 1 drp OPHTHALMIC (EYE) BID 08/06/19 08/06/19 bupropion HCl [Wellbutrin XL] 300 mg PO QAM 08/06/19 08/06/19 calcium carbonate [Calcium Antacid] 200 mg PO TID PRN 08/06/19 08/06/19 gabapentin 300 mg PO TID 08/06/19 08/06/19 hydrocortisone [Cortef] 10 mg PO QPM 08/06/19 08/06/19 hydrocortisone [Cortef] 15 mg PO DAILY 08/06/19 08/06/19 levothyroxine 150 mcg PO HS 08/06/19 08/06/19 liraglutide [Victoza 3-Celestine] 1.2 mg SUBCUT DAILY 08/06/19 08/06/19 melatonin 3 mg PO HS 08/06/19 08/06/19 [id number] acid 1 tab PO DAILY 08/06/19 08/06/19 [Centrum Complete] trazodone 150 mg PO QHS 08/06/19 08/06/19 Allergies Allergy/AdvReac Type Severity Reaction Status Date / Time Influenza Virus Vaccines AdvReac Unknown Unverified 10/31/18 11:58 NSAIDS (Non-Steroidal AdvReac Unknown Unverified 10/31/18 11:58 Anti-Inflamma risedronate sodium AdvReac Unknown Unverified 10/31/18 11:58 rosuvastatin AdvReac Unknown Unverified 10/31/18 11:58 Xojrucq-Nym-Spz Reductase AdvReac Unknown Unverified 10/31/18 11:58 Inhibitor General Stated Complaint: GenMedical BANDAR: 2 Review of Systems All systems reviewed & are unremarkable except as noted in HPI and below Constitutional Constitutional: Reports as per HPI, Denies chills and Denies fever(s) Eyes Eyes: Denies blurry vision ENT Ears, Nose, Mouth, and Throat: Denies dizziness, Denies sore throat and Denies throat swelling Cardiovascular Cardiovascular: Denies chest pain and Denies dyspnea Respiratory Respiratory: Denies cough and Denies dyspnea Gastrointestinal Gastrointestinal: Denies abdominal pain, Denies diarrhea and Denies vomiting Genitourinary Genitourinary: Denies hematuria and Denies dysuria Musculoskeletal Musculoskeletal: Denies back pain and Denies numbness Integumentary/Breasts Skin/Breast: Denies lesions and Denies rash Neurologic Neurologic: Denies dizziness, Denies focal weakness and Denies numbness Allergic/Immunologic Allergic/Immunologic: Denies throat swelling [facility] Medical History Adrenal insufficiency (Chronic) Brain cancer (Chronic) Constipation (Acute) GERD (gastroesophageal reflux disease) (Chronic) HCAP (healthcare-associated pneumonia) (Inactive) Left lower lobe History of brain tumor (Chronic) Lung cancer (Chronic) Morbid obesity (Acute) Morbid obesity with BMI of 70 and over, adult (Chronic) Nonsustained paroxysmal supraventricular tachycardia (Acute) Obesity hypoventilation syndrome (Chronic) DOUG (obstructive sleep apnea) (Chronic) Panhypopituitarism (Acute) Pulmonary hypertension (Chronic) Toxic metabolic encephalopathy (Inactive) Surgical History History of craniotomy (Acute) Social History Smoking/Tobacco Use Status: Former Tobacco Use Alcohol Intake: former Substance use type: does not use Details: per pt I Drank like a fish Do you feel safe in your relationship?: Yes Additional Social history: pt at the [facility] Exam Const General: cooperative Nutritional Appearance: obese morbidly obese Orientation: alert, awake, oriented to person, not oriented to place and not oriented to time [facility] Head: normal to inspection Ears: hearing grossly normal bilaterally, external ears normal and TM's normal bilaterally General nose exam: external nose normal Face and sinus: normal facial exam Mouth: mucous membranes dry Throat: posterior oropharynx normal Eyes General: appearance normal, both eyes and all related structures Eyelids: eyelids normal EOM: EOM intact bilaterally Neck Neck: normal visual inspection Lymphatic: no lymphadenopathy noted Chest Chest: normal inspection of the chest Resp Effort & Inspection: normal respiratory effort and able to speak in complete sentences Auscultation: clear to auscultation bilaterally Cardio Rate: regular rate Rhythm: regular rhythm GI Inspection: normal to inspection, large pannus and obesity Palpation: soft, not firm, no guarding, no hepatosplenomegaly, no masses and tender in the RUQ Auscultation: normal bowel sounds Skin Other: Extensive sloughing of skin of anterior lower legs, appears chronic. No significant erythema, drainage. Neuro General: alert, awake and no meningeal signs Sensory Exam: no sensory deficits noted Other: Able to move bilateral upper extremities. Difficulty with lifting legs, which appears chronic. Extrem General: normal to inspection, full ROM and normal capillary refill Psych Appearance: grossly normal Mental Status: mental status grossly normal Speech and Movement: speech and movement normal Affect: normal affect Thought Process: normal Course Vital Signs Vital signs: Vital Signs Temperature 96.8 F L 08/06/19 15:33 Pulse 90 08/06/19 15:33 Respiratory Rate 17 08/06/19 15:33 Blood Pressure 89/27 L 08/06/19 15:33 Pulse Oximetry 94 L 08/06/19 15:33 Temperature 96.8 F L 08/06/19 15:33 Temperature Source Temporal Artery Scan 08/06/19 15:33 Pulse 90 08/06/19 15:33 Respiratory Rate 17 08/06/19 15:33 Respiratory Effort Non-Labored 08/06/19 15:38 Blood Pressure 89/27 L 08/06/19 15:33 Pulse Oximetry 94 L 08/06/19 15:33 Oxygen Delivery Method Room Air 08/06/19 15:33 Oxygen Flow Rate 0 08/06/19 15:33 Pain Level 0 08/06/19 15:33 Lab/Test Results Lab/Test Results: 08/06/19 16:02 Nasopharynx Influenza Types A,B Antigen - Pending 08/06/19 15:42 Blood Blood Culture - Pending 08/06/19 15:42 Blood Blood Culture - Pending
[2019-08-06 16:05] LABS: Lactate 1.4 mmol/L (0.6-1.4)
[2019-08-06 16:09] LABS: Abs Immature Grans 0.01 k/cumm (0.0-0.09); Absolute Basophil Count 0.02 k/cumm (0.0-0.2); Absolute Eosinophil Count 0.09 k/cumm (0.0-0.7); Absolute Lymphocyte Count 1.79 k/cumm (1.2-3.4); Absolute Monocyte Count 0.28 k/cumm (0.11-0.7); Absolute Neutrophil Count 1.42 k/cumm (1.2-6.7); Basophils % 0.6; Eosinophils % 2.5; HCT 34.3 % (40.0-50.0); HGB 11.8 g/dL (13.5-17.5); Immature Grans % 0.3 %; Lymphocytes % 49.6; Mean Corp. HGB Concentration 34.4 g/dL (32.0-36.0); Mean Corpuscular Hemoglobin 33.4 pg (27.0-33.0); Mean Corpuscular Volume 97.2 fL (80-95); Mean Platelet Volume 8.5 fL (8.0-11.0); Monocytes % 7.8; Neutrophils % 39.2; Platelet Count 402 x1000/uL (130-400); RBC 3.53 m/cumm (4.50-6.00); RBC Distribution Width 17.6 % (11.8-14.1); White Blood Cell Count 3.61 k/cumm (4.4-10.8)
[2019-08-06] MEDS: Lidocaine 2% Jelly 11 ML SYR (16:10)
[2019-08-06] MEDS: Normal Saline Flush 10 ML SYR IVP (16:19)
[2019-08-06 16:20] LABS: INR 1.2 (0.9-1.1); PTT Activated 25.3 sec (21.0-31.4); Prothrombin Time 11.8 sec (9.3-11.0)
[2019-08-06 16:22] LABS: Bilirubin Small (Negative); Blood Negative (Negative); Clarity Cloudy (Clear); Glucose Negative (Negative); Ketones Negative (Negative); Leukocyte Esterase Small (Negative); Nitrite Negative (Negative); Specific Gravity >= 1.030 (1.005-1.025); Urobilinogen 0.2 EU/dL (Up TO 0.2); pH 5.5 (5-8)
[2019-08-06 16:35] LABS: ALT 29 U/L (16-63); AST 62 U/L (15-37); Albumin 2.1 g/dL (3.4-5.0); Alkaline Phosphatase 112 U/L (46-116); Anion Gap 9.4 mmol/L (3-11); BUN 21 mg/dL (7-18); Bilirubin, Total 0.8 mg/dL (0.2-1.0); CO2 27.6 mmol/L (21.0-32.0); CREATININE 1.41 mg/dL (0.70-1.30); Calcium 8.1 mg/dL (8.5-10.1); Chloride 96 mmol/L (98-107); Estimated GFR 50.93 (mL/min/1.73m2); Glucose 101 mg/dL (74-106); Magnesium 1.4 mg/dL (1.8-2.4); Potassium 3.8 mmol/L (3.5-5.1); Sodium 133 mmol/L (136-145); Total Protein 5.3 g/dL (6.4-8.2); Troponin I < 0.05 ng/Ml (<0.06)
[2019-08-06 16:43] LABS: Epithelial Cells Few HPF (Negative); RBC 0-2 HPF (0-2)
[2019-08-06 16:44] LABS: Bacteria Packed HPF (Negative); Crystals Many Amorphous HPF (Negative)
[2019-08-06 16:45] LABS: C & S Indicated? Yes
--- NOTE | 2019-08-06 17:13 | DI.CT_ITS ---
EXAM: CT HEAD WO CLINICAL HISTORY: confusion, r/o acute disease TECHNIQUE: Imaging Protocol: Axial computed tomography images with coronal and sagittal reformatted images were created and reviewed COMPARISON: HEAD WITHOUT CONTRAST from 04/10/2017 FINDINGS: Ventricles and Extra axial spaces: There are prominent ventricles and sulci consistent with age relat ed cerebral atrophy. Hemorrhage: None. Cerebral parenchyma: Areas of decreased attenuation are seen in the white matter consistent with smal l vessel ischemic disease. Midline shift: None. Brainstem/Cerebellum: Normal. Calvarium: There is an old left frontoparietal craniotomy. No acute fracture. Visualized Paranasal sinuses/Mastoids: Clear. IMPRESSION: No acute intracranial process. DATA REPOSITORY: All CT scans at this facility are submitted to the National Radiology Data Registry (NRDR) Dose Index Registry (DIR) with the [employer] (ACR). RADIATION OPTIMIZATION: All CT scans at this facility use at least one of these dose optimization te chniques: automated exposure control; mA and/or kV adjustment per patient size (includes targeted exa ms where dose is matched to clinical indication); or iterative reconstruction.
[2019-08-06] MEDS: Ondansetron 4 MG/2 ML VIAL (17:15)
[2019-08-06 17:17] LABS: TSH (W/Ref FT4) < 0.01 uIU/mL (0.36-3.74)
[2019-08-06 17:33] LABS: FREE T4 1.45 ng/dL (0.76-1.46)
--- NOTE | 2019-08-06 17:45 | DI.VRAD_ITS ---
PROCEDURE INFORMATION: Exam: CT Head Without Contrast Exam date and time: 08/06/2019 5:09 PM Age: 63 years old Clinical indication: Other: Confusion, R/O acute disease TECHNIQUE: Imaging protocol: Computed tomography of the head without contrast. COMPARISON: CT HEAD WITHOUT CONTRAST 04/10/2017 1:23 PM FINDINGS: There is a left frontoparietal craniotomy. No intracranial hemorrhage.There are periventricular white matter lucencies compatible with chronic microvascular ischemic disease. The ventricles and sulci are prominent compatible with age-related involutional changes. No mass effect or midline shift. No fracture.The visualized paranasal sinuses and mastoid air cells are normally aerated bilaterally. IMPRESSION: No acute findings. Dictated and Authenticated by: Shalom Doss MD. Ordering:BRANNON Justin MD
--- NOTE | 2019-08-06 18:21 | W.PM.HP.N ---
Date of service: 08/06/19 Time of Service: 18:21 Assessment and Plan Assessment and plan (1) Hypotension: Start date: 08/06/19 Status: Acute Assessment and plan: Patient presented with hypotension and change in sensorium with his acute GI symptoms. He appears to be dehydrated but also his hypotension may be secondary to his adrenal insufficiency with a pituitary rhythm. We will aggressively IV hydrate and treat with stress steroids using hydrocortisone IV. Supportive care with patient being a DNR/DNI. I will avoid pressors with peripheral IVs being use only and central IV in this patient having increased risk of complications. His family was notified that he is not doing well. Qualifiers: Hypotension type: other hypotension type Qualified Code(s): I95.89 - Other hypotension (2) Panhypopituitarism: Status: Chronic Assessment and plan: With acute stress symptoms patient will be given hydrocortisone 100 mg IV with 2 doses given acutely and then every 6 hours for maintenance. Supportive care. (3) Viral gastroenteritis: Start date: 08/06/19 Status: Acute Assessment and plan: Patient is mostly having emesis and projectile brown liquid emesis being problematic with antiemetics not been effective initially. NG tube to low Gomco intermittent suction was placed with continued output early during his hospital stay. Consider imaging to evaluate for possible small bowel obstruction if this persists with patient difficult to evaluate clinically. Surgical consultation could be sought but the patient has not a good surgical candidate. At least upper endoscopy might be performed if he persists with symptoms. He is a DNR/DNI and with his morbid obesity any procedures or imaging is very difficult. (4) Dehydration: Start date: 08/06/19 Status: Acute Assessment and plan: Patient appears to be dehydrated with an increase in his creatinine from baseline and will be aggressively IV hydrated but watch for fluid overload though there is no overt history of CHF. (5) DOUG (obstructive sleep apnea): Status: Chronic Assessment and plan: Patient is having problems with hypoxemia when sedated being treated for his emesis. With his profuse vomiting he may have aspirated but this is not evident. He is not chronically on positive pressure treatment but this could be considered if his hypoxemia persists. For now increased oxygen supplementation but watch closely for CO2 retention with follow-up arterial blood gas or venous blood gas indicated. He is a DNR/DNI. History of Present Illness History of Present Illness Chief Complaint: Vomiting with change in mental status, hypotension Narrative: This is a 63-year-old gentleman who resides at the [facility] who is chronically ill with morbid obesity weighing more than 400 pounds with immobility chronically secondary to his obesity status post left frontoparietal craniotomy for brain cancer resulting in panhypopituitarism with the patient acutely ill presently with a most likely viral gastroenteritis with projectile vomiting and exacerbation of his pituitary dysfunction with adrenal insufficiency during the stress. His hypotension is most likely secondary to this and he also appears to be dehydrated with his creatinine elevated from his baseline. His urine did reveal a possible UTI and he is covered with Rocephin for this for now. He has multiple electrolyte abnormalities which appear chronic and most likely secondary to his panhypopituitarism. He is on supplements chronically. He is not a very good historian and is more confused presently mostly cursing when he talks and wandering in conversation without focus. During the earlier part of the hospital evaluation the patient was having increasing and persistent projectile vomiting of brown emesis and did require an NG tube to be placed eventually. No imaging was able to be performed on his abdomen needs to be re-evaluated in the morning with possible surgical consultation if he continues severe upper GI distress with consideration for small bowel obstruction though the patient would not be a good surgical candidate and is a DNR/DNI. Review of Systems Narrative: 13 point review of systems otherwise unrevealing or unobtainable with patient's change in mental status. [facility] Medical History Adrenal insufficiency (Chronic) Brain cancer (Chronic) Constipation (Acute) GERD (gastroesophageal reflux disease) (Chronic) HCAP (healthcare-associated pneumonia) (Inactive) Left lower lobe History of brain tumor (Chronic) Lung cancer (Chronic) Morbid obesity (Acute) Morbid obesity with BMI of 70 and over, adult (Chronic) Nonsustained paroxysmal supraventricular tachycardia (Acute) Obesity hypoventilation syndrome (Chronic) DOUG (obstructive sleep apnea) (Chronic) Panhypopituitarism (Acute) Pulmonary hypertension (Chronic) Toxic metabolic encephalopathy (Inactive) Surgical History History of craniotomy (Acute) Social History Smoking/Tobacco Use Status: Former Tobacco Use Alcohol Intake: former Substance use type: does not use Details: per pt I Drank like a fish Do you feel safe in your relationship?: Yes Additional Social history: pt at the [facility] Medications and Allergies Home Medications Medication Instructions Recorded Confirmed Type allopurinol 100 mg PO DAILY 04/07/17 08/06/19 History aspirin 81 mg PO DAILY 04/07/17 08/06/19 History trazodone 25 mg PO BID 04/07/17 08/06/19 History tramadol 50 mg PO BID #90 tab-cap 11/20/17 08/06/19 History acetaminophen [Acetaminophen Extra 1,000 mg PO TID 10/31/18 08/06/19 History Strength] desmopressin 0.1 mg PO .QEVE 10/31/18 08/06/19 History lisinopril 2.5 mg PO DAILY 10/31/18 08/06/19 History metoprolol succinate 25 mg PO DAILY 10/31/18 08/06/19 History potassium, sodium phosphates 1 packet PO BID 10/31/18 08/06/19 History [Phos-NaK] azelastine 1 drp OPHTHALMIC (EYE) BID 08/06/19 08/06/19 History bupropion HCl [Wellbutrin XL] 300 mg PO QAM 08/06/19 08/06/19 History calcium carbonate [Calcium Antacid] 200 mg PO TID PRN 08/06/19 08/06/19 History gabapentin 300 mg PO TID 08/06/19 08/06/19 History hydrocortisone [Cortef] 10 mg PO QPM 08/06/19 08/06/19 History hydrocortisone [Cortef] 15 mg PO DAILY 08/06/19 08/06/19 History levothyroxine 150 mcg PO HS 08/06/19 08/06/19 History liraglutide [Victoza 3-Celestine] 1.2 mg SUBCUT DAILY 08/06/19 08/06/19 History melatonin 3 mg PO HS 08/06/19 08/06/19 History qijauuggrmbh-qgpd-ikjhb acid 1 tab PO DAILY 08/06/19 08/06/19 History [Centrum Complete] trazodone 150 mg PO QHS 08/06/19 08/06/19 History Allergies Allergy/AdvReac Type Severity Reaction Status Date / Time Influenza Virus Vaccines AdvReac Unknown Unverified 10/31/18 11:58 NSAIDS (Non-Steroidal AdvReac Unknown Unverified 10/31/18 11:58 Anti-Inflamma risedronate sodium AdvReac Unknown Unverified 10/31/18 11:58 rosuvastatin AdvReac Unknown Unverified 10/31/18 11:58 Lsxceum-Jwb-Oen Reductase AdvReac Unknown Unverified 10/31/18 11:58 Inhibitor Exam Narrative Exam Narrative: General: Patient appears older than stated age in moderate distress from his nausea and emesis, he is alert and oriented to place at least and not person or time. Morbidly obese and appears that he is bedridden. HEENT: Normocephalic with coarsened features and thinning red hair over his scalp and siu, eyes with pupils equal and reactive to light symmetrically with extraocular movement intact and sclera anicteric. Oropharynx with dry oral mucosa and poor dentition with many missing teeth, discolored and carious teeth which remain. Ears with normal external exam. Neck: Supple without JVD. Lungs: Poor aeration with patient's morbid obesity made it difficult to auscultate his lung shelley. Bronchovesicular breath sounds diffusely but no focalizing rales or rhonchi. No expiratory wheeze. Heart: Distant heart sounds with regular rate and rhythm and no appreciable murmurs or gallops. Abdomen: Morbidly obese with large pannus and tenderness to palpation variably over different quadrants of his abdomen but nothing persistent with guarding or rebound. No tympany to percussion. Exam is limited by his obesity. Male genitalia/rectal: External male genitalia with penis retracted into his pubic fat and testicles atrophic. Rectal exam was deferred. Extremities: Morbidly obese with chronic, nonpitting edema over lower extremities more than upper extremities, skin changes with scaly erythematous rash over his legs, ankles and feet which appear to be chronic with no discharge from the erythematous slightly superficially ulcerated areas over his ankles and feet. No cyanosis or clubbing. All joints have decreased range of motion and patient appears to be bedridden by his morbid obesity with some contractures of his lower extremities especially. Skin: Skin changes over intertriginous areas with erythema and scaly dry skin with erythematous base over his lower extremities as described. Pale, cool and at times moist especially when his blood pressure is low. Neuro: Cranial nerves II through XII grossly intact, motor marked decreased strength diffusely with patient unable to move in bed easily. Psych: Patient has decreased short-term memory and long-term memory with appropriate answers at times when questioned but only in the immediate situation. He appears to be easily agitated with a flattened affect and occasionally delusional thought processes. Results Imaging Imaging Studies: Exam(s) PROCEDURE INFORMATION: Exam: CT Head Without Contrast Exam date and time: 08/06/2019 5:09 PM Age: 63 years old Clinical indication: Other: Confusion, R/O acute disease TECHNIQUE: Imaging protocol: Computed tomography of the head without contrast. COMPARISON: CT HEAD WITHOUT CONTRAST 04/10/2017 1:23 PM FINDINGS: There is a left frontoparietal craniotomy. No intracranial hemorrhage.There are periventricular white matter lucencies compatible with chronic microvascular ischemic disease. The ventricles and sulci are prominent compatible with age-related involutional changes. No mass effect or midline shift. No fracture.The visualized paranasal sinuses and mastoid air cells are normally aerated bilaterally. IMPRESSION: No acute findings. Dictated and Authenticated by: Shalom Doss MD. Labs Result diagrams: 08/06/19 15:55 08/06/19 15:55 Labs: Laboratory Results - last 24 hr 08/06/19 08/06/19 08/06/19 15:55 15:55 15:55 WBC 3.61 L RBC 3.53 L Hgb 11.8 L Hct 34.3 L MCV 97.2 H MCH 33.4 H MCHC 34.4 RDW 17.6 H Plt Count 402 H MPV 8.5 Immature Gran % 0.3 Neutrophils % 39.2 Lymphocytes % 49.6 Monocytes % 7.8 Eosinophils % 2.5 Basophils % 0.6 Absolute Neutrophils 1.42 Absolute Lymphocytes 1.79 Absolute Monocytes 0.28 Absolute Eosinophils 0.09 Absolute Basophils 0.02 PT INR APTT Sodium 133 L Potassium 3.8 Chloride 96 L Carbon Dioxide 27.6 Anion Gap 9.4 BUN 21 H Creatinine 1.41 H Estimated GFR/1.73 m2 50.93 Glucose 101 Lactate 1.4 Calcium 8.1 L Magnesium 1.4 L Total Bilirubin 0.8 AST 62 H ALT 29 Alkaline Phosphatase 112 Troponin I < 0.05 Total Protein 5.3 L Albumin 2.1 L TSH Free T4 Urine Color Urine Clarity Urine pH Ur Specific Ector Urine Protein Urine Ketones Urine Blood Urine Nitrite Urine Bilirubin Urine Urobilinogen Ur Leukocyte Esterase Urine RBC Urine WBC Ur Epithelial Cells Urine Crystals Urine Bacteria Urine Mucus Ur Culture Indicated? Urine Glucose 08/06/19 08/06/19 08/06/19 15:55 15:55 16:13 WBC RBC Hgb Hct MCV MCH MCHC RDW Plt Count MPV Immature Gran % Neutrophils % Lymphocytes % Monocytes % Eosinophils % Basophils % Absolute Neutrophils Absolute Lymphocytes Absolute Monocytes Absolute Eosinophils Absolute Basophils PT 11.8 H INR 1.2 H APTT 25.3 Sodium Potassium Chloride Carbon Dioxide Anion Gap BUN Creatinine Estimated GFR/1.73 m2 Glucose Lactate Calcium Magnesium Total Bilirubin AST ALT Alkaline Phosphatase Troponin I Total Protein Albumin TSH < 0.01 L Free T4 1.45 Urine Color Miranda Urine Clarity Cloudy Urine pH 5.5 Ur Specific Ector >= 1.030 H Urine Protein Negative Urine Ketones Negative Urine Blood Negative Urine Nitrite Negative Urine Bilirubin Small H Urine Urobilinogen 0.2 Ur Leukocyte Esterase Small H Urine RBC 0-2 Urine WBC 10-20 H Ur Epithelial Cells Few Urine Crystals Many amorphous Urine Bacteria Packed Urine Mucus Ur Culture Indicated? Yes Urine Glucose Negative Last Vital Signs Temp 36 C L 08/06/19 15:33 Pulse 203 H 08/06/19 16:09 Resp 16 08/06/19 16:23 BP 137/112 H 08/06/19 16:09 Pulse Ox 93 L 08/06/19 16:00
[2019-08-06] MEDS: Hydrocortisone SOD SUC. 100 MG VIAL IVP ×2 (18:28→19:26)
[2019-08-06] MEDS: cefTRIAXone 1 GM/50 ML BAG IVPB (18:34)
[2019-08-06] MEDS: Normal Saline 1,000 ML 125 ML IV (18:45)
[2019-08-06] MEDS: Ondansetron 4 MG/2 ML VIAL IVP (19:52)
[2019-08-06] MEDS: Normal Saline 1,000 ML 150 ML IV (20:11)
[2019-08-07] VITALS (83 sets, daily range): BP systolic 68–181; BP diastolic 37–159; PULSE 58–234; RESP 7–35; TEMP 35–36; O2SAT 83–100
[2019-08-07] MEDS: LORazepam 2 MG/ML VIAL 0.5 MG IVP ×3 (00:34→20:19)
[2019-08-07] MEDS: Hydrocortisone SOD SUC. 100 MG VIAL IVP ×5 (00:34→23:11)
[2019-08-07] MEDS: MAGNESIUM SULFATE 2 GM/50 ML BAG IVPB ×2 (02:06→15:36)
[2019-08-07] MEDS: Normal Saline 1,000 ML 125 ML IV (02:27)
[2019-08-07] MEDS: Heparin 5,000 UNITS/ML VIAL 5000 UNITS SC ×3 (03:53→20:19)
--- NOTE | 2019-08-07 04:22 | NUR.NOTE ---
0310-daughter Terri called and notified of patient's condition.
[2019-08-07] MEDS: Normal Saline 1,000 ML 200 ML IV (05:23)
--- NOTE | 2019-08-07 05:41 | NUR.NOTE ---
0100-pt had multiple emesis episodes since being admitted despite being given zofran. Dr. Cavazos arrived to assess pt around 2300 and was asked for something different. IV phenergan ordered after the assessment. As nurse was in the room hanging the med, pt projectile vomited a large amount onto floor, bed and the opposite wall. Dr. Cavazos came to back to check on pt just after this happened and explained to patient that we needed to put in an NG tube. Nurse attempted to place NG without success and then it was put in by Dr. Cavazos and put on low intermittent suction. medicated also with 0.5mg iv lorazepam. Pt then fell asleep
--- NOTE | 2019-08-07 08:41 | DI.RAD_ITS ---
EXAM: XR PORTABLE CHEST AP INDICATION: Hypoxemia. COMPARISON: XR PORTABLE CHEST AP from 11/03/2018 TECHNIQUE: 2D digital imaging was performed. FINDINGS: Heart size is stable and within normal limits. Pulmonary vasculature appears stable and within veronica l limits. There is a nasogastric tube. The tip passes into the stomach. There is a new infiltrate in the right upper lobe suspicious for pneumonia. No effusion or pneumothorax is identified. IMPRESSION: Right upper lobe infiltrate suspicious for pneumonia.
--- NOTE | 2019-08-07 09:05 | DI.VRAD_ITS ---
PROCEDURE INFORMATION: Exam: XR Chest, 1 View Exam date and time: 08/07/2019 7:04 AM Age: 63 years old Clinical indication: Other: Hypoxemia TECHNIQUE: Imaging protocol: XR of the chest Views: 1 view. COMPARISON: CR XR PORTABLE CHEST AP 11/03/2018 11:06 AM FINDINGS: Lungs: Coarsened reticular markings, grossly stable. Superimposed right upper lobe opacity Pleural space: No pleural effusion. No pneumothorax. Heart/Mediastinum: Grossly stable Bones/joints: Grossly stable NG tube visualized in the proximal stomach IMPRESSION: New right upper lobe opacity suspect for developing pneumonia versus aspiration NG tube visualized in the proximal stomach Dictated and Authenticated by: Eris Servin MD. Ordering:OUMOU Spaulding MD
[2019-08-07] MEDS: Lactated Ringers 1,000 ML 1000 ML IV (09:41)
[2019-08-07] MEDS: Normal Saline-STERILE FIELD 0.9% 10 ML SYR (10:28)
[2019-08-07] MEDS: Lidocaine 1% Multi-Dose 50 ML VIAL (10:40)
--- NOTE | 2019-08-07 10:54 | INITIAL_ITS ---
Care Management Initial Assess REASON FOR HOSPITALIZATION:: Hypotension, Dehydration, Liu-Hypopituitarism PAST MEDICAL HISTORY/PAST SURGICAL HISTORY:: Medical & Surgical: H/O of brain tumor status post craniotomy in 1988, Hypothroidism, Gout, GERD, Chronic Pain, A Flutter, Panhypopituritarism, H/O of obstructive sleep apnea but no recent records of any CPAP, H/O of vision loss, not sure specifics, H/O of lung nodule, H/O Hyponatremia PREVIOUS FUNCTIONAL STATUS/SOCIAL/FAMILY SUPPORTS:: Prakash resides at the [facility] where he has been placed for the last three years. Prakash has three daughters that live [place], [place]. 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 Contact info for monique Yeager . Janet is [phone] CURRENT FUNCTIONAL STATUS:: Prakash is uncomfortable and crying out while being prepped for central line placement when CM observes him. Later in the day, Prakash was calmer per RN. ADVANCE DIRECTIVES:: [facility] on file. Has patient been provided with information about the portal?: No Did the patient sign up for the portal?: No CODE STATUS:: DNR/DNI INSURANCE COVERAGE / FINANCIAL ISSUES:: Medicaid CURRENT HOME/COMMUNITY SERVICES/EQUIPMENT:: [facility] resident, bariatric bed, W/C: though bed bound currently. PRIMARY CARE PHYSICIAN:: Dr. Pacheco. POTENTIAL DISCHARGE NEEDS:: Pilzisoi-gw-djfrmbitarq return to the [facility]. PATIENT/FAMILY EDUCATION NEEDS:: Review of discharge instructions, discuss goals of care. ANTICIPATED BARRIERS TO DISCHARGE:: None identified. TRANSPORTATION:: EMS PLAN:: Prakash is medically complex and requires constant monitoring and care. Concerns were shared by staff that per [facility], current level of intervention may be exceeding Prakash's wishes, though his daughter's are advocating for intensive care per RN. CM consulted Dr. Pacheco who recommended [facility] for transfer if needed, to ensure Prakash is able to be closer to his daughter's. CM will continue to follow and support discharge planning considerations.
--- NOTE | 2019-08-07 11:02 | PHARADMIT ---
Addendum entered by Jose Miguel Weeks III 08/17/19 12:48: Pharmacy Note Subjective After Palliative conult yesterday, family and patient have decided on [facility] care. Objective No VS, pain:04/05 No Labs Assessment Morphine infusion started at 1mg/hr and titrated to 4mg/hr for pain. Plan Comfort measures only. Addendum entered by Marcelle Driscoll 08/15/19 17:27: Pharmacy Note Subjective pt worsening despite treatment of possible pneumonia, diuresis, and bipap per morning report Objective BP-126/56 other VS okay K+3.0 Assessment IV potassium replacement given IV metoprolol ordered, PO put on hold zosyn (day 4) continues, vanco discontinued Plan may go [facility] [employer] [facility] [employer], Dr. Pacheco to speak with family to determine goals of care watch K+ Addendum entered by Maria Alejandra Blancas 08/13/19 11:20: Pharmacy Note Subjective may go to [facility] [facility] [employer] if no improvemnt by Thursday and family agrees Objective one dose verapamil over night, bp now 105/49 HR 86 Assessment vancomycin IV continue with zosyn added yesterday Plan vanco trough possibly 08/15/19 @1900?? Addendum entered by Jose Miguel Weeks III 08/12/19 14:38: Pharmacy Note Subjective Hospitalist change Cefe[pime to Zosyn after repeat Chest X-ray show bilateral infiltrates and the CRP increased, and has moist cough. Assuming aspiration pneumonia. Surgeon reports replaced port (Thursday) is functioning well. Objective VS-OK K+3.8 SCr-0.82 BUN-16 H&H,Plts,WBC-OK Assessment Home PO Hydrocortisone re-entered. IV dc'd. Toprol-XL dc'd switched to Diltiazem. Vancomycin continues. Trough yesterday (27.1) required adjustment. Patient would not fit RxKinetics profile. Renal function worsened (0.82) check Vancomycin trough possibly random. Plan Addendum entered by Denice Hunter 08/11/19 08:22: Pharmacy Note Subjective No acute events overnight, rn reports decreased urine output and increased o2 requirements Objective Repeat blood cultures show no growth; BP 123/59 (83/37 @ 0200); HR 82; BG 143, Scr 0.64 (down) Assessment Vanco + Cefepime (day 5), continue hydrocortisone IV, SS aspart, resume IV fluids @ 150ml/hr Plan Repeat chest x-ray to reassess pneumonia Vanco trough ordered for 1500 Will resume home diabetic regimen once diet advances Addendum entered by Marcelle Driscoll 08/09/19 16:08: Pharmacy Note Subjective improving, not sure if pt back to baseline in terms of mental status Objective BP-149/106 HR-112 H/H-9.5/27.9 BG-142 SCr-0.81(down) Assessment norepinephrine drip discontinued today vanco trough came back high at 20.3 so dose decreased to 1250 mg Q16H vanco cefepime continue (day3) blood cultures growing different species of staph; repeat BCs ordered sliding scale aspart ordered wound and palliative consults ordered Plan wound and palliative consults ordered watch for micro sensitivities/change in abx may move to floor if continues to improve Addendum entered by Marcelle Driscoll 08/08/19 15:24: Pharmacy Note Subjective pt doing better, trying to wean off norepinephrine drip per morning report Objective BP-93/36 HR-106 Assessment cefepime and vanco continue (day 2... day 3 total abx) levofloxacin discontinued nystatin powder ordered blood culture growing staph, but not aureus. aware, will narrow once have sensitivities urine culture growing gram negative rods and normal silvano (probable contamination) MRSA negative high dose steroids continue (possible central adrenal insufficiency) Plan watch for micro sensitivities/change in abx norepinephrine continues for now, watch for weaning trial again palliative consult ordered Original Note: Admission Pharmacy Clinical Review HYPOENSION,DEHYDRATIN, HYPOPITUITARISM Code Status DNR/DNI Current Weight Wgt-184 kg Renally Cleared and Narrow Therapeutic Index Meds CrCl~47 mL/min Meds-OK QTc Value / Action Taken QTc-470 (Zofran, Phenergan) BP Control, Fever BP-126/78 Tmax-35.2C Electrolytes reviewed Na-133 K+3.8 Mag-1.4 DVT Prophylaxis Heparin-SC Opiate Usage / Scheduled Bowel Regimen Ordered Yes Yes Plt/SCr for Heparin / Enoxaparin Plts- 402 SCr-1.41 INR for Warfarin inr-1.2 H/H stable, WBC/Bands H&H-11.8/34.3 WBC- 3.61 Antibiotic appropriateness Rocephin, Cultures and Sensitivities [id number], Flu-Neg Urine-Gram(+), Blood-pending Surgical ABX d/c within 24 hr NA DM control / Insulin Dosing BG-101 Heart Failure (Check EF%) (TRISTEN's, B-Block, Diuretics) Lisinopril, Toprol-XL, IV to PO Switch No Home Meds Reviewed Yes Home Meds Not Ordered Maritza, Comments Jose Ramon- Su Jamison.
[2019-08-07] MEDS: Midazolam 2 MG/2 ML VIAL (11:30)
[2019-08-07] MEDS: Normal Saline 1,000 ML 1000 ML IV ×2 (11:35→13:45)
[2019-08-07] MEDS: Levothyroxine 100 MCG VIAL 110 MCG IVP (12:17)
[2019-08-07] MEDS: cefTAZidime 2,000 MG in Normal Saline 100 ML 200 MG IVPB (12:20)
[2019-08-07] MEDS: Pantoprazole 40 MG VIAL IVP (12:33)
[2019-08-07] MEDS: MORPHine 2 MG/ML SYR IVP (12:33)
[2019-08-07] MEDS: Normal Saline Flush 10 ML SYR IVP ×3 (12:46→23:12)
[2019-08-07 13:06] LABS: BE (Venous) 2.1 mmol/L (-3-3); HCO3 (Venous) 28 mmol/L (22-28); HCT 30.8 % (40.0-50.0); HGB 10.8 g/dL (13.5-17.5); Mean Corp. HGB Concentration 35.1 g/dL (32.0-36.0); Mean Corpuscular Hemoglobin 34.2 pg (27.0-33.0); Mean Corpuscular Volume 97.5 fL (80-95); Mean Platelet Volume 8.6 fL (8.0-11.0); O2 Sat (Venous) 93 % (70-80); Platelet Count 297 x1000/uL (130-400); RBC 3.16 m/cumm (4.50-6.00); RBC Distribution Width 17.6 % (11.8-14.1); TCO2 (Venous) 26 mmol/L (22-29); White Blood Cell Count 3.33 k/cumm (4.4-10.8); pCO2 (Venous) 50 mm/Hg (34-47); pH (Venous) 7.35 (7.35-7.45); pO2 (Venous) 66 mm/Hg (28-44)
[2019-08-07 13:10] LABS: Lactate 0.8 mmol/L (0.6-1.4)
[2019-08-07 13:18] LABS: ALT 26 U/L (16-63); AST 60 U/L (15-37); Albumin 1.7 g/dL (3.4-5.0); Alkaline Phosphatase 99 U/L (46-116); Anion Gap 8.6 mmol/L (3-11); BUN 20 mg/dL (7-18); Bilirubin, Total 0.6 mg/dL (0.2-1.0); CO2 27.4 mmol/L (21.0-32.0); CREATININE 1.26 mg/dL (0.70-1.30); Calcium 7.3 mg/dL (8.5-10.1); Chloride 99 mmol/L (98-107); Estimated GFR 57.99 (mL/min/1.73m2); Glucose 139 mg/dL (74-106); Potassium 3.6 mmol/L (3.5-5.1); Sodium 135 mmol/L (136-145); Total Protein 4.8 g/dL (6.4-8.2)
[2019-08-07 13:43] LABS: NT-proBNP 698 pg/mL (<300)
[2019-08-07 13:45] LABS: Troponin I < 0.05 ng/Ml (<0.06)
--- NOTE | 2019-08-07 13:49 | W.SURGCON ---
Date of service: 08/07/19 Time of Service: 13:49 Assessment and Plan Assessment and plan (1) Diabetes mellitus: Status: Chronic (2) Pulmonary hypertension: Status: Chronic (3) Panhypopituitarism: Status: Chronic (4) Morbid obesity with BMI of 70 and over, adult: Status: Chronic (5) DOUG (obstructive sleep apnea): Status: Chronic (6) Adrenal insufficiency: Status: Chronic (7) Altered mental status: Status: Acute (8) Pneumonia: Status: Acute (9) Sepsis: Status: Acute Assessment and plan: He does appear to be acutely septic. He is hypotensive, no urine outpt,MS changes + tachycardia. He has very dirty urine and RUL infiltrate on CXR. He also has gram + cocci in his blood. RICK Finley and I spent [address] a central line and A-line. we were unable to plae an A line but were able to find a R femoral central line- please see accompanying dictations. We were able to send labs. Through out the course of the procedures- pt BP oscillated b/t 70-80 and 110's. He did respond to fluid resuscitation and we b/c more alert (and unfortunately more combative). He did put out about 100cc of urine while his fluids were running at i liter per hr. When we attempt to decrease his fluids- his BP fails. He did grow denisa + cocci in 2 bottles on his blood cultures. He did receive ceftazadine and levaquin for coverage. His urine cultures were + as well. He does have a RUL on CXR as well. The hypotension could also just be from dehydration from the vomiting. I do not have an etiology for this. I did here a few BS. I'm not sure if the vomiting represents mechanical obstruction/viral illness/ intra-cranial process (although head CT was nl) /vestibular process/infectious process. He does not seem to have a GI bleed. I am not convinced that this is from an SBO or any acute intra-abdominal process. We cannot to a CT or MRI here. We cannot do surgery or any invasive procedures secondary to size. He is not stable to transport/nor to be have a bariatric crew available to do transports. Again, he is not a surgical candidate and we will continue maximal medical therapy. We will continue to do maximum medical therapy w/ IV abx, and pressers. We cannot do BiPAP. We will not intubate. Even if he was at a tertiary medical center- he is not a surgical candidate. He has very poor quality of life- he is immobile and sounds like he is not even coherent. His daughters are not willing to make him comfort cares and let him . I did d/w two of them about what his wishes would be as well as end of life. They say he would never discuss things of that nature. Both of the daughters I spoke to wanted everything down and not just let him . I did encourage them to come and visit w/ him today. Both of them said that was not a possibility. From a surgical standpoint- there is no further intervention. I feel him is septic from bactremia- source most likely urine, as well as pneumonia. This may be from aspiration. continue to treat him medically and see how he responds. his prognosis is poor. 4 hrs spent in critical care time w/ this pt today. Will follow. No acute surgical intervention. (10) Bacteremia: Status: Acute (11) Acute UTI (urinary tract infection): Status: Acute (12) Difficult intravenous access: Status: Acute (13) Lymphedema of both lower extremities: Status: Acute (14) Wound of left lower extremity: Status: Acute (15) Open wound of right lower extremity: Status: Acute History of Present Illness Narrative: pt is unresponsive and can't give any hx. it is taken from RN's and chart. RN's state during the night he was hallucinating and did not have any urine output. He had copious projectile vomiting. He has only put out 300cc urine in past 4-5 hrs. He does not currently have an IV. Pt can't give consent. His daughters do want everything done. Per his daughters- he has not declared a POA. He does have a COLST form that declares him a DNR/DNI. It says we can do Abx. It does not address pressers. If were to transfer him to tertiary center- he would require a bariatric ambulance and additional crew (which is not available today). He is not a surgical candidate- not matter what hospital he is at. It does state that he is a DNI. Again, we cannot do BiPAP b/c of the NGT and vomiting. He has a hx of poor IV access His daughters relate that he has not been out of the bed for the last year. The last few months he has been hallucinating/confused and disorientated, and not able to participate in his cares for the last few months per his daughters. GCS- 9 His size impairs our ability our ability to accurately diagnosis his condition. His weight precludes us from using a CT. We can't even get an abdominal plain film- b/c his adipose layer is too thick too allow penetration of the film cassette. They were not able to get IV access or to draw blood this am. They were able to do a head CT last pm- which shows no tumor growth. He does have a RUL pneumonia- possible aspiration. He should be on BiPAP. We did attempt to place a IJ line. We monitored his IJ and SVC w/ US- it completely collapses w/ expiration. He was vomiting, so an NGT was placed. Therefore w/ an NGT, we cannot place CPAP or BiPAP mask. Resp is also concerned w/ the vomiting in the CPAP would cause more aspiration. His COLST form does indicate no intubating. He was having diffuse projectile vomiting last pm. He has an ngt placed which is draining copious dark green secretions. It is not grossly bloody/or have coffee ground appearance. There is no blood. He has not had any abdominal surgery's in the past. He does seem to have abdominal pain- but everywhere we touch him seems to be painful. He does have good abdominal sounds. There is no distention. No peritonitis- although physical exam in him is unreliable. He did not pas gas or have a BM while we were working on him. He has severe lymphedema/venous statsis. He has open wounds on his LE. He also has mult. pressure sores on his LE. I did d/w w/ two of his daughter- Alayna the youngest, how has been most involved in his cares and the oldest daughter. Neither of them know what his wishes are- as he would not discuss them. They were not aware that he had a Colst form. Consults Consult date: 08/07/19 Review of Systems Unobtainable due to mental status [facility], [facility] Medical History (Updated 08/07/19 @ 14:42 by Refugio Lee) Acute UTI (urinary tract infection) (Acute) Adrenal insufficiency (Chronic) Bacteremia (Acute) Brain cancer (Chronic) Constipation (Acute) Difficult intravenous access (Acute) GERD (gastroesophageal reflux disease) (Chronic) HCAP (healthcare-associated pneumonia) (Inactive) Left lower lobe History of brain tumor (Chronic) Lung cancer (Chronic) Lymphedema of both lower extremities (Acute) Morbid obesity (Acute) Morbid obesity with BMI of 70 and over, adult (Chronic) Nonsustained paroxysmal supraventricular tachycardia (Acute) Obesity hypoventilation syndrome (Chronic) Open wound of right lower extremity (Acute) DOUG (obstructive sleep apnea) (Chronic) Panhypopituitarism (Acute) Pneumonia (Acute) Pulmonary hypertension (Chronic) Sepsis (Acute) Toxic metabolic encephalopathy (Inactive) Wound of left lower extremity (Acute) Surgical History History of craniotomy (Acute) Social History Smoking/Tobacco Use Status: Former Tobacco Use Alcohol Intake: former Substance use type: does not use Details: per pt I Drank like a fish Do you feel safe in your relationship?: Yes Additional Social history: pt at the [facility] General nose exam: external nose normal Face and sinus: face symmetric and dry mucous membranes Teeth and gingiva: poor dentition Resp Other: he has b/i BS. I cannot comment on there quality. Cardio Other: SBP 80's while we are trying to start a line. He had an echo in september/october. results reviewed. ext are warm and pink. no mottling. GI Inspection: large pannus Other: c/o pain anywhere you touch him. No Sx scars. no distention. BS are present- again he is very difficult to exam secondary to his BMI. Skin General skin exam: crusts, dry skin, hypertrophy and lichenification Nails: clubbing, discolored and yellow and thickened Neuro Other: GCS- 9. Pt yells out to pain and localizes. will not cooperate for exam Psych Other: pt currently only responds to painful stimuli. Nurses state he was hallucinating last pm. Results Last Vital Signs Temp 36 C L 08/07/19 12:30 Pulse 77 08/07/19 12:30 Resp 8 L 08/07/19 12:30 BP 103/52 L 08/07/19 12:30 Pulse Ox 96 08/07/19 12:30 Labs Result diagrams: 08/07/19 12:53 08/07/19 12:53 Labs: Laboratory Results - last 24 hr 08/06/19 08/06/19 08/06/19 15:55 15:55 15:55 WBC 3.61 L RBC 3.53 L Hgb 11.8 L Hct 34.3 L MCV 97.2 H MCH 33.4 H MCHC 34.4 RDW 17.6 H Plt Count 402 H MPV 8.5 Immature Gran % 0.3 Neutrophils % 39.2 Lymphocytes % 49.6 Monocytes % 7.8 Eosinophils % 2.5 Basophils % 0.6 Absolute Neutrophils 1.42 Absolute Lymphocytes 1.79 Absolute Monocytes 0.28 Absolute Eosinophils 0.09 Absolute Basophils 0.02 PT INR APTT VBG pH VBG pCO2 VBG pO2 VBG HCO3 VBG Total CO2 VBG O2 Saturation VBG Base Excess Sodium 133 L Potassium 3.8 Chloride 96 L Carbon Dioxide 27.6 Anion Gap 9.4 BUN 21 H Creatinine 1.41 H Estimated GFR/1.73 m2 50.93 Glucose 101 Lactate 1.4 Calcium 8.1 L Magnesium 1.4 L Total Bilirubin 0.8 AST 62 H ALT 29 Alkaline Phosphatase 112 Troponin I < 0.05 NT-Pro-B Natriuret Pep Total Protein 5.3 L Albumin 2.1 L TSH Free T4 Urine Color Urine Clarity Urine pH Ur Specific Burchard Urine Protein Urine Ketones Urine Blood Urine Nitrite Urine Bilirubin Urine Urobilinogen Ur Leukocyte Esterase Urine RBC Urine WBC Ur Epithelial Cells Urine Crystals Urine Bacteria Urine Mucus Ur Culture Indicated? Urine Glucose 08/06/19 08/06/19 08/06/19 15:55 15:55 16:13 WBC RBC Hgb Hct MCV MCH MCHC RDW Plt Count MPV Immature Gran % Neutrophils % Lymphocytes % Monocytes % Eosinophils % Basophils % Absolute Neutrophils Absolute Lymphocytes Absolute Monocytes Absolute Eosinophils Absolute Basophils PT 11.8 H INR 1.2 H APTT 25.3 VBG pH VBG pCO2 VBG pO2 VBG HCO3 VBG Total CO2 VBG O2 Saturation VBG Base Excess Sodium Potassium Chloride Carbon Dioxide Anion Gap BUN Creatinine Estimated GFR/1.73 m2 Glucose Lactate Calcium Magnesium Total Bilirubin AST ALT Alkaline Phosphatase Troponin I NT-Pro-B Natriuret Pep Total Protein Albumin TSH < 0.01 L Free T4 1.45 Urine Color Miranda Urine Clarity Cloudy Urine pH 5.5 Ur Specific Burchard >= 1.030 H Urine Protein Negative Urine Ketones Negative Urine Blood Negative Urine Nitrite Negative Urine Bilirubin Small H Urine Urobilinogen 0.2 Ur Leukocyte Esterase Small H Urine RBC 0-2 Urine WBC 10-20 H Ur Epithelial Cells Few Urine Crystals Many amorphous Urine Bacteria Packed Urine Mucus Ur Culture Indicated? Yes Urine Glucose Negative 08/07/19 08/07/19 08/07/19 12:53 12:53 12:53 WBC 3.33 L RBC 3.16 L Hgb 10.8 L Hct 30.8 L MCV 97.5 H MCH 34.2 H MCHC 35.1 RDW 17.6 H Plt Count 297 D MPV 8.6 Immature Gran % Neutrophils % Lymphocytes % Monocytes % Eosinophils % Basophils % Absolute Neutrophils Absolute Lymphocytes Absolute Monocytes Absolute Eosinophils Absolute Basophils PT INR APTT VBG pH 7.35 VBG pCO2 50 H VBG pO2 66 H VBG HCO3 28 VBG Total CO2 26 VBG O2 Saturation 93 H VBG Base Excess 2.1 Sodium 135 L Potassium 3.6 Chloride 99 Carbon Dioxide 27.4 Anion Gap 8.6 BUN 20 H Creatinine 1.26 Estimated GFR/1.73 m2 57.99 Glucose 139 H Lactate Calcium 7.3 L Magnesium Total Bilirubin 0.6 AST 60 H ALT 26 Alkaline Phosphatase 99 Troponin I NT-Pro-B Natriuret Pep Total Protein 4.8 L Albumin 1.7 L TSH Free T4 Urine Color Urine Clarity Urine pH Ur Specific Burchard Urine Protein Urine Ketones Urine Blood Urine Nitrite Urine Bilirubin Urine Urobilinogen Ur Leukocyte Esterase Urine RBC Urine WBC Ur Epithelial Cells Urine Crystals Urine Bacteria Urine Mucus Ur Culture Indicated? Urine Glucose 08/07/19 08/07/19 12:53 12:53 WBC RBC Hgb Hct MCV MCH MCHC RDW Plt Count MPV Immature Gran % Neutrophils % Lymphocytes % Monocytes % Eosinophils % Basophils % Absolute Neutrophils Absolute Lymphocytes Absolute Monocytes Absolute Eosinophils Absolute Basophils PT INR APTT VBG pH VBG pCO2 VBG pO2 VBG HCO3 VBG Total CO2 VBG O2 Saturation VBG Base Excess Sodium Potassium Chloride Carbon Dioxide Anion Gap BUN Creatinine Estimated GFR/1.73 m2 Glucose Lactate 0.8 Calcium Magnesium Total Bilirubin AST ALT Alkaline Phosphatase Troponin I < 0.05 NT-Pro-B Natriuret Pep 698 H Total Protein Albumin TSH Free T4 Urine Color Urine Clarity Urine pH Ur Specific Burchard Urine Protein Urine Ketones Urine Blood Urine Nitrite Urine Bilirubin Urine Urobilinogen Ur Leukocyte Esterase Urine RBC Urine WBC Ur Epithelial Cells Urine Crystals Urine Bacteria Urine Mucus Ur Culture Indicated? Urine Glucose
--- NOTE | 2019-08-07 14:17 | W.PM.PROGNOT ---
Date of Service Date of service: 08/07/19 Time of Service: 14:17 Assessment and Plan Assessment and plan (1) Sepsis: Status: Acute Assessment and plan: Patient presented with hypotension and change in sensorium with his acute vomiting. Initially the assessment was dehydration and possible adrenal insufficiency. At this point, I am concerned with sepsis given positive blood cultures and ongoing hypotension associated with low temperatures and neutropenia. Aggressively IV hydration has been difficult with access issues, I appreciate Dr. West persisting with a difficult central line access effort. We will continue to hydrate as needed to maintain blood pressure. After discussion of goals of care with daughter, we will add pressors if necessary. We will continue treatment with stress steroids using hydrocortisone IV given possible central adrenal insufficiency. Daughters were again notified of his critical status. (2) Panhypopituitarism: Status: Chronic Assessment and plan: With acute stress symptoms patient will be given hydrocortisone 100 mg IV with 2 doses given acutely and then every 6 hours for maintenance. We will resume his other chronic medication via NG tube when stable. Could consider vasopressin if pressors needed given his history. I did decrease his thyroid dose slightly given his free T4 was at the high end of normal and this puts him at higher risk for atrial fibrillation (low TSH expected with central hypothyroidism). (3) DOUG (obstructive sleep apnea): Status: Chronic Assessment and plan: Patient has diagnosis of DOUG, but confirmed with the [facility] that he does not use CPAP regularly. This point he needs the NG tube so could not get CPAP or BiPAP. He is DNR/DNI.. (4) Pneumonia: Status: Acute Assessment and plan: Pneumonia seen on x-ray. Given severity of his illness, gram-positive cocci in the blood culture, gram-negative in the urine, we have expanded his coverage to ceftazadime and vancomycin. (5) Vomiting: Status: Acute Assessment and plan: Profuse vomiting on admission, initially consistent with gastroenteritis. Finally resolved with placement of NG tube. Exam is quite difficult with diminished mental status and body habitus. Were not able to get films of the abdomen. Patient's lack of pain or clear distention suggest this is not a small bowel obstruction. May be an ileus related to his acute illness. We will continue with the nasogastric tube until he stabilizes clinically. (6) Discharge planning issues: Status: Acute Assessment and plan: As above, both Dr. Campos and myself had discussions with daughters regarding his poor prognosis and confirming that they like to proceed with aggressive medical care. We have considered tertiary care transfer, which would allow easier imaging on equipment that is compatible with bariatric patients, as well as additional specialist input. At this point, he has stabilized and we will plan to keep him here. (7) DVT prophylaxis: Status: Acute Assessment and plan: Heparin for DVT prophylaxis. He is not actively bleeding currently. Subjective Subjective Patient reports: denies diarrhea and fever Interval history since last seen: 24 hr events: NGT placed, vomiting resolved since placement. Suctioning green fluid Surgery consulted and triple lumen placed in right femoral vein after difficulty placing in jugular/subclavian and IO in humerus due to habitus Portable CXR concerning for pneumonia, unable to do abominal film or CT due to habitus and immobility Case discussed with daughter Terri who is primary person involved in care, she wants to continue care. Pt responding to pain over the course of this morning, but not able to give history. During bed transfer (to bariatric bed) this afternoon pt was able to voice complaint of pain in wrist (which was being held to avoid injury and avoid removal of central line during transfer) and to deny abdominal or chest pain. Exam Narrative Exam Narrative: General: Super morbid obesity. Responds consistently to noxious stimuli as above. More alert coherent this afternoon with transfer. HEENT: Pupils symmetric and reactive to light, no icterus. Reading through mouth with Respimask. Neck: Supple without masses Lungs: Poor aeration with patient's morbid obesity made it difficult to auscultate his lung shelley. Bronchovesicular breath sounds diffusely but no focalizing rales or rhonchi. Heart: Distant heart sounds with regular rate and rhythm and no appreciable murmurs or gallops. Abdomen: Morbidly obese with large pannus. Audible bowel sounds. This morning he seemed in pain with deep palpation of his abdomen diffusely, but less so this afternoon. No guarding. Exam is limited by his obesity. Extremities: Morbidly obese with chronic, nonpitting edema over lower extremities more than upper extremities, skin changes with scaly erythematous rash over his legs, ankles and feet which appear to be chronic with no discharge from the erythematous slightly superficially ulcerated areas over his ankles and feet. No cyanosis or clubbing. Skin: Hyperpigmentation in intertriginous areas with erythema and scaly dry skin with brightly erythematous base over his lower extremities as described and dark areas on feet consistent with pressure sores. Neuro: He does move all 4 extremities and cranial nerves are grossly intact, but exam limited. He cannot sit up or roll on his own. Psych: Difficult to assess, when alert he is irritable and yells at the staff. Objective Objective Clinical Data: Abnormal lab results 08/06/19 08/06/19 08/06/19 Range/Units 15:55 15:55 15:55 WBC 3.61 L (4.4-10.8) k/cumm RBC 3.53 L (4.50-6.00) m/cumm Hgb 11.8 L (13.5-17.5) g/dL Hct 34.3 L (40.0-50.0) % MCV 97.2 H (80-95) fL MCH 33.4 H (27.0-33.0) pg RDW 17.6 H (11.8-14.1) % Plt Count 402 H (130-400) x1000/uL PT 11.8 H (9.3-11.0) sec INR 1.2 H (0.9-1.1) VBG pCO2 (34-47) mm/Hg VBG pO2 (28-44) mm/Hg VBG O2 Saturation (70-80) % Sodium 133 L (136-145) mmol/L Chloride 96 L (98-107) mmol/L BUN 21 H (7-18) mg/dL Creatinine 1.41 H (0.70-1.30) mg/dL Glucose (74-106) mg/dL Calcium 8.1 L (8.5-10.1) mg/dL Magnesium 1.4 L (1.8-2.4) mg/dL AST 62 H (15-37) U/L NT-Pro-B Natriuret Pep (<300) pg/mL Total Protein 5.3 L (6.4-8.2) g/dL Albumin 2.1 L (3.4-5.0) g/dL TSH (0.36-3.74) uIU/mL Ur Specific [place] (1.005-1.025) Urine Bilirubin (Negative) Ur Leukocyte Esterase (Negative) Urine WBC (0-5) HPF 08/06/19 08/06/19 08/07/19 Range/Units 15:55 16:13 12:53 WBC (4.4-10.8) k/cumm RBC (4.50-6.00) m/cumm Hgb (13.5-17.5) g/dL Hct (40.0-50.0) % MCV (80-95) fL MCH (27.0-33.0) pg RDW (11.8-14.1) % Plt Count (130-400) x1000/uL PT (9.3-11.0) sec INR (0.9-1.1) VBG pCO2 (34-47) mm/Hg VBG pO2 (28-44) mm/Hg VBG O2 Saturation (70-80) % Sodium 135 L (136-145) mmol/L Chloride (98-107) mmol/L BUN 20 H (7-18) mg/dL Creatinine (0.70-1.30) mg/dL Glucose 139 H (74-106) mg/dL Calcium 7.3 L (8.5-10.1) mg/dL Magnesium (1.8-2.4) mg/dL AST 60 H (15-37) U/L NT-Pro-B Natriuret Pep (<300) pg/mL Total Protein 4.8 L (6.4-8.2) g/dL Albumin 1.7 L (3.4-5.0) g/dL TSH < 0.01 L (0.36-3.74) uIU/mL Ur Specific [place] >= 1.030 H (1.005-1.025) Urine Bilirubin Small H (Negative) Ur Leukocyte Esterase Small H (Negative) Urine WBC 10-20 H (0-5) HPF 08/07/19 08/07/19 08/07/19 Range/Units 12:53 12:53 12:53 WBC 3.33 L (4.4-10.8) k/cumm RBC 3.16 L (4.50-6.00) m/cumm Hgb 10.8 L (13.5-17.5) g/dL Hct 30.8 L (40.0-50.0) % MCV 97.5 H (80-95) fL MCH 34.2 H (27.0-33.0) pg RDW 17.6 H (11.8-14.1) % Plt Count (130-400) x1000/uL PT (9.3-11.0) sec INR (0.9-1.1) VBG pCO2 50 H (34-47) mm/Hg VBG pO2 66 H (28-44) mm/Hg VBG O2 Saturation 93 H (70-80) % Sodium (136-145) mmol/L Chloride (98-107) mmol/L BUN (7-18) mg/dL Creatinine (0.70-1.30) mg/dL Glucose (74-106) mg/dL Calcium (8.5-10.1) mg/dL Magnesium (1.8-2.4) mg/dL AST (15-37) U/L NT-Pro-B Natriuret Pep 698 H (<300) pg/mL Total Protein (6.4-8.2) g/dL Albumin (3.4-5.0) g/dL TSH (0.36-3.74) uIU/mL Ur Specific [place] (1.005-1.025) Urine Bilirubin (Negative) Ur Leukocyte Esterase (Negative) Urine WBC (0-5) HPF Vital Signs Temperature 36 C L 08/07/19 12:30 Temperature Source Temporal Artery Scan 08/07/19 12:30 Pulse 77 08/07/19 12:30 Pulse Rhythm Regular 08/07/19 00:00 Pulse 91 H 08/06/19 20:19 Respiratory Rate 8 L 08/07/19 12:30 Respiratory Effort 08/07/19 12:30 Respiratory Depth Shallow 08/07/19 12:30 Respiratory Pattern Apnea 08/07/19 12:30 Blood Pressure 103/52 L 08/07/19 12:30 Blood Pressure Mean 69 08/07/19 12:30 Blood Pressure Position Supine 08/07/19 12:30 Pulse Oximetry 96 08/07/19 12:30 Oxygen Delivery Method OxyMask 08/07/19 12:30 Oxygen Flow Rate 2 08/07/19 12:30 Pain Level 0 08/06/19 15:33 Intake & Output 08/06/19 08/07/19 08/07/19 23:59 11:59 23:59 Intake Total 2032.333 / 2033.333 1000 / 1100 100 / 1100 Output Total 300 / 300 Balance / 700 / 800 100 / 800 Weight 184 kg 184 kg Intake: IV / 1000 / 1100 100 / 1100 Output: Gastric Drainage 300 / 300 Left Nare 300 / 300 Other: Urine Color Dark Miranda Urine Appearance Cloudy Sediment Comment h/o UTI shen catheter present Emesis Description Retching Projectile Bile Gastric Occult Blood Left Nare Negative Laboratory Results WBC 3.33 k/cumm (4.4-10.8) L 08/07/19 12:53 RBC 3.16 m/cumm (4.50-6.00) L 08/07/19 12:53 Hgb 10.8 g/dL (13.5-17.5) L 08/07/19 12:53 Hct 30.8 % (40.0-50.0) L 08/07/19 12:53 MCV 97.5 fL (80-95) H 08/07/19 12:53 MCH 34.2 pg (27.0-33.0) H 08/07/19 12:53 MCHC 35.1 g/dL (32.0-36.0) 08/07/19 12:53 RDW 17.6 % (11.8-14.1) H 08/07/19 12:53 Plt Count 297 x1000/uL (130-400) D 08/07/19 12:53 MPV 8.6 fL (8.0-11.0) 08/07/19 12:53 Immature Gran % 0.3 % 08/06/19 15:55 Neutrophils % 39.2 08/06/19 15:55 Lymphocytes % 49.6 08/06/19 15:55 Monocytes % 7.8 08/06/19 15:55 Eosinophils % 2.5 08/06/19 15:55 Basophils % 0.6 08/06/19 15:55 Absolute Neutrophils 1.42 k/cumm (1.2-6.7) 08/06/19 15:55 Absolute Lymphocytes 1.79 k/cumm (1.2-3.4) 08/06/19 15:55 Absolute Monocytes 0.28 k/cumm (0.11-0.7) 08/06/19 15:55 Absolute Eosinophils 0.09 k/cumm (0.0-0.7) 08/06/19 15:55 Absolute Basophils 0.02 k/cumm (0.0-0.2) 08/06/19 15:55 PT 11.8 sec (9.3-11.0) H 08/06/19 15:55 INR 1.2 (0.9-1.1) H 08/06/19 15:55 APTT 25.3 sec (21.0-31.4) 08/06/19 15:55 VBG pH 7.35 (7.35-7.45) 08/07/19 12:53 VBG pCO2 50 mm/Hg (34-47) H 08/07/19 12:53 VBG pO2 66 mm/Hg (28-44) H 08/07/19 12:53 VBG HCO3 28 mmol/L (22-28) 08/07/19 12:53 VBG Total CO2 26 mmol/L (22-29) 08/07/19 12:53 VBG O2 Saturation 93 % (70-80) H 08/07/19 12:53 VBG Base Excess 2.1 mmol/L (-3-3) 08/07/19 12:53 Sodium 135 mmol/L (136-145) L 08/07/19 12:53 Potassium 3.6 mmol/L (3.5-5.1) 08/07/19 12:53 Chloride 99 mmol/L (98-107) 08/07/19 12:53 Carbon Dioxide 27.4 mmol/L (21.0-32.0) 08/07/19 12:53 Anion Gap 8.6 mmol/L (3-11) 08/07/19 12:53 BUN 20 mg/dL (7-18) H 08/07/19 12:53 Creatinine 1.26 mg/dL (0.70-1.30) 08/07/19 12:53 Estimated GFR/1.73 m2 57.99 (mL/min/1.73m2) 08/07/19 12:53 Glucose 139 mg/dL (74-106) H 08/07/19 12:53 Lactate 0.8 mmol/L (0.6-1.4) 08/07/19 12:53 Calcium 7.3 mg/dL (8.5-10.1) L 08/07/19 12:53 Magnesium 1.4 mg/dL (1.8-2.4) L 08/06/19 15:55 Total Bilirubin 0.6 mg/dL (0.2-1.0) 08/07/19 12:53 AST 60 U/L (15-37) H 08/07/19 12:53 ALT 26 U/L (16-63) 08/07/19 12:53 Alkaline Phosphatase 99 U/L (46-116) 08/07/19 12:53 Troponin I < 0.05 ng/Ml (<0.06) 08/07/19 12:53 NT-Pro-B Natriuret Pep 698 pg/mL (<300) H 08/07/19 12:53 Total Protein 4.8 g/dL (6.4-8.2) L 08/07/19 12:53 Albumin 1.7 g/dL (3.4-5.0) L 08/07/19 12:53 TSH < 0.01 uIU/mL (0.36-3.74) L 08/06/19 15:55 Free T4 1.45 ng/dL (0.76-1.46) 08/06/19 15:55 Urine Color Miranda (Yellow) 08/06/19 16:13 Urine Clarity Cloudy (Clear) 08/06/19 16:13 Urine pH 5.5 (5-8) 08/06/19 16:13 Ur Specific [place] >= 1.030 (1.005-1.025) H 08/06/19 16:13 Urine Protein Negative mg/dL (Negative) 08/06/19 16:13 Urine Ketones Negative mg/dL (Negative) 08/06/19 16:13 Urine Blood Negative (Negative) 08/06/19 16:13 Urine Nitrite Negative (Negative) 08/06/19 16:13 Urine Bilirubin Small (Negative) H 08/06/19 16:13 Urine Urobilinogen 0.2 EU/dL (Up TO 0.2) 08/06/19 16:13 Ur Leukocyte Esterase Small (Negative) H 08/06/19 16:13 Urine RBC 0-2 HPF (0-2) 08/06/19 16:13 Urine WBC 10-20 HPF (0-5) H 08/06/19 16:13 Ur Epithelial Cells Few HPF (Negative) 08/06/19 16:13 Urine Crystals Many amorphous HPF (Negative) 08/06/19 16:13 Urine Bacteria Packed HPF (Negative) 08/06/19 16:13 Urine Mucus (Negative) 08/06/19 16:13 Ur Culture Indicated? Yes 08/06/19 16:13 Urine Glucose Negative mg/dL (Negative) 08/06/19 16:13
[2019-08-07] MEDS: Silver sulfaDIAZINE 1% 25 GM TUBE TP (15:13)
[2019-08-07] MEDS: levoFLOXacin 750 MG/150 ML BAG 100 MG IVPB (15:21)
[2019-08-07] MEDS: Normal Saline 1,000 ML 150 ML IV (16:05)
[2019-08-07] MEDS: CEFEPIME 2 GM in Normal Saline 100 ML IVPB ×2 (16:23→23:13)
[2019-08-07] MEDS: Albuterol 2.5 MG/3 ML INH SOLN VIAL UPD ×2 (17:57→23:12)
[2019-08-08] VITALS (165 sets, daily range): BP systolic 65–169; BP diastolic 30–143; PULSE 85–206; RESP 8–109; TEMP 35.2–36.8; O2SAT 74–100
[2019-08-08] MEDS: Normal Saline 1,000 ML 150 ML IV ×3 (00:04→18:10)
[2019-08-08] MEDS: LORazepam 2 MG/ML VIAL 0.5 MG IVP ×2 (00:12→04:15)
[2019-08-08] MEDS: Normal Saline Flush 10 ML SYR IVP ×6 (01:09→23:43)
[2019-08-08] MEDS: MORPHine 2 MG/ML SYR IVP ×4 (01:09→06:38)
[2019-08-08] MEDS: Albuterol 2.5 MG/3 ML INH SOLN VIAL UPD ×6 (04:15→23:43)
[2019-08-08] MEDS: Heparin 5,000 UNITS/ML VIAL 5000 UNITS SC ×3 (04:37→21:06)
[2019-08-08] MEDS: Hydrocortisone SOD SUC. 100 MG VIAL IVP ×4 (05:06→23:42)
[2019-08-08 07:11] LABS: Abs Immature Grans 0.01 k/cumm (0.0-0.09); Absolute Lymphocyte Count 0.78 k/cumm (1.2-3.4); Absolute Monocyte Count 0.31 k/cumm (0.11-0.7); Absolute Neutrophil Count 4.16 k/cumm (1.2-6.7); HCT 32.2 % (40.0-50.0); HGB 11.1 g/dL (13.5-17.5); Immature Grans % 0.2 %; Lymphocytes % 14.8; Mean Corp. HGB Concentration 34.5 g/dL (32.0-36.0); Mean Corpuscular Hemoglobin 33.4 pg (27.0-33.0); Mean Platelet Volume 9.1 fL (8.0-11.0); Monocytes % 5.9; Neutrophils % 79.1; Platelet Count 379 x1000/uL (130-400); RBC 3.32 m/cumm (4.50-6.00); RBC Distribution Width 17.7 % (11.8-14.1); White Blood Cell Count 5.26 k/cumm (4.4-10.8)
[2019-08-08 07:28] LABS: Anion Gap 10.3 mmol/L (3-11); Anisocytosis 1+; BUN 17 mg/dL (7-18); CO2 25.7 mmol/L (21.0-32.0); CREATININE 0.97 mg/dL (0.70-1.30); Calcium 7.7 mg/dL (8.5-10.1); Chloride 103 mmol/L (98-107); Diff Comment Agrees w/ Instrument; Glucose 141 mg/dL (74-106); Magnesium 1.9 mg/dL (1.8-2.4); Polychromasia Present; Potassium 3.5 mmol/L (3.5-5.1); Sodium 139 mmol/L (136-145); Target Cells 2+
[2019-08-08] MEDS: CEFEPIME 2 GM in Normal Saline 100 ML IVPB ×3 (08:43→23:45)
[2019-08-08] MEDS: Pantoprazole 40 MG VIAL IVP (08:44)
[2019-08-08] MEDS: Silver sulfaDIAZINE 1% 25 GM TUBE TP ×2 (08:46→21:11)
--- NOTE | 2019-08-08 09:37 | ROE_ITS ---
DATE OF PROCEDURE: August 07, 2019 PREOPERATIVE DIAGNOSIS: Sepsis and need for IV access. POSTOPERATIVE DIAGNOSIS: Same. PROCEDURE: Attempted insertion of right IJ line and right humeral head IO. SURGEON: Shanti Morales D.O. ANESTHESIA: 1% Lidocaine with epinephrine. ESTIMATED BLOOD LOSS: 5 cc's CONDITION: The patient tolerated the procedure well without complication. HISTORY: Mr. Rowland is a 63-year-old male I was asked to see regarding poor IV access. He currently has no IV access. He is in the hospital and he is currently hemodynamically unstable with a systolic BP in the 70's. He has a [place] Coma Scale of 9 and is unable to give consent. Daughters give phone consent and want everything done at this point to save him. He is a DNR/DNI. They are not planning on coming in. PROCEDURE: The area of the right neck is prepped and draped in the usual sterile fashion using a ChloraPrep scrub solution. Ultrasound is used to isolate the vein. He has a BMI of 67. He has very pronounced sleep apnea and whenever he goes into exhalation mode his veins collapse. We attempted several times to cannulate the right IJ but we are unable to get it to the vein. Pt does respond to pain and is combative. This attempt is abandoned. Pressure is held; there is no bleeding noted. Attempts are made to place an IO in the right humeral head. This region is prepped and draped in the usual sterile fashion using ChloraPrep and 30 cc's of 1% Lidocaine with epinephrine. Unfortunately the needle is not long enough to penetrate the soft tissues to get to the humeral head. And this is our main difficulty that the needles are not long enough to transverse the soft tissue to get to a vein. Attempts at upper extremity IV access were abandoned. We did not do a post-procedural chest x-rays; we did not feel that we were even deeper than the subcutaneous tissues. Mult. central line kits were used as well as mult attempts to place peripheral IV's and supplies, including spinal needles. The patient tolerated the procedure and remained in the ICU throughout the entire procedural attempts. Two hours was spent trying to place IV access on this patient.
[2019-08-08] MEDS: Normal Saline 500 ML 10 ML IV (10:00)
--- NOTE | 2019-08-08 11:27 | W.NUTCONSULT ---
Date of service: 08/08/19 Time of Service: 11:27 Nutritional Consult ASSESSMENT: 63 year old male admitted with hypotension, dehydration, possible viral gastroenterisis. PMH: Morbid obesity, IDDM, Lymphedema of both lower extremities. BMI 67. Bedbound and lives at the [facility]. Currently NPO for surgical procedure (intravenous access). At very high nutritional risk in view of BMI. Labs indicate poorly controlled diabetes. Will follow up for education on diabetes/weight management once appropriate. NUTRITIONAL DIAGNOSIS: morbid obesity INTERVENTION: will attempt to educate Prakash on weight management if interested MONITORING AND EVALUATION: diet progression weight and po intake Time Spent in Nutritional Counseling and Treatment: 0 time spent face to face
[2019-08-08] MEDS: traZODone 50 MG TAB 25 MG PO (12:04)
[2019-08-08] MEDS: Allopurinol 100 MG TAB PO (12:04)
[2019-08-08] MEDS: Nystatin POWDER 60 GM JAR TP ×2 (12:15→21:11)
--- NOTE | 2019-08-08 12:56 | PGE_ITS ---
Date of Service Date of service: 08/08/19 Time of Service: 12:56 Assessment and Plan Assessment and plan (1) Sepsis: Status: Acute Assessment and plan: Patient presented with hypotension and change in sensorium with his acute vomiting. Initially the assessment was dehydration and possible adrenal insufficiency. Yesterday became clear this was consistent with sepsis given positive blood cultures and ongoing hypotension associated with low temperatures and neutropenia. Eventually we were able to get a central line so we could adequately fluid resuscitated the patient, but he continued to have difficulty maintaining his blood pressure. Epinephrine drip was started overnight and is maintaining his blood pressures. We confirmed the family's desire to continue with aggressive treatment at this point. Day #2 vancomycin and cefepime. Will stop levofloxacin. We will continue treatment with stress steroids using hydrocortisone IV given possible central adrenal insufficiency. (2) Panhypopituitarism: Status: Chronic Assessment and plan: With acute stress symptoms patient we are treating with hydrocortisone 100 mg IV every 6 hours for maintenance. We will resume his other chronic medication via NG tube when stable or orally if we able to pull the NG tube. I did decrease his thyroid dose slightly given his free T4 was at the high end of normal and this puts him at higher risk for atrial fibrillation (low TSH expected with central hypothyroidism). (3) DOUG (obstructive sleep apnea): Status: Chronic Assessment and plan: Patient has diagnosis of DOUG, but confirmed with the [facility] that he does not use CPAP regularly. He had 1 apneic episode was resolved when he was woken up last night. He has refused CPAP in the past, we may reconsider if we are able to pull the NG tube and he is no longer vomiting. He is DNR/DNI.. (4) Pneumonia: Status: Acute Assessment and plan: Pneumonia seen on x-ray. Given severity of his illness, gram-positive cocci in the blood culture, gram-negative in the urine, we have expanded his coverage to ceftazadime and vancomycin as above. Continue. (5) Vomiting: Status: Acute Assessment and plan: Profuse vomiting on admission, initially consistent with gastroenteritis. Finally resolved with placement of NG tube. Abdominal exam is improved with active bowel sounds. He has tolerated clamping the NG tube this morning. We will proceed with giving him his oral medications with fluid via NG tube. If he tolerates this plan on pulling the tube and attempting p.o. (6) Discharge planning issues: Status: Acute Assessment and plan: [facility] and case reviewed with [facility] last night. He has stabilized clinically so it looks likely we will keep him here for now. I no longer feel acute need for abdominal imaging. He is still quite ill and I did meet and discuss the case with the 3 daughters for about 20 minutes this morning. They are still very concerned with his care at the [facility] and want him moved to snf facility closer to [place]. Care management involved in the case. Consulted palliative care, hopes to do a phone consult with daughters when they are able to come in later this week. (7) DVT prophylaxis: Status: Acute Assessment and plan: Heparin for DVT prophylaxis. He is not actively ble eding currently. Subjective Subjective Patient reports: denies diarrhea, vomiting and fever Interval history since last seen: 24hr: - Case reviewed with ICU attending at [facility]. No beds for transfer, recommended readdressing goals of care. Agreed wi th norepinephrine as pressor (rather than vasopressin). Suggested cefepime with vancomycin (rather than ceftaz). - Goals of care and management reviewed with Daughter Terri via phone last night and with all three daughters this morning - soft restraints just in right arm placed to avoid self harm, pulling out central line and NGT. S: Patient more alert and responds to questions, but unable to give history. He denies pain in head, abdomen, chest, or other pain. He states he is dry as a bone and wants to drink. He denies difficulty breathing. He requested blankets overnight due to being cold. Exam Narrative Exam Narrative: General: Super morbid obesity. Responds consistently to noxious stimuli as above. More alert coherent this afternoon with transfer. HEENT: Pupils symmetric and reactive to light, no icterus. Breathing less labored, no longer grunting as much. Lungs: Breath sounds audible throughout lung shelley anteriorly and posteriorly, improved exam today. No rales or wheezing. Heart: Distant heart sounds but more audible with regular rate and rhythm and no appreciable murmurs or gallops. Abdomen: Morbidly obese with large pannus. Audible bowel sounds. No pain with deep palpation today, no guarding. Extremities/skin as noted: No new rash. Bruises noted from central line placement attempts in bilateral upper chest. Ulcerated areas over his ankles and feet wrapped in clean dressing. No cyanosis or clubbing no just the 80 tomorrow. Neuro: He does move all 4 extremities and cranial nerves are grossly intact, but exam limited. He cannot sit up or roll on his own. Psych: Difficult to assess, responds appropriatelly in pleasent voice at times, sings out or makes random statements at times. Not oriented. Objective Objective Clinical Data: Abnormal lab results 08/07/19 08/07/19 08/07/19 Range/Units 12:53 12:53 12:53 WBC 3.33 L (4.4-10.8) k/cumm RBC 3.16 L (4.50-6.00) m/cumm Hgb 10.8 L (13.5-17.5) g/dL Hct 30.8 L (40.0-50.0) % MCV 97.5 H (80-95) fL MCH 34.2 H (27.0-33.0) pg RDW 17.6 H (11.8-14.1) % Absolute Lymphocytes (1.2-3.4) k/cumm VBG pCO2 50 H (34-47) mm/Hg VBG pO2 66 H (28-44) mm/Hg VBG O2 Saturation 93 H (70-80) % Sodium 135 L (136-145) mmol/L BUN 20 H (7-18) mg/dL Glucose 139 H (74-106) mg/dL Calcium 7.3 L (8.5-10.1) mg/dL AST 60 H (15-37) U/L NT-Pro-B Natriuret Pep (<300) pg/mL Total Protein 4.8 L (6.4-8.2) g/dL Albumin 1.7 L (3.4-5.0) g/dL 08/07/19 08/08/19 08/08/19 Range/Units 12:53 06:30 06:30 WBC (4.4-10.8) k/cumm RBC 3.32 L (4.50-6.00) m/cumm Hgb 11.1 L (13.5-17.5) g/dL Hct 32.2 L (40.0-50.0) % MCV 97.0 H (80-95) fL MCH 33.4 H (27.0-33.0) pg RDW 17.7 H (11.8-14.1) % Absolute Lymphocytes 0.78 L (1.2-3.4) k/cumm VBG pCO2 (34-47) mm/Hg VBG pO2 (28-44) mm/Hg VBG O2 Saturation (70-80) % Sodium (136-145) mmol/L BUN (7-18) mg/dL Glucose 141 H (74-106) mg/dL Calcium 7.7 L (8.5-10.1) mg/dL AST (15-37) U/L NT-Pro-B Natriuret Pep 698 H (<300) pg/mL Total Protein (6.4-8.2) g/dL Albumin (3.4-5.0) g/dL Vital Signs Temperature 36.5 C 08/08/19 12:00 Temperature Source Temporal Artery Scan 08/08/19 12:00 Pulse 110 H 08/08/19 12:17 Pulse Rhythm Regular 08/07/19 00:00 Pulse 110 H 08/08/19 11:20 Respiratory Rate 19 08/08/19 12:17 Respiratory Effort 08/08/19 12:00 Respiratory Depth Shallow 08/08/19 11:56 Respiratory Pattern Normal 08/08/19 11:56 Blood Pressure 134/61 08/08/19 12:00 Blood Pressure Mean 60 08/08/19 11:16 Blood Pressure Position Supine 08/08/19 08:00 Pulse Oximetry 95 08/08/19 12:17 Oxygen Delivery Method Room Air 08/08/19 11:50 Oxygen Flow Rate 0 08/08/19 11:50 Pain Level 0 08/08/19 08:00 Intake & Output 08/07/19 08/08/19 08/08/19 23:59 11:59 23:59 Intake Total 5710.273 / 7810.273 1486.862 / 1486.862 Output Total 1375 / 1675 500 / 500 Balance 4335.273 / 6135.273 986.862 / 986.862 Intake: IV 5710.273 / 7810.273 1486.862 / 1486.862 Output: Gastric Drainage 600 / 900 0 / 0 Left Nare 600 / 900 0 / 0 Urine 775 / 775 500 / 500 Other: Urine Color Yellow Yellow Urine Appearance Clear Comment shen is patent and draining Shen catheter in place and draining clear, light yellow urine. Urometer placed. Gastric Occult Blood Left Nare Positive Voiding Methods Indwelling Catheter Laboratory Results WBC 5.26 k/cumm (4.4-10.8) D 08/08/19 06:30 RBC 3.32 m/cumm (4.50-6.00) L 08/08/19 06:30 Hgb 11.1 g/dL (13.5-17.5) L 08/08/19 06:30 Hct 32.2 % (40.0-50.0) L 08/08/19 06:30 MCV 97.0 fL (80-95) H 08/08/19 06:30 MCH 33.4 pg (27.0-33.0) H 08/08/19 06:30 MCHC 34.5 g/dL (32.0-36.0) 08/08/19 06:30 RDW 17.7 % (11.8-14.1) H 08/08/19 06:30 Plt Count 379 x1000/uL (130-400) 08/08/19 06:30 MPV 9.1 fL (8.0-11.0) 08/08/19 06:30 Immature Gran % 0.2 % 08/08/19 06:30 Neutrophils % 79.1 08/08/19 06:30 Lymphocytes % 14.8 08/08/19 06:30 Monocytes % 5.9 08/08/19 06:30 Eosinophils % 0.0 08/08/19 06:30 Basophils % 0.0 08/08/19 06:30 Absolute Neutrophils 4.16 k/cumm (1.2-6.7) 08/08/19 06:30 Absolute Lymphocytes 0.78 k/cumm (1.2-3.4) L 08/08/19 06:30 Absolute Monocytes 0.31 k/cumm (0.11-0.7) 08/08/19 06:30 Absolute Eosinophils 0.00 k/cumm (0.0-0.7) 08/08/19 06:30 Absolute Basophils 0.00 k/cumm (0.0-0.2) 08/08/19 06:30 Differential Comment Agrees w/ instrument 08/08/19 06:30 RBC Morphology See below 08/08/19 06:30 Polychromasia Present 08/08/19 06:30 Anisocytosis 1+ 08/08/19 06:30 Target Cells 2+ 08/08/19 06:30 PT 11.8 sec (9.3-11.0) H 08/06/19 15:55 INR 1.2 (0.9-1.1) H 08/06/19 15:55 APTT 25.3 sec (21.0-31.4) 08/06/19 15:55 VBG pH 7.35 (7.35-7.45) 08/07/19 12:53 VBG pCO2 50 mm/Hg (34-47) H 08/07/19 12:53 VBG pO2 66 mm/Hg (28-44) H 08/07/19 12:53 VBG HCO3 28 mmol/L (22-28) 08/07/19 12:53 VBG Total CO2 26 mmol/L (22-29) 08/07/19 12:53 VBG O2 Saturation 93 % (70-80) H 08/07/19 12:53 VBG Base Excess 2.1 mmol/L (-3-3) 08/07/19 12:53 Sodium 139 mmol/L (136-145) 08/08/19 06:30 Potassium 3.5 mmol/L (3.5-5.1) 08/08/19 06:30 Chloride 103 mmol/L (98-107) 08/08/19 06:30 Carbon Dioxide 25.7 mmol/L (21.0-32.0) 08/08/19 06:30 Anion Gap 10.3 mmol/L (3-11) 08/08/19 06:30 BUN 17 mg/dL (7-18) 08/08/19 06:30 Creatinine 0.97 mg/dL (0.70-1.30) 08/08/19 06:30 Estimated GFR/1.73 m2 >= 60.00 (mL/min/1.73m2) 08/08/19 06:30 Glucose 141 mg/dL (74-106) H 08/08/19 06:30 Lactate 0.8 mmol/L (0.6-1.4) 08/07/19 12:53 Calcium 7.7 mg/dL (8.5-10.1) L 08/08/19 06:30 Magnesium 1.9 mg/dL (1.8-2.4) 08/08/19 06:30 Total Bilirubin 0.6 mg/dL (0.2-1.0) 08/07/19 12:53 AST 60 U/L (15-37) H 08/07/19 12:53 ALT 26 U/L (16-63) 08/07/19 12:53 Alkaline Phosphatase 99 U/L (46-116) 08/07/19 12:53 Troponin I < 0.05 ng/Ml (<0.06) 08/07/19 12:53 NT-Pro-B Natriuret Pep 698 pg/mL (<300) H 08/07/19 12:53 Total Protein 4.8 g/dL (6.4-8.2) L 08/07/19 12:53 Albumin 1.7 g/dL (3.4-5.0) L 08/07/19 12:53 TSH < 0.01 uIU/mL (0.36-3.74) L 08/06/19 15:55 Free T4 1.45 ng/dL (0.76-1.46) 08/06/19 15:55 Urine Color Miranda (Yellow) 08/06/19 16:13 Urine Clarity Cloudy (Clear) 08/06/19 16:13 Urine pH 5.5 (5-8) 08/06/19 16:13 Ur Specific [place] >= 1.030 (1.005-1.025) H 08/06/19 16:13 Urine Protein Negative mg/dL (Negative) 08/06/19 16:13 Urine Ketones Negative mg/dL (Negative) 08/06/19 16:13 Urine Blood Negative (Negative) 08/06/19 16:13 Urine Nitrite Negative (Negative) 08/06/19 16:13 Urine Bilirubin Small (Negative) H 08/06/19 16:13 Urine Urobilinogen 0.2 EU/dL (Up TO 0.2) 08/06/19 16:13 Ur Leukocyte Esterase Small (Negative) H 08/06/19 16:13 Urine RBC 0-2 HPF (0-2) 08/06/19 16:13 Urine WBC 10-20 HPF (0-5) H 08/06/19 16:13 Ur Epithelial Cells Few HPF (Negative) 08/06/19 16:13 Urine Crystals Many amorphous HPF (Negative) 08/06/19 16:13 Urine Bacteria Packed HPF (Negative) 08/06/19 16:13 Urine Mucus (Negative) 08/06/19 16:13 Ur Culture Indicated? Yes 08/06/19 16:13 Urine Glucose Negative mg/dL (Negative) 08/06/19 16:13
--- NOTE | 2019-08-08 17:29 | PDOC.CMPRO ---
- If Service Date Differs Date of service: 08/08/19 Time of Service: 17:29 Care Management Progress Note S/O: CM met with Prakash and his three daughters today to discuss goals of care and next steps going forward. Although Prakash is a DNR/DNI and is his own person at this time, his daughters would like aggressive care in order to sustain his life. CM discussed his current residence with the daughters, as they are hoping that they can relocate their father closer to where they live, in order to better oversee his care. CM offered to send referrals for placement closer to the children, which is in the [place] areas. CM called to discuss this with the [facility], who is aware of the families wishes and supportive of their choice to move him, if a bed is available. [facility] reported that they do not have bed availability at this time, but we can send a referral for review in case a bed becomes available. Per previous documentation, his daughters have tried to have him moved in the past unsuccessfully, as there was no bed acceptance. CM also discussed goals of care with his daughters. Prakash was in and out of consciousness during the visit and was not able to communicate to CM. His daughters expected to meet with a Palliative Care provider today, and they traveled two hours in order to be here. Palliative was not available, but may be available for a short visit on 08/09/19. CM communicated with the Palliative office who stated that they would call CM in the morning to schedule a visit. Prakash's daughters expressed that this will have to be a conference call, as they cannot make it here tomorrow. CM will call Terri (daughter) in the morning once a meeting is scheduled. Contact numbers listed below. CM will continue to follow. Contact numbers for Prakash's daughters: Terri (primary contact) [phone]. Leave a message if she doesn't answer and she will call back. She will touch base with her sisters. Brenda - [phone]. Gabriella - no known number. Contact page number is incorrect. Terri will reach out. A: Prakash is a 63 year old male admitted to [facility] on 08/07/2019 with hypotension, dehydration, askew-hypopituitarism, and Sepsis. P: Anticipate Prakash will return to the [facility] vs be placed in a facility closer to his children. CM has sent a referral to [facility]. He will be transported via ambulance once medically ready for discharge. Anticipate a Palliative meeting with Prakash and his children (via phone) in order to discuss goals of care. CM will continue to follow and support discharge planning considerations.
[2019-08-08] MEDS: Desmopressin 0.2 MG TAB 0.1 MG PO (21:09)
[2019-08-08] MEDS: traZODone 50 MG TAB 150 MG PO (21:10)
[2019-08-09] VITALS (80 sets, daily range): BP systolic 50–158; BP diastolic 37–126; PULSE 87–183; RESP 2–30; TEMP 36.5–37.3; O2SAT 83–100
[2019-08-09] MEDS: LORazepam 2 MG/ML VIAL 0.5 MG IVP ×2 (00:20→10:46)
[2019-08-09] MEDS: Normal Saline 1,000 ML 150 ML IV ×3 (02:56→11:33)
[2019-08-09] MEDS: Heparin 5,000 UNITS/ML VIAL 5000 UNITS SC ×3 (04:56→21:00)
[2019-08-09] MEDS: Hydrocortisone SOD SUC. 100 MG VIAL IVP ×3 (05:01→18:48)
[2019-08-09 08:31] LABS: Abs Immature Grans 0.07 k/cumm (0.0-0.09); Absolute Basophil Count 0.01 k/cumm (0.0-0.2); Absolute Lymphocyte Count 1.36 k/cumm (1.2-3.4); Absolute Monocyte Count 0.52 k/cumm (0.11-0.7); Absolute Neutrophil Count 3.48 k/cumm (1.2-6.7); Basophils % 0.2; HCT 27.9 % (40.0-50.0); HGB 9.5 g/dL (13.5-17.5); Immature Grans % 1.3 %; Mean Corp. HGB Concentration 34.1 g/dL (32.0-36.0); Mean Corpuscular Volume 96.9 fL (80-95); Mean Platelet Volume 9.6 fL (8.0-11.0); Monocytes % 9.6; Neutrophils % 63.9; Platelet Count 288 x1000/uL (130-400); RBC 2.88 m/cumm (4.50-6.00); RBC Distribution Width 17.5 % (11.8-14.1); White Blood Cell Count 5.44 k/cumm (4.4-10.8)
[2019-08-09 08:36] LABS: Anion Gap 9.8 mmol/L (3-11); BUN 17 mg/dL (7-18); C-Reactive Protein 13.01 mg/dL (0.0-0.3); CO2 25.2 mmol/L (21.0-32.0); CREATININE 0.81 mg/dL (0.70-1.30); Calcium 7.5 mg/dL (8.5-10.1); Chloride 103 mmol/L (98-107); Glucose 142 mg/dL (74-106); Potassium 3.5 mmol/L (3.5-5.1); Sodium 138 mmol/L (136-145)
[2019-08-09 08:52] LABS: Diff Comment Diff Reviewed; Hypochromasia 2+
[2019-08-09 08:53] LABS: Polychromasia Present; Target Cells 2+
[2019-08-09 08:54] LABS: Anisocytosis 2+; Poikilocytes 1+
[2019-08-09] MEDS: Albuterol 2.5 MG/3 ML INH SOLN VIAL UPD ×3 (09:14→16:38)
[2019-08-09] MEDS: CEFEPIME 2 GM in Normal Saline 100 ML IVPB ×3 (09:20→23:06)
[2019-08-09] MEDS: Nystatin POWDER 60 GM JAR TP ×3 (09:25→20:56)
[2019-08-09] MEDS: Pantoprazole 40 MG VIAL IVP (09:25)
[2019-08-09] MEDS: Normal Saline Flush 10 ML SYR IVP ×5 (09:25→21:05)
[2019-08-09] MEDS: traZODone 50 MG TAB 25 MG PO ×2 (09:29→13:44)
[2019-08-09] MEDS: Allopurinol 100 MG TAB PO (09:29)
[2019-08-09 10:14] LABS: Procalcitonin 0.4 ng/mL
--- NOTE | 2019-08-09 12:11 | W.PM.PROGNOT ---
Date of Service Date of service: 08/09/19 Time of Service: 12:12 Assessment and Plan Assessment and plan (1) Sepsis: Status: Acute Assessment and plan: Patient now appears to be out of septic shock with return of his renal function and cognitively he is more alert. I am not sure that he is back to his baseline in terms of his mental status yet. Blood pressure has stabilized and we are discontinuing his vasopressors. He continues to receive broad-spectrum antibiotics for both coverage of pneumonia as well as possible UTI. His blood cultures are growing 2 different species of staph probably contaminant. Urine culture is growing gram-negative rods and gram-positive silvano final identification and sensitivities are pending. We will continue to treat his adrenal insufficiency with stress dose hydrocortisone for the next couple days and then resume his usual dose of corticosteroids. He continues to demonstrate markers consistent with sepsis including an elevated procalcitonin level and an elevated C-reactive protein. However his blood lactate has normalized. And his leukocytosis has resolved. Qualifiers: Sepsis type: sepsis due to unspecified organism Sepsis acute organ dysfunction status: with acute organ dysfunction Severe sepsis acute organ dysfunction type: acute renal failure Acute renal failure type: with acute tubular necrosis Severe sepsis shock status: with septic shock Qualified Code(s): A41.9 - Sepsis, unspecified organism; R65.21 - Severe sepsis with septic shock; N17.0 - Acute kidney failure with tubular necrosis (2) Pneumonia: Status: Acute Assessment and plan: Continue aerosolized bronchodilators and supplemental oxygen. Continue broad-spectrum antibiotics with cefepime and vancomycin. We will maintain him in the ICU for today and if his blood pressure remains stable we will transfer him to the medical/surgical floor tomorrow. He continues the need for central line due to poor IV access. We will give him a trial of clear liquids and advance his diet as tolerated. If he shows any signs of coughing or choking with feedings then we will make him n.p.o. and have a formal swallowing evaluation by speech therapy. Qualifiers: Pneumonia type: aspiration pneumonia Laterality: right Lung location: upper lobe of lung Aspiration pneumonia type: due to vomit Qualified Code(s): J69.0 - Pneumonitis due to inhalation of food and vomit (3) Bacteremia: Status: Acute Assessment and plan: So far blood cultures have shown 2 bottles positive for 2 different staph species probably a contaminant. Repeat blood cultures have been ordered. Continue vancomycin for now. (4) Acute UTI (urinary tract infection): Status: Acute Assessment and plan: Continue cefepime and adjust his antibiotics pending identification and sensitivities of his urine culture. (5) Panhypopituitarism: Status: Chronic Assessment and plan: Continue treatment of his panhypopituitarism with stress dose hydrocortisone and his home dose of desmopressin. (6) DOUG (obstructive sleep apnea): Status: Chronic Assessment and plan: Ideally patient should be on a CPAP mask but [facility]. (7) Adrenal insufficiency: Status: Chronic Assessment and plan: Continue IV hydrocortisone at 100 mg every 6 hours for the next 48 hours and then we will switch him back to his usual dose of oral hydrocortisone. (8) Diabetes mellitus: Status: Chronic Assessment and plan: We will monitor his blood sugars before meals and at bedtime changing from the current regimen of every 6 hours. Will provide coverage with NovoLog and insulin sensitive scale. Patient previously was on Victoza. Once he is fully taking an oral diet and tolerating solids without any signs of choking or aspiration I will resume many of his home meds including his Victoza. 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 We will resume his levothyroxine once he is tolerating p.o. well. He will resume his desmopressin tonight. (10) Open wound of right lower extremity: Status: Acute Assessment and plan: Currently patient is having his stasis skin ulcers will bathe with antibacterial soap daily along with dressing changes with Silvadene and Kerlix. We will ask wound care nurse to consult on the case. Patient is also having Michael wrap is applied to help treat his lymphedema. Qualifiers: Encounter type: subsequent encounter Qualified Code(s): S81.801D - Unspecified open wound, right lower leg, subsequent encounter (11) Wound of left lower extremity: Status: Acute Assessment and plan: As above Qualifiers: Encounter type: subsequent encounter Qualified Code(s): S81.802D - Unspecified open wound, left lower leg, subsequent encounter (12) DVT prophylaxis: Status: Acute Assessment and plan: Continue subcutaneous heparin (13) Lymphedema of both lower extremities: Status: Acute Assessment and plan: Continue Michael wraps and elevation. (14) Viral gastroenteritis: Status: Acute Assessment and plan: Resolved (15) Discharge planning issues: Status: Acute Assessment and plan: Patient has been a resident at the [facility] and is noted by Dr. Lee family is not happy with the care he is been receiving at the [facility]. Case management is involved in his care and will coordinate that with the family regarding placement upon discharge. family has indicated Dr. Lee they would prefer him closer to them in [facility] Subjective Subjective Interval history since last seen: Patient's blood pressure has stabilized and his norepinephrine drip has been weaned down to 0.02 mcg/kilogram/minute with stable blood pressures although yesterday he was weaned off the norepinephrine drip and had a transient drop in his blood pressure into the 70s systolic. This morning his blood pressure systolic has been in the 110s to 120s. Diastolic blood pressures have been in the 50s. However he remains tachycardic with a heart rate in the 100 teens in sinus rhythm. He is afebrile. He is alert but oriented only to his name. Urine culture from August 06, 2019 demonstrates gram-negative rods 50,000-100,000 colonies as well as gram-positive silvano 50,000-100,000 colonies 2 out of 2 blood cultures from August 06, 2019 are demonstrating 2 different species of staph including staph epidermidis and staph capitis. Patient remains on cefepime and vancomycin for treatment of sepsis. He remains on high-dose hydrocortisone to treat him for adrenal insufficiency. We will have nursing staff discontinue his norepinephrine drip. We will monitor his blood pressures closely. Patient's NG was removed yesterday and was tried on some clear liquids. We will continue clear liquid diet today and advance as tolerated. He will need to be closely monitored for any aspiration. He had had severe episode of protracted vomiting while at the [facility] and very well may have had an aspiration pneumonia. Chest x-ray demonstrates a right upper lobe pneumonia. Exam Narrative Exam Narrative: Morbidly obese bedbound patient who is somnolent but easily arousable. He was very much awake during his dressing changes and complaining of pain with his dressing changes. He has chronic stasis dermatitis changes over his lower legs with some superficial weeping skin ulcerations. Neck is obese supple nontender there is no discernible JVD but difficult to evaluate due to his obesity. Lungs reveal coarse rhonchi in the right upper lobe rest of the lung shelley are clear. Heart is tachycardic but regular without audible murmur rub or gallop. Abdomen is obese soft nontender. Due to the obesity it is impossible to discern any organomegaly. Bowel sounds are present. Lower extremities reveal diffuse erythema both lower legs with chronic stasis skin changes including pebbly grainy appearance to the skin along with scaling of the skin and weeping of fluid from the skin. Toes have thickened long nails appeared to be onychomycosis. Right great toe has what appears to be an ischemic ulcer. Objective Objective Clinical Data: Abnormal lab results 08/09/19 08/09/19 Range/Units 06:55 06:55 RBC 2.88 L (4.50-6.00) m/cumm Hgb 9.5 L (13.5-17.5) g/dL Hct 27.9 L (40.0-50.0) % MCV 96.9 H (80-95) fL RDW 17.5 H (11.8-14.1) % Glucose 142 H (74-106) mg/dL Calcium 7.5 L (8.5-10.1) mg/dL C-Reactive Protein 13.01 H (0.0-0.3) mg/dL Vital Signs Temperature 36.8 C 08/09/19 11:43 Temperature Source Temporal Artery Scan 08/09/19 11:43 Pulse 110 H 08/09/19 11:43 Pulse Rhythm Regular 08/07/19 00:00 Pulse 110 H 08/09/19 11:32 Respiratory Rate 22 08/09/19 11:43 Respiratory Effort 08/09/19 11:43 Respiratory Depth Shallow 08/09/19 11:43 Respiratory Pattern Normal 08/09/19 11:43 Blood Pressure 123/50 L 08/09/19 11:43 Blood Pressure Mean 74 08/09/19 11:43 Blood Pressure Position Supine 08/09/19 11:43 Pulse Oximetry 92 L 08/09/19 11:43 Oxygen Delivery Method Room Air 08/09/19 11:43 Oxygen Flow Rate 0 08/09/19 11:43 Pain Level 0 08/09/19 11:43 Intake & Output 08/08/19 08/09/19 08/09/19 23:59 11:59 23:59 Intake Total 3855.907 / 5342.769 2628.578 / 2628.578 Output Total 1350 / 3050 595 / 595 Balance 2505.907 / 2292.769 2033.578 / 2033.578 Weight 181 kg Intake: IV 1556.907 / 3043.769 2428.578 / 2428.578 Oral 2299 / 2299 200 / 200 Output: Urine 1350 / 3050 595 / 595 Other: Urine Color Yellow Yellow Urine Appearance Clear Clear Urine Odor Normal Comment Shen catheter in place and draining clear, light yellow urine. shen cath in place, patent and draining clear yellow urine. Voiding Methods Urinal Indwelling Catheter Laboratory Results WBC 5.44 k/cumm (4.4-10.8) 08/09/19 06:55 RBC 2.88 m/cumm (4.50-6.00) L 08/09/19 06:55 Hgb 9.5 g/dL (13.5-17.5) L 08/09/19 06:55 Hct 27.9 % (40.0-50.0) L 08/09/19 06:55 MCV 96.9 fL (80-95) H 08/09/19 06:55 MCH 33.0 pg (27.0-33.0) 08/09/19 06:55 MCHC 34.1 g/dL (32.0-36.0) 08/09/19 06:55 RDW 17.5 % (11.8-14.1) H 08/09/19 06:55 Plt Count 288 x1000/uL (130-400) 08/09/19 06:55 MPV 9.6 fL (8.0-11.0) 08/09/19 06:55 Immature Gran % 1.3 % 08/09/19 06:55 Neutrophils % 63.9 08/09/19 06:55 Lymphocytes % 25.0 08/09/19 06:55 Monocytes % 9.6 08/09/19 06:55 Eosinophils % 0.0 08/09/19 06:55 Basophils % 0.2 08/09/19 06:55 Absolute Neutrophils 3.48 k/cumm (1.2-6.7) 08/09/19 06:55 Absolute Lymphocytes 1.36 k/cumm (1.2-3.4) 08/09/19 06:55 Absolute Monocytes 0.52 k/cumm (0.11-0.7) 08/09/19 06:55 Absolute Eosinophils 0.00 k/cumm (0.0-0.7) 08/09/19 06:55 Absolute Basophils 0.01 k/cumm (0.0-0.2) 08/09/19 06:55 Differential Comment Diff reviewed 08/09/19 06:55 RBC Morphology See below 08/09/19 06:55 Polychromasia Present 08/09/19 06:55 Hypochromasia 2+ 08/09/19 06:55 Poikilocytosis 1+ 08/09/19 06:55 Anisocytosis 2+ 08/09/19 06:55 Target Cells 2+ 08/09/19 06:55 PT 11.8 sec (9.3-11.0) H 08/06/19 15:55 INR 1.2 (0.9-1.1) H 08/06/19 15:55 APTT 25.3 sec (21.0-31.4) 08/06/19 15:55 VBG pH 7.35 (7.35-7.45) 08/07/19 12:53 VBG pCO2 50 mm/Hg (34-47) H 08/07/19 12:53 VBG pO2 66 mm/Hg (28-44) H 08/07/19 12:53 VBG HCO3 28 mmol/L (22-28) 08/07/19 12:53 VBG Total CO2 26 mmol/L (22-29) 08/07/19 12:53 VBG O2 Saturation 93 % (70-80) H 08/07/19 12:53 VBG Base Excess 2.1 mmol/L (-3-3) 08/07/19 12:53 Sodium 138 mmol/L (136-145) 08/09/19 06:55 Potassium 3.5 mmol/L (3.5-5.1) 08/09/19 06:55 Chloride 103 mmol/L (98-107) 08/09/19 06:55 Carbon Dioxide 25.2 mmol/L (21.0-32.0) 08/09/19 06:55 Anion Gap 9.8 mmol/L (3-11) 08/09/19 06:55 BUN 17 mg/dL (7-18) 08/09/19 06:55 Creatinine 0.81 mg/dL (0.70-1.30) 08/09/19 06:55 Estimated GFR/1.73 m2 >= 60.00 (mL/min/1.73m2) 08/09/19 06:55 Glucose 142 mg/dL (74-106) H 08/09/19 06:55 Lactate 0.8 mmol/L (0.6-1.4) 08/07/19 12:53 Calcium 7.5 mg/dL (8.5-10.1) L 08/09/19 06:55 Magnesium 1.9 mg/dL (1.8-2.4) 08/08/19 06:30 Total Bilirubin 0.6 mg/dL (0.2-1.0) 08/07/19 12:53 AST 60 U/L (15-37) H 08/07/19 12:53 ALT 26 U/L (16-63) 08/07/19 12:53 Alkaline Phosphatase 99 U/L (46-116) 08/07/19 12:53 Troponin I < 0.05 ng/Ml (<0.06) 08/07/19 12:53 C-Reactive Protein 13.01 mg/dL (0.0-0.3) H 08/09/19 06:55 NT-Pro-B Natriuret Pep 698 pg/mL (<300) H 08/07/19 12:53 Total Protein 4.8 g/dL (6.4-8.2) L 08/07/19 12:53 Albumin 1.7 g/dL (3.4-5.0) L 08/07/19 12:53 Procalcitonin 0.4 ng/mL 08/09/19 06:55 TSH < 0.01 uIU/mL (0.36-3.74) L 08/06/19 15:55 Free T4 1.45 ng/dL (0.76-1.46) 08/06/19 15:55 Urine Color Miranda (Yellow) 08/06/19 16:13 Urine Clarity Cloudy (Clear) 08/06/19 16:13 Urine pH 5.5 (5-8) 08/06/19 16:13 Ur Specific [place] >= 1.030 (1.005-1.025) H 08/06/19 16:13 Urine Protein Negative mg/dL (Negative) 08/06/19 16:13 Urine Ketones Negative mg/dL (Negative) 08/06/19 16:13 Urine Blood Negative (Negative) 08/06/19 16:13 Urine Nitrite Negative (Negative) 08/06/19 16:13 Urine Bilirubin Small (Negative) H 08/06/19 16:13 Urine Urobilinogen 0.2 EU/dL (Up TO 0.2) 08/06/19 16:13 Ur Leukocyte Esterase Small (Negative) H 08/06/19 16:13 Urine RBC 0-2 HPF (0-2) 08/06/19 16:13 Urine WBC 10-20 HPF (0-5) H 08/06/19 16:13 Ur Epithelial Cells Few HPF (Negative) 08/06/19 16:13 Urine Crystals Many amorphous HPF (Negative) 08/06/19 16:13 Urine Bacteria Packed HPF (Negative) 08/06/19 16:13 Urine Mucus (Negative) 08/06/19 16:13 Ur Culture Indicated? Yes 08/06/19 16:13 Urine Glucose Negative mg/dL (Negative) 08/06/19 16:13
--- NOTE | 2019-08-09 12:20 | W.NUTRFU ---
Date of service: 08/09/19 Time of Service: 12:21 Nutritional Follow up NOTE: Farrukh advanced to clear liquids today after 3 days of NPO. Per nursing, tolerating clears, will provide ensure clear for increased nutrients. Labs reviewed. Down 1.2 kg since admit. will follow and intervene as warranted. Time Spent in Nutritional Counseling and Treatment: 0 time spent face to face
[2019-08-09 13:46] LABS: Vancomycin, Trough 20.3 ug/mL (10.0-20.0)
--- NOTE | 2019-08-09 16:19 | PDOC.CMPRO ---
- If Service Date Differs Date of service: 08/09/19 Time of Service: 16:19 Care Management Progress Note S/O: CM contacted daughter Terri over the phone she expresses concerns that her father has not received appropriate care at the [facility], CM has offered the [facility] information for complaints and concerns. Prakash has been at the [facility] for the past three years his daughter is concerned that he has gained a tremendous amount of weight and is no longer mobile. She states he has been confused over the last few months and hallucinating she knows this is not normal for him however feels that her concerns are not heard. CM provided active listening support and offered an update on Prakash's plan including treatment and expected length of stay. There no change in the plan today, has agreed to see the patient on Thursday for palliative care time to be determined. CM will need to contact family over the phone once a time has been determined. Contact numbers for Prakash's daughters: Terri (primary contact) [phone]. Leave a message if she doesn't answer and she will call back. She will touch base with her sisters. Brenda - [phone]. Gabriella - no known number. Contact page number is incorrect. Terri will reach out. A: Prakash is a 63 year old male admitted to [facility] on 08/07/2019 with hypotension, dehydration, askew-hypopituitarism, and Sepsis. He is currently receiving wound care. P: Anticipate Prakash will return to the [facility] when he is medically ready. He remains on IV abx and receiving wound care. He will be transported via ambulance once medically ready for discharge. Anticipate a Palliative meeting with Prakash and his children (via phone) in order to discuss goals of care. CM will continue to follow and support discharge planning considerations.
[2019-08-09] MEDS: Metoprolol 12.5 MG TAB PO (17:35)
[2019-08-09 17:45] LABS: Troponin I < 0.05 ng/Ml (<0.06)
[2019-08-09] MEDS: Desmopressin 0.2 MG TAB 0.1 MG PO (20:57)
[2019-08-09 21:49] LABS: Troponin I < 0.05 ng/Ml (<0.06)
[2019-08-09] MEDS: traZODone 50 MG TAB 150 MG PO (23:07)
[2019-08-10] VITALS (53 sets, daily range): BP systolic 86–177; BP diastolic 32–144; PULSE 77–144; RESP 0–32; TEMP 35.5–37.1; O2SAT 87–98
[2019-08-10] MEDS: Hydrocortisone SOD SUC. 100 MG VIAL IVP ×5 (01:03→23:27)
[2019-08-10] MEDS: Heparin 5,000 UNITS/ML VIAL 5000 UNITS SC ×3 (05:30→21:16)
[2019-08-10 06:31] LABS: Abs Immature Grans 0.14 k/cumm (0.0-0.09); Absolute Basophil Count 0.01 k/cumm (0.0-0.2); Absolute Lymphocyte Count 1.69 k/cumm (1.2-3.4); Absolute Monocyte Count 0.62 k/cumm (0.11-0.7); Absolute Neutrophil Count 4.93 k/cumm (1.2-6.7); Basophils % 0.1; HCT 27.8 % (40.0-50.0); HGB 9.5 g/dL (13.5-17.5); Immature Grans % 1.9 %; Lymphocytes % 22.9; Mean Corp. HGB Concentration 34.2 g/dL (32.0-36.0); Mean Corpuscular Volume 96.5 fL (80-95); Mean Platelet Volume 8.6 fL (8.0-11.0); Monocytes % 8.4; Neutrophils % 66.7; Platelet Count 267 x1000/uL (130-400); RBC 2.88 m/cumm (4.50-6.00); RBC Distribution Width 17.5 % (11.8-14.1); White Blood Cell Count 7.39 k/cumm (4.4-10.8)
[2019-08-10 06:42] LABS: Anion Gap 9.9 mmol/L (3-11); BUN 15 mg/dL (7-18); CO2 24.1 mmol/L (21.0-32.0); CREATININE 0.69 mg/dL (0.70-1.30); Calcium 7.8 mg/dL (8.5-10.1); Chloride 104 mmol/L (98-107); Glucose 142 mg/dL (74-106); Potassium 3.4 mmol/L (3.5-5.1); Sodium 138 mmol/L (136-145)
[2019-08-10 06:53] LABS: Anisocytosis 1+; Diff Comment Diff Reviewed; Hypochromasia 2+
[2019-08-10 06:54] LABS: Polychromasia Present
[2019-08-10 06:55] LABS: Poikilocytes 2+
[2019-08-10] MEDS: Albuterol 2.5 MG/3 ML INH SOLN VIAL UPD (07:45)
[2019-08-10] MEDS: CEFEPIME 2 GM in Normal Saline 100 ML IVPB ×3 (07:51→23:26)
[2019-08-10] MEDS: LORazepam 2 MG/ML VIAL 0.5 MG IVP ×2 (07:51→11:00)
[2019-08-10] MEDS: Metoprolol CR 25 MG TABCR PO (07:58)
[2019-08-10] MEDS: Allopurinol 100 MG TAB PO (07:58)
[2019-08-10] MEDS: Pantoprazole 40 MG VIAL IVP (07:58)
[2019-08-10] MEDS: traZODone 50 MG TAB 25 MG PO (08:10)
[2019-08-10] MEDS: Normal Saline Flush 10 ML SYR IVP ×3 (08:11→23:26)
[2019-08-10] MEDS: buPROPion-XL 150 MG TABCR 300 MG PO (09:16)
[2019-08-10] MEDS: Potassium Chloride 20 MEQ TABCR PO (09:17)
--- NOTE | 2019-08-10 10:03 | CMPROGNOTE_ITS ---
- If Service Date Differs Date of service: 08/10/19 Time of Service: 10:03 Care Management Progress Note S/O: Prakash was sleeping when CM attempted to meet with him. CM talked to his daughter, Terri, to update her on his status and discuss the plan to meet with Palliative when available. CM talked to Palliative who stated that Dr. Pacheco may be able to meet with them on 08/11/19. CM told Terri (daughter) that she would be contacted tomorrow regarding this meeting. CM did not guarantee that it would take place on 08/11/19. CM talked to Bradly at [facility] , who reported that they do not have bed availability. He stated that he will look closer at the referral when they have an expected opening. CM will continue to follow. Contact numbers for Prakash's daughters: Terri (primary contact) [phone]. Leave a message if she doesn't answer and she will call back. She will touch base with her sisters. Brenda - [phone]. Gabriella - no known number. Contact page number is incorrect. Terri will reach out. A: Prakash is a 63 year old male admitted to [facility] on 08/07/2019 with hypotension, dehydration, askew-hypopituitarism, and Sepsis. He is currently receiving wound care. P: Anticipate Prakash will return to the [facility] when he is medically ready. He remains on IV abx and receiving wound care. He will be transported via ambulance once medically ready for discharge. Anticipate a Palliative meeting with Prakash and his children (via phone) in order to discuss goals of care. CM will continue to follow and support discharge planning considerations.
--- NOTE | 2019-08-10 10:26 | W.PM.PROGNOT ---
Date of Service Date of service: 08/10/19 Time of Service: 10:26 Assessment and Plan Assessment and plan (1) Sepsis: Status: Acute Assessment and plan: His sepsis is resolving. He remains hemodynamically stable and off vasopressors for over 24hrs. We will continue broad spectrum antibiotic coverage (vancomycin and cefepime) for pneumonia (?aspiration vs HCAP). Blood cultures are probably skin contaminant however repeat culture results are pending. I have asked for PICC line consult so we can dc his right femoral CVP. Qualifiers: Acute renal failure type: with acute tubular necrosis Sepsis acute organ dysfunction status: with acute organ dysfunction Sepsis type: sepsis due to unspecified organism Severe sepsis acute organ dysfunction type: acute renal failure Severe sepsis shock status: with septic shock Qualified Code(s): A41.9 - Sepsis, unspecified organism; R65.21 - Severe sepsis with septic shock; N17.0 - Acute kidney failure with tubular necrosis (2) Pneumonia: Status: Acute Assessment and plan: Continue aerosolized bronchodilators and supplemental oxygen. Continue broad-spectrum antibiotics with cefepime and vancomycin. We will maintain him in the ICU for today and if his blood pressure remains stable we will transfer him to the medical/surgical floor tomorrow. He continues the need for central line due to poor IV access. We will give him a trial of clear liquids and advance his diet as tolerated. If he shows any signs of coughing or choking with feedings then we will make him n.p.o. and have a formal swallowing evaluation by speech therapy. Qualifiers: Aspiration pneumonia type: due to vomit Laterality: right Lung location: upper lobe of lung Pneumonia type: aspiration pneumonia Qualified Code(s): J69.0 - Pneumonitis due to inhalation of food and vomit (3) Bacteremia: Status: Acute Assessment and plan: So far blood cultures have shown 2 bottles positive for 2 different staph species probably a contaminant. Repeat blood cultures have been ordered. Continue vancomycin for now. (4) Acute UTI (urinary tract infection): Status: Acute Assessment and plan: Continue cefepime and adjust his antibiotics pending identification and sensitivities of his urine culture. (5) Panhypopituitarism: Status: Chronic Assessment and plan: Continue treatment of his panhypopituitarism with stress dose hydrocortisone and his home dose of desmopressin. (6) DOUG (obstructive sleep apnea): Status: Chronic Assessment and plan: Ideally patient should be on a CPAP mask but he has been noncompliant with this at the shelter. (7) Adrenal insufficiency: Status: Chronic Assessment and plan: Continue IV hydrocortisone at 100 mg every 6 hours for the next 48 hours and then we will switch him back to his usual dose of oral hydrocortisone. (8) Diabetes mellitus: Status: Chronic Assessment and plan: We will monitor his blood sugars before meals and at bedtime changing from the current regimen of every 6 hours. Will provide coverage with NovoLog and insulin sensitive scale. Patient previously was on Victoza. Once he is fully taking an oral diet and tolerating solids without any signs of choking or aspiration I will resume many of his home meds including his Victoza. Qualifiers: Diabetes mellitus complication detail: with other skin ulcer Diabetes mellitus manager intermediate insulin use: with manager intermediate use Diabetes mellitus type: type 2 (9) Open wound of right lower extremity: Status: Acute Assessment and plan: Currently patient is having his stasis skin ulcers will bathe with antibacterial soap daily along with dressing changes with Silvadene and Kerlix. We will ask wound care nurse to consult on the case. Patient is also having Michael wrap is applied to help treat his lymphedema. Qualifiers: Encounter type: subsequent encounter Qualified Code(s): S81.801D - Unspecified open wound, right lower leg, subsequent encounter (10) Wound of left lower extremity: Status: Acute Assessment and plan: As above Qualifiers: Encounter type: subsequent encounter Qualified Code(s): S81.802D - Unspecified open wound, left lower leg, subsequent encounter (11) DVT prophylaxis: Status: Acute Assessment and plan: Continue subcutaneous heparin (12) Lymphedema of both lower extremities: Status: Acute Assessment and plan: Continue Michael wraps and elevation. (13) Discharge planning issues: Status: Acute Assessment and plan: Patient has been a resident at the [facility] and is noted by Dr. Lee family is not happy with the care he is been receiving at the [facility]. Case management is involved in his care and will coordinate that with the family regarding placement upon discharge. family has indicated Dr. Lee they would prefer him closer to them in [facility] Exam Narrative Exam Narrative: Morbidly obese bedbound patient who is somnolent but easily arousable. He was very much awake during his dressing changes and complaining of pain with his dressing changes. He has chronic stasis dermatitis changes over his lower legs with some superficial weeping skin ulcerations. Neck is obese supple nontender there is no discernible JVD but difficult to evaluate due to his obesity. Lungs reveal coarse rhonchi in the right upper lobe rest of the lung shelley are clear. Heart is tachycardic but regular without audible murmur rub or gallop. Abdomen is obese soft nontender. Due to the obesity it is impossible to discern any organomegaly. Bowel sounds are present. Lower extremities reveal diffuse erythema both lower legs with chronic stasis skin changes including pebbly grainy appearance to the skin along with scaling of the skin and weeping of fluid from the skin. Toes have thickened long nails appeared to be onychomycosis. Right great toe has what appears to be an ischemic ulcer. Objective Objective Clinical Data: Abnormal lab results 08/09/19 08/10/19 08/10/19 Range/Units 13:14 06:02 06:02 RBC 2.88 L (4.50-6.00) m/cumm Hgb 9.5 L (13.5-17.5) g/dL Hct 27.8 L (40.0-50.0) % MCV 96.5 H (80-95) fL RDW 17.5 H (11.8-14.1) % Potassium 3.4 L (3.5-5.1) mmol/L Creatinine 0.69 L (0.70-1.30) mg/dL Glucose 142 H (74-106) mg/dL Calcium 7.8 L (8.5-10.1) mg/dL Vancomycin Trough 20.3 H* (10.0-20.0) ug/mL Vital Signs Temperature 36.8 C 08/10/19 10:03 Temperature Source Temporal Artery Scan 08/10/19 10:03 Pulse 109 H 08/10/19 10:03 Pulse Rhythm Regular 08/07/19 00:00 Pulse 98 H 08/10/19 09:57 Respiratory Rate 19 08/10/19 10:03 Respiratory Effort 08/10/19 10:03 Respiratory Depth Shallow 08/10/19 08:38 Respiratory Pattern Normal 08/10/19 08:38 Blood Pressure 103/47 L 08/10/19 10:03 Blood Pressure Mean 57 08/10/19 09:57 Blood Pressure Position Supine 08/10/19 08:38 Pulse Oximetry 91 L 08/10/19 09:00 Oxygen Delivery Method Room Air 08/10/19 08:38 Oxygen Flow Rate 0 08/10/19 08:38 Pain Level 0 08/10/19 08:38 Intake & Output 08/09/19 08/09/19 08/10/19 11:59 23:59 11:59 Intake Total 2628.699 / 4221.199 1592.5 / 4221.199 924.0 / 924.0 Output Total 595 / 845 250 / 845 650 / 650 Balance 2033.699 / 3376.199 1342.5 / 3376.199 274.0 / 274.0 Weight 181 kg 181 kg Intake: IV 2428.699 / 3821.199 1392.5 / 3821.199 714.0 / 714.0 Oral 200 / 400 200 / 400 210 / 210 Output: Urine 595 / 845 250 / 845 650 / 650 Other: Urine Color Yellow Yellow Yellow Urine Appearance Clear Clear Comment shen cath in place, patent and draining clear yellow urine. Shen in place draining cyu . Shen in place patent and draining clear yellow urine. Voiding Methods Indwelling Catheter Laboratory Results WBC 7.39 k/cumm (4.4-10.8) D 08/10/19 06:02 RBC 2.88 m/cumm (4.50-6.00) L 08/10/19 06:02 Hgb 9.5 g/dL (13.5-17.5) L 08/10/19 06:02 Hct 27.8 % (40.0-50.0) L 08/10/19 06:02 MCV 96.5 fL (80-95) H 08/10/19 06:02 MCH 33.0 pg (27.0-33.0) 08/10/19 06:02 MCHC 34.2 g/dL (32.0-36.0) 08/10/19 06:02 RDW 17.5 % (11.8-14.1) H 08/10/19 06:02 Plt Count 267 x1000/uL (130-400) 08/10/19 06:02 MPV 8.6 fL (8.0-11.0) 08/10/19 06:02 Immature Gran % 1.9 % 08/10/19 06:02 Neutrophils % 66.7 08/10/19 06:02 Lymphocytes % 22.9 08/10/19 06:02 Monocytes % 8.4 08/10/19 06:02 Eosinophils % 0.0 08/10/19 06:02 Basophils % 0.1 08/10/19 06:02 Absolute Neutrophils 4.93 k/cumm (1.2-6.7) 08/10/19 06:02 Absolute Lymphocytes 1.69 k/cumm (1.2-3.4) 08/10/19 06:02 Absolute Monocytes 0.62 k/cumm (0.11-0.7) 08/10/19 06:02 Absolute Eosinophils 0.00 k/cumm (0.0-0.7) 08/10/19 06:02 Absolute Basophils 0.01 k/cumm (0.0-0.2) 08/10/19 06:02 Differential Comment Diff reviewed 08/10/19 06:02 RBC Morphology See below 08/10/19 06:02 Polychromasia Present 08/10/19 06:02 Hypochromasia 2+ 08/10/19 06:02 Poikilocytosis 2+ 08/10/19 06:02 Anisocytosis 1+ 08/10/19 06:02 Target Cells 2+ 08/09/19 06:55 PT 11.8 sec (9.3-11.0) H 08/06/19 15:55 INR 1.2 (0.9-1.1) H 08/06/19 15:55 APTT 25.3 sec (21.0-31.4) 08/06/19 15:55 VBG pH 7.35 (7.35-7.45) 08/07/19 12:53 VBG pCO2 50 mm/Hg (34-47) H 08/07/19 12:53 VBG pO2 66 mm/Hg (28-44) H 08/07/19 12:53 VBG HCO3 28 mmol/L (22-28) 08/07/19 12:53 VBG Total CO2 26 mmol/L (22-29) 08/07/19 12:53 VBG O2 Saturation 93 % (70-80) H 08/07/19 12:53 VBG Base Excess 2.1 mmol/L (-3-3) 08/07/19 12:53 Sodium 138 mmol/L (136-145) 08/10/19 06:02 Potassium 3.4 mmol/L (3.5-5.1) L 08/10/19 06:02 Chloride 104 mmol/L (98-107) 08/10/19 06:02 Carbon Dioxide 24.1 mmol/L (21.0-32.0) 08/10/19 06:02 Anion Gap 9.9 mmol/L (3-11) 08/10/19 06:02 BUN 15 mg/dL (7-18) 08/10/19 06:02 Creatinine 0.69 mg/dL (0.70-1.30) L 08/10/19 06:02 Estimated GFR/1.73 m2 >= 60.00 (mL/min/1.73m2) 08/10/19 06:02 Glucose 142 mg/dL (74-106) H 08/10/19 06:02 Lactate 0.8 mmol/L (0.6-1.4) 08/07/19 12:53 Calcium 7.8 mg/dL (8.5-10.1) L 08/10/19 06:02 Magnesium 1.9 mg/dL (1.8-2.4) 08/08/19 06:30 Total Bilirubin 0.6 mg/dL (0.2-1.0) 08/07/19 12:53 AST 60 U/L (15-37) H 08/07/19 12:53 ALT 26 U/L (16-63) 08/07/19 12:53 Alkaline Phosphatase 99 U/L (46-116) 08/07/19 12:53 Troponin I < 0.05 ng/Ml (<0.06) 08/09/19 21:15 C-Reactive Protein 13.01 mg/dL (0.0-0.3) H 08/09/19 06:55 NT-Pro-B Natriuret Pep 698 pg/mL (<300) H 08/07/19 12:53 Total Protein 4.8 g/dL (6.4-8.2) L 08/07/19 12:53 Albumin 1.7 g/dL (3.4-5.0) L 08/07/19 12:53 Procalcitonin 0.4 ng/mL 08/09/19 06:55 TSH < 0.01 uIU/mL (0.36-3.74) L 08/06/19 15:55 Free T4 1.45 ng/dL (0.76-1.46) 08/06/19 15:55 Cortisol 13 ug/dL (See Note) 08/06/19 15:55 Urine Color Miranda (Yellow) 08/06/19 16:13 Urine Clarity Cloudy (Clear) 08/06/19 16:13 Urine pH 5.5 (5-8) 08/06/19 16:13 Ur Specific [place] >= 1.030 (1.005-1.025) H 08/06/19 16:13 Urine Protein Negative mg/dL (Negative) 08/06/19 16:13 Urine Ketones Negative mg/dL (Negative) 08/06/19 16:13 Urine Blood Negative (Negative) 08/06/19 16:13 Urine Nitrite Negative (Negative) 08/06/19 16:13 Urine Bilirubin Small (Negative) H 08/06/19 16:13 Urine Urobilinogen 0.2 EU/dL (Up TO 0.2) 08/06/19 16:13 Ur Leukocyte Esterase Small (Negative) H 08/06/19 16:13 Urine RBC 0-2 HPF (0-2) 08/06/19 16:13 Urine WBC 10-20 HPF (0-5) H 08/06/19 16:13 Ur Epithelial Cells Few HPF (Negative) 08/06/19 16:13 Urine Crystals Many amorphous HPF (Negative) 08/06/19 16:13 Urine Bacteria Packed HPF (Negative) 08/06/19 16:13 Urine Mucus (Negative) 08/06/19 16:13 Ur Culture Indicated? Yes 08/06/19 16:13 Urine Glucose Negative mg/dL (Negative) 08/06/19 16:13 Vancomycin Trough 20.3 ug/mL (10.0-20.0) H* 08/09/19 13:14
--- NOTE | 2019-08-10 11:05 | WOUNDCONS ---
Wound Initial Evaluation Narrative: Pt is a 63 year old male consulted for LE wounds on 08/09/2019. Chart reviewed, including H&P, recent labs, and vital signs, and other providers? reports. Pt unable to give consent for Photos at this time, not A&O enough. Chronically Ill appearing man, agreeable to consult. No open areas noted on LE's. Bilateral LE's have thick, dry, crusty skin from knees to toes. Debrisoft used to clean legs and feet, most of the skin was removed. Redness noted to bilateral shins (chronic according to Pt) , left heel, and to the sole of Pt's right foot. Redness blanchable. Unknown etiology, doesn't appear to be infectious, will leave definitive Dx to MD. Legs are weeping serous fluid. To help manage drainage and decrease edema recommend application of bilateral Unna boots, Pt is not currently Acute CHF exacerbation. Pt has red open slits in the creases of his arms, abdomen, and legs. Recommend application of barrier cream to these areas to promote healing BID and PRN. Pt has full thickness wound to right groin. Mepilex Ag w/border placed over wound. wound is bright red, open areas are characteristic of tiger stripes w/white wound bed on open area, did not loosen w/cleansing. wound directly over central line site, mepilex intend to protect wound and absorb any drainage from soaking central line drsg. high risk of infection. Pt is at risk for skin breakdown on posterior side, especially areas at risk for pressure injuries as he is morbidly obese, doesn't move independently and has probable adverse microclimate. Superficial skin loss noted on right inner proximal thigh. Z-gaurd applied. Toenails are overgrown and curling. Recommend Podiatry Consult. Thank you for the consult. [ End ] - Wound Bilateral LE's Wound Type: Other (edema and chronic lymphedemic changes, chronic redness to sole of right foot) Wound Drainage Amount: Moderate (LE's weeping clear fluid, 3+ pitting edema bilateral) Wound Drainage Odor: None/Absent Wound Drainage Description: Serous - Circulation, Sensation, Motion Edema Degree: 3+ Peripheral Pulse Strength: Weak Capillary Refill: Greater than 3 seconds Sensation Description: Within Normal Limits Skin Temperature: Warm Skin Color: Pale - ALLA Comment:: not obtained, Pt unable to stay still and follow commands - Recomendation Recomendation:: 1. Wash bilateral LE's w/soap & water. Dry. Apply Unna boots bilaterally. Change every 3 days and prn. 2. Apply Mepilex AG w/ border to rt pannus. Change every 3 days and PRN. 3. Apply barrier cream to upper and lower extremity folds/creases that have redness and breakdown. Physcian/Nurse Practioner Notified: Yes (Dr. Oliveira )
[2019-08-10] MEDS: Insulin Aspart 300 UNITS/3 ML PEN SC ×2 (12:36→17:09)
[2019-08-10] MEDS: Normal Saline 500 ML 15 ML IV (14:00)
[2019-08-10] MEDS: Gabapentin 300 MG CAP PO ×2 (14:03→21:17)
[2019-08-10] MEDS: Nystatin POWDER 60 GM JAR TP (14:03)
[2019-08-10] MEDS: Desmopressin 0.2 MG TAB 0.1 MG PO (21:16)
[2019-08-10] MEDS: traZODone 50 MG TAB 150 MG PO (21:17)
[2019-08-10] MEDS: Levothyroxine 150 MCG TAB PO (21:17)
[2019-08-11] VITALS (49 sets, daily range): BP systolic 76–164; BP diastolic 33–141; PULSE 70–168; RESP 8–23; TEMP 35–35.9; O2SAT 88–98
[2019-08-11] MEDS: Normal Saline 1,000 ML 150 ML IV
[2019-08-11] MEDS: Normal Saline Flush 10 ML SYR IVP ×3 (04:56→20:49)
[2019-08-11] MEDS: LORazepam 2 MG/ML VIAL 0.5 MG IVP (04:56)
[2019-08-11] MEDS: Heparin 5,000 UNITS/ML VIAL 5000 UNITS SC ×3 (04:57→20:51)
[2019-08-11] MEDS: Hydrocortisone SOD SUC. 100 MG VIAL IVP ×4 (05:27→23:33)
[2019-08-11] MEDS: Nystatin POWDER 60 GM JAR TP ×3 (07:00→21:13)
[2019-08-11 07:42] LABS: HCT 28.9 % (40.0-50.0); HGB 10.1 g/dL (13.5-17.5); Mean Corp. HGB Concentration 34.9 g/dL (32.0-36.0); Mean Corpuscular Hemoglobin 34.2 pg (27.0-33.0); Mean Platelet Volume 8.9 fL (8.0-11.0); Platelet Count 253 x1000/uL (130-400); RBC 2.95 m/cumm (4.50-6.00); RBC Distribution Width 17.5 % (11.8-14.1); White Blood Cell Count 9.04 k/cumm (4.4-10.8)
--- NOTE | 2019-08-11 07:45 | EVALE_ITS ---
Date of service: 08/11/19 Time of Service: 07:45 Speech Therapy Evaluation Note: Speech-Language/Swallowing Pathology Clinical Dysphagia Evaluation Medical Diagnosis: Vomiting with change in mental status, hypotension. Therapy Diagnosis: Dysphagia, unspecified. Current Level of Care: ICU Subjective: Pt currently in ICU, observed to be lying in bed this morning, receiving supplemental O2 via mask, hygiene and oral care treatments from the nurse when RADIO STATION MANAGER arrived. Upon return, pt being evaluated by MD. Pt was minimally communicative and appeared confused, frequently trying to eat medical equipment and having difficulty following directions. Pt does have baseline cognitive deficits. Pertinent Medical/Swallowing History & Previous Level of Function: Per H&P (08/06/19): ?This is a 63-year-old gentleman who resides at the [facility] who is chronically ill with morbid obesity weighing more than 400 pounds with immobility chronically secondary to his obesity status post left frontoparietal craniotomy for brain cancer resulting in panhypopituitarism with the patient acutely ill presently with a most likely viral gastroenteritis with projectile vomiting and exacerbation of his pituitary dysfunction with adrenal insufficiency during the stress. His hypotension is most likely secondary to this and he also appears to be dehydrated with his creatinine elevated from his baseline. His urine did reveal a possible UTI and he is covered with Rocephin for this for now. He has multiple electrolyte abnormalities which appear chronic and most likely secondary to his panhypopituitarism. He is on supplements chronically. He is not a very good historian and is more confused presently mostly cursing when he talks and wandering in conversation without focus. During the earlier part of the hospital evaluation the patient was having increasing and persistent projectile vomiting of brown emesis and did require an NG tube to be placed eventually. No imaging was able to be performed on his abdomen needs to be re-evaluated in the morning with possible surgical consultation if he continues severe upper GI distress with consideration for small bowel obstruction though the patient would not be a good surgical candidate and is a DNR/DNI.? Per Progress Note (08/10/19): Sepsis resolving. Hemodynamically stable and off vasopressors for over 24 hours. Plan to continue broad spectrum antibiotic coverage for pneumonia. Will trial clear liquids and advance diet as tolerated. If he shows any signs of coughing or choking with feedings, will make him NPO and have formal swallow evaluation by speech therapy. Acute renal failure type: with acute tubular necrosis Sepsis acute organ dysfunction status: with acute organ dysfunction Sepsis type: sepsis due to unspecified organism Severe sepsis acute organ dysfunction type: acute renal failure Severe sepsis shock status: with septic shock Qualified Code(s): A41.9 - Sepsis, unspecified organism; R65.21 - Severe sepsis with septic shock; N17.0 - Acute kidney failure with tubular necrosis Aspiration pneumonia type: due to vomit Laterality: right Lung location: upper lobe of lung Pneumonia type: aspiration pneumonia Qualified Code(s): J69.0 - Pneumonitis due to inhalation of food and vomit Additional acute dx include: bacteremia, UTI, open wound of lower right extremity, DVT prophylaxis, lymphedema of both lower extremities. Additional PMHx includes: panhypopituitarism, obstructive sleep apnea, adrenal insuf ficiency, diabetes, viral gastroenteritis, hyperglycemia, hx of brain tumor. No prior hx of dysphagia or trouble eating. Limited vocalizations, but will express his wants/needs. Current Level of Function & Reason for Referral: Medical team plans to transfer pt to medical/surgical care today if his blood pressure has remained stable. Per nursing report, pt has consumed minimal liquids to include boost and also jello since admission with no other diet advancement. Pt has been referred for a swallow evaluation due to concern for possible aspiration related pneumonia, concern for pocketing (reported as finding pills in pt?s mouth hours later), and instruction in safe diet advancement. Living Environment/Support: Although pt has been residing at the [facility], pt and family considering alternative placement closer to [place]. Precautions: Bedbound, vomiting, altered mental status. Medications: Please refer to MAR. Allergies: Per chart, influenza virus vaccines, NSAIDS, risedronate sodium, rosuvastatin, [id number] reductase inhibitor. Barriers to Learning: Altered mental status, suspect poor comprehension. Respiratory Function: Pneumonia, sleep apnea. Supplemental Oxygen: Yes. Posture/Positioning: Bedbound, morbidly obese. Prior Diet: Regular, thin liquids. Current Diet: Clear liquids, advance as tolerated. ORAL MECHANISM EXAMINATION Dentition: Missing almost all teeth, present teeth with severe decay. Oral Hygiene: Very poor. Oral Structures: Pt unable to follow directions [facility] and minimally opened his oral cavity for inspection. Abrasion on base of tongue noted within limited view. Strength: Unable to assess. Range of Motion: Unable to fully assess. Pt was observed to elevate his tongue to the alveolar ridge. Coordination: Unable to assess. Consistencies Tested: Minced and moist (mechanical soft), pudding, puree, thin liquids, mildy-thick (nectar-thick) liquids. Self-Feeding/Level of Assistance: Total feed. Oral Phase: Thin liquid trials via straw attempted first, during which pt appeared confused with this presentation and unable to coordinate stabilizing the straw to suck, frequently biting down. Liquids presented via open cup sips, pt again attempting to bite rim of cup. Liquids were successfully consumed PO via single tsp on spoon presentation. RADIO STATION MANAGER tilting the spoon upwards to slowly pour contents into the mouth. Puree and pudding solid consistency was also safely swallowed PO via tsp. Minced and moist (mechanical soft) solid attempted x1, during which pt exhibited prolonged and unproductive mastication, resulting in pocketing and requiring suction to remove. Pharyngeal Phase: Audible gurgling noted during swallowing of thin liquids. Coughing noted post swallow of thin liquids in at least 80% of trials, but mildly-thick (nectar-thick) only x1. Pt maximally consumed puree/pudding consistency with no report of globus (though pt minimally communicative). Esophageal Phase: Burping noted between bites. S/S Aspiration: Coughing with thin liquids. Pt/Caregiver/Staff Education: Staff educated in safe swallow protocol, to include strict adherence to tsp presentation of thickened liquids and puree/pudding solids only at this time. Staff were advised to provide medications crushed in puree/pudding. MD informed of outcomes of swallow evaluation and diet/feeding recommendations. Assessment: Pt is a 63 year-old male with altered mental status, complex medical needs and multiple acute dxs as well as chronic health issues. Pt reportedly has no prior hx of dysphagia and was eating a regular diet prior to admission. Pt was highly confused with mealtime routine, biting straws and cups as well as attempting to mouth medical equipment. Pt was successful managing PO when RADIO STATION MANAGER presented via small teaspoons, including liquids. Pt was observed to cough post swallow of thin liquids, which was reduced when thickened mildly (nectar-thick). Pt was able to manage puree/pudding consistency via small tsp w/o overt s/s of aspiration. Minced and moist (mechanical soft) was trialed, however, pt unsafe with this consistency, including evidence of pocketing. Pt should be fed PO small tsp amounts of nectar-thick liquids and puree/pudding solids only at this time. All medications to be crushed in puree/pudding. Pt is recommended for skilled dysphagia tx targeting ongoing diet modification/analysis, pt and staff education and training in safe swallow protocols, and facilitating safe and effective PO intake . Rehab Potential: Fair. Short-Term Goals: 1. Pt will manage least restrictive diet with no overt s/s of aspiration and reduced oral dysphagia when utilizing safe swallow protocol with caregiver/staff assistance. Time Frame: 1 week Long-Term Goals: 1. Pt will maintain adequate nutrition and hydration PO with no overt s/s of aspiration or oral dysphagia when utilizing safe swallow protocol with caregiver/staff assistance. Time Frame: 2 weeks Pt Goal: Unknown. PLAN Planned Treatment Interventions: 38985-[id number] of Swallowing Dysfunction Frequency: 3x/week Intensity: 45 minutes Duration: 2 weeks Discharge Plan: Upon meeting goals and/or maximum therapeutic benefit. Pt is recommended to be followed by RADIO STATION MANAGER if transferred to SNF setting. SWALLOWING RECOMMENDATIONS Solids: Puree/pudding only. Liquids: Mildly-thick (nectar-thick). Medication Administration: Crushed in puree/pudding. Level of Assistance/Supervision: Total feed, 100% supervision. Strategies/Adaptations/AE: Provide food and drink via small teaspoons via spoon only. Pace rate of intake. Alert pt when spoon is approaching his mouth and of contents prior to each bite. May need to provide gentle tactile stimulation of spoon on lower lip to elicit mouth opening. Monitor O2 stats during meals, discontinue feeding if O2 below 90%. Posture/Positioning Needs: Pt must be as fully upright as possible for all PO intake. Use pillows/supports for midline posture. Charge Code: [id number] Evaluation Time In: 7:45 am Time Out: 8:45 am Total Time: 60 minutes
[2019-08-11 07:50] LABS: Anion Gap 8.7 mmol/L (3-11); BUN 15 mg/dL (7-18); CO2 25.3 mmol/L (21.0-32.0); CREATININE 0.64 mg/dL (0.70-1.30); Calcium 8.1 mg/dL (8.5-10.1); Chloride 105 mmol/L (98-107); Glucose 143 mg/dL (74-106); Potassium 3.5 mmol/L (3.5-5.1); Sodium 139 mmol/L (136-145)
[2019-08-11 08:07] LABS: Absolute Eosinophil Count 0.09 k/cumm (0.0-0.7); Absolute Lymphocyte Count 1.08 k/cumm (1.2-3.4); Absolute Monocyte Count 0.45 k/cumm (0.11-0.7); Absolute Neutrophil Count 6.96 k/cumm (1.2-6.7); Anisocytosis 2+; Atypical Lymphocytes % 2; Diff Comment Manual Differential; Hypochromasia 2+; Macrocytosis 2+; Polychromasia Present
[2019-08-11 08:08] LABS: Poikilocytes 2+
--- NOTE | 2019-08-11 08:12 | W.PM.PROGNOT ---
Date of Service Date of service: 08/11/19 Time of Service: 08:13 Assessment and Plan Assessment and plan (1) Sepsis: Status: Acute Assessment and plan: Repeat blood cultures are no growth at 24 hours. I suspect the initial staph capitis was a contaminant. Urine culture grew mixed gram-positive organisms and gram negative rods at 50,000-100,000 however the lab read it as probable contaminant and it was never speciated or sensitivities were not run on it. Therefore we have no accurate cultures upon which to base his antibiotic regimen. Sputum specimen was never able to be obtained from him. I will recheck his x-ray today and if his pneumonia is not clearing we may need to modify his antibiotics. Qualifiers: Acute renal failure type: with acute tubular necrosis Sepsis acute organ dysfunction status: with acute organ dysfunction Sepsis type: sepsis due to unspecified organism Severe sepsis acute organ dysfunction type: acute renal failure Severe sepsis shock status: with septic shock Qualified Code(s): A41.9 - Sepsis, unspecified organism; R65.21 - Severe sepsis with septic shock; N17.0 - Acute kidney failure with tubular necrosis (2) Pneumonia: Status: Acute Assessment and plan: Check repeat chest x-ray to assess response to antibiotics. Awaiting morning labs including repeat CRP and procalcitonin levels. Qualifiers: Aspiration pneumonia type: due to vomit Laterality: right Lung location: upper lobe of lung Pneumonia type: aspiration pneumonia Qualified Code(s): J69.0 - Pneumonitis due to inhalation of food and vomit (3) Bacteremia: Status: Ruled-out Assessment and plan: Repeat blood cultures have been no growth. (4) Nonsustained paroxysmal supraventricular tachycardia: Status: Acute Assessment and plan: Patient's had no further episodes of SVT since resumption of his Toprol-XL. (5) Acute UTI (urinary tract infection): Status: Acute Assessment and plan: Repeat his urine culture. (6) Panhypopituitarism: Status: Chronic Assessment and plan: Continue treatment of his panhypopituitarism with stress dose hydrocortisone and his home dose of desmopressin. (7) DOUG (obstructive sleep apnea): Status: Chronic Assessment and plan: Ideally patient should be on a CPAP mask but he has been [facility]compliant with [facility] at the [facility]. (8) Adrenal insufficiency: Status: Chronic Assessment and plan: Continue IV hydrocortisone at 100 mg every 6 hours until able to take p.o. meds well. If were not able to give him his hydrocortisone orally and I will decrease the IV hydrocortisone dose (9) Diabetes mellitus: Status: Chronic Assessment and plan: Because the patient is not been able to take adequate oral nutrition I have not resumed his Victoza yet. We will continue to monitor his blood sugars a 4 times a day with coverage with NovoLog per insulin sensitive sliding scale. Blood sugars are reasonably controlled in the mid 100s. Qualifiers: Diabetes mellitus complication detail: with other skin ulcer Diabetes mellitus intermission coordinator insulin use: with intermission coordinator use Diabetes mellitus type: type 2 (10) Open wound of right lower extremity: Status: Acute Assessment and plan: Wound care nurses evaluated his stasis skin changes and has made recommendations. See her note. He has no open wounds on his lower extremities. He has some open slits in the skin in the creases of his arms and his legs for which he has a barrier cream applied. He has an open wound in the right groin just above the right femoral CVP site. Mepilex Ag is being applied to this. Qualifiers: Encounter type: subsequent encounter Qualified Code(s): S81.801D - Unspecified open wound, right lower leg, subsequent encounter (11) Wound of left lower extremity: Status: Acute Assessment and plan: As above Qualifiers: Encounter type: subsequent encounter Qualified Code(s): S81.802D - Unspecified open wound, left lower leg, subsequent encounter (12) DVT prophylaxis: Status: Acute Assessment and plan: Continue subcutaneous heparin (13) Lymphedema of both lower extremities: Status: Acute Assessment and plan: Continue Michael wraps and elevation. (14) Discharge planning issues: Status: Acute Assessment and plan: Patient has been a resident at the [facility] and is noted by Dr. Lee family is not happy with the care he is been receiving at the [facility]. Case management is involved in his care and will coordinate that with the family regarding placement upon discharge. family has indicated Dr. Lee they would prefer him closer to them in [facility] Subjective Subjective Interval history since last seen: No acute events overnight. Nursing staff reports decreased urinary output down to 100 mL over the last 6 hours. IV fluids were resumed at 150 mL/h. He has had some increased oxygen requirements and is now on 2 L/min facemask. He denies any shortness of breath. Speech therapy is in to evaluate his swallowing. Because of his increased oxygen requirements, to repeat his chest x-ray today to reassess his pneumonia. Labs are pending at this time. Exam Narrative Exam Narrative: Morbidly obese bedbound patient who is somnolent but easily arousable. He was very much awake during his dressing changes and complaining of pain with his dressing changes. He has chronic stasis dermatitis changes over his lower legs with some superficial weeping skin ulcerations. Neck is obese supple nontender there is no discernible JVD but difficult to evaluate due to his obesity. Lungs reveal bibasilar rales and diminished breath sounds at the bases. Anteriorly he is clear Heart is tachycardic but regular without audible murmur rub or gallop. Abdomen is obese soft nontender. Due to the obesity it is impossible to discern any organomegaly. Bowel sounds are present. Lower extremities reveal diffuse erythema both lower legs with chronic stasis skin changes including pebbly grainy appearance to the skin along with scaling of the skin and weeping of fluid from the skin. Toes have thickened long nails appeared to be onychomycosis. Right great toe has what appears to be an ischemic ulcer. Objective Objective Clinical Data: Abnormal lab results 08/11/19 08/11/19 Range/Units 07:00 07:00 RBC 2.95 L (4.50-6.00) m/cumm Hgb 10.1 L (13.5-17.5) g/dL Hct 28.9 L (40.0-50.0) % MCV 98.0 H (80-95) fL MCH 34.2 H (27.0-33.0) pg RDW 17.5 H (11.8-14.1) % Absolute Neutrophils 6.96 H (1.2-6.7) k/cumm Absolute Lymphocytes 1.08 L (1.2-3.4) k/cumm Creatinine 0.64 L (0.70-1.30) mg/dL Glucose 143 H (74-106) mg/dL Calcium 8.1 L (8.5-10.1) mg/dL Vital Signs Temperature 35.6 C L 08/11/19 03:03 Temperature Source Temporal Artery Scan 08/11/19 03:03 Pulse 82 08/11/19 03:03 Pulse Rhythm Regular 08/07/19 00:00 Pulse 85 08/11/19 03:01 Respiratory Rate 18 08/11/19 03:03 Respiratory Effort 08/11/19 03:03 Respiratory Depth Shallow 08/11/19 03:03 Respiratory Pattern Normal 08/11/19 03:03 Blood Pressure 123/59 L 08/11/19 03:03 Blood Pressure Mean 80 08/11/19 03:03 Blood Pressure Position Supine 08/10/19 08:38 Pulse Oximetry 94 L 08/11/19 07:00 Oxygen Delivery Method OxyMask 08/11/19 07:00 Oxygen Flow Rate 4 08/11/19 07:00 Pain Level 0 08/11/19 03:03 Intake & Output 08/10/19 08/10/19 08/11/19 11:59 23:59 11:59 Intake Total 924.0 / 1334.0 410 / 1334.0 350 / 350 Output Total 825 / 1175 350 / 1175 100 / 100 Balance 99.0 / 159.0 60 / 159.0 250 / 250 Weight 181 kg 181 kg Intake: IV 714.0 / 1064.0 350 / 1064.0 350 / 350 Oral 210 / 270 60 / 270 Output: Urine 825 / 1175 350 / 1175 100 / 100 Other: Urine Color Yellow Light Yassine Light Yassine Urine Appearance Clear Clear Clear Comment Kimball in place patent and draining clear yellow urine. Kimball in place and draining lt yassine urine Kimball in place and draining lt yassine urine Laboratory Results WBC 9.04 k/cumm (4.4-10.8) 08/11/19 07:00 RBC 2.95 m/cumm (4.50-6.00) L 08/11/19 07:00 Hgb 10.1 g/dL (13.5-17.5) L 08/11/19 07:00 Hct 28.9 % (40.0-50.0) L 08/11/19 07:00 MCV 98.0 fL (80-95) H 08/11/19 07:00 MCH 34.2 pg (27.0-33.0) H 08/11/19 07:00 MCHC 34.9 g/dL (32.0-36.0) 08/11/19 07:00 RDW 17.5 % (11.8-14.1) H 08/11/19 07:00 Plt Count 253 x1000/uL (130-400) 08/11/19 07:00 MPV 8.9 fL (8.0-11.0) 08/11/19 07:00 Immature Gran % See Differential 08/11/19 07:00 Neutrophils % 77.0 08/11/19 07:00 Lymphocytes % 10.0 08/11/19 07:00 Atypical Lymphs % 2 08/11/19 07:00 Monocytes % 5.0 08/11/19 07:00 Eosinophils % 1.0 08/11/19 07:00 Basophils % 0.0 08/11/19 07:00 Metamyelocytes % 3.0 % 08/11/19 07:00 Myelocytes % 2.0 % 08/11/19 07:00 Absolute Neutrophils 6.96 k/cumm (1.2-6.7) H 08/11/19 07:00 Absolute Lymphocytes 1.08 k/cumm (1.2-3.4) L 08/11/19 07:00 Absolute Monocytes 0.45 k/cumm (0.11-0.7) 08/11/19 07:00 Absolute Eosinophils 0.09 k/cumm (0.0-0.7) 08/11/19 07:00 Absolute Basophils 0.00 k/cumm (0.0-0.2) 08/11/19 07:00 Differential Comment Manual differential 08/11/19 07:00 RBC Morphology See below 08/11/19 07:00 Polychromasia Present 08/11/19 07:00 Hypochromasia 2+ 08/11/19 07:00 Poikilocytosis 2+ 08/11/19 07:00 Anisocytosis 2+ 08/11/19 07:00 Macrocytosis 2+ 08/11/19 07:00 Target Cells 2+ 08/09/19 06:55 PT 11.8 sec (9.3-11.0) H 08/06/19 15:55 INR 1.2 (0.9-1.1) H 08/06/19 15:55 APTT 25.3 sec (21.0-31.4) 08/06/19 15:55 VBG pH 7.35 (7.35-7.45) 08/07/19 12:53 VBG pCO2 50 mm/Hg (34-47) H 08/07/19 12:53 VBG pO2 66 mm/Hg (28-44) H 08/07/19 12:53 VBG HCO3 28 mmol/L (22-28) 08/07/19 12:53 VBG Total CO2 26 mmol/L (22-29) 08/07/19 12:53 VBG O2 Saturation 93 % (70-80) H 08/07/19 12:53 VBG Base Excess 2.1 mmol/L (-3-3) 08/07/19 12:53 Sodium 139 mmol/L (136-145) 08/11/19 07:00 Potassium 3.5 mmol/L (3.5-5.1) 08/11/19 07:00 Chloride 105 mmol/L (98-107) 08/11/19 07:00 Carbon Dioxide 25.3 mmol/L (21.0-32.0) 08/11/19 07:00 Anion Gap 8.7 mmol/L (3-11) 08/11/19 07:00 BUN 15 mg/dL (7-18) 08/11/19 07:00 Creatinine 0.64 mg/dL (0.70-1.30) L 08/11/19 07:00 Estimated GFR/1.73 m2 >= 60.00 (mL/min/1.73m2) 08/11/19 07:00 Glucose 143 mg/dL (74-106) H 08/11/19 07:00 Lactate 0.8 mmol/L (0.6-1.4) 08/07/19 12:53 Calcium 8.1 mg/dL (8.5-10.1) L 08/11/19 07:00 Magnesium 1.9 mg/dL (1.8-2.4) 08/08/19 06:30 Total Bilirubin 0.6 mg/dL (0.2-1.0) 08/07/19 12:53 AST 60 U/L (15-37) H 08/07/19 12:53 ALT 26 U/L (16-63) 08/07/19 12:53 Alkaline Phosphatase 99 U/L (46-116) 08/07/19 12:53 Troponin I < 0.05 ng/Ml (<0.06) 08/09/19 21:15 C-Reactive Protein 13.01 mg/dL (0.0-0.3) H 08/09/19 06:55 NT-Pro-B Natriuret Pep 698 pg/mL (<300) H 08/07/19 12:53 Total Protein 4.8 g/dL (6.4-8.2) L 08/07/19 12:53 Albumin 1.7 g/dL (3.4-5.0) L 08/07/19 12:53 Procalcitonin 0.4 ng/mL 08/09/19 06:55 TSH < 0.01 uIU/mL (0.36-3.74) L 08/06/19 15:55 Free T4 1.45 ng/dL (0.76-1.46) 08/06/19 15:55 Cortisol 13 ug/dL (See Note) 08/06/19 15:55 Urine Color Yassine (Yellow) 08/06/19 16:13 Urine Clarity Cloudy (Clear) 08/06/19 16:13 Urine pH 5.5 (5-8) 08/06/19 16:13 Ur Specific [place] >= 1.030 (1.005-1.025) H 08/06/19 16:13 Urine Protein Negative mg/dL (Negative) 08/06/19 16:13 Urine Ketones Negative mg/dL (Negative) 08/06/19 16:13 Urine Blood Negative (Negative) 08/06/19 16:13 Urine Nitrite Negative (Negative) 08/06/19 16:13 Urine Bilirubin Small (Negative) H 08/06/19 16:13 Urine Urobilinogen 0.2 EU/dL (Up TO 0.2) 08/06/19 16:13 Ur Leukocyte Esterase Small (Negative) H 08/06/19 16:13 Urine RBC 0-2 HPF (0-2) 08/06/19 16:13 Urine WBC 10-20 HPF (0-5) H 08/06/19 16:13 Ur Epithelial Cells Few HPF (Negative) 08/06/19 16:13 Urine Crystals Many amorphous HPF (Negative) 08/06/19 16:13 Urine Bacteria Packed HPF (Negative) 08/06/19 16:13 Urine Mucus (Negative) 08/06/19 16:13 Ur Culture Indicated? Yes 08/06/19 16:13 Urine Glucose Negative mg/dL (Negative) 08/06/19 16:13 Vancomycin Trough 20.3 ug/mL (10.0-20.0) H* 08/09/19 13:14
--- NOTE | 2019-08-11 08:42 | DI.RAD_ITS ---
EXAM: XR PORTABLE CHEST AP INDICATION: Hypoxemia, follow-up pneumonia. COMPARISON: No exams were available for comparison TECHNIQUE: 2D digital imaging was performed. FINDINGS: The exam is limited by patient body habitus and respiratory motion. There are leads overlying the ch est. There has been interval increase in bilateral pulmonary densities since the previous exam, now located in both upper and lower lobes. The findings are consistent with worsening of bilateral pneumo iván versus superimposed pulmonary edema. The nasogastric tube is no longer seen. IMPRESSION: Worsening of bilateral infiltrates.
[2019-08-11] MEDS: buPROPion-XL 150 MG TABCR 300 MG PO (08:53)
[2019-08-11] MEDS: Allopurinol 100 MG TAB PO (08:53)
[2019-08-11] MEDS: Gabapentin 300 MG CAP PO ×3 (08:54→20:51)
[2019-08-11] MEDS: Potassium Chloride 20 MEQ TABCR PO (08:55)
[2019-08-11] MEDS: traZODone 50 MG TAB 25 MG PO ×2 (08:56→13:25)
--- NOTE | 2019-08-11 08:58 | PDOC.CMPRO ---
Care Management Progress Note S/O: Prakash was sleeping when CM attempted to meet with him. CM talked to his daughter, Terri, to update her on his status and discuss the plan to meet with Palliative when available. CM talked to Palliative who stated that Dr. Pacheco may be able to meet with them on 08/11/19. CM told Terri (daughter) that she would be contacted tomorrow regarding this meeting. CM did not guarantee that it would take place on 08/11/19. CM talked to Bradly at [facility], who reported that they do not have bed availability. He stated that he will look closer at the referral when they have an expected opening. CM will continue to follow. Contact numbers for Prakash's daughters: Terri (primary contact) [phone]. Leave a message if she doesn't answer and she will call back. She will touch base with her sisters. Brenda - [phone]. Gabriella - no known number. Contact page number is incorrect. Terri will reach out. A: Prakash is a 63 year old male admitted to [facility] on 08/07/2019 with hypotension, dehydration, askew-hypopituitarism, and Sepsis. He is currently receiving wound care. P: Anticipate Prakash will return to the [facility] when he is medically ready. He remains on IV ABX and receiving wound care. He will be transported via ambulance once medically ready for discharge. Anticipate a Palliative meeting with Prakash and his children (via phone) in order to discuss goals of care. CM will continue to follow and support discharge planning considerations.
[2019-08-11] MEDS: CEFEPIME 2 GM in Normal Saline 100 ML IVPB ×3 (09:20→23:33)
[2019-08-11] MEDS: Pantoprazole 20 MG TABCR PO (09:36)
[2019-08-11] MEDS: Insulin Aspart 300 UNITS/3 ML PEN SC (09:44)
--- NOTE | 2019-08-11 10:34 | W.PALLCONSUL ---
Date of service: 08/11/19 Time of Service: 10:34 History of Present Illness Narrative: Prakash is a 63-year-old man with severe morbid obesity living at the [facility]. 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 He became acutely ill with mental status changes including hallucinations, fever, and sepsis. He was found to have pneumonia. During the course of his hospitalization there was concern by his family that aggressive care should be continued. Staff was concerned that aggressive care was not in Prakash's best interest. In addition to doing a palliative care consult his last hospitalization, I have also cared for Prakash for many many months while living at the [facility]. During this time we had talks about end-of-life. He consistently said this was no way to live and he did not want to continue like this. Unfortunately his family, 3 daughters, [place] [facility]. When he was hospitalized at [facility] they were unable to find another [place] facility that would care for Prakash. It is difficult because Prakash only sees his daughters once a week at the most. We had his daughters and Prakash all present by either speaker phone or in person as well as Reyna, patient care representative. Prakash seem to be not mentally present during much of the conversation. At times he did perk up especially when he heard his daughter's voice. We reviewed caries problems today. They were very upset because they states that he was hallucinating for a long time and it was because of this that they really wanted better medical attention. They did admit that sometimes they will visit him at the [facility] and he would be in good spirits and mentally alert and other times he was not. They also stated leave me be; I do not want to live like this They also admit that if he could see himself now he would hate how he was living and would not want to be continuing this way. Additionally they said I do not think he is going to get better; I do not think he has long to live Consults Consult date: 08/11/19 Requesting physician: Km Khan Assessment and Plan Assessment and plan (1) Open wound of right lower extremity: Status: Acute Qualifiers: Encounter type: subsequent encounter Qualified Code(s): S81.801D - Unspecified open wound, right lower leg, subsequent encounter (2) Lymphedema of both lower extremities: Status: Acute (3) Sepsis: Status: Acute Qualifiers: Acute renal failure type: with acute tubular necrosis Sepsis acute organ dysfunction status: with acute organ dysfunction Sepsis type: sepsis due to unspecified organism Severe sepsis acute organ dysfunction type: acute renal failure Severe sepsis shock status: with septic shock Qualified Code(s): A41.9 - Sepsis, unspecified organism; R65.21 - Severe sepsis with septic shock; N17.0 - Acute kidney failure with tubular necrosis (4) Pneumonia: Status: Acute Qualifiers: Aspiration pneumonia type: due to vomit Laterality: right Lung location: upper lobe of lung Pneumonia type: aspiration pneumonia Qualified Code(s): J69.0 - Pneumonitis due to inhalation of food and vomit (5) Panhypopituitarism: Status: Chronic (6) Diabetes mellitus: Status: Chronic Qualifiers: Diabetes mellitus complication detail: with other skin ulcer Diabetes mellitus fdc insulin use: with termite exterminator use Diabetes mellitus type: type 2 (7) Discharge planning issues: Status: Acute Assessment and plan: Prakash remains acutely ill. He is appropriate for the ICU if the plan is to continue aggressive care. We had a long family meeting which include Terri Gutierrez and Jude as well as patient care representative Reyna. We talked about his state prior to going to [facility], since discharge to the [facility], and present state now. These are some of the quotes that his daughter said: While at the [facility] sometimes he was coherent and sometimes he does not He is always been a loner They do not want him on depression meds because it messes with his brain They feel strongly that he would get better if he had a one-on-one and got physical therapy. They also feel he needs to be more engaged with them. Unfortunately they cannot be with him as often as they would like to be. Terri said that we should leave him be. She also states that if he could see himself and what he is going through he would hate himself. She also stated I do not think he is going to get better. And I do not think he has long to live. They all talked about his present state and what they would want in the future. I did give them 3 possibilities: 1 continue aggressive care to hopefully get him back is good is he was prior to hospitalization. I did explain that this might be another downward turn in his health. 2 get him better from this admission, return him to the [facility] or place closer to home if possible, and consider making him a no transport no ICU care in the future. 3 changing him to comfort care while in the hospital. I did explain that if that was done that most likely he would . After long discussion his daughters are going to think about the different choices. He will get back to them. I will check in on him in a couple of days. Thank you very much for this consult. I did communicate alicia jerome to Hospitalist Review of Systems Narrative: Prakash is not able to give me a review of systems. His consciousness is in and out. When I asked him direct easy questions at times he did not appear to understand what I was asking. Nursing states that he was more engaged today when they were doing their swallowing eval. They also feel that he does go in and out, quite lethargic, refuses to take p.o. since admission despite a swallowing eval that would allow him to do honey thickened liquids etc. He did have an elevated oxygen need overnight he went from room air to 4 L. He has significant pannus and fold wounds. He has weeping edema and has Unna boots on. He has had a low urine output over the last 24 hours. He continues to have a tremor. He is orally fixated and was able to take an EKG lead and put it in his mouth. He had no stool since maybe Thursday. He did come in with diarrhea. [facility] Medical History Acute UTI (urinary tract infection) (Acute) Adrenal insufficiency (Chronic) Bacteremia (Ruled-out) Brain cancer (Chronic) Constipation (Acute) Difficult intravenous access (Acute) GERD (gastroesophageal reflux disease) (Chronic) HCAP (healthcare-associated pneumonia) (Inactive) Left lower lobe History of brain tumor (Chronic) Lung cancer (Chronic) Lymphedema of both lower extremities (Acute) Morbid obesity (Acute) Morbid obesity with BMI of 70 and over, adult (Chronic) Nonsustained paroxysmal supraventricular tachycardia (Acute) Obesity hypoventilation syndrome (Chronic) Open wound of right lower extremity (Acute) DOUG (obstructive sleep apnea) (Chronic) Panhypopituitarism (Acute) Pneumonia (Acute) Pulmonary hypertension (Chronic) Sepsis (Acute) Toxic metabolic encephalopathy (Inactive) Wound of left lower extremity (Acute) Surgical History History of craniotomy (Acute) Social History Smoking/Tobacco Use Status: Former Tobacco Use Alcohol Intake: former Substance use type: does not use Details: per pt I Drank like a fish Do you feel safe in your relationship?: Yes Additional Social history: pt at the [facility] Exam Narrative Exam Narrative: Here he acknowledged my presence. He appeared to know that he knew me but could not quite place me. He did not remember that I was his doctor many months at the [facility]. He slept through much of our discussion but did wake him towards the end. He was able to give answers but also understood that he did not quite understand implications and designated his children as the people that should be making decisions Results Last Vital Signs Temp 96.6 F L 08/11/19 09:34 Pulse 80 08/11/19 09:34 Resp 20 08/11/19 09:34 BP 89/62 L 08/11/19 09:34 Pulse Ox 91 L 08/11/19 08:10 Labs Result diagrams: 08/12/19 06:05 08/12/19 06:05 Labs: Laboratory Results - last 24 hr 08/11/19 08/11/19 07:00 07:00 WBC 9.04 RBC 2.95 L Hgb 10.1 L Hct 28.9 L MCV 98.0 H MCH 34.2 H MCHC 34.9 RDW 17.5 H Plt Count 253 MPV 8.9 Immature Gran % See Differential Neutrophils % 77.0 Lymphocytes % 10.0 Atypical Lymphs % 2 Monocytes % 5.0 Eosinophils % 1.0 Basophils % 0.0 Metamyelocytes % 3.0 Myelocytes % 2.0 Absolute Neutrophils 6.96 H Absolute Lymphocytes 1.08 L Absolute Monocytes 0.45 Absolute Eosinophils 0.09 Absolute Basophils 0.00 Differential Comment Manual differential RBC Morphology See below Polychromasia Present Hypochromasia 2+ Poikilocytosis 2+ Anisocytosis 2+ Macrocytosis 2+ Sodium 139 Potassium 3.5 Chloride 105 Carbon Dioxide 25.3 Anion Gap 8.7 BUN 15 Creatinine 0.64 L Estimated GFR/1.73 m2 >= 60.00 Glucose 143 H Calcium 8.1 L
[2019-08-11 11:00] LABS: C-Reactive Protein 7.55 mg/dL (0.0-0.3)
[2019-08-11 11:43] LABS: Procalcitonin 0.1 ng/mL
[2019-08-11] MEDS: Normal Saline 1,000 ML 85 ML IV ×2 (12:42→23:34)
--- NOTE | 2019-08-11 12:47 | W.PODCONSULT ---
Date of service: 08/11/19 Time of Service: 12:47 History of Present Illness History of Present Illness Chief Complaint: Paronychia right hallux, onychomycosis Narrative: 63-year-old morbidly obese male who resides at the [facility] and is currently in the ICU with multiple comorbidities including sepsis, pneumonia I been asked to evaluate for severely overgrown and ingrowing toenails. FORMERLY [facility] Medical History Acute UTI (urinary tract infection) (Acute) Adrenal insufficiency (Chronic) Bacteremia (Ruled-out) Brain cancer (Chronic) Constipation (Acute) Difficult intravenous access (Acute) GERD (gastroesophageal reflux disease) (Chronic) HCAP (healthcare-associated pneumonia) (Inactive) Left lower lobe History of brain tumor (Chronic) Lung cancer (Chronic) Lymphedema of both lower extremities (Acute) Morbid obesity (Acute) Morbid obesity with BMI of 70 and over, adult (Chronic) Nonsustained paroxysmal supraventricular tachycardia (Acute) Obesity hypoventilation syndrome (Chronic) Open wound of right lower extremity (Acute) DOUG (obstructive sleep apnea) (Chronic) Panhypopituitarism (Acute) Pneumonia (Acute) Pulmonary hypertension (Chronic) Sepsis (Acute) Toxic metabolic encephalopathy (Inactive) Wound of left lower extremity (Acute) Surgical History History of craniotomy (Acute) Social History Smoking/Tobacco Use Status: Former Tobacco Use Alcohol Intake: former Substance use type: does not use Details: per pt I Drank like a fish Do you feel safe in your relationship?: Yes Additional Social history: pt at the [facility] Exam Narrative Exam Narrative: Prakash is seen in room 219 in the ICU. He responds to pain but otherwise appears sleepy Objective: Allergies and medications are reviewed. Vitals BP 107/70 pulse 82 respiration 20 temperature 35.9 His lower extremities are wrapped in compression wraps from the base of the toes to the tibial tuberosities but he has capillary return at the tuft of the third digit on the 5 seconds, skin is peeling. The toenails are severely overgrown being thick, yellowed, dystrophic, hypertrophic, elongated with distal lysis especially of the hallux nail plates with all toenails being affected. The lateral border of the right great toe shows chronic paronychia formation. Granulation tissue was seen along the lateral nail groove but there is no proximal erythema or cellulitis. The nail plates appear to be very tender to gentle palpation although any manipulation of his foot and leg causes Prakash to scream out. Muscle groups are hard to determine but he does respond to pain and pullback he is markedly deconditioned Skeletal exam the digits showed small joint degenerative changes but no acute joint inflammation that I could visualize was appreciated. Neurologically toes are downgoing and he does respond to pain Impressions: Severe onychomycosis with onychocryptosis paronychia lateral border right hallux Plan: I aggressively and atraumatically debrided all toenails 1 through 5 bilaterally to patient's tolerance. Slant back avulsion was successful in resecting the lateral portion of the right great nail plate. The underlying tissue actually appeared dry and no active signs of infection were observed. In retrospect I am thinking this could have been a partial subungual hematoma along the lateral edge of the right great nail which I was able to clean out successfully with minimal difficulty. The degree of debridement was somewhat limited due to discomfort. I will be happy to continue to assist him over time as needed. Results Last Vital Signs Temp 35.9 C L 08/11/19 11:30 Pulse 82 08/11/19 11:30 Resp 20 08/11/19 11:30 BP 107/70 08/11/19 11:30 Pulse Ox 89 L 08/11/19 11:00 Labs Result diagrams: 08/11/19 07:00 08/11/19 07:00 Labs: Laboratory Results - last 24 hr 08/11/19 08/11/19 08/11/19 07:00 07:00 07:00 WBC 9.04 RBC 2.95 L Hgb 10.1 L Hct 28.9 L MCV 98.0 H MCH 34.2 H MCHC 34.9 RDW 17.5 H Plt Count 253 MPV 8.9 Immature Gran % See Differential Neutrophils % 77.0 Lymphocytes % 10.0 Atypical Lymphs % 2 Monocytes % 5.0 Eosinophils % 1.0 Basophils % 0.0 Metamyelocytes % 3.0 Myelocytes % 2.0 Absolute Neutrophils 6.96 H Absolute Lymphocytes 1.08 L Absolute Monocytes 0.45 Absolute Eosinophils 0.09 Absolute Basophils 0.00 Differential Comment Manual differential RBC Morphology See below Polychromasia Present Hypochromasia 2+ Poikilocytosis 2+ Anisocytosis 2+ Macrocytosis 2+ Sodium 139 Potassium 3.5 Chloride 105 Carbon Dioxide 25.3 Anion Gap 8.7 BUN 15 Creatinine 0.64 L Estimated GFR/1.73 m2 >= 60.00 Glucose 143 H Calcium 8.1 L C-Reactive Protein 7.55 H Procalcitonin 0.1
--- NOTE | 2019-08-11 13:17 | PDOC.CMPRO ---
- If Service Date Differs Date of service: 08/11/19 Time of Service: 13:18 Care Management Progress Note S/O: CM met with patient in the room in conjunction with his three daughters and . CM was able to coordinate family meeting over the phone with Prakash and his daughters (see palliative note for meeting details). Prakash remains in the ICU he continues to receive IV abx, IV access is limited and PICC or midline was not able to be placed. CM did discuss discharge plan with Prakash and his daughters, they agree that Prakash should be discharged back to the [facility] when he is ready. CM will follow up with family once they have had time to talk with one another about the ongoing plan. No other change in plan today Prakash remains ICU level of care. A: Prakash is a 63 year old male admitted to [facility] on 08/07/2019 with hypotension, dehydration, askew-hypopituitarism, and Sepsis. He is currently receiving wound care. P: Anticipate Prakash will return to the [facility] when he is medically ready. He remains on IV abx and receiving wound care. He will be transported via ambulance once medically ready for discharge. Palliative to continue to follow. CM will continue to follow and support discharge planning considerations.
--- NOTE | 2019-08-11 14:23 | NUR.NOTE ---
Patient experienced a 4 minute episode of sinus tachycardia sustained in the high 140's after which time patient's heart rate returned to the 80's Patient was asymptomatic during said time. MD notified.Nursing Note:
[2019-08-11 16:15] LABS: Vancomycin, Trough 27.1 ug/mL (10.0-20.0)
[2019-08-11] MEDS: traZODone 50 MG TAB 150 MG PO (20:51)
[2019-08-11] MEDS: Desmopressin 0.2 MG TAB 0.1 MG PO (20:52)
[2019-08-11] MEDS: dilTIAZem 30 MG TAB PO (20:52)
[2019-08-11] MEDS: Levothyroxine 150 MCG TAB PO (20:52)
[2019-08-12] VITALS (65 sets, daily range): BP systolic 58–146; BP diastolic 18–107; PULSE 75–222; RESP 7–33; TEMP 35.4–35.5; O2SAT 83–95
[2019-08-12] MEDS: Hydrocortisone SOD SUC. 100 MG VIAL IVP (05:41)
[2019-08-12] MEDS: Heparin 5,000 UNITS/ML VIAL 5000 UNITS SC ×3 (05:42→19:55)
[2019-08-12 06:52] LABS: BUN 16 mg/dL (7-18); CREATININE 0.82 mg/dL (0.70-1.30); Calcium 8.2 mg/dL (8.5-10.1); Chloride 108 mmol/L (98-107); Glucose 152 mg/dL (74-106); Potassium 3.8 mmol/L (3.5-5.1); Sodium 140 mmol/L (136-145)
[2019-08-12 07:11] LABS: Abs Immature Grans 0.94 k/cumm (0.0-0.09); HCT 29.5 % (40.0-50.0); HGB 9.7 g/dL (13.5-17.5); Mean Corp. HGB Concentration 32.9 g/dL (32.0-36.0); Mean Corpuscular Hemoglobin 32.7 pg (27.0-33.0); Mean Corpuscular Volume 99.3 fL (80-95); Mean Platelet Volume 9.4 fL (8.0-11.0); Platelet Count 230 x1000/uL (130-400); RBC 2.97 m/cumm (4.50-6.00); RBC Distribution Width 17.7 % (11.8-14.1); White Blood Cell Count 9.02 k/cumm (4.4-10.8)
[2019-08-12 07:55] LABS: Absolute Lymphocyte Count 1.62 k/cumm (1.2-3.4); Absolute Monocyte Count 0.36 k/cumm (0.11-0.7); Absolute Neutrophil Count 6.49 k/cumm (1.2-6.7); Atypical Lymphocytes % 1; Diff Comment Manual Differential
[2019-08-12 07:56] LABS: Anisocytosis 2+; Hypochromasia 1+; Poikilocytes 1+; Polychromasia Present; Target Cells 2+
[2019-08-12] MEDS: dilTIAZem 30 MG TAB PO ×3 (08:12→19:55)
[2019-08-12] MEDS: Gabapentin 300 MG CAP PO ×3 (08:12→19:54)
[2019-08-12] MEDS: Allopurinol 100 MG TAB PO (08:12)
[2019-08-12] MEDS: buPROPion-XL 150 MG TABCR 300 MG PO (08:12)
[2019-08-12] MEDS: traZODone 50 MG TAB 25 MG PO ×2 (08:12→13:24)
[2019-08-12] MEDS: Potassium Chloride 20 MEQ TABCR PO (08:13)
[2019-08-12] MEDS: Pantoprazole 20 MG TABCR PO (08:13)
[2019-08-12] MEDS: CEFEPIME 2 GM in Normal Saline 100 ML IVPB (08:15)
[2019-08-12] MEDS: Normal Saline Flush 10 ML SYR IVP ×2 (08:15→19:54)
[2019-08-12] MEDS: Insulin Aspart 300 UNITS/3 ML PEN SC ×2 (08:24→13:18)
--- NOTE | 2019-08-12 08:54 | PGE_ITS ---
Date of Service Date of service: 08/12/19 Time of Service: 08:54 Assessment and Plan Assessment and plan (1) Pneumonia: Status: Acute Assessment and plan: Repeat chest x-ray yesterday showed diffuse bilateral infiltrates. He remains afebrile but has a moist cough and with an elevated CRP this would suggest that he is not responding to current antibiotic treatment. I discontinued the cefepime and will start him on Zosyn 4.5 g IV every 8 hours. Qualifiers: Aspiration pneumonia type: due to vomit Laterality: right Lung location: upper lobe of lung Pneumonia type: aspiration pneumonia Qualified Code(s): J69.0 - Pneumonitis due to inhalation of food and vomit (2) Nonsustained paroxysmal supraventricular tachycardia: Status: Acute Assessment and plan: Patient has had recurrent nonsustained SVT. I have started him on diltiazem 30 mg 3 times daily in addition to as needed IV metoprolol. I have discontinued his Toprol-XL. (3) Panhypopituitarism: Status: Chronic Assessment and plan: .Patient has had 4 days of stress dose levels of hydrocortisone. At this point he can be resumed on his home dose of oral hydrocortisone 50 mg daily and 10 mg every afternoon. If he is unable to tolerate his oral meds then we will resume a low dose IV hydrocortisone. (4) Adrenal insufficiency: Status: Chronic Assessment and plan: Switch from high-dose IV cortisone to oral cortisone as above. (5) DOUG (obstructive sleep apnea): Status: Chronic Assessment and plan: Ideally patient should be on a CPAP mask but he has been noncompliant with this at the [facility]. (6) Diabetes mellitus: Status: Chronic Assessment and plan: Blood sugars are reasonably controlled in the 130s to 160s. He has been maintained on insulin sliding scale per sensitive level. Qualifiers: Diabetes mellitus complication detail: with other skin ulcer Diabetes mellitus rn long term care insulin use: with retirement use Diabetes mellitus type: type 2 (7) Lymphedema of both lower extremities: Status: Acute Assessment and plan: Continue Michael wraps and elevation. (8) Discharge planning issues: Status: Acute Assessment and plan: Dr. Pacheco saw the patient on a palliative care consult and spoke with the patient's daughter by phone yesterday. The daughter presented to the hospital today from her home in [place] [facility] and met with me. Explained to the daughter that Prakash has multiple medical problems which is led to his admission to the intensive care unit including aspiration pneumonia which appears to have worsened on his x-ray as well as the development of CHF probably from diastolic heart failure and DOUG. While none of his individual problems are insurmountable his long-term prognosis is not good primarily because of his morbid obesity limiting his ability to participate in his medical care and limiting his mobility which leads to pressure ulcers and lung atelectasis and pneumonia and increases risk for aspiration. The daughter would like some time over the weekend to see if he returns round with recent change in antibiotics and the addition of IV Lasix. If were not seeing a significant i mprovement in his condition then she will consider [employer] orders. (9) DVT prophylaxis: Status: Acute Assessment and plan: Continue subcutaneous heparin Subjective Subjective Interval history since last seen: Patient has had poor p.o. intake. Yesterday had a speech therapy consult and modified his diet. He is on a pur?ed diet with nectar thickened liquids and pills are being crushed. He has had poor urine output overnight putting out only 250 mL over an 8-hour shift. His lungs are sounding moist. Yesterday's chest x-ray showed worsening bilateral infiltrates possible CHF versus worsening pneumonia. His initial chest x-ray showed a right upper lobe infiltrate. Dr. Pacheco met with his daughter yesterday to discuss palliative care. Daughter indicated that area did not want aggressive heroic treatment however she is not come to a point where she is willing to make him [employer] yet. Rhythm is sinus rhythm this morning. He had some brief SVT yesterday. I discontinued his Toprol-XL and switch him to diltiazem at a low dose of 30 mg 3 times daily. For his healthcare acquired pneumonia I am to switch his cefepime to Zosyn but continue the vancomycin. Unfortunately do not have any sputum cultures to guide therapy. This is empiric treatment and based on his worsening infiltrates and persistently elevated CRP 7.55. His procalcitonin level yesterday was 0.1 Exam Narrative Exam Narrative: Obese male who is awake and alert and answering questions appropriately. He is pretty much at his baseline. Lung exam reveals coarse moist rhonchi and rales. Heart is regular with distant heart tones. No appreciable murmur. Abdomen is obese soft and nontender. He has hypoactive bowel sounds. Extremities are edematous with 3+ edema. Neurologic exam he is alert and oriented to person and knows he is in the hospital. He has generalized tremors. Objective Objective Clinical Data: Abnormal lab results 08/11/19 08/11/19 08/12/19 Range/Units 07:00 15:10 06:05 RBC (4.50-6.00) m/cumm Hgb (13.5-17.5) g/dL Hct (40.0-50.0) % MCV (80-95) fL RDW (11.8-14.1) % Chloride 108 H (98-107) mmol/L Glucose 152 H (74-106) mg/dL Calcium 8.2 L (8.5-10.1) mg/dL C-Reactive Protein 7.55 H (0.0-0.3) mg/dL Vancomycin Trough 27.1 H* (10.0-20.0) ug/mL 08/12/19 Range/Units 06:05 RBC 2.97 L (4.50-6.00) m/cumm Hgb 9.7 L (13.5-17.5) g/dL Hct 29.5 L (40.0-50.0) % MCV 99.3 H (80-95) fL RDW 17.7 H (11.8-14.1) % Chloride (98-107) mmol/L Glucose (74-106) mg/dL Calcium (8.5-10.1) mg/dL C-Reactive Protein (0.0-0.3) mg/dL Vancomycin Trough (10.0-20.0) ug/mL Vital Signs Temperature 35.5 C L 08/12/19 03:10 Temperature Source Temporal Artery Scan 08/12/19 03:10 Pulse 83 08/12/19 08:01 Pulse Rhythm Regular 08/07/19 00:00 Pulse 84 08/12/19 08:01 Respiratory Rate 23 08/12/19 08:01 Respiratory Effort Non-Labored 08/12/19 03:10 Respiratory Depth Normal 08/12/19 03:10 Respiratory Pattern Normal 08/12/19 03:10 Blood Pressure 108/58 L 08/12/19 08:01 Blood Pressure Mean 63 08/12/19 08:01 Blood Pressure Position Supine 08/11/19 14:00 Pulse Oximetry 93 L 08/12/19 08:01 Oxygen Delivery Method Nasal Cannula 08/12/19 03:10 Oxygen Flow Rate 2 08/11/19 23:22 Pain Level 0 08/12/19 03:10 Intake & Output 08/11/19 08/11/19 08/12/19 11:59 23:59 11:59 Intake Total 1756.500 / 2880.167 1123.667 / 2880.167 100 / 100 Output Total 275 / 475 200 / 475 150 / 150 Balance 1481.500 / 2405.167 923.667 / 2405.167 -50 / -50 Weight 181 kg Intake: IV 1756.500 / 2780.167 1023.667 / 2780.167 100 / 100 Oral 100 / 100 Output: Urine 275 / 475 200 / 475 150 / 150 Other: Urine Color Dark Yassine Yellow Light Yassine Urine Appearance Cloudy Clear Clear Urine Odor Strong Comment Dark yassine urine shen in place. low urine output for past 24hours-MD aware. shen in place. low urine output for past 24hours-MD aware. Voiding Methods Indwelling Catheter Laboratory Results WBC 9.02 k/cumm (4.4-10.8) 08/12/19 06:05 RBC 2.97 m/cumm (4.50-6.00) L 08/12/19 06:05 Hgb 9.7 g/dL (13.5-17.5) L 08/12/19 06:05 Hct 29.5 % (40.0-50.0) L 08/12/19 06:05 MCV 99.3 fL (80-95) H 08/12/19 06:05 MCH 32.7 pg (27.0-33.0) 08/12/19 06:05 MCHC 32.9 g/dL (32.0-36.0) 08/12/19 06:05 RDW 17.7 % (11.8-14.1) H 08/12/19 06:05 Plt Count 230 x1000/uL (130-400) 08/12/19 06:05 MPV 9.4 fL (8.0-11.0) 08/12/19 06:05 Immature Gran % See Differential 08/12/19 06:05 Neutrophils % 70.0 08/12/19 06:05 Band Neutrophils % 2.0 % 08/12/19 06:05 Lymphocytes % 17.0 08/12/19 06:05 Atypical Lymphs % 1 08/12/19 06:05 Monocytes % 4.0 08/12/19 06:05 Eosinophils % 0.0 08/12/19 06:05 Basophils % 0.0 08/12/19 06:05 Metamyelocytes % 1.0 % 08/12/19 06:05 Myelocytes % 5.0 % 08/12/19 06:05 Absolute Neutrophils 6.49 k/cumm (1.2-6.7) 08/12/19 06:05 Absolute Lymphocytes 1.62 k/cumm (1.2-3.4) 08/12/19 06:05 Absolute Monocytes 0.36 k/cumm (0.11-0.7) 08/12/19 06:05 Absolute Eosinophils 0.00 k/cumm (0.0-0.7) 08/12/19 06:05 Absolute Basophils 0.00 k/cumm (0.0-0.2) 08/12/19 06:05 Differential Comment Manual differential 08/12/19 06:05 RBC Morphology See below 08/12/19 06:05 Polychromasia Present 08/12/19 06:05 Hypochromasia 1+ 08/12/19 06:05 Poikilocytosis 1+ 08/12/19 06:05 Anisocytosis 2+ 08/12/19 06:05 Macrocytosis 2+ 08/11/19 07:00 Target Cells 2+ 08/12/19 06:05 PT 11.8 sec (9.3-11.0) H 08/06/19 15:55 INR 1.2 (0.9-1.1) H 08/06/19 15:55 APTT 25.3 sec (21.0-31.4) 08/06/19 15:55 VBG pH 7.35 (7.35-7.45) 08/07/19 12:53 VBG pCO2 50 mm/Hg (34-47) H 08/07/19 12:53 VBG pO2 66 mm/Hg (28-44) H 08/07/19 12:53 VBG HCO3 28 mmol/L (22-28) 08/07/19 12:53 VBG Total CO2 26 mmol/L (22-29) 08/07/19 12:53 VBG O2 Saturation 93 % (70-80) H 08/07/19 12:53 VBG Base Excess 2.1 mmol/L (-3-3) 08/07/19 12:53 Sodium 140 mmol/L (136-145) 08/12/19 06:05 Potassium 3.8 mmol/L (3.5-5.1) 08/12/19 06:05 Chloride 108 mmol/L (98-107) H 08/12/19 06:05 Carbon Dioxide 24.0 mmol/L (21.0-32.0) 08/12/19 06:05 Anion Gap 8.0 mmol/L (3-11) 08/12/19 06:05 BUN 16 mg/dL (7-18) 08/12/19 06:05 Creatinine 0.82 mg/dL (0.70-1.30) 08/12/19 06:05 Estimated GFR/1.73 m2 >= 60.00 (mL/min/1.73m2) 08/12/19 06:05 Glucose 152 mg/dL (74-106) H 08/12/19 06:05 Lactate 0.8 mmol/L (0.6-1.4) 08/07/19 12:53 Calcium 8.2 mg/dL (8.5-10.1) L 08/12/19 06:05 Magnesium 1.9 mg/dL (1.8-2.4) 08/08/19 06:30 Total Bilirubin 0.6 mg/dL (0.2-1.0) 08/07/19 12:53 AST 60 U/L (15-37) H 08/07/19 12:53 ALT 26 U/L (16-63) 08/07/19 12:53 Alkaline Phosphatase 99 U/L (46-116) 08/07/19 12:53 Troponin I < 0.05 ng/Ml (<0.06) 08/09/19 21:15 C-Reactive Protein 7.55 mg/dL (0.0-0.3) H 08/11/19 07:00 NT-Pro-B Natriuret Pep 698 pg/mL (<300) H 08/07/19 12:53 Total Protein 4.8 g/dL (6.4-8.2) L 08/07/19 12:53 Albumin 1.7 g/dL (3.4-5.0) L 08/07/19 12:53 Procalcitonin 0.1 ng/mL 08/11/19 07:00 TSH < 0.01 uIU/mL (0.36-3.74) L 08/06/19 15:55 Free T4 1.45 ng/dL (0.76-1.46) 08/06/19 15:55 Cortisol 13 ug/dL (See Note) 08/06/19 15:55 Urine Color Yassine (Yellow) 08/06/19 16:13 Urine Clarity Cloudy (Clear) 08/06/19 16:13 Urine pH 5.5 (5-8) 08/06/19 16:13 Ur Specific [place] >= 1.030 (1.005-1.025) H 08/06/19 16:13 Urine Protein Negative mg/dL (Negative) 08/06/19 16:13 Urine Ketones Negative mg/dL (Negative) 08/06/19 16:13 Urine Blood Negative (Negative) 08/06/19 16:13 Urine Nitrite Negative (Negative) 08/06/19 16:13 Urine Bilirubin Small (Negative) H 08/06/19 16:13 Urine Urobilinogen 0.2 EU/dL (Up TO 0.2) 08/06/19 16:13 Ur Leukocyte Esterase Small (Negative) H 08/06/19 16:13 Urine RBC 0-2 HPF (0-2) 08/06/19 16:13 Urine WBC 10-20 HPF (0-5) H 08/06/19 16:13 Ur Epithelial Cells Few HPF (Negative) 08/06/19 16:13 Urine Crystals Many amorphous HPF (Negative) 08/06/19 16:13 Urine Bacteria Packed HPF (Negative) 08/06/19 16:13 Urine Mucus (Negative) 08/06/19 16:13 Ur Culture Indicated? Yes 08/06/19 16:13 Urine Glucose Negative mg/dL (Negative) 08/06/19 16:13 Vancomycin Trough 27.1 ug/mL (10.0-20.0) H* 08/11/19 15:10
[2019-08-12 09:24] LABS: Reticulocyte 2.7 % (0.5-2.4)
[2019-08-12] MEDS: Furosemide 20 MG/2 ML VIAL IVP (09:50)
[2019-08-12 10:00] LABS: NT-proBNP 14922 pg/mL (<300)
--- NOTE | 2019-08-12 10:00 | PNE_ITS ---
Date of service: 08/12/19 Time of Service: 10:00 Speech Therpy Note Note: Swallow Treatment Note [facility] [id number] Date: 08/12/2019 Subjective: Nsg reports poor intake of solids and liquids. Pt very drowsy upon arrival, required verbal and tactile stimulation throughout and continued to close eyes and nod off intermittently. Pt also noted to verbalize non-sensical utterances. Objective: Skilled dysphagia treatment provided targeting diet modification analysis, instruction in safe swallow strategies and collaboration with nsg and physician. Pt trialed with thin liquids via cup and straw to facilitate hydration. Immediate s/s aspiration (cough) with all trials via straw however pt did demonstrate improvements in his ability to close lips around straw and follow directions to suck. Intermittent delayed cough with cup sips however pt not rounding lips on cup or actively withdrawing fluid resulting in poor control of fluids. Trialed nectar thick liquids via straw with no overt s/s aspiration. Instructed nsg to continue to use straw at this time but revert back to spoon if levels of alertness decrease. Instruction also provided regarding optimal positioning for PO intake. Pt declined solid trials today. It should be noted that intermittent apneic periods were noted throughout session, nsg notified and observed this as well. MD notified. Assessment: Pt continues to be at significant risk for aspiration. He continues to require a modified diet with swallow protocol in place. Pt should only be given PO intake when awake/alert. Pt continues to require skilled [employer]IST services for dysphagia. Plan: Continue treatment on Thursday
[2019-08-12 10:14] LABS: Iron 75 ug/dL (65-175); Total Iron Binding Capacity 83 ug/dL (250-450); Transferrin Sat 90 % (20-55)
[2019-08-12 10:37] LABS: Ferritin 763 ng/mL (26-388); Folate 1.6 ng/mL (8.6-20.0); Vitamin B12 1095 pg/mL (193-986)
[2019-08-12] MEDS: PIPERACILLIN/TAZO 4.5 GM in Normal Saline 100 ML IVPB ×2 (10:57→18:02)
[2019-08-12] MEDS: Normal Saline 500 ML 15 ML IV (11:04)
[2019-08-12] MEDS: POTASSIUM CHLORIDE/0.9% NACL 1,000 ML 50 MEQ IV (11:04)
--- NOTE | 2019-08-12 11:35 | W.PM.PROGNOT ---
Date of Service Date of service: 08/11/19 Time of Service: 14:00 Assessment and Plan Assessment and plan (1) Difficult intravenous access: Status: Acute Assessment and plan: will follow (2) Open wound of right lower extremity: Status: Acute Assessment and plan: cont silvadene and compression wraps of LE for chronic lymphedema. Qualifiers: Encounter type: subsequent encounter Qualified Code(s): S81.801D - Unspecified open wound, right lower leg, subsequent encounter Subjective Subjective Interval history since last seen: f/u from line placement last Thursday. site is c/d/i. no redness/drainage/swelling. All ports are functioning well. No pain in leg or swelling (although this is difficult to asses). Due to pt body habitus we were unable to place an IJ or subclavian line. Nursing and anesthesia were unable to place a midline/periph IV or PICC. As soon as poss- I do want to get this line out of the groin. high risk for infection and DVT. will follow peripherally Objective Objective Clinical Data: Abnormal lab results 08/11/19 08/12/19 08/12/19 Range/Units 15:10 06:05 06:05 RBC 2.97 L (4.50-6.00) m/cumm Hgb 9.7 L (13.5-17.5) g/dL Hct 29.5 L (40.0-50.0) % MCV 99.3 H (80-95) fL RDW 17.7 H (11.8-14.1) % Retic Count 2.7 H (0.5-2.4) % Chloride 108 H (98-107) mmol/L Glucose 152 H (74-106) mg/dL Calcium 8.2 L (8.5-10.1) mg/dL TIBC (250-450) ug/dL Transferrin % Sat (20-55) % Ferritin 763 H (26-388) ng/mL NT-Pro-B Natriuret Pep 59059 H (<300) pg/mL Vitamin B12 1095 H (193-986) pg/mL Folate 1.6 L (8.6-20.0) ng/mL Vancomycin Trough 27.1 H* (10.0-20.0) ug/mL 08/12/19 Range/Units 06:05 RBC (4.50-6.00) m/cumm Hgb (13.5-17.5) g/dL Hct (40.0-50.0) % MCV (80-95) fL RDW (11.8-14.1) % Retic Count (0.5-2.4) % Chloride (98-107) mmol/L Glucose (74-106) mg/dL Calcium (8.5-10.1) mg/dL TIBC 83 L (250-450) ug/dL Transferrin % Sat 90 H (20-55) % Ferritin (26-388) ng/mL NT-Pro-B Natriuret Pep (<300) pg/mL Vitamin B12 (193-986) pg/mL Folate (8.6-20.0) ng/mL Vancomycin Trough (10.0-20.0) ug/mL Vital Signs Temperature 35.4 C L 08/12/19 08:00 Temperature Source Tympanic 08/12/19 08:00 Pulse 138 H 08/12/19 11:00 Pulse Rhythm Regular 08/07/19 00:00 Pulse 88 08/12/19 11:00 Respiratory Rate 21 08/12/19 11:00 Respiratory Effort Non-Labored 08/12/19 08:00 Respiratory Depth Shallow 08/12/19 08:00 Respiratory Pattern Normal 08/12/19 08:00 Blood Pressure 98/65 L 08/12/19 11:00 Blood Pressure Mean 73 08/12/19 11:00 Blood Pressure Position Supine 08/12/19 08:00 Pulse Oximetry 92 L 08/12/19 11:00 Oxygen Delivery Method Nasal Cannula 08/12/19 08:00 Oxygen Flow Rate 2 08/12/19 08:00 Pain Level 0 08/12/19 08:00 Intake & Output 08/11/19 08/11/19 08/12/19 11:59 23:59 11:59 Intake Total 1756.500 / 2880.167 1123.667 / 2880.167 1644.417 / 1644.417 Output Total 275 / 475 200 / 475 500 / 500 Balance 1481.500 / 2405.167 923.667 / 2405.167 1144.417 / 1144.417 Weight 181 kg Intake: IV 1756.500 / 2780.167 1023.667 / 2780.167 1444.417 / 1444.417 Oral 100 / 100 200 / 200 Output: Urine 275 / 475 200 / 475 500 / 500 Other: Urine Color Dark Yassine Yellow Yellow Urine Appearance Cloudy Clear Clear Urine Odor Strong Comment Dark yassine urine shen in place. low urine output for past 24hours-MD aware. Shen intact and draining clear light yellow urine. Voiding Methods Indwelling Catheter Laboratory Results WBC 9.02 k/cumm (4.4-10.8) 08/12/19 06:05 RBC 2.97 m/cumm (4.50-6.00) L 08/12/19 06:05 Hgb 9.7 g/dL (13.5-17.5) L 08/12/19 06:05 Hct 29.5 % (40.0-50.0) L 08/12/19 06:05 MCV 99.3 fL (80-95) H 08/12/19 06:05 MCH 32.7 pg (27.0-33.0) 08/12/19 06:05 MCHC 32.9 g/dL (32.0-36.0) 08/12/19 06:05 RDW 17.7 % (11.8-14.1) H 08/12/19 06:05 Plt Count 230 x1000/uL (130-400) 08/12/19 06:05 MPV 9.4 fL (8.0-11.0) 08/12/19 06:05 Immature Gran % See Differential 08/12/19 06:05 Neutrophils % 70.0 08/12/19 06:05 Band Neutrophils % 2.0 % 08/12/19 06:05 Lymphocytes % 17.0 08/12/19 06:05 Atypical Lymphs % 1 08/12/19 06:05 Monocytes % 4.0 08/12/19 06:05 Eosinophils % 0.0 08/12/19 06:05 Basophils % 0.0 08/12/19 06:05 Metamyelocytes % 1.0 % 08/12/19 06:05 Myelocytes % 5.0 % 08/12/19 06:05 Absolute Neutrophils 6.49 k/cumm (1.2-6.7) 08/12/19 06:05 Absolute Lymphocytes 1.62 k/cumm (1.2-3.4) 08/12/19 06:05 Absolute Monocytes 0.36 k/cumm (0.11-0.7) 08/12/19 06:05 Absolute Eosinophils 0.00 k/cumm (0.0-0.7) 08/12/19 06:05 Absolute Basophils 0.00 k/cumm (0.0-0.2) 08/12/19 06:05 Differential Comment Manual differential 08/12/19 06:05 RBC Morphology See below 08/12/19 06:05 Polychromasia Present 08/12/19 06:05 Hypochromasia 1+ 08/12/19 06:05 Poikilocytosis 1+ 08/12/19 06:05 Anisocytosis 2+ 08/12/19 06:05 Macrocytosis 2+ 08/11/19 07:00 Target Cells 2+ 08/12/19 06:05 Retic Count 2.7 % (0.5-2.4) H 08/12/19 06:05 PT 11.8 sec (9.3-11.0) H 08/06/19 15:55 INR 1.2 (0.9-1.1) H 08/06/19 15:55 APTT 25.3 sec (21.0-31.4) 08/06/19 15:55 VBG pH 7.35 (7.35-7.45) 08/07/19 12:53 VBG pCO2 50 mm/Hg (34-47) H 08/07/19 12:53 VBG pO2 66 mm/Hg (28-44) H 08/07/19 12:53 VBG HCO3 28 mmol/L (22-28) 08/07/19 12:53 VBG Total CO2 26 mmol/L (22-29) 08/07/19 12:53 VBG O2 Saturation 93 % (70-80) H 08/07/19 12:53 VBG Base Excess 2.1 mmol/L (-3-3) 08/07/19 12:53 Sodium 140 mmol/L (136-145) 08/12/19 06:05 Potassium 3.8 mmol/L (3.5-5.1) 08/12/19 06:05 Chloride 108 mmol/L (98-107) H 08/12/19 06:05 Carbon Dioxide 24.0 mmol/L (21.0-32.0) 08/12/19 06:05 Anion Gap 8.0 mmol/L (3-11) 08/12/19 06:05 BUN 16 mg/dL (7-18) 08/12/19 06:05 Creatinine 0.82 mg/dL (0.70-1.30) 08/12/19 06:05 Estimated GFR/1.73 m2 >= 60.00 (mL/min/1.73m2) 08/12/19 06:05 Glucose 152 mg/dL (74-106) H 08/12/19 06:05 Lactate 0.8 mmol/L (0.6-1.4) 08/07/19 12:53 Calcium 8.2 mg/dL (8.5-10.1) L 08/12/19 06:05 Magnesium 1.9 mg/dL (1.8-2.4) 08/08/19 06:30 Iron 75 ug/dL (65-175) 08/12/19 06:05 TIBC 83 ug/dL (250-450) L 08/12/19 06:05 Transferrin % Sat 90 % (20-55) H 08/12/19 06:05 Ferritin 763 ng/mL (26-388) H 08/12/19 06:05 Total Bilirubin 0.6 mg/dL (0.2-1.0) 08/07/19 12:53 AST 60 U/L (15-37) H 08/07/19 12:53 ALT 26 U/L (16-63) 08/07/19 12:53 Alkaline Phosphatase 99 U/L (46-116) 08/07/19 12:53 Troponin I < 0.05 ng/Ml (<0.06) 08/09/19 21:15 C-Reactive Protein 7.55 mg/dL (0.0-0.3) H 08/11/19 07:00 NT-Pro-B Natriuret Pep 36040 pg/mL (<300) H 08/12/19 06:05 Total Protein 4.8 g/dL (6.4-8.2) L 08/07/19 12:53 Albumin 1.7 g/dL (3.4-5.0) L 08/07/19 12:53 Vitamin B12 1095 pg/mL (193-986) H 08/12/19 06:05 Folate 1.6 ng/mL (8.6-20.0) L 08/12/19 06:05 Procalcitonin 0.1 ng/mL 08/11/19 07:00 TSH < 0.01 uIU/mL (0.36-3.74) L 08/06/19 15:55 Free T4 1.45 ng/dL (0.76-1.46) 08/06/19 15:55 Cortisol 13 ug/dL (See Note) 08/06/19 15:55 Urine Color Yassine (Yellow) 08/06/19 16:13 Urine Clarity Cloudy (Clear) 08/06/19 16:13 Urine pH 5.5 (5-8) 08/06/19 16:13 Ur Specific [place] >= 1.030 (1.005-1.025) H 08/06/19 16:13 Urine Protein Negative mg/dL (Negative) 08/06/19 16:13 Urine Ketones Negative mg/dL (Negative) 08/06/19 16:13 Urine Blood Negative (Negative) 08/06/19 16:13 Urine Nitrite Negative (Negative) 08/06/19 16:13 Urine Bilirubin Small (Negative) H 08/06/19 16:13 Urine Urobilinogen 0.2 EU/dL (Up TO 0.2) 08/06/19 16:13 Ur Leukocyte Esterase Small (Negative) H 08/06/19 16:13 Urine RBC 0-2 HPF (0-2) 08/06/19 16:13 Urine WBC 10-20 HPF (0-5) H 08/06/19 16:13 Ur Epithelial Cells Few HPF (Negative) 08/06/19 16:13 Urine Crystals Many amorphous HPF (Negative) 08/06/19 16:13 Urine Bacteria Packed HPF (Negative) 08/06/19 16:13 Urine Mucus (Negative) 08/06/19 16:13 Ur Culture Indicated? Yes 08/06/19 16:13 Urine Glucose Negative mg/dL (Negative) 08/06/19 16:13 Vancomycin Trough 27.1 ug/mL (10.0-20.0) H* 08/11/19 15:10
[2019-08-12] MEDS: Nystatin POWDER 60 GM JAR TP ×3 (12:00→21:55)
[2019-08-12] MEDS: Bisacodyl 10 MG SUPP PR (12:15)
[2019-08-12] MEDS: Furosemide 40 MG/4 ML VIAL IVP (15:49)
--- NOTE | 2019-08-12 17:11 | CMPROGNOTE_ITS ---
- If Service Date Differs Date of service: 08/12/19 Time of Service: 17:12 Care Management Progress Note S/O: CM attempted to visit with Prakash, but he was being cared for by nursing staff and could not communicate with CM. Later, CM met with his daughter, Terri, who had questions regarding Prakash's POC. CM had a long conversation with Terri discussing the Palliative meeting that occurred yesterday, as well as the process if Prakash decides to transition to [employer]. Terri decided to talk with her father regarding his goals to help determine his next steps. She does not want him to suffer, and is concerned that his quality of life is declining. CM offered support and listened to her concerns. CM will continue to follow and support patient, family and staff. A: Prakash is a 63 year old male admitted to [facility] on 08/07/2019 with hypotension, dehydration, askew-hypopituitarism, and Sepsis. He is currently receiving wound care. P: Anticipate Prakash will return to the [facility] when he is medically ready. He remains on IV abx and receiving wound care. He will be transported via ambulance once medically ready for discharge. Palliative to continue to follow. CM will continue to follow and support discharge planning considerations.
--- NOTE | 2019-08-12 17:24 | NUR.NOTE ---
Patient's daughter, Bonny, came to visit him this afternoon. Nursing Note:
[2019-08-12] MEDS: Desmopressin 0.2 MG TAB 0.1 MG PO (19:55)
[2019-08-12] MEDS: Hydrocortisone 10 MG TAB PO (19:55)
[2019-08-12] MEDS: traZODone 50 MG TAB 150 MG PO (22:36)
[2019-08-12] MEDS: Levothyroxine 150 MCG TAB PO (22:36)
[2019-08-12] MEDS: QUEtiapine 25 MG TAB 12.5 MG PO (22:36)
[2019-08-12] MEDS: Verapamil 80 MG TAB 40 MG PO (23:15)
[2019-08-12 23:49] LABS: Magnesium 1.8 mg/dL (1.8-2.4); Potassium 3.6 mmol/L (3.5-5.1)
[2019-08-13] VITALS (83 sets, daily range): BP systolic 60–170; BP diastolic 33–143; PULSE 63–170; RESP 10–26; TEMP 33.9–35.4; O2SAT 86–96
[2019-08-13] MEDS: Normal Saline 500 ML 1000 ML IV
[2019-08-13] MEDS: Verapamil 5 MG/2 ML VIAL (00:20)
[2019-08-13] MEDS: PIPERACILLIN/TAZO 4.5 GM in Normal Saline 100 ML IVPB ×3 (02:24→18:40)
[2019-08-13] MEDS: Heparin 5,000 UNITS/ML VIAL 5000 UNITS SC ×3 (04:35→20:54)
--- NOTE | 2019-08-13 06:23 | W.PM.PROGNOT ---
Date of Service Date of service: 08/12/19 Time of Service: 23:00 Assessment and Plan Assessment and plan (1) SVT (supraventricular tachycardia): Status: Chronic Assessment and plan: PSVT. Good response to Verapamil. Will titrate up as needed, D/C cardizem in meantime. Subjective Subjective Interval history since last seen: Called last night approximately 2300 for SVT, lasting at that point some 15 minutes. Patient has h/o PSVT. On initial visiy SVT 160 noted, BP approximately 100/sys. Patient w/o complaints. During visit arrytmia broke briefly to NSR, then recurrent SVT. Patient given Verapamil 5 mg IV with immediate reversion to NSR. Briefly noted to have irregular rhythm, concern for possible AF, but 12 lead confirms NSR with frequent PACs. Patient given Verapamli 40 PO and ordered for 40 tid. Objective Objective Clinical Data: Abnormal lab results 08/12/19 08/12/19 08/12/19 Range/Units 06:05 06:05 06:05 RBC 2.97 L (4.50-6.00) m/cumm Hgb 9.7 L (13.5-17.5) g/dL Hct 29.5 L (40.0-50.0) % MCV 99.3 H (80-95) fL RDW 17.7 H (11.8-14.1) % Retic Count 2.7 H (0.5-2.4) % Chloride 108 H (98-107) mmol/L Glucose 152 H (74-106) mg/dL Calcium 8.2 L (8.5-10.1) mg/dL TIBC 83 L (250-450) ug/dL Transferrin % Sat 90 H (20-55) % Ferritin 763 H (26-388) ng/mL NT-Pro-B Natriuret Pep 83134 H (<300) pg/mL Vitamin B12 1095 H (193-986) pg/mL Folate 1.6 L (8.6-20.0) ng/mL Vital Signs Temperature 35.4 C L 08/12/19 08:00 Temperature Source Tympanic 08/12/19 08:00 Pulse 87 08/13/19 05:00 Pulse Rhythm Regular 08/12/19 23:00 Pulse 89 08/13/19 05:01 Respiratory Rate 17 08/13/19 05:01 Respiratory Effort Non-Labored 08/12/19 23:00 Respiratory Depth Normal 08/12/19 23:00 Respiratory Pattern Normal 08/12/19 23:00 Blood Pressure 99/84 L 08/13/19 05:00 Blood Pressure Mean 88 08/13/19 05:00 Blood Pressure Position Supine 08/12/19 08:00 Pulse Oximetry 92 L 08/13/19 05:01 Oxygen Delivery Method Nasal Cannula 08/12/19 11:36 Oxygen Flow Rate 2 08/12/19 11:36 Pain Level 0 08/12/19 08:00 Intake & Output 08/12/19 08/12/19 08/13/19 11:59 23:59 11:59 Intake Total 1644.417 / 2259.417 615 / 2259.417 Output Total 500 / 1590 1090 / 1590 450 / 450 Balance 1144.417 / 669.417 -475 / 669.417 -450 / -450 Intake: IV 1444.417 / 1899.417 455 / 1899.417 Oral 200 / 360 160 / 360 Output: Urine 500 / 1590 1090 / 1590 450 / 450 Other: Urine Color Yellow Yellow Yellow Urine Appearance Clear Clear Clear Comment [place] intact and draining clear light yellow urine. Stool Occult Blood Negative Stool Size Moderate Stool Characteristics Soft Laboratory Results WBC 9.02 k/cumm (4.4-10.8) 08/12/19 06:05 RBC 2.97 m/cumm (4.50-6.00) L 08/12/19 06:05 Hgb 9.7 g/dL (13.5-17.5) L 08/12/19 06:05 Hct 29.5 % (40.0-50.0) L 08/12/19 06:05 MCV 99.3 fL (80-95) H 08/12/19 06:05 MCH 32.7 pg (27.0-33.0) 08/12/19 06:05 MCHC 32.9 g/dL (32.0-36.0) 08/12/19 06:05 RDW 17.7 % (11.8-14.1) H 08/12/19 06:05 Plt Count 230 x1000/uL (130-400) 08/12/19 06:05 MPV 9.4 fL (8.0-11.0) 08/12/19 06:05 Immature Gran % See Differential 08/12/19 06:05 Neutrophils % 70.0 08/12/19 06:05 Band Neutrophils % 2.0 % 08/12/19 06:05 Lymphocytes % 17.0 08/12/19 06:05 Atypical Lymphs % 1 08/12/19 06:05 Monocytes % 4.0 08/12/19 06:05 Eosinophils % 0.0 08/12/19 06:05 Basophils % 0.0 08/12/19 06:05 Metamyelocytes % 1.0 % 08/12/19 06:05 Myelocytes % 5.0 % 08/12/19 06:05 Absolute Neutrophils 6.49 k/cumm (1.2-6.7) 08/12/19 06:05 Absolute Lymphocytes 1.62 k/cumm (1.2-3.4) 08/12/19 06:05 Absolute Monocytes 0.36 k/cumm (0.11-0.7) 08/12/19 06:05 Absolute Eosinophils 0.00 k/cumm (0.0-0.7) 08/12/19 06:05 Absolute Basophils 0.00 k/cumm (0.0-0.2) 08/12/19 06:05 Differential Comment Manual differential 08/12/19 06:05 RBC Morphology See below 08/12/19 06:05 Polychromasia Present 08/12/19 06:05 Hypochromasia 1+ 08/12/19 06:05 Poikilocytosis 1+ 08/12/19 06:05 Anisocytosis 2+ 08/12/19 06:05 Macrocytosis 2+ 08/11/19 07:00 Target Cells 2+ 08/12/19 06:05 Retic Count 2.7 % (0.5-2.4) H 08/12/19 06:05 PT 11.8 sec (9.3-11.0) H 08/06/19 15:55 INR 1.2 (0.9-1.1) H 08/06/19 15:55 APTT 25.3 sec (21.0-31.4) 08/06/19 15:55 VBG pH 7.35 (7.35-7.45) 08/07/19 12:53 VBG pCO2 50 mm/Hg (34-47) H 08/07/19 12:53 VBG pO2 66 mm/Hg (28-44) H 08/07/19 12:53 VBG HCO3 28 mmol/L (22-28) 08/07/19 12:53 VBG Total CO2 26 mmol/L (22-29) 08/07/19 12:53 VBG O2 Saturation 93 % (70-80) H 08/07/19 12:53 VBG Base Excess 2.1 mmol/L (-3-3) 08/07/19 12:53 Sodium 140 mmol/L (136-145) 08/12/19 06:05 Potassium 3.6 mmol/L (3.5-5.1) 08/12/19 23:30 Chloride 108 mmol/L (98-107) H 08/12/19 06:05 Carbon Dioxide 24.0 mmol/L (21.0-32.0) 08/12/19 06:05 Anion Gap 8.0 mmol/L (3-11) 08/12/19 06:05 BUN 16 mg/dL (7-18) 08/12/19 06:05 Creatinine 0.82 mg/dL (0.70-1.30) 08/12/19 06:05 Estimated GFR/1.73 m2 >= 60.00 (mL/min/1.73m2) 08/12/19 06:05 Glucose 152 mg/dL (74-106) H 08/12/19 06:05 Lactate 0.8 mmol/L (0.6-1.4) 08/07/19 12:53 Calcium 8.2 mg/dL (8.5-10.1) L 08/12/19 06:05 Magnesium 1.8 mg/dL (1.8-2.4) 08/12/19 23:30 Iron 75 ug/dL (65-175) 08/12/19 06:05 TIBC 83 ug/dL (250-450) L 08/12/19 06:05 Transferrin % Sat 90 % (20-55) H 08/12/19 06:05 Ferritin 763 ng/mL (26-388) H 08/12/19 06:05 Total Bilirubin 0.6 mg/dL (0.2-1.0) 08/07/19 12:53 AST 60 U/L (15-37) H 08/07/19 12:53 ALT 26 U/L (16-63) 08/07/19 12:53 Alkaline Phosphatase 99 U/L (46-116) 08/07/19 12:53 Troponin I < 0.05 ng/Ml (<0.06) 08/09/19 21:15 C-Reactive Protein 7.55 mg/dL (0.0-0.3) H 08/11/19 07:00 NT-Pro-B Natriuret Pep 08106 pg/mL (<300) H 08/12/19 06:05 Total Protein 4.8 g/dL (6.4-8.2) L 08/07/19 12:53 Albumin 1.7 g/dL (3.4-5.0) L 08/07/19 12:53 Vitamin B12 1095 pg/mL (193-986) H 08/12/19 06:05 Folate 1.6 ng/mL (8.6-20.0) L 08/12/19 06:05 Procalcitonin 0.1 ng/mL 08/11/19 07:00 TSH < 0.01 uIU/mL (0.36-3.74) L 08/06/19 15:55 Free T4 1.45 ng/dL (0.76-1.46) 08/06/19 15:55 Cortisol 13 ug/dL (See Note) 08/06/19 15:55 Urine Color Miranda (Yellow) 08/06/19 16:13 Urine Clarity Cloudy (Clear) 08/06/19 16:13 Urine pH 5.5 (5-8) 08/06/19 16:13 Ur Specific [place] >= 1.030 (1.005-1.025) H 08/06/19 16:13 Urine Protein Negative mg/dL (Negative) 08/06/19 16:13 Urine Ketones Negative mg/dL (Negative) 08/06/19 16:13 Urine Blood Negative (Negative) 08/06/19 16:13 Urine Nitrite Negative (Negative) 08/06/19 16:13 Urine Bilirubin Small (Negative) H 08/06/19 16:13 Urine Urobilinogen 0.2 EU/dL (Up TO 0.2) 08/06/19 16:13 Ur Leukocyte Esterase Small (Negative) H 08/06/19 16:13 Urine RBC 0-2 HPF (0-2) 08/06/19 16:13 Urine WBC 10-20 HPF (0-5) H 08/06/19 16:13 Ur Epithelial Cells Few HPF (Negative) 08/06/19 16:13 Urine Crystals Many amorphous HPF (Negative) 08/06/19 16:13 Urine Bacteria Packed HPF (Negative) 08/06/19 16:13 Urine Mucus (Negative) 08/06/19 16:13 Ur Culture Indicated? Yes 08/06/19 16:13 Urine Glucose Negative mg/dL (Negative) 08/06/19 16:13 Vancomycin Trough 27.1 ug/mL (10.0-20.0) H* 08/11/19 15:10
[2019-08-13 07:06] LABS: Abs Immature Grans 0.94 k/cumm (0.0-0.09); HCT 27.2 % (40.0-50.0); Mean Corp. HGB Concentration 33.1 g/dL (32.0-36.0); Mean Corpuscular Hemoglobin 33.2 pg (27.0-33.0); Mean Corpuscular Volume 100.4 fL (80-95); Mean Platelet Volume 9.6 fL (8.0-11.0); RBC 2.71 m/cumm (4.50-6.00); RBC Distribution Width 17.5 % (11.8-14.1); White Blood Cell Count 10.67 k/cumm (4.4-10.8)
[2019-08-13 07:44] LABS: BUN 18 mg/dL (7-18); CREATININE 0.89 mg/dL (0.70-1.30); Calcium 7.9 mg/dL (8.5-10.1); Chloride 110 mmol/L (98-107); Glucose 114 mg/dL (74-106); Potassium 3.5 mmol/L (3.5-5.1); Sodium 143 mmol/L (136-145)
[2019-08-13] MEDS: Nystatin POWDER 60 GM JAR TP ×3 (07:45→20:44)
[2019-08-13 08:05] LABS: Absolute Eosinophil Count 0.11 k/cumm (0.0-0.7); Absolute Lymphocyte Count 2.56 k/cumm (1.2-3.4); Absolute Monocyte Count 0.85 k/cumm (0.11-0.7); Absolute Neutrophil Count 6.72 k/cumm (1.2-6.7); Platelet Count 221 x1000/uL (130-400)
[2019-08-13 08:06] LABS: Absolute Basophil Count 0.11 k/cumm (0.0-0.2); Anisocytosis 1+; Basophilic Stippling Present; Diff Comment Manual Differential; Hypochromasia 3+; Macrocytosis 2+; Polychromasia Present; Target Cells 2+
[2019-08-13 08:08] LABS: Poikilocytes 3+
--- NOTE | 2019-08-13 08:30 | PGE_ITS ---
Date of Service Date of service: 08/13/19 Time of Service: 16:06 Assessment and Plan Assessment and plan (1) Encephalopathy acute: Status: Acute Assessment and plan: Mental status worse today, per nursing. Could be due to rapid decrease in hydrocortisone; in addition, could be due to respiratory failure. As below - reintroduce iv hydrocortisone. Trial BiPAP. Monitor mental status. (2) Acute and chronic respiratory failure with hypoxia: Status: Acute Assessment and plan: Multifactorial - PNA vs/+/- CHF, pulmonary hypertension, OHS/DOUG. VBG does not show marked acidosis, and I do not think we will be able to get an ABG, but Looking at Mr Rowland, I think he could benefit from trial of BiPAP. In the past, he has refused CPAP. Will also diurese - start lasix gtt. Continue to monitor on tele. Wean O2 as tolerated. (3) Pneumonia: Status: Acute Assessment and plan: Started on Zosyn 4.5 g IV every 8 hours yesteday. Await repeat CXR read. I am not sure that what I am seeing on CXR is truly pneumonia - I wonder if it is not CHF. Continues to have a high oxygen requirement. Offer BiPAP for support - see if patient tolerates it this time. Wean as tolerated. Qualifiers: Pneumonia type: aspiration pneumonia Aspiration pneumonia type: due to vomit Laterality: right Lung location: upper lobe of lung Qualified Code(s): J69.0 - Pneumonitis due to inhalation of food and vomit (4) Nonsustained paroxysmal supraventricular tachycardia: Status: Acute Assessment and plan: Continue metoprolol with addition of verapamil. (5) Panhypopituitarism: Status: Chronic Assessment and plan: Keep current dose of steroids. (6) Adrenal insufficiency: Status: Chronic Assessment and plan: Tapering hydrocortisone - introduce IV hydrocortisone again but at a lower dose. 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 Likely related to pulmonary hypertension (10) SVT (supraventricular tachycardia): Status: Chronic Assessment and plan: Resolved overnight with addition of verapamil - continue. (11) Pulmonary hypertension: Status: Acute Assessment and plan: Encourage CPAP/BiPAP. Carefully monitor volume status. (12) Discharge planning issues: Status: Acute Assessment and plan: DNR/DNI. If no improvement by Thursday, I do think that comfort measures would be reasonable. Seen in consult by palliative care. Discussed on phone with daughter Terri today. Total Critical Care time 45 minutes. (13) DVT prophylaxis: Status: Acute Assessment and plan: Continue subcutaneous heparin Subjective Subjective Interval history since last seen: Patient occasionally answers yes to my questions, but goes promptly back to sleep. He has been tremulous. He agrees to try a BiPAP mask on, though I am not sure he understands what I am really asking. 3L all night. 5L when laying flat. Desats with any motion. 2300 - SVT 15 min. Verapamil converted him to NSR. Afebrile. Not agitated. Not in restraints this am. Leaking from skin, per nursing - anywhere where he has been stuck. A&Ox2. Daughter Terri is ok with trying BiPAP. Exam Narrative Exam Narrative: General: Obese male, tremulous, A&Ox1 when awakes, mostly lethargic HEENT: EOMI, dry MM Heart: RRR, no m/r/g Lungs: diminished breath sounds anteriorly Abdomen: soft, obese, nontender Extremities: wrapped in michael wraps Objective Objective Clinical Data: Abnormal lab results 08/12/19 08/12/19 08/12/19 Range/Units 06:05 06:05 06:05 RBC 2.97 L (4.50-6.00) m/cumm Hgb 9.7 L (13.5-17.5) g/dL Hct 29.5 L (40.0-50.0) % MCV 99.3 H (80-95) fL MCH (27.0-33.0) pg RDW 17.7 H (11.8-14.1) % Absolute Neutrophils (1.2-6.7) k/cumm Absolute Monocytes (0.11-0.7) k/cumm Retic Count 2.7 H (0.5-2.4) % Chloride 108 H (98-107) mmol/L Glucose 152 H (74-106) mg/dL Calcium 8.2 L (8.5-10.1) mg/dL TIBC 83 L (250-450) ug/dL Transferrin % Sat 90 H (20-55) % Ferritin 763 H (26-388) ng/mL NT-Pro-B Natriuret Pep 52809 H (<300) pg/mL Vitamin B12 1095 H (193-986) pg/mL Folate 1.6 L (8.6-20.0) ng/mL 08/13/19 08/13/19 Range/Units 06:00 06:00 RBC 2.71 L (4.50-6.00) m/cumm Hgb 9.0 L (13.5-17.5) g/dL Hct 27.2 L (40.0-50.0) % MCV 100.4 H (80-95) fL MCH 33.2 H (27.0-33.0) pg RDW 17.5 H (11.8-14.1) % Absolute Neutrophils 6.72 H (1.2-6.7) k/cumm Absolute Monocytes 0.85 H (0.11-0.7) k/cumm Retic Count (0.5-2.4) % Chloride 110 H (98-107) mmol/L Glucose 114 H (74-106) mg/dL Calcium 7.9 L (8.5-10.1) mg/dL TIBC (250-450) ug/dL Transferrin % Sat (20-55) % Ferritin (26-388) ng/mL NT-Pro-B Natriuret Pep (<300) pg/mL Vitamin B12 (193-986) pg/mL Folate (8.6-20.0) ng/mL Vital Signs Temperature 35.4 C L 08/12/19 08:00 Temperature Source Tympanic 08/12/19 08:00 Pulse 87 08/13/19 05:00 Pulse Rhythm Regular 08/12/19 23:00 Pulse 89 08/13/19 05:01 Respiratory Rate 17 08/13/19 05:01 Respiratory Effort Non-Labored 08/12/19 23:00 Respiratory Depth Normal 08/12/19 23:00 Respiratory Pattern Normal 08/12/19 23:00 Blood Pressure 99/84 L 08/13/19 05:00 Blood Pressure Mean 88 08/13/19 05:00 Blood Pressure Position Supine 08/12/19 08:00 Pulse Oximetry 92 L 08/13/19 05:01 Oxygen Delivery Method Nasal Cannula 08/12/19 11:36 Oxygen Flow Rate 2 08/12/19 11:36 Pain Level 0 08/12/19 08:00 Intake & Output 08/12/19 08/12/19 08/13/19 11:59 23:59 11:59 Intake Total 1644.417 / 2259.417 615 / 2259.417 Output Total 500 / 1590 1090 / 1590 450 / 450 Balance 1144.417 / 669.417 -475 / 669.417 -450 / -450 Intake: IV 1444.417 / 1899.417 455 / 1899.417 Oral 200 / 360 160 / 360 Output: Urine 500 / 1590 1090 / 1590 450 / 450 Other: Urine Color Yellow Yellow Yellow Urine Appearance Clear Clear Clear Comment Kimball intact and draining clear light yellow urine. Stool Occult Blood Negative Stool Size Moderate Stool Characteristics Soft Laboratory Results WBC 10.67 k/cumm (4.4-10.8) 08/13/19 06:00 RBC 2.71 m/cumm (4.50-6.00) L 08/13/19 06:00 Hgb 9.0 g/dL (13.5-17.5) L 08/13/19 06:00 Hct 27.2 % (40.0-50.0) L 08/13/19 06:00 MCV 100.4 fL (80-95) H 08/13/19 06:00 MCH 33.2 pg (27.0-33.0) H 08/13/19 06:00 MCHC 33.1 g/dL (32.0-36.0) 08/13/19 06:00 RDW 17.5 % (11.8-14.1) H 08/13/19 06:00 Plt Count 221 x1000/uL (130-400) 08/13/19 06:00 MPV 9.6 fL (8.0-11.0) 08/13/19 06:00 Immature Gran % 0.0 % 08/13/19 06:00 Neutrophils % 63.0 08/13/19 06:00 Band Neutrophils % 2.0 % 08/12/19 06:05 Lymphocytes % 24.0 08/13/19 06:00 Atypical Lymphs % 1 08/12/19 06:05 Monocytes % 8.0 08/13/19 06:00 Eosinophils % 1.0 08/13/19 06:00 Basophils % 1.0 08/13/19 06:00 Metamyelocytes % 1.0 % 08/13/19 06:00 Myelocytes % 1.0 % 08/13/19 06:00 Absolute Neutrophils 6.72 k/cumm (1.2-6.7) H 08/13/19 06:00 Absolute Lymphocytes 2.56 k/cumm (1.2-3.4) 08/13/19 06:00 Absolute Monocytes 0.85 k/cumm (0.11-0.7) H 08/13/19 06:00 Absolute Eosinophils 0.11 k/cumm (0.0-0.7) 08/13/19 06:00 Absolute Basophils 0.11 k/cumm (0.0-0.2) 08/13/19 06:00 Differential Comment Manual differential 08/13/19 06:00 RBC Morphology See below 08/13/19 06:00 Polychromasia Present 08/13/19 06:00 Hypochromasia 3+ 08/13/19 06:00 Poikilocytosis 3+ 08/13/19 06:00 Basophilic Stippling Present 08/13/19 06:00 Anisocytosis 1+ 08/13/19 06:00 Macrocytosis 2+ 08/13/19 06:00 Target Cells 2+ 08/13/19 06:00 Retic Count 2.7 % (0.5-2.4) H 08/12/19 06:05 PT 11.8 sec (9.3-11.0) H 08/06/19 15:55 INR 1.2 (0.9-1.1) H 08/06/19 15:55 APTT 25.3 sec (21.0-31.4) 08/06/19 15:55 VBG pH 7.35 (7.35-7.45) 08/07/19 12:53 VBG pCO2 50 mm/Hg (34-47) H 08/07/19 12:53 VBG pO2 66 mm/Hg (28-44) H 08/07/19 12:53 VBG HCO3 28 mmol/L (22-28) 08/07/19 12:53 VBG Total CO2 26 mmol/L (22-29) 08/07/19 12:53 VBG O2 Saturation 93 % (70-80) H 08/07/19 12:53 VBG Base Excess 2.1 mmol/L (-3-3) 08/07/19 12:53 Sodium 143 mmol/L (136-145) 08/13/19 06:00 Potassium 3.5 mmol/L (3.5-5.1) 08/13/19 06:00 Chloride 110 mmol/L (98-107) H 08/13/19 06:00 Carbon Dioxide 25.0 mmol/L (21.0-32.0) 08/13/19 06:00 Anion Gap 8.0 mmol/L (3-11) 08/13/19 06:00 BUN 18 mg/dL (7-18) 08/13/19 06:00 Creatinine 0.89 mg/dL (0.70-1.30) 08/13/19 06:00 Estimated GFR/1.73 m2 >= 60.00 (mL/min/1.73m2) 08/13/19 06:00 Glucose 114 mg/dL (74-106) H 08/13/19 06:00 Lactate 0.8 mmol/L (0.6-1.4) 08/07/19 12:53 Calcium 7.9 mg/dL (8.5-10.1) L 08/13/19 06:00 Magnesium 1.8 mg/dL (1.8-2.4) 08/12/19 23:30 Iron 75 ug/dL (65-175) 08/12/19 06:05 TIBC 83 ug/dL (250-450) L 08/12/19 06:05 Transferrin % Sat 90 % (20-55) H 08/12/19 06:05 Ferritin 763 ng/mL (26-388) H 08/12/19 06:05 Total Bilirubin 0.6 mg/dL (0.2-1.0) 08/07/19 12:53 AST 60 U/L (15-37) H 08/07/19 12:53 ALT 26 U/L (16-63) 08/07/19 12:53 Alkaline Phosphatase 99 U/L (46-116) 08/07/19 12:53 Troponin I < 0.05 ng/Ml (<0.06) 08/09/19 21:15 C-Reactive Protein 7.55 mg/dL (0.0-0.3) H 08/11/19 07:00 NT-Pro-B Natriuret Pep 00321 pg/mL (<300) H 08/12/19 06:05 Total Protein 4.8 g/dL (6.4-8.2) L 08/07/19 12:53 Albumin 1.7 g/dL (3.4-5.0) L 08/07/19 12:53 Vitamin B12 1095 pg/mL (193-986) H 08/12/19 06:05 Folate 1.6 ng/mL (8.6-20.0) L 08/12/19 06:05 Procalcitonin 0.1 ng/mL 08/11/19 07:00 TSH < 0.01 uIU/mL (0.36-3.74) L 08/06/19 15:55 Free T4 1.45 ng/dL (0.76-1.46) 08/06/19 15:55 Cortisol 13 ug/dL (See Note) 08/06/19 15:55 Urine Color Miranda (Yellow) 08/06/19 16:13 Urine Clarity Cloudy (Clear) 08/06/19 16:13 Urine pH 5.5 (5-8) 08/06/19 16:13 Ur Specific [place] >= 1.030 (1.005-1.025) H 08/06/19 16:13 Urine Protein Negative mg/dL (Negative) 08/06/19 16:13 Urine Ketones Negative mg/dL (Negative) 08/06/19 16:13 Urine Blood Negative (Negative) 08/06/19 16:13 Urine Nitrite Negative (Negative) 08/06/19 16:13 Urine Bilirubin Small (Negative) H 08/06/19 16:13 Urine Urobilinogen 0.2 EU/dL (Up TO 0.2) 08/06/19 16:13 Ur Leukocyte Esterase Small (Negative) H 08/06/19 16:13 Urine RBC 0-2 HPF (0-2) 08/06/19 16:13 Urine WBC 10-20 HPF (0-5) H 08/06/19 16:13 Ur Epithelial Cells Few HPF (Negative) 08/06/19 16:13 Urine Crystals Many amorphous HPF (Negative) 08/06/19 16:13 Urine Bacteria Packed HPF (Negative) 08/06/19 16:13 Urine Mucus (Negative) 08/06/19 16:13 Ur Culture Indicated? Yes 08/06/19 16:13 Urine Glucose Negative mg/dL (Negative) 08/06/19 16:13 Vancomycin Trough 27.1 ug/mL (10.0-20.0) H* 08/11/19 15:10 CXR: per my read, pulmonary edema. I cannot rule out pneumonia. Officail read pending. I think the CXR looks a little better than on 08/11/2019.
[2019-08-13] MEDS: Furosemide 40 MG/4 ML VIAL IVP (08:37)
[2019-08-13] MEDS: Normal Saline Flush 10 ML SYR IVP ×2 (08:45→20:44)
[2019-08-13] MEDS: Normal Saline Flush 10 ML SYR 30 ML IVP ×2 (08:46→17:09)
[2019-08-13] MEDS: Gabapentin 300 MG CAP PO ×2 (08:47→15:13)
[2019-08-13] MEDS: Potassium Chloride 20 MEQ TABCR PO (08:47)
[2019-08-13] MEDS: Allopurinol 100 MG TAB PO (08:47)
[2019-08-13] MEDS: traZODone 50 MG TAB 25 MG PO (08:47)
[2019-08-13] MEDS: Hydrocortisone 10 MG TAB 15 MG PO (08:48)
[2019-08-13] MEDS: buPROPion-XL 150 MG TABCR 300 MG PO (08:48)
[2019-08-13] MEDS: Verapamil 80 MG TAB 40 MG PO ×2 (08:50→15:13)
[2019-08-13] MEDS: Pantoprazole 20 MG TABCR PO (08:52)
--- NOTE | 2019-08-13 12:26 | IN_ITS ---
Date of service: 08/13/19 Time of Service: 10:30 PT Notes Visit Reasons: HYPOTENSION,DEHYDRATION,CALDERON-HYPOPITUITARISM Inpatient Physical Therapy Evaluation Date: 08/13/2019 Referring Doctor: Kandice Ang MD PT Orders: PT CONSULT: Limited Ability Precautions: standard Patient Profile/Admitting Diagnosis: This is a man with multiple medical problems, as listed below, due to the consequence of brain cancer resulting in a left frontal parietal craniotomy years ago. He is bedridden, due to morbid obesity, another consequence of his condition, and to medical providers knowledge and nursing he has not been functionally mobile for many months, possibly years. Nursing communicates that he was much more alert and communicative earlier in the week, with failing status over the last few days. He is complete max assist, and unalert. PMHX: Medical History Adrenal insufficiency (Chronic) Brain cancer (Chronic) Constipation (Acute) GERD (gastroesophageal reflux disease) (Chronic) HCAP (healthcare-associated pneumonia) (Inactive) Left lower lobe History of brain tumor (Chronic) Lung cancer (Chronic) Morbid obesity (Acute) Morbid obesity with BMI of 70 and over, adult (Chronic) Nonsustained paroxysmal supraventricular tachycardia (Acute) Obesity hypoventilation syndrome (Chronic) DOUG (obstructive sleep apnea) (Chronic) Panhypopituitarism (Acute) Pulmonary hypertension (Chronic) Toxic metabolic encephalopathy (Inactive) Surgical History History of craniotomy (Acute) Social History/Home Situation: Long-term resident at the [facility] Current Functional Limitations: Bedridden, max assist Equipment Owned/DME: Did not research, due to known residence at [facility] Subjective: Patient unalert, sleeping, he is not easy to arise Objective: General Observation: Lying in hospital bed, on hover mat. Multiple IVs placed, Kimball, O2 mask with humidifier. He has multiple areas of ecchymosis around him, whole-body edema, areas of some skin breakdown and Riana rash. Bilateral hips rested in external rotation, left greater than right, and knee flexion of about 40 degrees. Mental Status: An alert Pain: Unable to verbally assess, but does groan when attempt of passive movement of lower extremities Vital Signs: BP 89/64, HR 69, O2 on 4 L of oxygen is 95% ROM: Right Upper Extremity: Only passive, wrist WNL, elbow WNL, shoulder only achieves 45 degrees flexion Left Upper Extremity: Equal to right Right Lower Extremity: Unable to mobilize hip due to patient size, right knee 20 to 45 degrees, hypomobile ankle with only about 2 degrees into plantar flexion dorsiflexion Left Lower Extremity: More limited at the knee, with 30 to 80 degrees, hypomobile ankle again was only about 2 degrees and plantar flexion and dorsiflexion. Unable to mobilize hip due to size. Strength: Due to patient's on alert state, unable to assess. From communication with staff, I gather he is unable to actively move his lower extremities, and prior to admission he was able to do active movement of the arms to at least feed himself. With awakening patient and asking him to complete some active movement today, he was unable to do this, but yet only stayed awake for maybe 2 seconds. Sensation: Unable to assess Bed Mobility/Transfers: Max assist with all, currently utilizing hover mat for change of position in bed. I assisted 3 nurses to roll patient to left side with hover mat today. Gait: Unable Balance: Not assessed, as patient is unable to weight-bear or sit Special Tests: Mobility Limitations Standardized Measure 100% disability Informed Consent/Education: Patient not alert. Assessment: Patient is a 63 year old male referred to physical therapy services with the diagnosis of limited mobility as a consequence of multiple comorbidities including but not limited to, morbid obesity, brain cancer resulting in frontoparietal craniotomy, tachycardia, UTI, panhypopituitarism, adrenal insufficiency, pneumonia, obesity hypoventilation syndrome, and most recent progression to more of a sedated state. Patient presents with clinical signs and symptoms consistent with referred diagnosis, as demonstrated by the following impairment level findings: Complete lack of upper and lower extremity movement, sedated state, global joint mobility limitations with associated pain, morbid obesity, breathing issues, and manifestations of above diagnoses. Impairments are contributing to the following functional limitations: [facility] ore 100%, patient completely bedridden and max assist only. At this point due to patient's apparent failing state, and inability to participate in any attempts of PT, aside from passive range of motion, he is not appropriate for PT care. Nursing was educated on appropriate passive mobility of upper extremities and lower extremities. They were also advised that if his awareness improved, OT evaluation would be more appropriate to work on upper extremity function so he can at least feed himself, as he was able to prior to admission. Patient is assessed as a Low 27065 Moderate 84955 x High 37926 complexity based on the following: History: See above comorbidities, and social history Examination: See above impairments and functional limitations Presentation: Unstable Decision Making: Easy Plan of Care/Treatment Plan: Patient on hold from PT care at this time, as his physical condition is not appropriate, and realistically no expectations with PT. However, OT referral would be appropriate if patient's awareness improves, and he may be able to achieve upper extremity use for feeding. TREATMENT CODE/TIME: 57181, 20 min
--- NOTE | 2019-08-13 16:01 | DI.RAD_ITS ---
EXAM: XR PORTABLE CHEST AP CLINICAL HISTORY: follow up pneumonia TECHNIQUE: COMPARISON: XR PORTABLE CHEST AP from 08/11/2019 FINDINGS: Portable AP chest is compared with prior portable film from August 11. Bilateral intrapulmonary i nfiltrates are again noted. There has been some interval improvement in appearance of left-sided inf iltrate. Little interval change in appearance of right-sided infiltrates. Cardiomegaly persists unc hanged. IMPRESSION: Slight interval improvement left lung findings, no gross interval change in right lung findings. Fin dings consistent with multi focal pneumonia. CHF not excluded.
[2019-08-13 16:02] LABS: BE (Venous) -0.8 mmol/L (-3-3); HCO3 (Venous) 25 mmol/L (22-28); O2 Sat (Venous) 91 % (70-80); TCO2 (Venous) 24 mmol/L (22-29); pCO2 (Venous) 47 mm/Hg (34-47); pH (Venous) 7.34 (7.35-7.45); pO2 (Venous) 57 mm/Hg (28-44)
--- NOTE | 2019-08-13 16:29 | DI.VRAD_ITS ---
PROCEDURE INFORMATION: Exam: XR Chest, 1 View Exam date and time: 08/13/2019 4:05 PM Age: 63 years old Clinical indication: Other: Follow up pneumonia TECHNIQUE: Imaging protocol: XR of the chest Views: 1 view. COMPARISON: CR XR PORTABLE CHEST AP 08/11/2019 8:42 AM FINDINGS: Lungs: Bilateral pulmonary infiltrates, right greater than left. Pleural space: Unremarkable. No pleural effusion. No pneumothorax. Heart/Mediastinum: Cardiomegaly. Bones/joints: Degenerative changes in the spine. IMPRESSION: Bilateral pulmonary infiltrates, right greater than left. Findings are improved on the left and stable on the right. Degenerative changes in the spine. Cardiomegaly. Dictated and Authenticated by: Mera Wiley MD. Ordering:JONATHAN Woodson MD
[2019-08-13] MEDS: Metoprolol 5 MG/5 ML VIAL 2.5 MG IVP (16:45)
[2019-08-13] MEDS: Hydrocortisone SOD SUC. 100 MG VIAL IVP (17:09)
--- NOTE | 2019-08-13 17:44 | PDOC.CMPRO ---
- If Service Date Differs Date of service: 08/13/19 Time of Service: 17:44 Care Management Progress Note S/O: CM met with Prakash today, who was not engaged in conversation. CM discussed his condition with his primary RN, who reported that his mental status has declined in the last few days. Per provider, he was transferred back to ICU level of care. Provider explained to Prakash and his daughter, Terri, that he needs to wear a bipap machine if he wants to improve. He agreed to participate and wear the mask. CM will continue to follow and support Prakash, his family, and staff with discharge planning considerations. A: Prakash is a 63 year old male admitted to [facility] on 08/07/2019 with hypotension, dehydration, askew-hypopituitarism, and Sepsis. He is currently receiving wound care. P: Anticipate Prakash will return to the [facility] when he is medically ready. He remains on IV abx and receiving wound care. He will be transported via ambulance once medically ready for discharge. Palliative to continue to follow. CM will continue to follow and support discharge planning considerations.
[2019-08-13] MEDS: Hydrocortisone SOD SUC. 100 MG VIAL 50 MG IVP ×2 (18:40→23:59)
[2019-08-13] MEDS: Normal Saline 500 ML 15 ML IV (18:41)
[2019-08-14] VITALS (69 sets, daily range): BP systolic 60–136; BP diastolic 26–92; PULSE 60–176; RESP 8–32; TEMP 34–36.5; O2SAT 80–100
[2019-08-14] MEDS: PIPERACILLIN/TAZO 4.5 GM in Normal Saline 100 ML IVPB ×3 (01:59→18:16)
[2019-08-14] MEDS: Heparin 5,000 UNITS/ML VIAL 5000 UNITS SC ×3 (04:37→21:15)
[2019-08-14] MEDS: Hydrocortisone SOD SUC. 100 MG VIAL 50 MG IVP (06:24)
[2019-08-14 07:07] LABS: HCT 27.6 % (40.0-50.0); HGB 9.1 g/dL (13.5-17.5); Mean Corpuscular Hemoglobin 33.5 pg (27.0-33.0); Mean Corpuscular Volume 101.5 fL (80-95); Mean Platelet Volume 9.5 fL (8.0-11.0); RBC 2.72 m/cumm (4.50-6.00); RBC Distribution Width 17.6 % (11.8-14.1); White Blood Cell Count 8.85 k/cumm (4.4-10.8)
[2019-08-14 07:12] LABS: Anion Gap 8.8 mmol/L (3-11); BUN 20 mg/dL (7-18); CO2 25.2 mmol/L (21.0-32.0); CREATININE 0.91 mg/dL (0.70-1.30); Chloride 113 mmol/L (98-107); Glucose 116 mg/dL (74-106); Magnesium 1.7 mg/dL (1.8-2.4); Potassium 3.4 mmol/L (3.5-5.1); Sodium 147 mmol/L (136-145)
[2019-08-14] MEDS: MAGNESIUM SULFATE 2 GM/50 ML BAG IVPB (08:09)
[2019-08-14] MEDS: POTASSIUM CHLORIDE 20 MEQ/100 ML BAG 50 MEQ IVPB ×2 (08:12→10:39)
[2019-08-14 08:19] LABS: Absolute Basophil Count 0.18 k/cumm (0.0-0.2); Absolute Eosinophil Count 0.27 k/cumm (0.0-0.7); Absolute Monocyte Count 0.44 k/cumm (0.11-0.7); Absolute Neutrophil Count 6.81 k/cumm (1.2-6.7); Diff Comment Manual Differential; Platelet Count 202 x1000/uL (130-400)
[2019-08-14 08:20] LABS: Anisocytosis 1+; Hypochromasia 3+; Macrocytosis 2+; Polychromasia Present; Target Cells 2+
[2019-08-14 08:21] LABS: Poikilocytes 2+
--- NOTE | 2019-08-14 08:21 | PGE_ITS ---
Date of Service Date of service: 08/14/19 Time of Service: 10:56 Assessment and Plan Assessment and plan (1) Encephalopathy acute: Status: Acute Assessment and plan: Mental status clearly better. I think it was partially worse due to acute on chronic adrenal insufficiency precipitated by decrease in hydrocortisone dose. Given low BP's yesterday as well as persistent hypothermia, I increased stress dose hydrocortisone to 100 mg IV Q 8 hrs. I think that it is already working. pH preserved, no clear CO2 retention by VBG, but hypoxic - and having BiPAP may also very much improve his mental status. Trial BiPAP again. (2) Acute and chronic respiratory failure with hypoxia: Status: Acute Assessment and plan: Multifactorial - PNA vs/+/- CHF, pulmonary hypertension, OHS/DOUG. As above - trial BiPAP again, monitoring BP's. (3) Pneumonia: Status: Acute Assessment and plan: Continue Zosyn 4.5 g IV every 8 hours - day 3. I am still not convinced that what we are seeing is a true pneumonia - it could be CHF. Repeat CXR tomorrow after diuresis. Qualifiers: Pneumonia type: aspiration pneumonia Aspiration pneumonia type: due to vomit Laterality: right Lung location: upper lobe of lung Qualified Code(s): J69.0 - Pneumonitis due to inhalation of food and vomit (4) Nonsustained paroxysmal supraventricular tachycardia: Status: Acute Assessment and plan: Seems to be recurrent and responds to metoprolol Iv 2.5 mg. Will try to increase metoprolol with holding parameters. (5) Panhypopituitarism: Status: Chronic Assessment and plan: As above - hydrocortisone increased. Continue Desmopressin, synthroid. (6) Adrenal insufficiency: Status: Chronic Assessment and plan: As above - hydrocortisone incrased to 100 mg IV Q 8 hrs. (7) DOUG (obstructive sleep apnea): Status: Chronic Assessment and plan: Trial BiPAP again. (8) Diabetes mellitus: Status: Chronic Assessment and plan: Continue SSI Qualifiers: Diabetes mellitus type: type 2 Diabetes mellitus [employer] insulin use: with [employer] use Diabetes mellitus complication detail: with other skin ulcer (9) Lymphedema of both lower extremities: Status: Acute Assessment and plan: Continue Michael wraps and elevation. Diuresing with lasix gtt. Likely related to pulmonary hypertension. (10) SVT (supraventricular tachycardia): Status: Chronic Assessment and plan: Episodes recurred despite scheduled verapamil. D/c verapamil; start metoprolol with holding parameters. (11) Pulmonary hypertension: Status: Acute Assessment and plan: Encourage BiPAP. Continue diuresis. Carefully monitor volume status. (12) Discharge planning issues: Status: Acute Assessment and plan: DNR/DNI. If no significant clinical improvement by Thursday, comfort measures would be reasonable. Seen in consult by palliative care. Total Critical Care time 45 minutes. (13) DVT prophylaxis: Status: Acute Assessment and plan: Continue subcutaneous heparin Subjective Subjective Interval history since last seen: Much more awake today, able to eat breakfast. Reports mild dizziness, denies chest pain, shortness of breath, nausea, pain of any kind. On 7L by oxymask now, O2 sats drop to 88% when he dozes off. Bipap started yesterday - pressures became low, so it had to be stopped, and 500 cc of NS given. Then, with improvement in BP, lasix gtt was started, and the patient has tolerated it. Hypothermic - 35.3. Veronica hugger ordered. We are about to try BiPAP again. ALmost 1 L out so far today. SVT recurred to 160's - started at around 11:10. Converted to NSR with 2.5 mg of lopressor. Exam Narrative Exam Narrative: General: Obese male, wearing oxymask at 7L; tremulous, much more awake/alert (A&Ox2) when stimulated verbally, but dozes off very fast, with corresponding fall in O2 sat. HEENT: EOMI, dry MM Heart: RRR, no m/r/g Lungs: diminished breath sounds anteriorly Abdomen: soft, obese, nontender Extremities: wrapped in michael wraps Objective Objective Clinical Data: Abnormal lab results 08/13/19 08/14/19 Range/Units 15:55 06:10 VBG pH 7.34 L (7.35-7.45) VBG pO2 57 H (28-44) mm/Hg VBG O2 Saturation 91 H (70-80) % Sodium 147 H (136-145) mmol/L Potassium 3.4 L (3.5-5.1) mmol/L Chloride 113 H (98-107) mmol/L BUN 20 H (7-18) mg/dL Glucose 116 H (74-106) mg/dL Calcium 8.0 L (8.5-10.1) mg/dL Magnesium 1.7 L (1.8-2.4) mg/dL Vital Signs Temperature 34.7 C L 08/14/19 05:13 Temperature Source Tympanic 08/14/19 05:13 Pulse 67 08/14/19 05:13 Pulse Rhythm Regular 08/13/19 15:30 Pulse 76 08/14/19 05:01 Respiratory Rate 14 08/14/19 05:13 Respiratory Effort 08/14/19 05:13 Respiratory Depth Shallow 08/14/19 05:13 Respiratory Pattern Apnea 08/14/19 05:13 Blood Pressure 115/64 08/14/19 05:13 Blood Pressure Mean 81 08/14/19 05:13 Blood Pressure Position Supine 08/14/19 05:13 Pulse Oximetry 93 L 08/14/19 07:42 Oxygen Delivery Method OxyMask 08/14/19 07:42 Oxygen Flow Rate 4 08/14/19 07:42 Fraction of Inspired Oxygen (FIO2) 40 08/13/19 20:00 Pain Level 0 08/14/19 05:13 Comment 08/13/19 15:40 Intake & Output 08/13/19 08/13/19 08/14/19 11:59 23:59 11:59 Intake Total 442.5 / 2231.5 1789.0 / 2231.5 750 / 750 Output Total 1200 / 1870 670 / 1870 1400 / 1400 Balance -757.5 / 361.5 1119.0 / 361.5 -650 / -650 Intake: IV 412.5 / 1401.5 989.0 / 1401.5 750 / 750 Oral 30 / 830 800 / 830 Output: Urine 1200 / 1870 670 / 1870 1400 / 1400 Other: Urine Color Yellow Yellow Yellow Urine Appearance Clear Clear Clear Comment pt has indwelling shen cath pt has indwelling shen cath Laboratory Results WBC 10.67 k/cumm (4.4-10.8) 08/13/19 06:00 RBC 2.71 m/cumm (4.50-6.00) L 08/13/19 06:00 Hgb 9.0 g/dL (13.5-17.5) L 08/13/19 06:00 Hct 27.2 % (40.0-50.0) L 08/13/19 06:00 MCV 100.4 fL (80-95) H 08/13/19 06:00 MCH 33.2 pg (27.0-33.0) H 08/13/19 06:00 MCHC 33.1 g/dL (32.0-36.0) 08/13/19 06:00 RDW 17.5 % (11.8-14.1) H 08/13/19 06:00 Plt Count 221 x1000/uL (130-400) 08/13/19 06:00 MPV 9.6 fL (8.0-11.0) 08/13/19 06:00 Immature Gran % 0.0 % 08/13/19 06:00 Neutrophils % 63.0 08/13/19 06:00 Band Neutrophils % 2.0 % 08/12/19 06:05 Lymphocytes % 24.0 08/13/19 06:00 Atypical Lymphs % 1 08/12/19 06:05 Monocytes % 8.0 08/13/19 06:00 Eosinophils % 1.0 08/13/19 06:00 Basophils % 1.0 08/13/19 06:00 Metamyelocytes % 1.0 % 08/13/19 06:00 Myelocytes % 1.0 % 08/13/19 06:00 Absolute Neutrophils 6.72 k/cumm (1.2-6.7) H 08/13/19 06:00 Absolute Lymphocytes 2.56 k/cumm (1.2-3.4) 08/13/19 06:00 Absolute Monocytes 0.85 k/cumm (0.11-0.7) H 08/13/19 06:00 Absolute Eosinophils 0.11 k/cumm (0.0-0.7) 08/13/19 06:00 Absolute Basophils 0.11 k/cumm (0.0-0.2) 08/13/19 06:00 Differential Comment Manual differential 08/13/19 06:00 RBC Morphology See below 08/13/19 06:00 Polychromasia Present 08/13/19 06:00 Hypochromasia 3+ 08/13/19 06:00 Poikilocytosis 3+ 08/13/19 06:00 Basophilic Stippling Present 08/13/19 06:00 Anisocytosis 1+ 08/13/19 06:00 Macrocytosis 2+ 08/13/19 06:00 Target Cells 2+ 08/13/19 06:00 Retic Count 2.7 % (0.5-2.4) H 08/12/19 06:05 PT 11.8 sec (9.3-11.0) H 08/06/19 15:55 INR 1.2 (0.9-1.1) H 08/06/19 15:55 APTT 25.3 sec (21.0-31.4) 08/06/19 15:55 VBG pH 7.34 (7.35-7.45) L 08/13/19 15:55 VBG pCO2 47 mm/Hg (34-47) 08/13/19 15:55 VBG pO2 57 mm/Hg (28-44) H 08/13/19 15:55 VBG HCO3 25 mmol/L (22-28) 08/13/19 15:55 VBG Total CO2 24 mmol/L (22-29) 08/13/19 15:55 VBG O2 Saturation 91 % (70-80) H 08/13/19 15:55 VBG Base Excess -0.8 mmol/L (-3-3) 08/13/19 15:55 Sodium 147 mmol/L (136-145) H 08/14/19 06:10 Potassium 3.4 mmol/L (3.5-5.1) L 08/14/19 06:10 Chloride 113 mmol/L (98-107) H 08/14/19 06:10 Carbon Dioxide 25.2 mmol/L (21.0-32.0) 08/14/19 06:10 Anion Gap 8.8 mmol/L (3-11) 08/14/19 06:10 BUN 20 mg/dL (7-18) H 08/14/19 06:10 Creatinine 0.91 mg/dL (0.70-1.30) 08/14/19 06:10 Estimated GFR/1.73 m2 >= 60.00 (mL/min/1.73m2) 08/14/19 06:10 Glucose 116 mg/dL (74-106) H 08/14/19 06:10 Lactate 0.8 mmol/L (0.6-1.4) 08/07/19 12:53 Calcium 8.0 mg/dL (8.5-10.1) L 08/14/19 06:10 Magnesium 1.7 mg/dL (1.8-2.4) L 08/14/19 06:10 Iron 75 ug/dL (65-175) 08/12/19 06:05 TIBC 83 ug/dL (250-450) L 08/12/19 06:05 Transferrin % Sat 90 % (20-55) H 08/12/19 06:05 Ferritin 763 ng/mL (26-388) H 08/12/19 06:05 Total Bilirubin 0.6 mg/dL (0.2-1.0) 08/07/19 12:53 AST 60 U/L (15-37) H 08/07/19 12:53 ALT 26 U/L (16-63) 08/07/19 12:53 Alkaline Phosphatase 99 U/L (46-116) 08/07/19 12:53 Troponin I < 0.05 ng/Ml (<0.06) 08/09/19 21:15 C-Reactive Protein 7.55 mg/dL (0.0-0.3) H 08/11/19 07:00 NT-Pro-B Natriuret Pep 00561 pg/mL (<300) H 08/12/19 06:05 Total Protein 4.8 g/dL (6.4-8.2) L 08/07/19 12:53 Albumin 1.7 g/dL (3.4-5.0) L 08/07/19 12:53 Vitamin B12 1095 pg/mL (193-986) H 08/12/19 06:05 Folate 1.6 ng/mL (8.6-20.0) L 08/12/19 06:05 Procalcitonin 0.1 ng/mL 08/11/19 07:00 TSH < 0.01 uIU/mL (0.36-3.74) L 08/06/19 15:55 Free T4 1.45 ng/dL (0.76-1.46) 08/06/19 15:55 Cortisol 13 ug/dL (See Note) 08/06/19 15:55 Urine Color Miranda (Yellow) 08/06/19 16:13 Urine Clarity Cloudy (Clear) 08/06/19 16:13 Urine pH 5.5 (5-8) 08/06/19 16:13 Ur Specific [place] >= 1.030 (1.005-1.025) H 08/06/19 16:13 Urine Protein Negative mg/dL (Negative) 08/06/19 16:13 Urine Ketones Negative mg/dL (Negative) 08/06/19 16:13 Urine Blood Negative (Negative) 08/06/19 16:13 Urine Nitrite Negative (Negative) 08/06/19 16:13 Urine Bilirubin Small (Negative) H 08/06/19 16:13 Urine Urobilinogen 0.2 EU/dL (Up TO 0.2) 08/06/19 16:13 Ur Leukocyte Esterase Small (Negative) H 08/06/19 16:13 Urine RBC 0-2 HPF (0-2) 08/06/19 16:13 Urine WBC 10-20 HPF (0-5) H 08/06/19 16:13 Ur Epithelial Cells Few HPF (Negative) 08/06/19 16:13 Urine Crystals Many amorphous HPF (Negative) 08/06/19 16:13 Urine Bacteria Packed HPF (Negative) 08/06/19 16:13 Urine Mucus (Negative) 08/06/19 16:13 Ur Culture Indicated? Yes 08/06/19 16:13 Urine Glucose Negative mg/dL (Negative) 08/06/19 16:13 Vancomycin Trough 27.1 ug/mL (10.0-20.0) H* 08/11/19 15:10
[2019-08-14] MEDS: Verapamil 80 MG TAB 40 MG PO (08:41)
[2019-08-14] MEDS: Hydrocortisone 10 MG TAB 15 MG PO (08:41)
[2019-08-14] MEDS: traZODone 50 MG TAB 25 MG PO ×2 (08:41→12:34)
[2019-08-14] MEDS: Gabapentin 300 MG CAP PO ×2 (08:41→14:25)
[2019-08-14] MEDS: Allopurinol 100 MG TAB PO (08:42)
[2019-08-14] MEDS: Nystatin POWDER 60 GM JAR TP ×3 (08:44→21:16)
[2019-08-14] MEDS: Normal Saline Flush 10 ML SYR IVP ×2 (08:44→21:16)
[2019-08-14] MEDS: Pantoprazole 40 MG VIAL IVP (09:47)
[2019-08-14] MEDS: Hydrocortisone SOD SUC. 100 MG VIAL IVP ×2 (09:47→18:19)
[2019-08-14] MEDS: Metoprolol 5 MG/5 ML VIAL 2.5 MG IVP (11:12)
[2019-08-14] MEDS: Insulin Aspart 300 UNITS/3 ML PEN SC ×2 (12:33→17:11)
[2019-08-14] MEDS: Metoprolol 12.5 MG TAB PO (12:35)
[2019-08-14] MEDS: Normal Saline Flush 10 ML SYR 30 ML IVP (12:35)
--- NOTE | 2019-08-14 13:36 | PDOC.CMPRO ---
- If Service Date Differs Date of service: 08/14/19 Time of Service: 13:36 Care Management Progress Note S/O: Prakash was lying in bed when CM met with him. He is still requiring ICU level of care, and is not able to engage in conversation. He had BiPAP machine on while CM was in the room. Per RN, he was able to eat breakfast and lunch today, which is an improvement. RN updated Terri, his daughter, on his condition today. CM will reach out to Terri tomorrow regarding his status, as they are considering SUGAR COATING HAND if no significant improvement has been made. CM will continue to follow. A: Prakash is a 63 year old male admitted to [facility] on 08/07/2019 with hypotension, dehydration, askew-hypopituitarism, and Sepsis. He is currently receiving wound care. P: Anticipate Prakash will return to the [facility] when he is medically ready. He remains on IV abx and receiving wound care. He will be transported via ambulance once medically ready for discharge. Palliative to continue to follow. CM will continue to follow and support discharge planning considerations.
[2019-08-15] VITALS (70 sets, daily range): BP systolic 66–141; BP diastolic 10–101; PULSE 64–127; RESP 8–31; TEMP 30–35.9; O2SAT 81–96
[2019-08-15] MEDS: PIPERACILLIN/TAZO 4.5 GM in Normal Saline 100 ML IVPB ×3 (01:42→18:42)
[2019-08-15] MEDS: Hydrocortisone SOD SUC. 100 MG VIAL IVP ×3 (01:42→18:41)
[2019-08-15] MEDS: Heparin 5,000 UNITS/ML VIAL 5000 UNITS SC ×3 (04:10→19:30)
[2019-08-15] MEDS: Metoprolol 5 MG/5 ML VIAL 2.5 MG IVP ×7 (05:52→23:58)
[2019-08-15 06:43] LABS: Abs Immature Grans 0.59 k/cumm (0.0-0.09); HCT 28.4 % (40.0-50.0); HGB 9.4 g/dL (13.5-17.5); Mean Corp. HGB Concentration 33.1 g/dL (32.0-36.0); Mean Corpuscular Hemoglobin 33.3 pg (27.0-33.0); Mean Corpuscular Volume 100.7 fL (80-95); Mean Platelet Volume 9.7 fL (8.0-11.0); Platelet Count 228 x1000/uL (130-400); RBC 2.82 m/cumm (4.50-6.00); RBC Distribution Width 17.7 % (11.8-14.1)
[2019-08-15 06:54] LABS: Anion Gap 8.4 mmol/L (3-11); BUN 23 mg/dL (7-18); C-Reactive Protein 10.52 mg/dL (0.0-0.3); CO2 26.6 mmol/L (21.0-32.0); CREATININE 1.13 mg/dL (0.70-1.30); Calcium 8.2 mg/dL (8.5-10.1); Chloride 112 mmol/L (98-107); Glucose 138 mg/dL (74-106); Magnesium 1.9 mg/dL (1.8-2.4); Sodium 147 mmol/L (136-145)
[2019-08-15 07:14] LABS: Absolute Neutrophil Count 10.58 k/cumm (1.2-6.7)
[2019-08-15 07:15] LABS: Absolute Lymphocyte Count 0.98 k/cumm (1.2-3.4); Absolute Monocyte Count 0.37 k/cumm (0.11-0.7); Basophilic Stippling Present; Diff Comment Diff Reviewed; Macrocytosis 2+; Polychromasia Present
[2019-08-15 07:16] LABS: Anisocytosis 2+; Poikilocytes 2+
[2019-08-15 07:31] LABS: Procalcitonin 0.1 ng/mL
--- NOTE | 2019-08-15 08:04 | W.PALLCONSUL ---
Date of service: 08/15/19 Time of Service: 05:07 History of Present Illness Narrative: Prakash is a 63-year-old man with multiple multiple comorbidities including morbid obesity, diabetes, hypoxia, pneumonia, CAD, weeping edema, skin breakdown, chronic pain, sleep apnea, and soft blood pressures. Since I last saw him 4 days ago he was started on a Lasix drip, IV metoprolol, and CPAP because of his hypoxia. He continues on antibiotics including PIP Tazocin and Vanco he has a central line which is looking angrier. His total weight loss in the last 9 days is 1 kg Consults Consult date: 08/15/19 Requesting physician: Kandice Ang Assessment and Plan Assessment and plan (1) Acute and chronic respiratory failure with hypoxia: Status: Acute (2) Pulmonary hypertension: Status: Acute (3) Encephalopathy acute: Status: Acute (4) Discharge planning issues: Status: Acute Assessment and plan: I called Terri at [phone] to discuss her father's lack of progress. I I will call another sister and see if I am able to communicate with the family. I have called up Shobha and Marti and have not reached either I did leave a message in 1 of their phones Here he is definitely worsening. Overall he is decompensating autonomically. He is unable to control his temperature. His blood pressures are soft. He has lost 1 kg of weight during his entire hospitalization. There is concern because he now is on CPAP, and unable to remove the mask should he vomit. He has a central line placed family which is looking angrier. He has weeping edema. His skin has continued breakdown. He is now on a Lasix drip. Overall I feel that he is worsening. I would like to speak with his daughters about the goals of care. I think he should be placed on comfort care. I have discussed this with Dr. Ang and will get back to her. I did speak to Terri at [phone] she is concerned about her dad and does not want to make the wrong decision. She feels a little bewildered because she hears that he is doing better and then that he is not. I did review his present status with her including that he is now on a Lasix drip IV metoprolol. I talked about his skin and his central line as well as his CPAP. I think it is sinking and that her dad may not get better and that doing more is not going to necessarily improve his quality of life. She asked me to call her again after seeing him tonight or tomorrow. I will do this. I have spent more than 50% of time in counseling with this patient. This document was created by [employer] and may contain grammatical and translation errors. Review of Systems Narrative: Patient is somnolent and unable to give me a review of systems. Staff states that every time they move him he winces in pain. They do talk about his skin breakdown redness around his central line, runs of SVT, and poor oxygenation [facility] Medical History Acute UTI (urinary tract infection) (Acute) Adrenal insufficiency (Chronic) Bacteremia (Ruled-out) Brain cancer (Chronic) Constipation (Acute) Difficult intravenous access (Acute) GERD (gastroesophageal reflux disease) (Chronic) HCAP (healthcare-associated pneumonia) (Inactive) Left lower lobe History of brain tumor (Chronic) Lung cancer (Chronic) Lymphedema of both lower extremities (Acute) Morbid obesity (Acute) Morbid obesity with BMI of 70 and over, adult (Chronic) Nonsustained paroxysmal supraventricular tachycardia (Acute) Obesity hypoventilation syndrome (Chronic) Open wound of right lower extremity (Acute) DOUG (obstructive sleep apnea) (Chronic) Panhypopituitarism (Acute) Pneumonia (Acute) Pulmonary hypertension (Chronic) Sepsis (Acute) Toxic metabolic encephalopathy (Inactive) Wound of left lower extremity (Acute) Surgical History History of craniotomy (Acute) Social History Smoking/Tobacco Use Status: Former Tobacco Use Alcohol Intake: former Substance use type: does not use Details: per pt I Drank like a fish Do you feel safe in your relationship?: Yes Additional Social history: pt at the [facility] Exam Narrative Exam Narrative: Prakash is lying in his bed. He does not acknowledge my presence or anyone's presence. He seems to move some when I jostle him and talk to him but does not respond. I did look over his skin. In any of the skin folds he does have open slits and redness. He does have bandages in place. His heart is regular. Lungs difficult to assess due to size. Abdomen no wincing anxiety examination. His central line in his right groin does look red. He does have Unna boots on. Results Last Vital Signs Temp 96.4 F L 08/15/19 05:22 Pulse 75 08/15/19 07:01 Resp 18 08/15/19 07:01 BP 122/56 L 08/15/19 07:01 Pulse Ox 93 L 08/15/19 07:01 Labs Result diagrams: 08/15/19 05:58 08/15/19 05:58 Labs: Laboratory Results - last 24 hr 08/14/19 08/15/19 08/15/19 06:10 05:58 05:58 WBC 8.85 RBC 2.72 L Hgb 9.1 L Hct 27.6 L MCV 101.5 H MCH 33.5 H MCHC 33.0 RDW 17.6 H Plt Count 202 MPV 9.5 Immature Gran % 0.0 Neutrophils % 77.0 Lymphocytes % 9.0 Monocytes % 5.0 Eosinophils % 3.0 Basophils % 2.0 Metamyelocytes % 2.0 Myelocytes % 2.0 Absolute Neutrophils 6.81 H Absolute Lymphocytes 0.80 L Absolute Monocytes 0.44 Absolute Eosinophils 0.27 Absolute Basophils 0.18 Differential Comment Manual differential RBC Morphology See below Polychromasia Present Hypochromasia 3+ Poikilocytosis 2+ Basophilic Stippling Anisocytosis 1+ Macrocytosis 2+ Target Cells 2+ Sodium 147 H Potassium 3.0 L Chloride 112 H Carbon Dioxide 26.6 Anion Gap 8.4 BUN 23 H Creatinine 1.13 Estimated GFR/1.73 m2 >= 60.00 Glucose 138 H Calcium 8.2 L Magnesium 1.9 C-Reactive Protein 10.52 H Procalcitonin 0.1 08/15/19 05:58 WBC 12.30 H D RBC 2.82 L Hgb 9.4 L Hct 28.4 L MCV 100.7 H MCH 33.3 H MCHC 33.1 RDW 17.7 H Plt Count 228 MPV 9.7 Immature Gran % See Differential Neutrophils % 86.0 Lymphocytes % 8.0 Monocytes % 3.0 Eosinophils % 0.0 Basophils % 0.0 Metamyelocytes % 3.0 Myelocytes % Absolute Neutrophils 10.58 H Absolute Lymphocytes 0.98 L Absolute Monocytes 0.37 Absolute Eosinophils 0.00 Absolute Basophils 0.00 Differential Comment Diff reviewed RBC Morphology See below Polychromasia Present Hypochromasia Poikilocytosis 2+ Basophilic Stippling Present Anisocytosis 2+ Macrocytosis 2+ Target Cells Sodium Potassium Chloride Carbon Dioxide Anion Gap BUN Creatinine Estimated GFR/1.73 m2 Glucose Calcium Magnesium C-Reactive Protein Procalcitonin
--- NOTE | 2019-08-15 08:23 | DI.RAD_ITS ---
EXAM: XR PORTABLE CHEST AP CLINICAL HISTORY: CHF vs PNA TECHNIQUE: COMPARISON: XR PORTABLE CHEST AP from 08/13/2019 FINDINGS: Comparison with prior study of August 13. There is increasing bilateral intrapulmonary consolidat ion since the previous examination. Cardiac size remains significantly enlarged. IMPRESSION: Interval worsening of bilateral pulmonary infiltrates, multifocal pneumonia and/or CHF.
--- NOTE | 2019-08-15 08:36 | PGE_ITS ---
Subjective Subjective Interval history since last seen: 3 minute rune of SVT - 2.5 mg of IV lopressor - 5:49 this am. On BIPAP right now - spent all night. 10/5 at 50%. Saturating 90%. Fine crackles anteriorly. CXR - worsening pulmonary edema. On lasix gtt - 1700 cc in 12 hrs. BP is tolerating it. Lethargic overnight and this morning. Too lethargic to tolerate PO meds last night and this morning. BP dipped for 1 hour overnight - lasix gtt stopped temporarily. Objective Objective Clinical Data: Abnormal lab results 08/15/19 08/15/19 Range/Units 05:58 05:58 WBC 12.30 H D (4.4-10.8) k/cumm RBC 2.82 L (4.50-6.00) m/cumm Hgb 9.4 L (13.5-17.5) g/dL Hct 28.4 L (40.0-50.0) % MCV 100.7 H (80-95) fL MCH 33.3 H (27.0-33.0) pg RDW 17.7 H (11.8-14.1) % Absolute Neutrophils 10.58 H (1.2-6.7) k/cumm Absolute Lymphocytes 0.98 L (1.2-3.4) k/cumm Sodium 147 H (136-145) mmol/L Potassium 3.0 L (3.5-5.1) mmol/L Chloride 112 H (98-107) mmol/L BUN 23 H (7-18) mg/dL Glucose 138 H (74-106) mg/dL Calcium 8.2 L (8.5-10.1) mg/dL C-Reactive Protein 10.52 H (0.0-0.3) mg/dL Vital Signs Temperature 35.8 C L 08/15/19 05:22 Temperature Source Rectal 08/15/19 05:22 Pulse 75 08/15/19 07:01 Pulse Rhythm Regular 08/13/19 15:30 Pulse 81 08/15/19 07:01 Respiratory Rate 18 08/15/19 07:01 Respiratory Effort 08/15/19 05:22 Respiratory Depth Normal 08/15/19 05:22 Respiratory Pattern Normal 08/15/19 05:22 Blood Pressure 122/56 L 08/15/19 07:01 Blood Pressure Mean 67 08/15/19 07:01 Blood Pressure Position Sitting 08/15/19 05:22 Pulse Oximetry 93 L 08/15/19 07:01 Oxygen Delivery Method Bi-pap 08/15/19 05:22 Oxygen Flow Rate 8 08/14/19 17:30 Fraction of Inspired Oxygen (FIO2) 50 08/15/19 05:22 Pain Level 0 08/15/19 05:22 Comment 08/13/19 15:40 Intake & Output 08/14/19 08/14/19 08/15/19 11:59 23:59 11:59 Intake Total 1230 / 2189.416 959.416 / 2189.416 180.584 / 180.584 Output Total 2440 / 4275 1835 / 4275 1125 / 1125 Balance -1210 / -2085.584 -875.584 / -2085.584 -944.416 / -944.416 Weight 183 kg Intake: IV 1030 / 1689.416 659.416 / 1689.416 180.584 / 180.584 Oral 200 / 500 300 / 500 Output: Urine 2440 / 4275 1835 / 4275 1125 / 1125 Other: Urine Color Yellow Yellow Yellow Urine Appearance Clear Clear Clear Comment pt has indwelling shen cath; lasix gtt indewlling catheter lasix gtt at 2.5 ml/hr indewlling catheter lasix gtt at 2.5 ml/hr Laboratory Results WBC 12.30 k/cumm (4.4-10.8) H D 08/15/19 05:58 RBC 2.82 m/cumm (4.50-6.00) L 08/15/19 05:58 Hgb 9.4 g/dL (13.5-17.5) L 08/15/19 05:58 Hct 28.4 % (40.0-50.0) L 08/15/19 05:58 MCV 100.7 fL (80-95) H 08/15/19 05:58 MCH 33.3 pg (27.0-33.0) H 08/15/19 05:58 MCHC 33.1 g/dL (32.0-36.0) 08/15/19 05:58 RDW 17.7 % (11.8-14.1) H 08/15/19 05:58 Plt Count 228 x1000/uL (130-400) 08/15/19 05:58 MPV 9.7 fL (8.0-11.0) 08/15/19 05:58 Immature Gran % See Differential 08/15/19 05:58 Neutrophils % 86.0 08/15/19 05:58 Band Neutrophils % 2.0 % 08/12/19 06:05 Lymphocytes % 8.0 08/15/19 05:58 Atypical Lymphs % 1 08/12/19 06:05 Monocytes % 3.0 08/15/19 05:58 Eosinophils % 0.0 08/15/19 05:58 Basophils % 0.0 08/15/19 05:58 Metamyelocytes % 3.0 % 08/15/19 05:58 Myelocytes % 2.0 % 08/14/19 06:10 Absolute Neutrophils 10.58 k/cumm (1.2-6.7) H 08/15/19 05:58 Absolute Lymphocytes 0.98 k/cumm (1.2-3.4) L 08/15/19 05:58 Absolute Monocytes 0.37 k/cumm (0.11-0.7) 08/15/19 05:58 Absolute Eosinophils 0.00 k/cumm (0.0-0.7) 08/15/19 05:58 Absolute Basophils 0.00 k/cumm (0.0-0.2) 08/15/19 05:58 Differential Comment Diff reviewed 08/15/19 05:58 RBC Morphology See below 08/15/19 05:58 Polychromasia Present 08/15/19 05:58 Hypochromasia 3+ 08/14/19 06:10 Poikilocytosis 2+ 08/15/19 05:58 Basophilic Stippling Present 08/15/19 05:58 Anisocytosis 2+ 08/15/19 05:58 Macrocytosis 2+ 08/15/19 05:58 Target Cells 2+ 08/14/19 06:10 Retic Count 2.7 % (0.5-2.4) H 08/12/19 06:05 PT 11.8 sec (9.3-11.0) H 08/06/19 15:55 INR 1.2 (0.9-1.1) H 08/06/19 15:55 APTT 25.3 sec (21.0-31.4) 08/06/19 15:55 VBG pH 7.34 (7.35-7.45) L 08/13/19 15:55 VBG pCO2 47 mm/Hg (34-47) 08/13/19 15:55 VBG pO2 57 mm/Hg (28-44) H 08/13/19 15:55 VBG HCO3 25 mmol/L (22-28) 08/13/19 15:55 VBG Total CO2 24 mmol/L (22-29) 08/13/19 15:55 VBG O2 Saturation 91 % (70-80) H 08/13/19 15:55 VBG Base Excess -0.8 mmol/L (-3-3) 08/13/19 15:55 Sodium 147 mmol/L (136-145) H 08/15/19 05:58 Potassium 3.0 mmol/L (3.5-5.1) L 08/15/19 05:58 Chloride 112 mmol/L (98-107) H 08/15/19 05:58 Carbon Dioxide 26.6 mmol/L (21.0-32.0) 08/15/19 05:58 Anion Gap 8.4 mmol/L (3-11) 08/15/19 05:58 BUN 23 mg/dL (7-18) H 08/15/19 05:58 Creatinine 1.13 mg/dL (0.70-1.30) 08/15/19 05:58 Estimated GFR/1.73 m2 >= 60.00 (mL/min/1.73m2) 08/15/19 05:58 Glucose 138 mg/dL (74-106) H 08/15/19 05:58 Lactate 0.8 mmol/L (0.6-1.4) 08/07/19 12:53 Calcium 8.2 mg/dL (8.5-10.1) L 08/15/19 05:58 Magnesium 1.9 mg/dL (1.8-2.4) 08/15/19 05:58 Iron 75 ug/dL (65-175) 08/12/19 06:05 TIBC 83 ug/dL (250-450) L 08/12/19 06:05 Transferrin % Sat 90 % (20-55) H 08/12/19 06:05 Ferritin 763 ng/mL (26-388) H 08/12/19 06:05 Total Bilirubin 0.6 mg/dL (0.2-1.0) 08/07/19 12:53 AST 60 U/L (15-37) H 08/07/19 12:53 ALT 26 U/L (16-63) 08/07/19 12:53 Alkaline Phosphatase 99 U/L (46-116) 08/07/19 12:53 Troponin I < 0.05 ng/Ml (<0.06) 08/09/19 21:15 C-Reactive Protein 10.52 mg/dL (0.0-0.3) H 08/15/19 05:58 NT-Pro-B Natriuret Pep 03623 pg/mL (<300) H 08/12/19 06:05 Total Protein 4.8 g/dL (6.4-8.2) L 08/07/19 12:53 Albumin 1.7 g/dL (3.4-5.0) L 08/07/19 12:53 Vitamin B12 1095 pg/mL (193-986) H 08/12/19 06:05 Folate 1.6 ng/mL (8.6-20.0) L 08/12/19 06:05 Procalcitonin 0.1 ng/mL 08/15/19 05:58 TSH < 0.01 uIU/mL (0.36-3.74) L 08/06/19 15:55 Free T4 1.45 ng/dL (0.76-1.46) 08/06/19 15:55 Cortisol 13 ug/dL (See Note) 08/06/19 15:55 Urine Color Miranda (Yellow) 08/06/19 16:13 Urine Clarity Cloudy (Clear) 08/06/19 16:13 Urine pH 5.5 (5-8) 08/06/19 16:13 Ur Specific [place] >= 1.030 (1.005-1.025) H 08/06/19 16:13 Urine Protein Negative mg/dL (Negative) 08/06/19 16:13 Urine Ketones Negative mg/dL (Negative) 08/06/19 16:13 Urine Blood Negative (Negative) 08/06/19 16:13 Urine Nitrite Negative (Negative) 08/06/19 16:13 Urine Bilirubin Small (Negative) H 08/06/19 16:13 Urine Urobilinogen 0.2 EU/dL (Up TO 0.2) 08/06/19 16:13 Ur Leukocyte Esterase Small (Negative) H 08/06/19 16:13 Urine RBC 0-2 HPF (0-2) 08/06/19 16:13 Urine WBC 10-20 HPF (0-5) H 08/06/19 16:13 Ur Epithelial Cells Few HPF (Negative) 08/06/19 16:13 Urine Crystals Many amorphous HPF (Negative) 08/06/19 16:13 Urine Bacteria Packed HPF (Negative) 08/06/19 16:13 Urine Mucus (Negative) 08/06/19 16:13 Ur Culture Indicated? Yes 08/06/19 16:13 Urine Glucose Negative mg/dL (Negative) 08/06/19 16:13 Vancomycin Trough 27.1 ug/mL (10.0-20.0) H* 08/11/19 15:10
[2019-08-15] MEDS: Pantoprazole 40 MG VIAL IVP (08:46)
[2019-08-15] MEDS: Normal Saline Flush 10 ML SYR 30 ML IVP ×2 (08:47→16:15)
[2019-08-15] MEDS: POTASSIUM CHLORIDE 20 MEQ/100 ML BAG 50 MEQ IVPB ×2 (08:48→10:50)
[2019-08-15] MEDS: Insulin Aspart 300 UNITS/3 ML PEN SC (08:59)
--- NOTE | 2019-08-15 09:26 | NT_ITS ---
Date of service: 08/15/19 Time of Service: 08:25 Occupational Therapy Notes 08/15/19 OT attempted to consult with pt this morning. Per discussion with RN, OT will hold on pts consult until pt is able to respond. RN does report that pt's family is having a meeting tonight and per MD pt will go on to comfort measures at this time. OT will discharge pts OT orders at this time. If MD does feel that pt is appropriate for OT consult at later date, OT will need a new referral. Sara Maldonado OTR/[facility]
--- NOTE | 2019-08-15 09:44 | W.NUTRFU ---
Date of service: 08/15/19 Time of Service: 09:44 (Prakash unable to take meds or nutrition orally at this time. Has had minimal intake since admission 08/06/19. Continues at very high nutritional risk. Will provide recommendations for nutrition support when needed. Poor nutrient intake, very high BMI puts Prakash at very high risk for skin breakdown) Nutritional Follow up Time Spent in Nutritional Counseling and Treatment: 0 time spent face to face
--- NOTE | 2019-08-15 10:47 | PNE_ITS ---
Date of service: 08/15/19 Time of Service: 10:48 Speech Therpy Note Note: Swallow Treatment Note CPT 95319 Date: 08/15/2019 Subjective: Pt was awake when SUBSTATION MAINTENANCE TECHNICIAN arrived and able to answer basic questions asked by nursing with intermittent accuracy. He was compliant to directions for oral care, performed by nursing. Objective: Skilled dysphagia treatment provided targeting nursing education and collaboration with nursing and physician. SUBSTATION MAINTENANCE TECHNICIAN consulted with nursing upon arrival for update on pt status. Nursing reported that pt was able to eat a little bit for her yesterday. Nursing requested that SUBSTATION MAINTENANCE TECHNICIAN observe while she perform oral care and attempt PO bite of pudding. Pt was compliant during oral care, however, when his BiPAP mask was removed and switched to supplemental O2 via nasal cannula by his nurse for feeding, even when increased up to reported 6L, his oxygen levels progressively dropped below 90%, through 80s and as low as 79% (prior to any PO intake attempt). SUBSTATION MAINTENANCE TECHNICIAN educated nursing on safe oxygen levels for feeding and advised them not to feed pt or provide nutrition/medications PO if levels are below 89%. Pt is at a significantly higher risk for aspiration with poor coordination of respiration and eating/feeding. SUBSTATION MAINTENANCE TECHNICIAN discussed observations with attending MD, who was in agreement and advised SUBSTATION MAINTENANCE TECHNICIAN that pt is being considered for comfort measures and SUBSTATION MAINTENANCE TECHNICIAN services should be placed on hold at this time. Assessment: Pt continues to be at significant risk for aspiration, particularly with observed need for BiPAP to maintain adequate oxygen levels. Per MD, pt not able to participate in SUBSTATION MAINTENANCE TECHNICIAN services, pt to be considered for comfort measures. Plan: Hold SUBSTATION MAINTENANCE TECHNICIAN services at this time.
--- NOTE | 2019-08-15 10:50 | W.PM.PROGNOT ---
Date of Service Date of service: 08/15/19 Time of Service: 10:50 Assessment and Plan Assessment and plan (1) Encephalopathy acute: Status: Acute Assessment and plan: Worse today, despite our treatment of possible pneumonia with appropriate antibiotics, diuresing, and addressing acute on chronic hypoxic respiratory failure with BiPAP mask. At this point, I wonder if the patient does not have hypoxic brain injury. The patient has not made meaningful improvement since last week. Palliative care (Dr Pacheco) will be speaking with the family today and will get back to me with results of the conversation. Previously, comfort measures were being considered. I think this would be appropriate at this point. (2) Acute and chronic respiratory failure with hypoxia: Status: Acute Assessment and plan: Multifactorial - PNA vs/+/- CHF, pulmonary hypertension, OHS/DOUG. Tolerating BiPAP, but unable to easily wean him off of it today. At this point, comfort measures would be clinically appropriate, if family agreeable. As above. (3) Pneumonia: Status: Acute Assessment and plan: Continue Zosyn 4.5 g IV every 8 hours - day 4. Having said that, I am not sure that this is pneumonia. I think we are looking at CHF. ARDS can also be considered, but less likely as the oxygen requirement is not rapidly progressive. Qualifiers: Pneumonia type: aspiration pneumonia Aspiration pneumonia type: due to vomit Laterality: right Lung location: upper lobe of lung Qualified Code(s): J69.0 - Pneumonitis due to inhalation of food and vomit (4) Nonsustained paroxysmal supraventricular tachycardia: Status: Acute Assessment and plan: Seems to be recurrent and responds to metoprolol Iv 2.5 mg. Placed on scheduled IV lopressor as has not been able to consistently take PO meds. (5) Panhypopituitarism: Status: Chronic Assessment and plan: Continue hydrocortisone. Continue Desmopressin, synthroid. (6) Adrenal insufficiency: Status: Chronic Assessment and plan: As above - Continue high dose hydrocortisone (7) DOUG (obstructive sleep apnea): Status: Chronic Assessment and plan: Difficulty weaning of BiPAP earlier today - will try again. (8) Diabetes mellitus: Status: Chronic Assessment and plan: Continue SSI Qualifiers: Diabetes mellitus type: type 2 Diabetes mellitus senior living insulin use: with senior living use Diabetes mellitus complication detail: with other skin ulcer (9) Lymphedema of both lower extremities: Status: Acute Assessment and plan: Continue Michael wraps and elevation. Diuresing with lasix gtt. Likely related to pulmonary hypertension. (10) SVT (supraventricular tachycardia): Status: Chronic Assessment and plan: As above - continue scheduled metoprolol IV. (11) Pulmonary hypertension: Status: Acute Assessment and plan: Respiratory status not improving despite diuresis/BiPAP. Comfort measures would be appropriate if family so chooses (12) Discharge planning issues: Status: Acute Assessment and plan: DNR/DNI. Further direction of care depends on outcome of today's palliative care discussion with family. Total Critical Care time 45 minutes. (13) DVT prophylaxis: Status: Acute Assessment and plan: Continue subcutaneous heparin Subjective Subjective Interval history since last seen: Prakash is on BiPAP, waking up to answer simple questions, states he is a little bit hungry. States he is not uncomfortable, denies dizziness, chest pain, states he is a little short of breath, denies nausea. When speech therapy tried to work with the patient this morning, he desatted below 80% on 6L of O2 by NC. 3 minute rune of SVT - 2.5 mg of IV lopressor - 5:49 this am. On lasix gtt - 1700 cc in 12 hrs. BP is tolerating it. Lethargic overnight and this morning. Per nursing familiar with the patient from last week as well as per Dr Pacheco, Prakash is worse today. Too lethargic to tolerate PO meds last night and this morning. Dr Pacheco is planning on talking to the family on the phone today to formulate a future plan of care. Exam Narrative Exam Narrative: General: Obese male, on BiPAP, arousable to verbal stimuli, A&Ox1, more lethargic today than yesterday HEENT: EOMI, dry MM Heart: RRR, no m/r/g Lungs: diminished breath sounds anteriorly Abdomen: soft, obese, nontender Extremities: LLE wrapped in michael wraps; RLE -I cannot palpate a pulse RLE; ichthiosis Objective Objective Clinical Data: Abnormal lab results 08/15/19 08/15/19 Range/Units 05:58 05:58 WBC 12.30 H D (4.4-10.8) k/cumm RBC 2.82 L (4.50-6.00) m/cumm Hgb 9.4 L (13.5-17.5) g/dL Hct 28.4 L (40.0-50.0) % MCV 100.7 H (80-95) fL MCH 33.3 H (27.0-33.0) pg RDW 17.7 H (11.8-14.1) % Absolute Neutrophils 10.58 H (1.2-6.7) k/cumm Absolute Lymphocytes 0.98 L (1.2-3.4) k/cumm Sodium 147 H (136-145) mmol/L Potassium 3.0 L (3.5-5.1) mmol/L Chloride 112 H (98-107) mmol/L BUN 23 H (7-18) mg/dL Glucose 138 H (74-106) mg/dL Calcium 8.2 L (8.5-10.1) mg/dL C-Reactive Protein 10.52 H (0.0-0.3) mg/dL Vital Signs Temperature 35.9 C L 08/15/19 08:35 Temperature Source Temporal Artery Scan 08/15/19 08:35 Pulse 82 08/15/19 10:05 Pulse Rhythm Regular 08/13/19 15:30 Pulse 84 08/15/19 10:01 Respiratory Rate 12 08/15/19 10:05 Respiratory Effort 08/15/19 08:35 Respiratory Depth Normal 08/15/19 08:35 Respiratory Pattern Normal 08/15/19 08:35 Blood Pressure 116/68 08/15/19 10:01 Blood Pressure Mean 76 08/15/19 10:01 Blood Pressure Position Supine 08/15/19 08:35 Pulse Oximetry 81 L 08/15/19 10:20 Oxygen Delivery Method Nasal Cannula 08/15/19 10:20 Oxygen Flow Rate 6 08/15/19 10:20 Fraction of Inspired Oxygen (FIO2) 50 08/15/19 10:05 Pain Level 0 08/15/19 05:22 Comment 08/13/19 15:40 Intake & Output 08/14/19 08/14/19 08/15/19 11:59 23:59 11:59 Intake Total 1230 / 2189.416 959.416 / 2189.416 180.584 / 180.584 Output Total 2440 / 4275 1835 / 4275 1700 / 1700 Balance -1210 / -2085.584 -875.584 / -2085.584 -1519.416 / -1519.416 Weight 183 kg Intake: IV 1030 / 1689.416 659.416 / 1689.416 180.584 / 180.584 Oral 200 / 500 300 / 500 0 / 0 Output: Urine 2440 / 4275 1835 / 4275 1700 / 1700 Other: Urine Color Yellow Yellow Pale Yellow Urine Appearance Clear Clear Clear Comment pt has indwelling shen cath; lasix gtt indewlling catheter lasix gtt at 2.5 ml/hr Shen catheter intact and draining clear pale yellow urine. Lasix drip currently at 2.5 cc/hr. Laboratory Results WBC 12.30 k/cumm (4.4-10.8) H D 08/15/19 05:58 RBC 2.82 m/cumm (4.50-6.00) L 08/15/19 05:58 Hgb 9.4 g/dL (13.5-17.5) L 08/15/19 05:58 Hct 28.4 % (40.0-50.0) L 08/15/19 05:58 MCV 100.7 fL (80-95) H 08/15/19 05:58 MCH 33.3 pg (27.0-33.0) H 08/15/19 05:58 MCHC 33.1 g/dL (32.0-36.0) 08/15/19 05:58 RDW 17.7 % (11.8-14.1) H 08/15/19 05:58 Plt Count 228 x1000/uL (130-400) 08/15/19 05:58 MPV 9.7 fL (8.0-11.0) 08/15/19 05:58 Immature Gran % See Differential 08/15/19 05:58 Neutrophils % 86.0 08/15/19 05:58 Band Neutrophils % 2.0 % 08/12/19 06:05 Lymphocytes % 8.0 08/15/19 05:58 Atypical Lymphs % 1 08/12/19 06:05 Monocytes % 3.0 08/15/19 05:58 Eosinophils % 0.0 08/15/19 05:58 Basophils % 0.0 08/15/19 05:58 Metamyelocytes % 3.0 % 08/15/19 05:58 Myelocytes % 2.0 % 08/14/19 06:10 Absolute Neutrophils 10.58 k/cumm (1.2-6.7) H 08/15/19 05:58 Absolute Lymphocytes 0.98 k/cumm (1.2-3.4) L 08/15/19 05:58 Absolute Monocytes 0.37 k/cumm (0.11-0.7) 08/15/19 05:58 Absolute Eosinophils 0.00 k/cumm (0.0-0.7) 08/15/19 05:58 Absolute Basophils 0.00 k/cumm (0.0-0.2) 08/15/19 05:58 Differential Comment Diff reviewed 08/15/19 05:58 RBC Morphology See below 08/15/19 05:58 Polychromasia Present 08/15/19 05:58 Hypochromasia 3+ 08/14/19 06:10 Poikilocytosis 2+ 08/15/19 05:58 Basophilic Stippling Present 08/15/19 05:58 Anisocytosis 2+ 08/15/19 05:58 Macrocytosis 2+ 08/15/19 05:58 Target Cells 2+ 08/14/19 06:10 Retic Count 2.7 % (0.5-2.4) H 08/12/19 06:05 PT 11.8 sec (9.3-11.0) H 08/06/19 15:55 INR 1.2 (0.9-1.1) H 08/06/19 15:55 APTT 25.3 sec (21.0-31.4) 08/06/19 15:55 VBG pH 7.34 (7.35-7.45) L 08/13/19 15:55 VBG pCO2 47 mm/Hg (34-47) 08/13/19 15:55 VBG pO2 57 mm/Hg (28-44) H 08/13/19 15:55 VBG HCO3 25 mmol/L (22-28) 08/13/19 15:55 VBG Total CO2 24 mmol/L (22-29) 08/13/19 15:55 VBG O2 Saturation 91 % (70-80) H 08/13/19 15:55 VBG Base Excess -0.8 mmol/L (-3-3) 08/13/19 15:55 Sodium 147 mmol/L (136-145) H 08/15/19 05:58 Potassium 3.0 mmol/L (3.5-5.1) L 08/15/19 05:58 Chloride 112 mmol/L (98-107) H 08/15/19 05:58 Carbon Dioxide 26.6 mmol/L (21.0-32.0) 08/15/19 05:58 Anion Gap 8.4 mmol/L (3-11) 08/15/19 05:58 BUN 23 mg/dL (7-18) H 08/15/19 05:58 Creatinine 1.13 mg/dL (0.70-1.30) 08/15/19 05:58 Estimated GFR/1.73 m2 >= 60.00 (mL/min/1.73m2) 08/15/19 05:58 Glucose 138 mg/dL (74-106) H 08/15/19 05:58 Lactate 0.8 mmol/L (0.6-1.4) 08/07/19 12:53 Calcium 8.2 mg/dL (8.5-10.1) L 08/15/19 05:58 Magnesium 1.9 mg/dL (1.8-2.4) 08/15/19 05:58 Iron 75 ug/dL (65-175) 08/12/19 06:05 TIBC 83 ug/dL (250-450) L 08/12/19 06:05 Transferrin % Sat 90 % (20-55) H 08/12/19 06:05 Ferritin 763 ng/mL (26-388) H 08/12/19 06:05 Total Bilirubin 0.6 mg/dL (0.2-1.0) 08/07/19 12:53 AST 60 U/L (15-37) H 08/07/19 12:53 ALT 26 U/L (16-63) 08/07/19 12:53 Alkaline Phosphatase 99 U/L (46-116) 08/07/19 12:53 Troponin I < 0.05 ng/Ml (<0.06) 08/09/19 21:15 C-Reactive Protein 10.52 mg/dL (0.0-0.3) H 08/15/19 05:58 NT-Pro-B Natriuret Pep 08816 pg/mL (<300) H 08/12/19 06:05 Total Protein 4.8 g/dL (6.4-8.2) L 08/07/19 12:53 Albumin 1.7 g/dL (3.4-5.0) L 08/07/19 12:53 Vitamin B12 1095 pg/mL (193-986) H 08/12/19 06:05 Folate 1.6 ng/mL (8.6-20.0) L 08/12/19 06:05 Procalcitonin 0.1 ng/mL 08/15/19 05:58 TSH < 0.01 uIU/mL (0.36-3.74) L 08/06/19 15:55 Free T4 1.45 ng/dL (0.76-1.46) 08/06/19 15:55 Cortisol 13 ug/dL (See Note) 08/06/19 15:55 Urine Color [place] (Yellow) 08/06/19 16:13 Urine Clarity Cloudy (Clear) 08/06/19 16:13 Urine pH 5.5 (5-8) 08/06/19 16:13 Ur Specific [place] >= 1.030 (1.005-1.025) H 08/06/19 16:13 Urine Protein Negative mg/dL (Negative) 08/06/19 16:13 Urine Ketones Negative mg/dL (Negative) 08/06/19 16:13 Urine Blood Negative (Negative) 08/06/19 16:13 Urine Nitrite Negative (Negative) 08/06/19 16:13 Urine Bilirubin Small (Negative) H 08/06/19 16:13 Urine Urobilinogen 0.2 EU/dL (Up TO 0.2) 08/06/19 16:13 Ur Leukocyte Esterase Small (Negative) H 08/06/19 16:13 Urine RBC 0-2 HPF (0-2) 08/06/19 16:13 Urine WBC 10-20 HPF (0-5) H 08/06/19 16:13 Ur Epithelial Cells Few HPF (Negative) 08/06/19 16:13 Urine Crystals Many amorphous HPF (Negative) 08/06/19 16:13 Urine Bacteria Packed HPF (Negative) 08/06/19 16:13 Urine Mucus (Negative) 08/06/19 16:13 Ur Culture Indicated? Yes 08/06/19 16:13 Urine Glucose Negative mg/dL (Negative) 08/06/19 16:13 Vancomycin Trough 27.1 ug/mL (10.0-20.0) H* 08/11/19 15:10 CXR: Interval worsening of bilateral pulmonary infiltrates, multifocal pneumonia and/or CHF.
[2019-08-15] MEDS: Normal Saline Flush 10 ML SYR IVP ×2 (11:54→19:27)
[2019-08-15] MEDS: Nystatin POWDER 60 GM JAR TP ×3 (11:55→21:00)
--- NOTE | 2019-08-15 17:50 | PDOC.CMPRO ---
- If Service Date Differs Date of service: 08/15/19 Time of Service: 17:50 Care Management Progress Note S/O: Prakash was lying in his bed when CM met with him. Per RN, he still has an altered mental status, and has been having difficulty breathing. Per MD, he has not shown significant improvement over the weekend, so comfort measures are being discussed with the family. CM spoke with Terri, his daughter, who understands that he may not improve from this state. She will travel here tomorrow to discuss [facility] with CM, Dr. Pacheco, and the provider. CM stated that if he appears to be passing imminently, he would remain at [facility], but if he is stable enough to be moved after transitioning to [facility], he would return to the [facility]. CM will continue to follow. A: Prakash is a 63 year old male admitted to [facility] on 08/07/2019 with hypotension, dehydration, askew-hypopituitarism, and Sepsis. He is currently receiving wound care. P: Prakash's family is discussing [facility] [facility] for Prakash, as he has not shown significant improvement since being at [facility]. Anticipate Prakash will return to the [facility] if he is stable enough to transfer vs remaining at [facility] for end of life care. He will be transported via ambulance if returning to the [facility]. Palliative/Hospice to continue to follow. CM will continue to follow and support discharge planning considerations.
--- NOTE | 2019-08-15 20:11 | PCPN_ITS ---
Date of service: 08/15/19 Time of Service: 18:11 Assessment and Plan Assessment and plan (1) Encephalopathy acute: Status: Acute (2) Discharge planning issues: Status: Acute Assessment and plan: Again I called daughter Terri.She is considering BIOSTATISTICIAN measures which would be appropriate. She feels her dad is suffering and less likely to improve. We again reviewed Prakash's present medications, lack of progress and improvement. She will be coming to the hospital tomorrow to see her dad. Plan is to discuss BIOSTATISTICIAN measures. I have spent more than 50% of time in counseling with this patient. This document was created by [employer] and may contain grammatical and translation errors. (3) Pneumonia: Status: Acute Qualifiers: Pneumonia type: aspiration pneumonia Aspiration pneumonia type: due to vomit Laterality: right Lung location: upper lobe of lung Qualified Code(s): J69.0 - Pneumonitis due to inhalation of food and vomit (4) Acute and chronic respiratory failure with hypoxia: Status: Acute Subjective Subjective Interval history since last seen: Very somulent. Nursing did not feel he was awake enough to take PO. He has a recent run of SVT and then given metoprolol2.5mg IV. He has been on high flow oxygen and maintaining his sats. He continues on IV antibiotics and lasix drip without much of an improvemnt Exam Narrative Exam Narrative: Somulent. Chest - rales lateraly. Heart - regular rate. Abdomen - no obvious tenderness. Severe edema throughout body. Objective Objective Clinical Data: Abnormal lab results 08/15/19 08/15/19 Range/Units 05:58 05:58 WBC 12.30 H D (4.4-10.8) k/cumm RBC 2.82 L (4.50-6.00) m/cumm Hgb 9.4 L (13.5-17.5) g/dL Hct 28.4 L (40.0-50.0) % MCV 100.7 H (80-95) fL MCH 33.3 H (27.0-33.0) pg RDW 17.7 H (11.8-14.1) % Absolute Neutrophils 10.58 H (1.2-6.7) k/cumm Absolute Lymphocytes 0.98 L (1.2-3.4) k/cumm Sodium 147 H (136-145) mmol/L Potassium 3.0 L (3.5-5.1) mmol/L Chloride 112 H (98-107) mmol/L BUN 23 H (7-18) mg/dL Glucose 138 H (74-106) mg/dL Calcium 8.2 L (8.5-10.1) mg/dL C-Reactive Protein 10.52 H (0.0-0.3) mg/dL Vital Signs Temperature 96.1 F L 08/15/19 15:00 Temperature Source Temporal Artery Scan 08/15/19 15:00 Pulse 93 H 08/15/19 19:28 Pulse Rhythm Regular 08/13/19 15:30 Pulse 74 08/15/19 18:16 Respiratory Rate 13 08/15/19 18:16 Respiratory Effort 08/15/19 15:00 Respiratory Depth Normal 08/15/19 15:00 Respiratory Pattern Normal 08/15/19 15:00 Blood Pressure 126/51 L 08/15/19 19:28 Blood Pressure Mean 83 08/15/19 18:16 Blood Pressure Position Left Lateral 08/15/19 15:00 Pulse Oximetry 94 L 08/15/19 18:16 Oxygen Delivery Method Hi Flow Nasal Cannula 08/15/19 15:00 Oxygen Flow Rate 40 08/15/19 15:50 Fraction of Inspired Oxygen (FIO2) 52 08/15/19 15:50 Pain Level 0 08/15/19 15:00 Comment 08/13/19 15:40 Intake & Output 08/14/19 08/15/19 08/15/19 23:59 11:59 23:59 Intake Total 959.416 / 2189.416 280.584 / 480.584 200 / 480.584 Output Total 1834 / 2124 Balance -875.584 / -2085.584 -1419.416 / -1644.416 -225 / -1644.416 Weight 403 lb 7.135 oz Intake: IV 659.416 / 1689.416 280.584 / 480.584 200 / 480.584 Oral 300 / 500 0 / 0 0 / 0 Output: Urine 1834 / 2124 / 2124 Other: Urine Color Yellow Pale Pale Yellow Yellow Urine Appearance Clear Clear Clear Comment indewlling catheter lasix gtt at 2.5 ml/hr Kimball catheter intact and draining clear pale yellow urine. Lasix drip currently at 2.5 cc/hr. Kimball catheter intact and draining clear pale yellow urine. Lasix drip currently at 2 .5 cc/hr. Laboratory Results WBC 12.30 k/cumm (4.4-10.8) H D 08/15/19 05:58 RBC 2.82 m/cumm (4.50-6.00) L 08/15/19 05:58 Hgb 9.4 g/dL (13.5-17.5) L 08/15/19 05:58 Hct 28.4 % (40.0-50.0) L 08/15/19 05:58 MCV 100.7 fL (80-95) H 08/15/19 05:58 MCH 33.3 pg (27.0-33.0) H 08/15/19 05:58 MCHC 33.1 g/dL (32.0-36.0) 08/15/19 05:58 RDW 17.7 % (11.8-14.1) H 08/15/19 05:58 Plt Count 228 x1000/uL (130-400) 08/15/19 05:58 MPV 9.7 fL (8.0-11.0) 08/15/19 05:58 Immature Gran % See Differential 08/15/19 05:58 Neutrophils % 86.0 08/15/19 05:58 Band Neutrophils % 2.0 % 08/12/19 06:05 Lymphocytes % 8.0 08/15/19 05:58 Atypical Lymphs % 1 08/12/19 06:05 Monocytes % 3.0 08/15/19 05:58 Eosinophils % 0.0 08/15/19 05:58 Basophils % 0.0 08/15/19 05:58 Metamyelocytes % 3.0 % 08/15/19 05:58 Myelocytes % 2.0 % 08/14/19 06:10 Absolute Neutrophils 10.58 k/cumm (1.2-6.7) H 08/15/19 05:58 Absolute Lymphocytes 0.98 k/cumm (1.2-3.4) L 08/15/19 05:58 Absolute Monocytes 0.37 k/cumm (0.11-0.7) 08/15/19 05:58 Absolute Eosinophils 0.00 k/cumm (0.0-0.7) 08/15/19 05:58 Absolute Basophils 0.00 k/cumm (0.0-0.2) 08/15/19 05:58 Differential Comment Diff reviewed 08/15/19 05:58 RBC Morphology See below 08/15/19 05:58 Polychromasia Present 08/15/19 05:58 Hypochromasia 3+ 08/14/19 06:10 Poikilocytosis 2+ 08/15/19 05:58 Basophilic Stippling Present 08/15/19 05:58 Anisocytosis 2+ 08/15/19 05:58 Macrocytosis 2+ 08/15/19 05:58 Target Cells 2+ 08/14/19 06:10 Retic Count 2.7 % (0.5-2.4) H 08/12/19 06:05 PT 11.8 sec (9.3-11.0) H 08/06/19 15:55 INR 1.2 (0.9-1.1) H 08/06/19 15:55 APTT 25.3 sec (21.0-31.4) 08/06/19 15:55 VBG pH 7.34 (7.35-7.45) L 08/13/19 15:55 VBG pCO2 47 mm/Hg (34-47) 08/13/19 15:55 VBG pO2 57 mm/Hg (28-44) H 08/13/19 15:55 VBG HCO3 25 mmol/L (22-28) 08/13/19 15:55 VBG Total CO2 24 mmol/L (22-29) 08/13/19 15:55 VBG O2 Saturation 91 % (70-80) H 08/13/19 15:55 VBG Base Excess -0.8 mmol/L (-3-3) 08/13/19 15:55 Sodium 147 mmol/L (136-145) H 08/15/19 05:58 Potassium 3.0 mmol/L (3.5-5.1) L 08/15/19 05:58 Chloride 112 mmol/L (98-107) H 08/15/19 05:58 Carbon Dioxide 26.6 mmol/L (21.0-32.0) 08/15/19 05:58 Anion Gap 8.4 mmol/L (3-11) 08/15/19 05:58 BUN 23 mg/dL (7-18) H 08/15/19 05:58 Creatinine 1.13 mg/dL (0.70-1.30) 08/15/19 05:58 Estimated GFR/1.73 m2 >= 60.00 (mL/min/1.73m2) 08/15/19 05:58 Glucose 138 mg/dL (74-106) H 08/15/19 05:58 Lactate 0.8 mmol/L (0.6-1.4) 08/07/19 12:53 Calcium 8.2 mg/dL (8.5-10.1) L 08/15/19 05:58 Magnesium 1.9 mg/dL (1.8-2.4) 08/15/19 05:58 Iron 75 ug/dL (65-175) 08/12/19 06:05 TIBC 83 ug/dL (250-450) L 08/12/19 06:05 Transferrin % Sat 90 % (20-55) H 08/12/19 06:05 Ferritin 763 ng/mL (26-388) H 08/12/19 06:05 Total Bilirubin 0.6 mg/dL (0.2-1.0) 08/07/19 12:53 AST 60 U/L (15-37) H 08/07/19 12:53 ALT 26 U/L (16-63) 08/07/19 12:53 Alkaline Phosphatase 99 U/L (46-116) 08/07/19 12:53 Troponin I < 0.05 ng/Ml (<0.06) 08/09/19 21:15 C-Reactive Protein 10.52 mg/dL (0.0-0.3) H 08/15/19 05:58 NT-Pro-B Natriuret Pep 79394 pg/mL (<300) H 08/12/19 06:05 Total Protein 4.8 g/dL (6.4-8.2) L 08/07/19 12:53 Albumin 1.7 g/dL (3.4-5.0) L 08/07/19 12:53 Vitamin B12 1095 pg/mL (193-986) H 08/12/19 06:05 Folate 1.6 ng/mL (8.6-20.0) L 08/12/19 06:05 Procalcitonin 0.1 ng/mL 08/15/19 05:58 TSH < 0.01 uIU/mL (0.36-3.74) L 08/06/19 15:55 Free T4 1.45 ng/dL (0.76-1.46) 08/06/19 15:55 Cortisol 13 ug/dL (See Note) 08/06/19 15:55 Urine Color Miranda (Yellow) 08/06/19 16:13 Urine Clarity Cloudy (Clear) 08/06/19 16:13 Urine pH 5.5 (5-8) 08/06/19 16:13 Ur Specific [place] >= 1.030 (1.005-1.025) H 08/06/19 16:13 Urine Protein Negative mg/dL (Negative) 08/06/19 16:13 Urine Ketones Negative mg/dL (Negative) 08/06/19 16:13 Urine Blood Negative (Negative) 08/06/19 16:13 Urine Nitrite Negative (Negative) 08/06/19 16:13 Urine Bilirubin Small (Negative) H 08/06/19 16:13 Urine Urobilinogen 0.2 EU/dL (Up TO 0.2) 08/06/19 16:13 Ur Leukocyte Esterase Small (Negative) H 08/06/19 16:13 Urine RBC 0-2 HPF (0-2) 08/06/19 16:13 Urine WBC 10-20 HPF (0-5) H 08/06/19 16:13 Ur Epithelial Cells Few HPF (Negative) 08/06/19 16:13 Urine Crystals Many amorphous HPF (Negative) 08/06/19 16:13 Urine Bacteria Packed HPF (Negative) 08/06/19 16:13 Urine Mucus (Negative) 08/06/19 16:13 Ur Culture Indicated? Yes 08/06/19 16:13 Urine Glucose Negative mg/dL (Negative) 08/06/19 16:13 Vancomycin Trough 27.1 ug/mL (10.0-20.0) H* 08/11/19 15:10
[2019-08-16] VITALS (24 sets, daily range): BP systolic 108–141; BP diastolic 50–92; PULSE 57–76; RESP 10–23; TEMP 35.8–36.5; O2SAT 83–95
[2019-08-16] MEDS: Normal Saline Flush 10 ML SYR IVP ×4 (00:04→20:48)
[2019-08-16] MEDS: PIPERACILLIN/TAZO 4.5 GM in Normal Saline 100 ML IVPB (03:06)
[2019-08-16] MEDS: Hydrocortisone SOD SUC. 100 MG VIAL IVP (03:25)
[2019-08-16] MEDS: Heparin 5,000 UNITS/ML VIAL 5000 UNITS SC (03:27)
[2019-08-16] MEDS: Metoprolol 5 MG/5 ML VIAL 2.5 MG IVP ×2 (03:28→09:03)
[2019-08-16 07:25] LABS: Absolute Basophil Count 0.01 k/cumm (0.0-0.2); Absolute Eosinophil Count 0.02 k/cumm (0.0-0.7); Absolute Lymphocyte Count 1.63 k/cumm (1.2-3.4); Absolute Monocyte Count 0.42 k/cumm (0.11-0.7); Basophils % 0.1; Eosinophils % 0.2; HCT 30.1 % (40.0-50.0); HGB 9.8 g/dL (13.5-17.5); Immature Grans % 3.5 %; Lymphocytes % 14.1; Mean Corp. HGB Concentration 32.6 g/dL (32.0-36.0); Mean Corpuscular Hemoglobin 33.1 pg (27.0-33.0); Mean Corpuscular Volume 101.7 fL (80-95); Mean Platelet Volume 9.5 fL (8.0-11.0); Monocytes % 3.6; Neutrophils % 78.5; Platelet Count 230 x1000/uL (130-400); RBC 2.96 m/cumm (4.50-6.00); White Blood Cell Count 11.58 k/cumm (4.4-10.8)
[2019-08-16 07:31] LABS: Absolute Neutrophil Count 9.09 k/cumm (1.2-6.7)
[2019-08-16 07:32] LABS: Anion Gap 10.1 mmol/L (3-11); BUN 24 mg/dL (7-18); C-Reactive Protein 8.62 mg/dL (0.0-0.3); CO2 26.9 mmol/L (21.0-32.0); CREATININE 1.24 mg/dL (0.70-1.30); Calcium 8.4 mg/dL (8.5-10.1); Chloride 113 mmol/L (98-107); Estimated GFR 59.07 (mL/min/1.73m2); Glucose 124 mg/dL (74-106); Magnesium 1.9 mg/dL (1.8-2.4); Sodium 150 mmol/L (136-145)
[2019-08-16 07:38] LABS: Potassium 2.5 mmol/L (3.5-5.1)
--- NOTE | 2019-08-16 07:46 | CMPROGNOTE_ITS ---
- If Service Date Differs Date of service: 08/16/19 Time of Service: 07:46 Care Management Progress Note S/O: Prakash is being transition to comfort measure only his family is present and have request the change. Prakash will remain here at [facility] for end of life care and not return to the [facility]. Family has requested that he have a beer which CM verified with risk and pharmacy patient is allowed to have Beer his family will obtain this for him and bring it in. A: Prakash is a 63 year old male admitted to [facility] on 08/07/2019 with hypotension, dehydration, askew-hypopituitarism, and Sepsis. He is now comfort measures only. P: Prakash will remain here at [facility] for end of life care. Palliative/Hospice to continue to follow. CM will continue to follow and support patient and family during hospitalization.
--- NOTE | 2019-08-16 08:17 | W.PM.PROGNOT ---
Date of Service Date of service: 08/16/19 Time of Service: 11:52 Assessment and Plan Assessment and plan (1) Encephalopathy acute: Status: Acute Assessment and plan: No meaningful improvement. Likely has underlying hypoxic brain injury. Transition to comfort measures. (2) Acute and chronic respiratory failure with hypoxia: Status: Acute Assessment and plan: D/c BiPAP. O2 for comfort. Provide prn morphine, prn ativan. (3) Pneumonia: Status: Acute Assessment and plan: D/c abx. Focus on comfort measures only. Qualifiers: Aspiration pneumonia type: due to vomit Laterality: right Lung location: upper lobe of lung Pneumonia type: aspiration pneumonia Qualified Code(s): J69.0 - Pneumonitis due to inhalation of food and vomit (4) Nonsustained paroxysmal supraventricular tachycardia: Status: Acute Assessment and plan: D/c heart monitor and cardiac meds. (5) Panhypopituitarism: Status: Chronic Assessment and plan: D/c hydrocortisone, desmopressin. (6) Adrenal insufficiency: Status: Chronic Assessment and plan: Stop hydrocortisone (7) DOUG (obstructive sleep apnea): Status: Chronic Assessment and plan: D/c BiPAP. Provide O2 for comfort, prn ativan/morphine. (8) Diabetes mellitus: Status: Chronic Assessment and plan: Continue SSI Qualifiers: Diabetes mellitus complication detail: with other skin ulcer Diabetes mellitus continuous churn buttermaker insulin use: with continuous churn buttermaker use Diabetes mellitus type: type 2 (9) Lymphedema of both lower extremities: Status: Acute Assessment and plan: Continue Michael wraps and elevation. D/c lasix gtt (10) SVT (supraventricular tachycardia): Status: Chronic Assessment and plan: D/c telemetry/cardiac meds. (11) Pulmonary hypertension: Status: Acute Assessment and plan: Initiate comfort measures. (12) Discharge planning issues: Status: Acute Assessment and plan: DNR/DNI. Initiate comfort measures. (13) DVT prophylaxis: Status: Acute Assessment and plan: None - focus on comfort measures. Subjective Subjective Interval history since last seen: Overnight, woke up to verbal stimuli, but does not appropriately answer questions as far as daughters' names. Spent the night on BiPAP. Told me this morning he wanted it off. Made 1550 cc of urine overnight. Choked even with a little bit of water, per nursing. Had SVT at around 5:30 pm, 11:30pm, 2:30 am. ?Vtach overnight. When I talked to Prakash, he told me he was uncomfortable and that he wanted the mask off. He dozed off for the remainder of my being in room. I spoke with family - daughters Terri and Shobha, as well as patient's sister. I explained that we gave the patient a maximum chance to improve by giving him BiPAP, diuretics, antibiotics, more steroids over the weekend, but that he had not made meaningful improvement. The family is ok with initiating comfort measures. The patient requested a beer. Exam Narrative Exam Narrative: General: Obese lethargic male, on BiPAP, arousable to verbal stimuli, A&Ox1, overall less awake today than yesterday, HEENT: EOMI, dry MM Heart: RRR, no m/r/g Lungs: diminished breath sounds anteriorly Abdomen: soft, obese, nontender Extremities: BLE wrapped in michael-wraps Objective Objective Clinical Data: Abnormal lab results 08/16/19 08/16/19 Range/Units 07:20 07:20 WBC 11.58 H (4.4-10.8) k/cumm RBC 2.96 L (4.50-6.00) m/cumm Hgb 9.8 L (13.5-17.5) g/dL Hct 30.1 L (40.0-50.0) % MCV 101.7 H (80-95) fL MCH 33.1 H (27.0-33.0) pg RDW 18.0 H (11.8-14.1) % Absolute Neutrophils 9.09 H (1.2-6.7) k/cumm Sodium 150 H (136-145) mmol/L Potassium 2.5 L* (3.5-5.1) mmol/L Chloride 113 H (98-107) mmol/L BUN 24 H (7-18) mg/dL Glucose 124 H (74-106) mg/dL Calcium 8.4 L (8.5-10.1) mg/dL C-Reactive Protein 8.62 H (0.0-0.3) mg/dL Vital Signs Temperature 36.5 C 08/16/19 04:00 Temperature Source Temporal Artery Scan 08/15/19 15:00 Pulse 70 08/16/19 08:11 Pulse Rhythm Regular 08/13/19 15:30 Pulse 76 08/16/19 04:01 Respiratory Rate 11 L 08/16/19 08:11 Respiratory Effort Labored 08/16/19 04:00 Respiratory Depth Normal 08/16/19 04:00 Respiratory Pattern Normal 08/16/19 04:00 Blood Pressure 131/73 08/16/19 04:01 Blood Pressure Mean 88 08/16/19 04:01 Blood Pressure Position Left Lateral 08/15/19 15:00 Pulse Oximetry 94 L 08/16/19 08:11 Oxygen Delivery Method Bi-pap 08/16/19 08:11 Oxygen Flow Rate 60 08/16/19 06:15 Fraction of Inspired Oxygen (FIO2) 60 08/16/19 08:11 Pain Level 0 08/16/19 04:00 Comment 08/13/19 15:40 Intake & Output 08/15/19 08/15/19 08/16/19 11:59 23:59 11:59 Intake Total 280.584 / 580.584 300 / 580.584 100 / 100 Output Total 1700 / 3325 1625 / 3325 350 / 350 Balance -1419.416 / -2744.416 -1325 / -2744.416 -250 / -250 Weight 183 kg Intake: IV 280.584 / 580.584 300 / 580.584 100 / 100 Oral 0 / 0 0 / 0 Output: Urine 1700 / 3325 1625 / 3325 350 / 350 Other: Urine Color Pale Pale Pale Yellow Yellow Yellow Urine Appearance Clear Clear Clear Comment Kimball catheter intact and draining clear pale yellow urine. Lasix drip currently at 2.5 cc/hr. Kimball catheter intact and draining clear pale yellow urine. Lasix drip currently at 2.5 cc/hr. Kimball catheter intact and draining clear pale yellow urine. Lasix drip currently at 2.5 cc/hr. Laboratory Results WBC 11.58 k/cumm (4.4-10.8) H 08/16/19 07:20 RBC 2.96 m/cumm (4.50-6.00) L 08/16/19 07:20 Hgb 9.8 g/dL (13.5-17.5) L 08/16/19 07:20 Hct 30.1 % (40.0-50.0) L 08/16/19 07:20 MCV 101.7 fL (80-95) H 08/16/19 07:20 MCH 33.1 pg (27.0-33.0) H 08/16/19 07:20 MCHC 32.6 g/dL (32.0-36.0) 08/16/19 07:20 RDW 18.0 % (11.8-14.1) H 08/16/19 07:20 Plt Count 230 x1000/uL (130-400) 08/16/19 07:20 MPV 9.5 fL (8.0-11.0) 08/16/19 07:20 Immature Gran % 3.5 % 08/16/19 07:20 Neutrophils % 78.5 08/16/19 07:20 Band Neutrophils % 2.0 % 08/12/19 06:05 Lymphocytes % 14.1 08/16/19 07:20 Atypical Lymphs % 1 08/12/19 06:05 Monocytes % 3.6 08/16/19 07:20 Eosinophils % 0.2 08/16/19 07:20 Basophils % 0.1 08/16/19 07:20 Metamyelocytes % 3.0 % 08/15/19 05:58 Myelocytes % 2.0 % 08/14/19 06:10 Absolute Neutrophils 9.09 k/cumm (1.2-6.7) H 08/16/19 07:20 Absolute Lymphocytes 1.63 k/cumm (1.2-3.4) 08/16/19 07:20 Absolute Monocytes 0.42 k/cumm (0.11-0.7) 08/16/19 07:20 Absolute Eosinophils 0.02 k/cumm (0.0-0.7) 08/16/19 07:20 Absolute Basophils 0.01 k/cumm (0.0-0.2) 08/16/19 07:20 Differential Comment Diff reviewed 08/15/19 05:58 RBC Morphology See below 08/15/19 05:58 Polychromasia Present 08/15/19 05:58 Hypochromasia 3+ 08/14/19 06:10 Poikilocytosis 2+ 08/15/19 05:58 Basophilic Stippling Present 08/15/19 05:58 Anisocytosis 2+ 08/15/19 05:58 Macrocytosis 2+ 08/15/19 05:58 Target Cells 2+ 08/14/19 06:10 Retic Count 2.7 % (0.5-2.4) H 08/12/19 06:05 PT 11.8 sec (9.3-11.0) H 08/06/19 15:55 INR 1.2 (0.9-1.1) H 08/06/19 15:55 APTT 25.3 sec (21.0-31.4) 08/06/19 15:55 VBG pH 7.34 (7.35-7.45) L 08/13/19 15:55 VBG pCO2 47 mm/Hg (34-47) 08/13/19 15:55 VBG pO2 57 mm/Hg (28-44) H 08/13/19 15:55 VBG HCO3 25 mmol/L (22-28) 08/13/19 15:55 VBG Total CO2 24 mmol/L (22-29) 08/13/19 15:55 VBG O2 Saturation 91 % (70-80) H 08/13/19 15:55 VBG Base Excess -0.8 mmol/L (-3-3) 08/13/19 15:55 Sodium 150 mmol/L (136-145) H 08/16/19 07:20 Potassium 2.5 mmol/L (3.5-5.1) L* 08/16/19 07:20 Chloride 113 mmol/L (98-107) H 08/16/19 07:20 Carbon Dioxide 26.9 mmol/L (21.0-32.0) 08/16/19 07:20 Anion Gap 10.1 mmol/L (3-11) 08/16/19 07:20 BUN 24 mg/dL (7-18) H 08/16/19 07:20 Creatinine 1.24 mg/dL (0.70-1.30) 08/16/19 07:20 Estimated GFR/1.73 m2 59.07 (mL/min/1.73m2) 08/16/19 07:20 Glucose 124 mg/dL (74-106) H 08/16/19 07:20 Lactate 0.8 mmol/L (0.6-1.4) 08/07/19 12:53 Calcium 8.4 mg/dL (8.5-10.1) L 08/16/19 07:20 Magnesium 1.9 mg/dL (1.8-2.4) 08/16/19 07:20 Iron 75 ug/dL (65-175) 08/12/19 06:05 TIBC 83 ug/dL (250-450) L 08/12/19 06:05 Transferrin % Sat 90 % (20-55) H 08/12/19 06:05 Ferritin 763 ng/mL (26-388) H 08/12/19 06:05 Total Bilirubin 0.6 mg/dL (0.2-1.0) 08/07/19 12:53 AST 60 U/L (15-37) H 08/07/19 12:53 ALT 26 U/L (16-63) 08/07/19 12:53 Alkaline Phosphatase 99 U/L (46-116) 08/07/19 12:53 Troponin I < 0.05 ng/Ml (<0.06) 08/09/19 21:15 C-Reactive Protein 8.62 mg/dL (0.0-0.3) H 08/16/19 07:20 NT-Pro-B Natriuret Pep 21708 pg/mL (<300) H 08/12/19 06:05 Total Protein 4.8 g/dL (6.4-8.2) L 08/07/19 12:53 Albumin 1.7 g/dL (3.4-5.0) L 08/07/19 12:53 Vitamin B12 1095 pg/mL (193-986) H 08/12/19 06:05 Folate 1.6 ng/mL (8.6-20.0) L 08/12/19 06:05 Procalcitonin 0.1 ng/mL 08/15/19 05:58 TSH < 0.01 uIU/mL (0.36-3.74) L 08/06/19 15:55 Free T4 1.45 ng/dL (0.76-1.46) 08/06/19 15:55 Cortisol 13 ug/dL (See Note) 08/06/19 15:55 Urine Color Miranda (Yellow) 08/06/19 16:13 Urine Clarity Cloudy (Clear) 08/06/19 16:13 Urine pH 5.5 (5-8) 08/06/19 16:13 Ur Specific [place] >= 1.030 (1.005-1.025) H 08/06/19 16:13 Urine Protein Negative mg/dL (Negative) 08/06/19 16:13 Urine Ketones Negative mg/dL (Negative) 08/06/19 16:13 Urine Blood Negative (Negative) 08/06/19 16:13 Urine Nitrite Negative (Negative) 08/06/19 16:13 Urine Bilirubin Small (Negative) H 08/06/19 16:13 Urine Urobilinogen 0.2 EU/dL (Up TO 0.2) 08/06/19 16:13 Ur Leukocyte Esterase Small (Negative) H 08/06/19 16:13 Urine RBC 0-2 HPF (0-2) 08/06/19 16:13 Urine WBC 10-20 HPF (0-5) H 08/06/19 16:13 Ur Epithelial Cells Few HPF (Negative) 08/06/19 16:13 Urine Crystals Many amorphous HPF (Negative) 08/06/19 16:13 Urine Bacteria Packed HPF (Negative) 08/06/19 16:13 Urine Mucus (Negative) 08/06/19 16:13 Ur Culture Indicated? Yes 08/06/19 16:13 Urine Glucose Negative mg/dL (Negative) 08/06/19 16:13 Vancomycin Trough 27.1 ug/mL (10.0-20.0) H* 08/11/19 15:10
--- NOTE | 2019-08-16 08:22 | W.INDIABCONS ---
Date of service: 08/16/19 Time of Service: 08:22 Diabetes Inpatient Consult DESCRIPTION/ASSESSMENT: Appreciate diabetes consult for Mr. Rowland who has been too ill to visit. I have been watching his blood sugars and these are without concern at this time given all are less than 180 and many are in the non-diabetes range without medication. No intervention suggested. His co-morbidities and current care plan indicate continues management as prescribed. If his condition improves, will reconsider need for self-management support. Time Spent in Nutritional Counseling and Treatment: 0 minutes face to face
[2019-08-16] MEDS: Pantoprazole 40 MG VIAL IVP (09:04)
[2019-08-16] MEDS: Normal Saline Flush 10 ML SYR 30 ML IVP (09:05)
[2019-08-16] MEDS: POTASSIUM CHLORIDE 20 MEQ/100 ML BAG 50 MEQ IVPB (09:05)
[2019-08-16] MEDS: Nystatin POWDER 60 GM JAR TP ×2 (09:06→20:48)
--- NOTE | 2019-08-16 10:33 | W.PALPGNOTE ---
Date of service: 08/16/19 Time of Service: 06:34 Assessment and Plan Assessment and plan (1) Pulmonary hypertension: Status: Acute (2) Acute and chronic respiratory failure with hypoxia: Status: Acute (3) Encephalopathy acute: Status: Acute (4) SVT (supraventricular tachycardia): Status: Chronic (5) Discharge planning issues: Status: Acute Assessment and plan: Basically he has about the same as it was yesterday. I do not have a weight today although he had not budged much since he was admitted 9 days ago despite a Lasix drip. He continues to have episodes of hypoxia and SVT. I have been speaking with his daughter Terri regarding choices at the end of life. 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 I know that this is a very hard decision. I have communicated this to care management. This document was created by [employer] ([employer]) recognition and may contain grammatical and translation errors. I have spent more than 50% of time in counseling with this patient. Subjective Subjective Interval history since last seen: Casey is lying in bed. He does chart picker his head and look at the nurse and I when we say hello. Per nursing he has had 3 episodes of SVT overnight. He did clear these on his own. The longest was 25 beats. He was hypoxic when I walked in the room. With some gentle jostling and breathing he did go back into the 90s. He is on CPAP most of the time. He continues on Lasix drip and 3 antibiotics. Nurse felt that his mentation was in and out but that he was very pleasant today Exam Narrative Exam Narrative: He is lying in bed. He is unable to move arms manipulate objects etc. his heart was regular lungs he has a lot of fluid both anteriorly and posteriorly. His legs are extremely edematous. He does have a blood pressure cuff on the right forearm. Blood pressure readings have been fairly good overnight. (Uncertain how accurate they are). Skin continues to have slits in his skin folds as well as redness although the redness is improved. Abdomen does not appear tender but difficult to examine due to body habitus He has Unna boots in place, severe problems with onychomycosis Objective Objective Clinical Data: Abnormal lab results 08/16/19 08/16/19 Range/Units 07:20 07:20 WBC 11.58 H (4.4-10.8) k/cumm RBC 2.96 L (4.50-6.00) m/cumm Hgb 9.8 L (13.5-17.5) g/dL Hct 30.1 L (40.0-50.0) % MCV 101.7 H (80-95) fL MCH 33.1 H (27.0-33.0) pg RDW 18.0 H (11.8-14.1) % Absolute Neutrophils 9.09 H (1.2-6.7) k/cumm Sodium 150 H (136-145) mmol/L Potassium 2.5 L* (3.5-5.1) mmol/L Chloride 113 H (98-107) mmol/L BUN 24 H (7-18) mg/dL Glucose 124 H (74-106) mg/dL Calcium 8.4 L (8.5-10.1) mg/dL C-Reactive Protein 8.62 H (0.0-0.3) mg/dL Vital Signs Temperature 97.5 F L 08/16/19 10:02 Temperature Source Temporal Artery Scan 08/15/19 15:00 Pulse 72 08/16/19 09:01 Pulse Rhythm Regular 08/13/19 15:30 Pulse 69 08/16/19 10:00 Respiratory Rate 21 08/16/19 10:02 Respiratory Effort Labored 08/16/19 10:02 Respiratory Depth Normal 08/16/19 10:02 Respiratory Pattern Normal 08/16/19 10:02 Blood Pressure 108/58 L 08/16/19 10:02 Blood Pressure Mean 74 08/16/19 10:02 Blood Pressure Position Left Lateral 08/15/19 15:00 Pulse Oximetry 94 L 08/16/19 10:02 Oxygen Delivery Method Bi-pap 08/16/19 10:02 Oxygen Flow Rate 60 08/16/19 10:02 Fraction of Inspired Oxygen (FIO2) 60 08/16/19 08:11 Pain Level 0 08/16/19 10:02 Comment 08/13/19 15:40 Intake & Output 08/15/19 08/15/19 08/16/19 11:59 23:59 11:59 Intake Total 280.584 / 580.584 300 / 580.584 100 / 100 Output Total 1700 / 3325 1625 / 3325 800 / 800 Balance -1419.416 / -2744.416 -1325 / -2744.416 -700 / -700 Weight 403 lb 7.135 oz Intake: IV 280.584 / 580.584 300 / 580.584 100 / 100 Oral 0 / 0 0 / 0 Output: Urine 1700 / 3325 1625 / 3325 800 / 800 Other: Urine Color Pale Pale Yellow Yellow Yellow Urine Appearance Clear Clear Clear Comment Kimball catheter intact and draining clear pale yellow urine. Lasix drip currently at 2.5 cc/hr. Kimball catheter intact and draining clear pale yellow urine. Lasix drip currently at 2.5 cc/hr. Kimball catheter intact and draining clear pale yellow urine. Laboratory Results WBC 11.58 k/cumm (4.4-10.8) H 08/16/19 07:20 RBC 2.96 m/cumm (4.50-6.00) L 08/16/19 07:20 Hgb 9.8 g/dL (13.5-17.5) L 08/16/19 07:20 Hct 30.1 % (40.0-50.0) L 08/16/19 07:20 MCV 101.7 fL (80-95) H 08/16/19 07:20 MCH 33.1 pg (27.0-33.0) H 08/16/19 07:20 MCHC 32.6 g/dL (32.0-36.0) 08/16/19 07:20 RDW 18.0 % (11.8-14.1) H 08/16/19 07:20 Plt Count 230 x1000/uL (130-400) 08/16/19 07:20 MPV 9.5 fL (8.0-11.0) 08/16/19 07:20 Immature Gran % 3.5 % 08/16/19 07:20 Neutrophils % 78.5 08/16/19 07:20 Band Neutrophils % 2.0 % 08/12/19 06:05 Lymphocytes % 14.1 08/16/19 07:20 Atypical Lymphs % 1 08/12/19 06:05 Monocytes % 3.6 08/16/19 07:20 Eosinophils % 0.2 08/16/19 07:20 Basophils % 0.1 08/16/19 07:20 Metamyelocytes % 3.0 % 08/15/19 05:58 Myelocytes % 2.0 % 08/14/19 06:10 Absolute Neutrophils 9.09 k/cumm (1.2-6.7) H 08/16/19 07:20 Absolute Lymphocytes 1.63 k/cumm (1.2-3.4) 08/16/19 07:20 Absolute Monocytes 0.42 k/cumm (0.11-0.7) 08/16/19 07:20 Absolute Eosinophils 0.02 k/cumm (0.0-0.7) 08/16/19 07:20 Absolute Basophils 0.01 k/cumm (0.0-0.2) 08/16/19 07:20 Differential Comment Diff reviewed 08/15/19 05:58 RBC Morphology See below 08/15/19 05:58 Polychromasia Present 08/15/19 05:58 Hypochromasia 3+ 08/14/19 06:10 Poikilocytosis 2+ 08/15/19 05:58 Basophilic Stippling Present 08/15/19 05:58 Anisocytosis 2+ 08/15/19 05:58 Macrocytosis 2+ 08/15/19 05:58 Target Cells 2+ 08/14/19 06:10 Retic Count 2.7 % (0.5-2.4) H 08/12/19 06:05 PT 11.8 sec (9.3-11.0) H 08/06/19 15:55 INR 1.2 (0.9-1.1) H 08/06/19 15:55 APTT 25.3 sec (21.0-31.4) 08/06/19 15:55 VBG pH 7.34 (7.35-7.45) L 08/13/19 15:55 VBG pCO2 47 mm/Hg (34-47) 08/13/19 15:55 VBG pO2 57 mm/Hg (28-44) H 08/13/19 15:55 VBG HCO3 25 mmol/L (22-28) 08/13/19 15:55 VBG Total CO2 24 mmol/L (22-29) 08/13/19 15:55 VBG O2 Saturation 91 % (70-80) H 08/13/19 15:55 VBG Base Excess -0.8 mmol/L (-3-3) 08/13/19 15:55 Sodium 150 mmol/L (136-145) H 08/16/19 07:20 Potassium 2.5 mmol/L (3.5-5.1) L* 08/16/19 07:20 Chloride 113 mmol/L (98-107) H 08/16/19 07:20 Carbon Dioxide 26.9 mmol/L (21.0-32.0) 08/16/19 07:20 Anion Gap 10.1 mmol/L (3-11) 08/16/19 07:20 BUN 24 mg/dL (7-18) H 08/16/19 07:20 Creatinine 1.24 mg/dL (0.70-1.30) 08/16/19 07:20 Estimated GFR/1.73 m2 59.07 (mL/min/1.73m2) 08/16/19 07:20 Glucose 124 mg/dL (74-106) H 08/16/19 07:20 Lactate 0.8 mmol/L (0.6-1.4) 08/07/19 12:53 Calcium 8.4 mg/dL (8.5-10.1) L 08/16/19 07:20 Magnesium 1.9 mg/dL (1.8-2.4) 08/16/19 07:20 Iron 75 ug/dL (65-175) 08/12/19 06:05 TIBC 83 ug/dL (250-450) L 08/12/19 06:05 Transferrin % Sat 90 % (20-55) H 08/12/19 06:05 Ferritin 763 ng/mL (26-388) H 08/12/19 06:05 Total Bilirubin 0.6 mg/dL (0.2-1.0) 08/07/19 12:53 AST 60 U/L (15-37) H 08/07/19 12:53 ALT 26 U/L (16-63) 08/07/19 12:53 Alkaline Phosphatase 99 U/L (46-116) 08/07/19 12:53 Troponin I < 0.05 ng/Ml (<0.06) 08/09/19 21:15 C-Reactive Protein 8.62 mg/dL (0.0-0.3) H 08/16/19 07:20 NT-Pro-B Natriuret Pep 65402 pg/mL (<300) H 08/12/19 06:05 Total Protein 4.8 g/dL (6.4-8.2) L 08/07/19 12:53 Albumin 1.7 g/dL (3.4-5.0) L 08/07/19 12:53 Vitamin B12 1095 pg/mL (193-986) H 08/12/19 06:05 Folate 1.6 ng/mL (8.6-20.0) L 08/12/19 06:05 Procalcitonin 0.1 ng/mL 08/15/19 05:58 TSH < 0.01 uIU/mL (0.36-3.74) L 08/06/19 15:55 Free T4 1.45 ng/dL (0.76-1.46) 08/06/19 15:55 Cortisol 13 ug/dL (See Note) 08/06/19 15:55 Urine Color Miranda (Yellow) 08/06/19 16:13 Urine Clarity Cloudy (Clear) 08/06/19 16:13 Urine pH 5.5 (5-8) 08/06/19 16:13 Ur Specific [place] >= 1.030 (1.005-1.025) H 08/06/19 16:13 Urine Protein Negative mg/dL (Negative) 08/06/19 16:13 Urine Ketones Negative mg/dL (Negative) 08/06/19 16:13 Urine Blood Negative (Negative) 08/06/19 16:13 Urine Nitrite Negative (Negative) 08/06/19 16:13 Urine Bilirubin Small (Negative) H 08/06/19 16:13 Urine Urobilinogen 0.2 EU/dL (Up TO 0.2) 08/06/19 16:13 Ur Leukocyte Esterase Small (Negative) H 08/06/19 16:13 Urine RBC 0-2 HPF (0-2) 08/06/19 16:13 Urine WBC 10-20 HPF (0-5) H 08/06/19 16:13 Ur Epithelial Cells Few HPF (Negative) 08/06/19 16:13 Urine Crystals Many amorphous HPF (Negative) 08/06/19 16:13 Urine Bacteria Packed HPF (Negative) 08/06/19 16:13 Urine Mucus (Negative) 08/06/19 16:13 Ur Culture Indicated? Yes 08/06/19 16:13 Urine Glucose Negative mg/dL (Negative) 08/06/19 16:13 Vancomycin Trough 27.1 ug/mL (10.0-20.0) H* 08/11/19 15:10
--- NOTE | 2019-08-16 12:51 | CHAPLAIN ---
Prakash's daughters and a few other women, are visiting with him when I stopped in. I introduced myself and explained my role. His daughter, Terri, said that Prakash's nurse, Terri RN, let them know I was available to them. We joked about there being three Cassidy in the some room. Prakash's daughters drove over from [facility]. According to Dr. Pacheco's notes, they will be talking with Prakash today about having him receive comfort measures only. I will continue to check in with Prakash and his daughters. They are aware that independent living instructor is here for them at all times.
[2019-08-17 08:25] VITALS: O2SAT 91
[2019-08-17] MEDS: Normal Saline Flush 10 ML SYR IVP ×3 (09:08→20:59)
[2019-08-17] MEDS: Normal Saline Flush 10 ML SYR 30 ML IVP ×2 (09:19→09:41)
[2019-08-17] MEDS: Pantoprazole 40 MG VIAL IVP (09:19)
[2019-08-17] MEDS: Nystatin POWDER 60 GM JAR TP (09:19)
[2019-08-17] MEDS: MORPHine 2 MG/ML SYR IVP (09:42)
[2019-08-17] MEDS: LORazepam 2 MG/ML VIAL 1 MG IVP (09:42)
--- NOTE | 2019-08-17 10:54 | W.PM.PROGNOT ---
Date of Service Date of service: 08/17/19 Time of Service: 10:54 Assessment and Plan Assessment and plan (1) Encephalopathy acute: Status: Acute Assessment and plan: comfort measures only, has started morphine drip and is more comfortable. continue to titrate as needed. (2) Discharge planning issues: Status: Acute Assessment and plan: plan is to stay here for end of life care. Subjective Subjective Patient reports: still having pain Interval history since last seen: patient now resting quietly after receiving morphine and morphine drip. he is obtunded and resting comfortably on my exam. Exam Const Nutritional Appearance: obese morbidly obese Orientation: obtunded Chest Chest: normal inspection of the chest Resp Effort & Inspection: normal respiratory effort GI Inspection: large pannus and obesity Palpation: soft Neuro General: obtunded Extrem General: edema Laterality: bilateral Objective Objective Clinical Data: Vital Signs Temperature 36.4 C L 08/16/19 10:02 Temperature Source Temporal Artery Scan 08/15/19 15:00 Pulse 69 08/16/19 10:44 Pulse Rhythm Regular 08/13/19 15:30 Pulse 75 08/16/19 12:00 Respiratory Rate 18 08/16/19 12:00 Respiratory Effort Non-Labored 08/16/19 20:20 Respiratory Depth Shallow 08/16/19 20:20 Respiratory Pattern Normal 08/16/19 20:20 Blood Pressure 108/58 L 08/16/19 10:02 Blood Pressure Mean 74 08/16/19 10:02 Blood Pressure Position Left Lateral 08/15/19 15:00 Pulse Oximetry 91 L 08/17/19 08:25 Oxygen Delivery Method Hi Flow Nasal Cannula 08/17/19 08:25 Oxygen Flow Rate 8 08/17/19 08:25 Fraction of Inspired Oxygen (FIO2) 60 08/16/19 10:45 Pain Level 0 08/16/19 15:40 Comment 08/13/19 15:40 Intake & Output 08/16/19 08/16/19 08/17/19 11:59 23:59 11:59 Intake Total 100 / 110 10 / 110 550.416 / 550.416 Output Total 800 / 800 500 / 500 Balance -700 / -690 10 / -690 50.416 / 50.416 Intake: IV 100 / 110 10 / 110 550.416 / 550.416 Output: Urine 800 / 800 500 / 500 Other: Urine Color Yellow Yellow Urine Appearance Clear Clear Clear Comment Kimball catheter intact and draining clear pale yellow urine. Laboratory Results WBC 11.58 k/cumm (4.4-10.8) H 08/16/19 07:20 RBC 2.96 m/cumm (4.50-6.00) L 08/16/19 07:20 Hgb 9.8 g/dL (13.5-17.5) L 08/16/19 07:20 Hct 30.1 % (40.0-50.0) L 08/16/19 07:20 MCV 101.7 fL (80-95) H 08/16/19 07:20 MCH 33.1 pg (27.0-33.0) H 08/16/19 07:20 MCHC 32.6 g/dL (32.0-36.0) 08/16/19 07:20 RDW 18.0 % (11.8-14.1) H 08/16/19 07:20 Plt Count 230 x1000/uL (130-400) 08/16/19 07:20 MPV 9.5 fL (8.0-11.0) 08/16/19 07:20 Immature Gran % 3.5 % 08/16/19 07:20 Neutrophils % 78.5 08/16/19 07:20 Band Neutrophils % 2.0 % 08/12/19 06:05 Lymphocytes % 14.1 08/16/19 07:20 Atypical Lymphs % 1 08/12/19 06:05 Monocytes % 3.6 08/16/19 07:20 Eosinophils % 0.2 08/16/19 07:20 Basophils % 0.1 08/16/19 07:20 Metamyelocytes % 3.0 % 08/15/19 05:58 Myelocytes % 2.0 % 08/14/19 06:10 Absolute Neutrophils 9.09 k/cumm (1.2-6.7) H 08/16/19 07:20 Absolute Lymphocytes 1.63 k/cumm (1.2-3.4) 08/16/19 07:20 Absolute Monocytes 0.42 k/cumm (0.11-0.7) 08/16/19 07:20 Absolute Eosinophils 0.02 k/cumm (0.0-0.7) 08/16/19 07:20 Absolute Basophils 0.01 k/cumm (0.0-0.2) 08/16/19 07:20 Differential Comment Diff reviewed 08/15/19 05:58 RBC Morphology See below 08/15/19 05:58 Polychromasia Present 08/15/19 05:58 Hypochromasia 3+ 08/14/19 06:10 Poikilocytosis 2+ 08/15/19 05:58 Basophilic Stippling Present 08/15/19 05:58 Anisocytosis 2+ 08/15/19 05:58 Macrocytosis 2+ 08/15/19 05:58 Target Cells 2+ 08/14/19 06:10 Retic Count 2.7 % (0.5-2.4) H 08/12/19 06:05 PT 11.8 sec (9.3-11.0) H 08/06/19 15:55 INR 1.2 (0.9-1.1) H 08/06/19 15:55 APTT 25.3 sec (21.0-31.4) 08/06/19 15:55 VBG pH 7.34 (7.35-7.45) L 08/13/19 15:55 VBG pCO2 47 mm/Hg (34-47) 08/13/19 15:55 VBG pO2 57 mm/Hg (28-44) H 08/13/19 15:55 VBG HCO3 25 mmol/L (22-28) 08/13/19 15:55 VBG Total CO2 24 mmol/L (22-29) 08/13/19 15:55 VBG O2 Saturation 91 % (70-80) H 08/13/19 15:55 VBG Base Excess -0.8 mmol/L (-3-3) 08/13/19 15:55 Sodium Cancelled 08/16/19 16:00 Potassium Cancelled 08/16/19 16:00 Chloride Cancelled 08/16/19 16:00 Carbon Dioxide Cancelled 08/16/19 16:00 Anion Gap Cancelled 08/16/19 16:00 BUN Cancelled 08/16/19 16:00 Creatinine Cancelled 08/16/19 16:00 Estimated GFR/1.73 m2 Cancelled 08/16/19 16:00 Glucose Cancelled 08/16/19 16:00 Lactate 0.8 mmol/L (0.6-1.4) 08/07/19 12:53 Calcium Cancelled 08/16/19 16:00 Magnesium 1.9 mg/dL (1.8-2.4) 08/16/19 07:20 Iron 75 ug/dL (65-175) 08/12/19 06:05 TIBC 83 ug/dL (250-450) L 08/12/19 06:05 Transferrin % Sat 90 % (20-55) H 08/12/19 06:05 Ferritin 763 ng/mL (26-388) H 08/12/19 06:05 Total Bilirubin 0.6 mg/dL (0.2-1.0) 08/07/19 12:53 AST 60 U/L (15-37) H 08/07/19 12:53 ALT 26 U/L (16-63) 08/07/19 12:53 Alkaline Phosphatase 99 U/L (46-116) 08/07/19 12:53 Troponin I < 0.05 ng/Ml (<0.06) 08/09/19 21:15 C-Reactive Protein 8.62 mg/dL (0.0-0.3) H 08/16/19 07:20 NT-Pro-B Natriuret Pep 48409 pg/mL (<300) H 08/12/19 06:05 Total Protein 4.8 g/dL (6.4-8.2) L 08/07/19 12:53 Albumin 1.7 g/dL (3.4-5.0) L 08/07/19 12:53 Vitamin B12 1095 pg/mL (193-986) H 08/12/19 06:05 Folate 1.6 ng/mL (8.6-20.0) L 08/12/19 06:05 Procalcitonin 0.1 ng/mL 08/15/19 05:58 TSH < 0.01 uIU/mL (0.36-3.74) L 08/06/19 15:55 Free T4 1.45 ng/dL (0.76-1.46) 08/06/19 15:55 Cortisol 13 ug/dL (See Note) 08/06/19 15:55 Urine Color Miranda (Yellow) 08/06/19 16:13 Urine Clarity Cloudy (Clear) 08/06/19 16:13 Urine pH 5.5 (5-8) 08/06/19 16:13 Ur Specific [place] >= 1.030 (1.005-1.025) H 08/06/19 16:13 Urine Protein Negative mg/dL (Negative) 08/06/19 16:13 Urine Ketones Negative mg/dL (Negative) 08/06/19 16:13 Urine Blood Negative (Negative) 08/06/19 16:13 Urine Nitrite Negative (Negative) 08/06/19 16:13 Urine Bilirubin Small (Negative) H 08/06/19 16:13 Urine Urobilinogen 0.2 EU/dL (Up TO 0.2) 08/06/19 16:13 Ur Leukocyte Esterase Small (Negative) H 08/06/19 16:13 Urine RBC 0-2 HPF (0-2) 08/06/19 16:13 Urine WBC 10-20 HPF (0-5) H 08/06/19 16:13 Ur Epithelial Cells Few HPF (Negative) 08/06/19 16:13 Urine Crystals Many amorphous HPF (Negative) 08/06/19 16:13 Urine Bacteria Packed HPF (Negative) 08/06/19 16:13 Urine Mucus (Negative) 08/06/19 16:13 Ur Culture Indicated? Yes 08/06/19 16:13 Urine Glucose Negative mg/dL (Negative) 08/06/19 16:13 Vancomycin Trough 27.1 ug/mL (10.0-20.0) H* 08/11/19 15:10
[2019-08-17] MEDS: MORPHine 250 MG in Normal Saline 245 ML IV (10:55)
--- NOTE | 2019-08-17 15:25 | CHAPLAIN ---
Prakash was moved to the med/surg floor yesterday. His daughters Terri and Shobha are here today. Another daughter, (Marti?) was here this morning. It's about a [address] for all of them to get here. They have been teary today while talking about their dad dying. Terri asks if she made the right decision to have Prakash receive comfort measures only. In an effort to reassure her, we talked about her conversation with Dr. Pacheco and why the decision was made. Terri states that Prakash fell through the cracks and wasn't treated fairly by the system. He had been in a family [facility] and then after being hospitalized at [facility] was transferred to the [facility] after other facilities closer to his daughters declined to accept him. Today Terri tells me that there is another daughter, but she has not been involved with the family for many years, and that her mother left when she was [age]. She said her father has talked about seeing his parents again, and told Terri he was going home. Terri said she believes he will tonight. After having an episode of significant pain, Prakash's nurse Allison, INES, adjusted his medication after conferring with the wound nurse and Dr. Ang, and Prakash has been comfortable this afternoon, even when nurses adjusted his position. Terri and her sister are relieved about the pain control. I let the family know that a agile java developer is available at any time.
--- NOTE | 2019-08-17 17:31 | PDOC.CMPRO ---
- If Service Date Differs Date of service: 08/17/19 Time of Service: 17:31 Care Management Progress Note S/O: CM met with patient and his daughters in the room, Prakash is having a significant amount of pain today his daughter Terri is tearful and concerned that he is so uncomfortable. Prakash was started on Morphine IV for symptom management and he is able to acknowledge to CM and his family he was more comfortable. CM, provider and azam provided support to patient and family. CM reviewed benefits from the state as a medicaid disabled, patient as well as the home support and process. Terri (daughter) was able to identify home and express Prakash's wishes which included cremation. Daughter Terri should be contacted when Prakash dies at the home phone number if no answer please try her cell phone. Terri's contact numbers are cell [phone] and home [phone] A: Prakash is a 63 year old male admitted to [facility] on 08/07/2019 with hypotension, dehydration, askew-hypopituitarism, and Sepsis. He is now comfort measures only. P: Prakash will remain here at [facility] for end of life care. Palliative/Hospice to continue to follow. Prakash is receiving IV continuos morphine with bolus for pain control and symptom management. Greg Murray to be contacted when Prakash dies, at [phone] the family will not come in when Prakash dies. home to be contacted [facility] at [phone] please include bariatric need when calling CM will continue to follow and support patient and family during hospitalization.
--- NOTE | 2019-08-18 14:59 | DSE_ITS ---
Date of service: 08/18/19 DS: Diagnosis Discharge Diagnosis (1) Acute and chronic respiratory failure with hypoxia: Status: Acute (2) Encephalopathy acute: Status: Acute (3) Pneumonia: Status: Acute (4) Pulmonary hypertension: Status: Acute (5) Diabetes mellitus: Status: Chronic (6) Panhypopituitarism: Status: Chronic (7) DOUG (obstructive sleep apnea): Status: Chronic (8) SVT (supraventricular tachycardia): Status: Chronic (9) Adrenal insufficiency: Status: Chronic Discharge Plan Disposition Patient Disposition: Condition: Stable Discharge Details Chief Complaint: GenMedical Clinical Impression: Hypotension, Abdominal pain, Vomiting Reason For Visit: HYPOTENSION,DEHYDRATION,CALDERON-HYPOPITUITARISM Admit Date/Time: 08/07/19 09:42 Admit Provider: Jasson Cavazos Attending Provider: Jasson Cavazos Primary Care Provider: Mari Jackson ED Provider: Margoth Perez Hospital Course Hospital Course: This is a 63-year-old man with multiple multiple comorbidities including morbid obesity, diabetes, hypoxia, pneumonia, CAD, weeping edema, skin breakdown, chronic pain, sleep apnea, and hypotension who presented to the ED from the [facility] with altered mental status and vomiting. he was found to be hypotensive. 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 After work up it was thought he was acutely ill most likely viral gastroenteritis with projectile vomiting and exacerbation of his pituitary dysfunction with adrenal insufficiency during the stress. His hypotension was most likely secondary to this and he also appeared to be dehydrated with his creatinine elevated from his baseline. His urine did reveal a possible UTI and he is covered with Rocephin. He was also found to have pneumonia. During the course of his hospitalization there was concern by his family that aggressive care should be continued. Staff was concerned that aggressive care was not in Prakash's best interest. He did not respond as expected to the treatment and at the family request a palliative care consult was placed. He was made comfort measures only as any ongoing care was thought to be futile. His family remained at this bedside and he was kept comfortable on a morphine drip with prn ativan and bolus morphine as needed. he and routine post mortum care performed. he was received to home as designated by family. Discharge Data Discharge Date/Time-TO BE ENTERED AT DEPARTURE: 08/18/19 02:25 DS: Summary Status at Discharge Functional status at discharge: bed bound Overall status at discharge: other Mental Status: other Speech and Movement: other (patient ) Mood: other Affect: other Exam Psych Mental Status: other Speech and Movement: other (patient ) Mood: other Affect: other DS: Data Vitals/I&O Vitals and I&O: Vital Signs Temperature 36.4 C L 08/16/19 10:02 Temperature Source Temporal Artery Scan 08/15/19 15:00 Pulse 69 08/16/19 10:44 Pulse Rhythm Regular 08/13/19 15:30 Pulse 75 08/16/19 12:00 Respiratory Rate 18 08/16/19 12:00 Respiratory Effort Non-Labored 08/17/19 19:25 Respiratory Depth Deep 08/17/19 19:25 Respiratory Pattern Bradypnea 08/17/19 19:25 Blood Pressure 108/58 L 08/16/19 10:02 Blood Pressure Mean 74 08/16/19 10:02 Blood Pressure Position Left Lateral 08/15/19 15:00 Pulse Oximetry 91 L 08/17/19 08:25 Oxygen Delivery Method Hi Flow Nasal Cannula 08/17/19 08:25 Oxygen Flow Rate 8 08/17/19 08:25 Fraction of Inspired Oxygen (FIO2) 60 08/16/19 10:45 Pain Level 10 08/17/19 11:34 Comment 08/13/19 15:40 Intake & Output 08/17/19 08/18/19 08/18/19 23:59 11:59 23:59 Intake Total 21.55 / 572.933 Balance 21.55 / 72.933 Intake: IV 21.55 / 572.933 Other: Urine Appearance Clear Data Completed and Pending Labs on day of discharge: Preliminary micro results at discharge 08/13/19 17:34 Blood Culture - Preliminary Blood NO GROWTH 96 HOURS 08/13/19 17:25 Blood Culture - Preliminary Blood NO GROWTH 96 HOURS [facility] Medical History Acute UTI (urinary tract infection) (Acute) Adrenal insufficiency (Chronic) Bacteremia (Ruled-out) Brain cancer (Chronic) Constipation (Acute) Difficult intravenous access (Acute) GERD (gastroesophageal reflux disease) (Chronic) HCAP (healthcare-associated pneumonia) (Inactive) Left lower lobe History of brain tumor (Chronic) Lung cancer (Chronic) Lymphedema of both lower extremities (Acute) Morbid obesity (Acute) Morbid obesity with BMI of 70 and over, adult (Chronic) Nonsustained paroxysmal supraventricular tachycardia (Acute) Obesity hypoventilation syndrome (Chronic) Open wound of right lower extremity (Acute) DOUG (obstructive sleep apnea) (Chronic) Panhypopituitarism (Acute) Pneumonia (Acute) Pulmonary hypertension (Chronic) Sepsis (Acute) Toxic metabolic encephalopathy (Inactive) Wound of left lower extremity (Acute) Surgical History History of craniotomy (Acute) Social History Smoking/Tobacco Use Status: Former Tobacco Use Alcohol Intake: former Substance use type: does not use Details: per pt I Drank like a fish Do you feel safe in your relationship?: Yes Additional Social history: [facility]
--- NOTE | 2019-08-18 15:15 | W.PM.DDS ---
Date of service: 08/18/19 Discharge Sum: Prov Provider Consults: 08/07/19 11:00 Surgical Consult [CONS] Routine Consulting Provider: Shanti Morales Consultation Status:: Contact made by Clarification:: Manage/follow per spec. Reason for consult:: 63 yo M, hypotensive, poor IV access. Also clinical SBO, unable to get imaging. 08/08/19 07:45 Palliative Care Consult [CONS] Routine Consultation Status:: Follow-up needed Clarification:: Manage/follow per spec. Reason for consult:: 63 yo M, bedbound at [facility] with BMI 67, in ICU with sepsis. Generally not cooperative with care. Seen October 2018 by palliative. Please help readdress goals of care with patient and daughters 08/09/19 08:11 Wound Care Consult [CONS] Routine Consultation Status:: Follow-up needed Clarification:: Manage/follow per spec. Reason for consult:: Evaluate and treat stasis ulcers 08/10/19 09:11 PICC Consult [CONS] Routine Comment: Consultation Status:: Follow-up needed Clarification:: Manage/follow per spec. Reason for consult:: placement of PICC/midline for continued antibiotic use and to facilitate removal of CVP line 08/10/19 09:59 Podiatry Consult [CONS] Routine Consulting Provider: Newton Ross Consultation Status:: Follow-up needed Clarification:: Manage/follow per spec. Reason for consult:: evaluate and treat nails Discharge Sum: Diag Contributing Factors (1) Acute and chronic respiratory failure with hypoxia: (2) Encephalopathy acute: (3) Pneumonia: (4) Pulmonary hypertension: (5) Diabetes mellitus: (6) Panhypopituitarism: (7) DOUG (obstructive sleep apnea): (8) SVT (supraventricular tachycardia): (9) Adrenal insufficiency: Discharge Sum: Summary Summary Details: see discharge summary Additional Data Was code activated?: No Autopsy requested?: No corporate claims examiner notified?: No
== END 2019-08-18 02:25 | disposition expired | DRG 314 ==
LOC: ER 19:23 → ICU 19:37 → MS 08-16 23:11 → ICU 08-19 11:29
PROVIDERS: Family Medicine; General Practice; Internal Medicine; Surgery; Admitting Provider Family Medicine; Emergency Provider Physician Assistant; PCP Family Medicine; Visit Provider Internal Medicine
DX: I95.89 Other hypotension (principal); J96.21 Acute and chronic respiratory failure with hypoxia; A41.9 Sepsis, unspecified organism; R65.21 Severe sepsis with septic shock; N17.0 Acute kidney failure with tubular necrosis; J69.0 Pneumonitis due to inhalation of food and vomit; G93.40 Encephalopathy, unspecified; Z68.44 Body mass index [BMI] 60.0-69.9, adult; E27.40 Unspecified adrenocortical insufficiency; N39.0 Urinary tract infection, site not specified; E66.2 Morbid (severe) obesity with alveolar hypoventilation; R44.3 Hallucinations, unspecified; L97.919 Non-pressure chronic ulcer of unspecified part of right lower leg with unspecified severity; L97.929 Non-pressure chronic ulcer of unspecified part of left lower leg with unspecified severity; I47.1 Supraventricular tachycardia; A08.4 Viral intestinal infection, unspecified; E86.0 Dehydration; I50.9 Heart failure, unspecified; Z85.841 Personal history of malignant neoplasm of brain; E89.3 Postprocedural hypopituitarism; Y83.8 Other surgical procedures as the cause of abnormal reaction of the patient, or of later complication, without mention of misadventure at the time of the procedure; Z51.5 Encounter for palliative care; K21.9 Gastro-esophageal reflux disease without esophagitis; Z71.3 Dietary counseling and surveillance; I27.20 Pulmonary hypertension, unspecified; E11.622 Type 2 diabetes mellitus with other skin ulcer; I70.235 Atherosclerosis of native arteries of right leg with ulceration of other part of foot; L97.519 Non-pressure chronic ulcer of other part of right foot with unspecified severity; L03.031 Cellulitis of right toe; Z87.891 Personal history of nicotine dependence; E11.9 Type 2 diabetes mellitus without complications; Z78.9 Other specified health status; I89.0 Lymphedema, not elsewhere classified; R40.2423 Glasgow coma scale score 9-12, at hospital admission; I83.009 Varicose veins of unspecified lower extremity with ulcer of unspecified site; L89.899 Pressure ulcer of other site, unspecified stage; Z78.1 Physical restraint status; Z79.4 Long term (current) use of insulin; B35.1 Tinea unguium; Z74.01 Bed confinement status; R68.0 Hypothermia, not associated with low environmental temperature; L98.491 Non-pressure chronic ulcer of skin of other sites limited to breakdown of skin
CPT/HCPCS: 36415; 36416; 36592; 76942; 80048; 80053; 82533; 82805; 82962; 84145; 85027; 87040; 87077; 87081; 87449; 92526; 92610; 93005; 96361; 96365; 96366; 96375; 96376; 97163; 99220; 99232; 99233; 99238; 99254; 99255; 99285; 99291; 70450; 71045; 80202; 81003; 81015; 82607; 82728; 82746; 83540; 83550; 83605; 83735; 83880; 84132; 84439; 84443; 84484; 85025; 85045; 85610; 85730; 86140; 87086; 87186; 93010; 94640; 94660; J0696; J0713; J1644; J1720; J1940; J1941; J1956; J2060; J2250; J2270; J2405; J2543; J3370; J3480; J3490; J7613